=== PATIENT | male | born 1930 | race Hispanic/Latino ===

== ENCOUNTER 2016-12-20 22:14 | Emergency (ER) | payer MEDICARE ==
--- NOTE | 2016-12-20 23:46 | Emergency Department Report ---
ED General Adult HPI - General Chief complaint: Upper Respiratory Infection Stated complaint: COUGHING UP BLOOD Time Seen by Provider: 12/20/16 23:16 Source: patient, EMS Mode of arrival: Stretcher Limitations: Physical Limitation - History of Present Illness Initial comments: 86-year-old male presents to the emergency department via EMS for evaluation of coughing up blood. Patient states he has been having cough for possible he 4 days. He had a small amount of blood yesterday. Today, reports a lot more blood. She estimates approximately one cup of blood that has been coughed up in total. Blood is described as bright red with occasional dark blood. Patient denies chest pain. He does report sore throat from repeated coughing. He also denies difficulty breathing. There has been no fever. There are no other complaints. -: Gradual, days(s) (1) Location: chest Severity scale (0 -10): 0 Consistency: intermittent Improves with: none Worsens with: none Associated Symptoms: denies other symptoms Treatments Prior to Arrival: none - Related Data Home Medications Medication Instructions Recorded Confirmed Last Taken Aspirin [Adult Low Dose Aspirin EC] 81 mg PO DAILY 06/25/16 06/25/16 06/25/16 Bisacodyl [Dulcolax suppos] 10 mg PO DAILY 06/25/16 06/26/16 Unknown Cholecalciferol Vit D3 [Vitamin D3] 1,000 unit PO QDAY 06/25/16 06/25/16 Docusate Sodium [Move It Along] 100 mg PO BID 06/25/16 06/25/16 Unknown Finasteride [Proscar] 1 tab PO DAILY 06/25/16 06/25/16 06/25/16 Folic Acid [Folvite] 1 mg PO QDAY 06/25/16 06/25/16 06/25/16 HYDROcodone/APAP 5-325 [[place] 1 tab PO Q4H 06/25/16 06/25/16 Unknown 5-325 mg TAB] Metoprolol Tartrate [Lopressor] 50 mg PO BID 06/25/16 06/25/16 06/25/16 Multivitamin Tab [Multiple Vitamin 1 tab PO DAILY 06/25/16 06/25/16 06/25/16 TAB (Theragran)] Polyethylene Glycol 3350 [Miralax 17 gm PO QDAY 06/25/16 06/25/16 Unknown 3350] Pravachol 20 mg PO HS 06/25/16 06/26/16 06/24/16 [place] Xt/Phytosterol #2 1 each PO BID 06/25/16 06/25/16 Unknown [Prostate Sr Softgel] Tamsulosin [Flomax] 0.4 mg PO QDAY 06/25/16 06/25/16 06/25/16 amLODIPine [Norvasc] 5 mg PO DAILY 06/25/16 06/25/16 06/25/16 Previous Rx's Medication Instructions Recorded Last Taken Type Levofloxacin [Levaquin TAB] 500 mg PO QDAY #10 tablet 12/21/16 Unknown Rx Allergies Allergy/AdvReac Type Severity Reaction Status Date / Time Penicillins AdvReac Unknown TOO LONG Unverified 11/21/13 10:36 AGO Sulfa (Sulfonamide AdvReac Unknown TOO LONG Unverified 11/21/13 10:36 Antibiotics) AGO ED Review of Systems ROS: Stated complaint: COUGHING UP BLOOD Other details as noted in HPI Comment: All other systems reviewed and negative ENT: throat pain Respiratory: cough, other (hemoptysis) ED Past Medical Hx - Past Medical History Previous Medical History?: Yes Hx Hypertension: Yes Hx Renal Disease: Yes (Insufficiency) Additional medical history: enlarged prostate, Constipation, Difficult swallowing, Sensitive gag reflex, High cholesterol, CAD, atrial fibrillation - Surgical History Past Surgical History?: Yes Hx Open Heart Surgery: Yes (CABG) Additional Surgical History: Right hip arthroplasty - Family History Family history: no significant - Social History Smoking Status: Former Smoker Substance Use Type: Prescribed, Other - Medications Home Medications: Home Medications Medication Instructions Recorded Confirmed Last Taken Type Aspirin [Adult Low Dose Aspirin EC] 81 mg PO DAILY 06/25/16 06/25/16 06/25/16 History Bisacodyl [Dulcolax suppos] 10 mg PO DAILY 06/25/16 06/26/16 Unknown History Cholecalciferol Vit D3 [Vitamin D3] 1,000 unit PO QDAY 06/25/16 06/25/16 History Docusate Sodium [Move It Along] 100 mg PO BID 06/25/16 06/25/16 Unknown History Finasteride [Proscar] 1 tab PO DAILY 06/25/16 06/25/16 06/25/16 History Folic Acid [Folvite] 1 mg PO QDAY 06/25/16 06/25/16 06/25/16 History HYDROcodone/APAP 5-325 [[place] 1 tab PO Q4H 06/25/16 06/25/16 Unknown History 5-325 mg TAB] Metoprolol Tartrate [Lopressor] 50 mg PO BID 06/25/16 06/25/16 06/25/16 History Multivitamin Tab [Multiple Vitamin 1 tab PO DAILY 06/25/16 06/25/16 06/25/16 History TAB (Theragran)] Polyethylene Glycol 3350 [Miralax 17 gm PO QDAY 06/25/16 06/25/16 Unknown History 3350] Pravachol 20 mg PO HS 06/25/16 06/26/16 06/24/16 History [place] Xt/Phytosterol #2 1 each PO BID 06/25/16 06/25/16 Unknown History [Prostate Sr Softgel] Tamsulosin [Flomax] 0.4 mg PO QDAY 06/25/16 06/25/16 06/25/16 History amLODIPine [Norvasc] 5 mg PO DAILY 06/25/16 06/25/16 06/25/16 History Levofloxacin [Levaquin TAB] 500 mg PO QDAY #10 tablet 12/21/16 Unknown Rx ED Physical Exam - General Limitations: Physical Limitation General appearance: alert, in no apparent distress - Head Head exam: Present: atraumatic, normocephalic - Eye Eye exam: Present: normal appearance, PERRL, EOMI - ENT ENT exam: Present: normal exam, normal orophraynx, mucous membranes moist, other (dried blood noted around the lips) - Neck Neck exam: Present: normal inspection, full ROM. Absent: tenderness - Respiratory Respiratory exam: Present: normal lung sounds bilaterally. Absent: respiratory distress - Cardiovascular Cardiovascular Exam: Present: regular rate, normal rhythm, normal heart sounds - GI/Abdominal GI/Abdominal exam: Present: soft, normal bowel sounds. Absent: distended, tenderness - Extremities Exam Extremities exam: Present: normal inspection, full ROM. Absent: tenderness - Back Exam Back exam: Present: normal inspection, full ROM. Absent: tenderness - Neurological Exam Neurological exam: Present: alert, oriented X3. Absent: motor sensory deficit - Skin Skin exam: Present: warm, dry, intact ED Course Vital Signs 12/20/16 12/20/16 12/20/16 22:23 22:55 23:12 Temperature 100.1 F H 100.1 F H Pulse Rate 105 H 80 80 Respiratory 20 18 Rate Blood Pressure 123/60 126/50 Blood Pressure 126/50 [Left] O2 Sat by Pulse 95 94 94 Oximetry ED Medical Decision Making - Lab Data Result diagrams: 12/20/16 23:42 12/20/16 23:42 - EKG Data -: EKG Interpreted by Me EKG shows normal: axis, QRS complexes, ST-T waves Rate: normal - EKG Data When compared to previous EKG there are: changes noted Interpretation: other (atrial fibrillation, no ischemic changes) - Radiology Data Radiology results: report reviewed, image reviewed interpreted by me: Chest x-ray shows no acute cardiopulmonary abnormality. CT of the chest shows an infiltrate in the left lower lobe. - Medical Decision Making Lab and imaging results reviewed and discussed with the patient. Patient has a CURB-65 score of 2 placing him at moderate risk. Recommendations for treatment at this level call for consideration of inpatient management versus outpatient management with rapid follow-up. These options were discussed with the patient and family. Patient states he would like to go home. He states he will follow up with his acid blower on Wednesday. Patient will be discharged home at this time. - Differential Diagnosis hemoptysis, coagulopathy, bronchitis, pneumonia Critical care attestation.: If time is entered above; I have spent that time in minutes in the direct care of this critically ill patient, excluding procedure time. ED Disposition Clinical Impression: Pneumonia Qualifiers: Pneumonia type: due to unspecified organism Laterality: left Lung location: lower lobe of lung Qualified Code(s): J18.1 - Lobar pneumonia, unspecified organism Disposition: DISCHARGED TO HOME OR SELFCARE Is pt being admited?: No Condition: Stable Instructions: Bacterial Pneumonia (ED) Prescriptions: Levofloxacin [Levaquin TAB] 500 mg PO QDAY #10 tablet Referrals: NELL DURON MD [Staff Physician] - 3-5 Days Time of Disposition: 02:16
[2016-12-21 00:08] LABS: Hematocrit 29.8 % (35.5-45.6); Hemoglobin 9.6 gm/dl (11.8-15.2); Mean Corpuscular HGB Conc 32 % (32-34); Mean Corpuscular Hemoglobin 28 pg (28-32); Mean Corpuscular Volume 86 fl (84-94); Platelet Count 464 K/mm3 (140-440); Red Blood Count 3.46 M/mm3 (3.65-5.03); Red Cell Distribution Width 14.7 % (13.2-15.2); White Blood Count 16.4 K/mm3 (4.5-11.0)
[2016-12-21 00:09] LABS: INR 1.28 (0.87-1.13)
[2016-12-21 00:10] LABS: Partial Thromboplastin Time 36.5 Sec. (24.2-36.6)
[2016-12-21 00:17] LABS: Alanine Aminotransferase 44 units/L (7-56); Albumin 2.8 g/dL (3.9-5); Albumin/Globulin Ratio 0.7 %; Alkaline Phosphatase 136 units/L (35-129); Anion Gap 21 mmol/L; BUN/Creatinine Ratio 21.66; Blood Urea Nitrogen 26 mg/dL (9-20); Calcium 8.4 mg/dL (8.4-10.2); Carbon Dioxide 21 mmol/L (22-30); Chloride 93.8 mmol/L (98-107); Glucose 132 mg/dL (75-100); Potassium 4.3 mmol/L (3.6-5.0); Sodium 131 mmol/L (137-145)
--- NOTE | 2016-12-21 01:40 | XRay Report ---
FINAL REPORT PROCEDURE: CT CHEST WO CON TECHNIQUE: Computerized axial tomography of the chest was performed without contrast material. This study is performed without intravenous contrast and the sensitivity for pathology, including neoplasms, adenopathy, abscess, pulmonary embolism and aortic dissection, is reduced. HISTORY: JULIO, hemoptysis COMPARISON: 06/25/2016 TECHNICAL QUALITY: Satisfactory. FINDINGS: Heart and pericardium: Normal. Thoracic aorta: Moderate atherosclerosis of the aorta. The ascending aorta is slightly prominent measuring 4.3 centimeters.. Pulmonary vasculature: Normal. Lymph nodes: There are numerous enlarged lymph nodes identified throughout the mediastinum the largest measuring 2 centimeters.. Lungs: There is an infiltrate in the left lower lung. Chronic obstructive pulmonary changes with fibrosis is noted. The central airway is patent.. Pleural space: Mild pleural thickening bilateral lower lungs.. Musculoskeletal structures: Mild degenerative changes of the thoracic spine. Multiple sternal wires are present.. Upper abdominal structures: No significant abnormality. IMPRESSION: There is an infiltrate in the left lower lung. Chronic obstructive pulmonary changes with fibrosis. Numerous enlarged lymph nodes identified throughout the mediastinum with the largest measuring up to 2 centimeters. The ascending aorta measures up to 4.3 centimeters. Mild atherosclerosis of the aorta is noted..
[2016-12-21 03:14] VITALS: BP 120/55
== END 2016-12-21 02:50 | disposition home or self-care (01) ==
LOC: ED 22:14
DX: J18.1 Lobar pneumonia, unspecified organism (principal); I10 Essential (primary) hypertension; E78.00 Pure hypercholesterolemia, unspecified; I25.10 Atherosclerotic heart disease of native coronary artery without angina pectoris; Z87.891 Personal history of nicotine dependence; Z88.0 Allergy status to penicillin; Z88.2 Allergy status to sulfonamides; Z79.82 Long term (current) use of aspirin
CPT/HCPCS: 36415; 71010; 71250; 80053; 84484; 85025; 85610; 85730; 93005; 93010

== ENCOUNTER 2017-01-14 15:44 | Inpatient (IN) | payer MEDICARE ==
[2017-01-14 19:36] LABS: Hematocrit 34.6 % (35.5-45.6); Hemoglobin 11.1 gm/dl (11.8-15.2); Mean Corpuscular HGB Conc 32 % (32-34); Mean Corpuscular Hemoglobin 27 pg (28-32); Mean Corpuscular Volume 85 fl (84-94); Platelet Count 395 K/mm3 (140-440); Red Blood Count 4.09 M/mm3 (3.65-5.03); Red Cell Distribution Width 15.8 % (13.2-15.2); White Blood Count 18.2 K/mm3 (4.5-11.0)
[2017-01-14 19:58] LABS: Alanine Aminotransferase 9 units/L (7-56); Albumin 3.2 g/dL (3.9-5); Albumin/Globulin Ratio 0.7 %; Alkaline Phosphatase 91 units/L (35-129); Anion Gap 19 mmol/L; Blood Urea Nitrogen 22 mg/dL (9-20); Calcium 8.5 mg/dL (8.4-10.2); Carbon Dioxide 24 mmol/L (22-30); Glucose 95 mg/dL (75-100); Potassium 4.1 mmol/L (3.6-5.0); Sodium 135 mmol/L (137-145); Total Protein 7.9 g/dL (6.3-8.2)
[2017-01-14 20:13] LABS: Basophils % (Manual) 0 % (0.0-1.8); Blastocytes % (Manual) 0 %
[2017-01-14 20:14] LABS: Anisocytosis Few; Diff Status Complete; Eosinophils % (Manual) 0 % (0.0-4.3)
--- NOTE | 2017-01-14 21:26 | XRay Report ---
FINAL REPORT EXAM: XR RIBS UNI W PA CHEST 3 LT HISTORY: Pain in left rib area TECHNIQUE: PA view of the chest and 4 views of the left ribs PRIORS: CXR and left rib films 06/25/2016 FINDINGS: There is no evidence for acute rib fracture or other bony pathologic abnormality in the left ribs. On the chest film, there is a new moderate left pleural effusion. Underlying atelectasis in the left base cannot be excluded. There is no evidence for pneumothorax.. The cardiomediastinal silhouette is normal and stable. Median sternotomy wires are again noted. IMPRESSION: No acute abnormality in the left ribs. New moderate left pleural effusion and probable underlying atelectasis in the left base.
[2017-01-15] MEDS ORDERED: CLEOCIN 900 MG/50 mL 900 MG/50 ML BAG IV ONE (00:08)
[2017-01-15] MEDS ORDERED: VANCOMYCIN/NS 1 GM/250 ML 1 GM/250 ML BAG IV ONE (00:08)
[2017-01-15] MEDS ORDERED: MORPHINE IV ONE (00:12)
[2017-01-15] MEDS ORDERED: ZOFRAN IV ONE (00:12)
--- NOTE | 2017-01-15 00:14 | Emergency Department Report ---
HPI - General Chief Complaint: Extremity Injury, Upper Time Seen by Provider: 01/14/17 23:54 - HPI HPI: Room 22 The patient is an 86-year-old male presenting with chief complaint of left side pain. Approximately one month ago the patient was seen in this ED for hemoptysis and diagnosed with left lower lobe pneumonia. The patient was started on Levaquin and given a 10 day course which she states she completed. The patient's still however has had a cough that is occasionally productive of clear sputum. Patient denies fever. The patient states this morning he developed pain in his left side and describes it as "hurting" in nature. Patient complains of pain in the left axilla gives it a score of 8/10. Location: Left axilla Duration: 1 day Quality: "Hurt" Severity: 8/10 Modifying factors: [see above] Context: [see above] Mode of transportation: [not driving] ED Past Medical Hx - Past Medical History Previous Medical History?: Yes Hx Hypertension: Yes Hx Renal Disease: Yes (Insufficiency) Additional medical history: enlarged prostate, Constipation, Difficult swallowing, Sensitive gag reflex, High cholesterol, CAD, atrial fibrillation - Surgical History Past Surgical History?: Yes Hx Open Heart Surgery: Yes (CABG) Additional Surgical History: Right hip arthroplasty - Family History Family history: no significant - Social History Smoking Status: Never Smoker Substance Use Type: None - Medications Home Medications: Home Medications Medication Instructions Recorded Confirmed Last Taken Type Aspirin [Adult Low Dose Aspirin EC] 81 mg PO DAILY 06/25/16 01/14/17 01/14/17 History Finasteride [Proscar] 1 tab PO DAILY 06/25/16 01/14/17 01/14/17 History Folic Acid [Folvite] 1 mg PO QDAY 06/25/16 01/14/17 01/14/17 History Metoprolol Tartrate [Lopressor] 50 mg PO BID 06/25/16 01/14/17 01/14/17 History Multivitamin Tab [Multiple Vitamin 1 tab PO DAILY 06/25/16 01/14/17 01/14/17 History TAB (Theragran)] Pravachol 20 mg PO HS 06/25/16 01/14/17 01/14/17 History Tamsulosin [Flomax] 0.4 mg PO QDAY 06/25/16 01/14/17 01/14/17 History amLODIPine [Norvasc] 5 mg PO DAILY 06/25/16 01/14/17 01/14/17 History ED Review of Systems ROS: Stated complaint: RIB/SHOULDER PAIN Other details as noted in HPI Comment: All other systems reviewed and negative Constitutional: denies: fever Eyes: denies: eye pain, eye discharge, vision change ENT: denies: ear pain, throat pain Respiratory: cough Cardiovascular: denies: chest pain Endocrine: no symptoms reported Gastrointestinal: as per HPI Genitourinary: denies: urgency, dysuria Musculoskeletal: myalgia Skin: denies: rash, lesions Neurological: as per HPI Psychiatric: denies: anxiety, depression Hematological/Lymphatic: denies: easy bleeding, easy bruising Physical Exam - Physical Exam Vital Signs: Vital Signs 01/14/17 01/14/17 01/14/17 18:28 22:15 22:16 Temperature 98.4 F 99.2 F Pulse Rate 91 H 105 H 100 H Respiratory 20 25 H 32 H Rate Blood Pressure 105/45 Blood Pressure 146/59 [Right] O2 Sat by Pulse 100 99 Oximetry 01/14/17 01/14/17 01/14/17 22:21 22:31 22:41 Temperature Pulse Rate 102 H 102 H 100 H Respiratory 26 H 30 H 24 Rate Blood Pressure 146/59 146/59 146/59 Blood Pressure [Right] O2 Sat by Pulse 95 95 94 Oximetry 01/14/17 01/14/17 22:51 23:00 Temperature Pulse Rate 103 H 99 H Respiratory 30 H 24 Rate Blood Pressure 146/59 126/48 Blood Pressure [Right] O2 Sat by Pulse 94 94 Oximetry Physical Exam: GENERAL: The patient is well-developed well-nourished male lying on stretcher not appear to be in acute distress. [] HEENT: Normocephalic. Atraumatic. Extraocular motions are intact. Patient has moist mucous membranes. NECK: Supple. Trachea midline CHEST/LUNGS: Decreased breath sounds left lower lobe. There is no respiratory distress noted. HEART/CARDIOVASCULAR: Irregularly irregular. There is no tachycardia. There is no gallop rub or murmur. ABDOMEN: Abdomen is soft, nontender. Patient has normal bowel sounds. There is no abdominal distention. SKIN: There is no rash. There is no edema. There is no diaphoresis. NEURO: The patient is awake, alert, and oriented. The patient is cooperative. The patient has normal speech MUSCULOSKELETAL: There is no evidence of acute injury. ED Course Vital Signs 01/14/17 01/14/17 01/14/17 18:28 22:15 22:16 Temperature 98.4 F 99.2 F Pulse Rate 91 H 105 H 100 H Respiratory 20 25 H 32 H Rate Blood Pressure 105/45 Blood Pressure 146/59 [Right] O2 Sat by Pulse 100 99 Oximetry 01/14/17 01/14/17 01/14/17 22:21 22:31 22:41 Temperature Pulse Rate 102 H 102 H 100 H Respiratory 26 H 30 H 24 Rate Blood Pressure 146/59 146/59 146/59 Blood Pressure [Right] O2 Sat by Pulse 95 95 94 Oximetry 01/14/17 01/14/17 22:51 23:00 Temperature Pulse Rate 103 H 99 H Respiratory 30 H 24 Rate Blood Pressure 146/59 126/48 Blood Pressure [Right] O2 Sat by Pulse 94 94 Oximetry ED Medical Decision Making - Lab Data Result diagrams: 01/14/17 19:18 01/14/17 19:18 Laboratory Tests 01/14/17 01/14/17 19:18 19:18 WBC 18.2 H RBC 4.09 Hgb 11.1 L Hct 34.6 L MCV 85 MCH 27 L MCHC 32 RDW 15.8 H Plt Count 395 Add Manual Diff Complete Total Counted 100 Seg Neuts % (Manual) 83.0 H Band Neutrophils % 4.0 Lymphocytes % (Manual) 3.0 L Reactive Lymphs % (Man) 0 Monocytes % (Manual) 10.0 H Eosinophils % (Manual) 0 Basophils % (Manual) 0 Metamyelocytes % 0 Myelocytes % 0 Promyelocytes % 0 Blast Cells % 0 Nucleated RBC % Not Reportable Seg Neutrophils # Man 15.1 H Band Neutrophils # 0.7 Lymphocytes # (Manual) 0.5 L Abs React Lymphs (Man) 0.0 Monocytes # (Manual) 1.8 H Eosinophils # (Manual) 0.0 Basophils # (Manual) 0.0 Metamyelocytes # 0.0 Myelocytes # 0.0 Promyelocytes # 0.0 Blast Cells # 0.0 WBC Morphology Not Reportable Hypersegmented Neuts Not Reportable Hyposegmented Neuts Not Reportable Hypogranular Neuts Not Reportable Smudge Cells Not Reportable Toxic Granulation Not Reportable Toxic Vacuolation Not Reportable Dohle Bodies Not Reportable Pelger-Huet Anomaly Not Reportable Lore Rods Not Reportable Platelet Estimate Appears normal Clumped Platelets Not Reportable Plt Clumps, EDTA Not Reportable Large Platelets Not Reportable Giant Platelets Not Reportable Platelet Satelliting Not Reportable Plt Morphology Comment Not Reportable RBC Morphology Not Reportable Dimorphic RBCs Not Reportable Polychromasia Not Reportable Hypochromasia Not Reportable Poikilocytosis Not Reportable Anisocytosis Few Microcytosis Not Reportable Macrocytosis Not Reportable Spherocytes Not Reportable Pappenheimer Bodies Not Reportable Sickle Cells Not Reportable Target Cells Not Reportable Tear Drop Cells Not Reportable Ovalocytes Not Reportable Helmet Cells Not Reportable [place] Bodies Not Reportable [place] Rings Not Reportable Benjamin Cells Not Reportable Bite Cells Not Reportable Crenated Cell Not Reportable Elliptocytes Not Reportable Acanthocytes (Spur) Not Reportable Rouleaux Not Reportable Hemoglobin C Crystals Not Reportable Schistocytes Not Reportable Malaria parasites Not Reportable Steve Bodies Not Reportable Hem Pathologist Commnt No Sodium 135 L Potassium 4.1 Chloride 96.0 L Carbon Dioxide 24 Anion Gap 19 BUN 22 H Creatinine 1.1 Estimated GFR > 60 BUN/Creatinine Ratio 20.00 Glucose 95 Calcium 8.5 Total Bilirubin 0.60 AST 16 ALT 9 Alkaline Phosphatase 91 Total Protein 7.9 Albumin 3.2 L Albumin/Globulin Ratio 0.7 - EKG Data -: EKG Interpreted by Me Rate: tachycardia (110 bpm) - EKG Data When compared to previous EKG there are: no significant change 01/15/17 00:41 Atrial fibrillation - Radiology Data Radiology results: image reviewed (chest x-ray) interpreted by me: Chest x-ray-left lower lobe pleural effusion/consolidation - Differential Diagnosis pneumonia, pleural effusion Critical care attestation.: If time is entered above; I have spent that time in minutes in the direct care of this critically ill patient, excluding procedure time. ED Disposition Clinical Impression: Left lower lobe pneumonia, Pleural effusion, left, Failure of outpatient treatment Disposition: OP ADMIT IP TO THIS HOSP Is pt being admited?: Yes Does the pt Need Aspirin: Yes Condition: Fair Instructions: Bacterial Pneumonia (ED) Referrals: PRIMARY CARE, [Primary Care Provider] - 3-5 Days Time of Disposition: 00:16 (hospitalist notified)
[2017-01-15] MEDS ORDERED: ASPIRIN PO ONE (00:17)
--- NOTE | 2017-01-15 00:22 | History and Physical Report ---
History of Present Illness Date of examination: 01/15/17 Date of admission: Chief complaint: Left-sided pain and cough History of present illness: Patient is 86-year-old with history of hypertension, coronary artery disease and CABG, recent pneumonia. He was recentyly diagnosed with pneumonia on 12/20/16 , and was placed on Levaquin po and discharged home from ED. He completed 10 days of Levaquin. Today presents with left lower chest pain and cough. He denies fever. He therefore came to the emergency department for evaluation. In ED chest x-ray showed left pleural effusion. He was started on IV antibiotics for likely pneumonia with parapneumonic effusion, and will be admitted to medical floor. Past History Past Medical History: CAD (s/p CABG), hypertension Past Surgical History: CABG, total hip replacement (right) Social history: lives with family, full code. denies: smoking, alcohol abuse Family history: hypertension Medications and Allergies Allergies Allergy/AdvReac Type Severity Reaction Status Date / Time Penicillins AdvReac Unknown TOO LONG Unverified 11/21/13 10:36 AGO Sulfa (Sulfonamide AdvReac Unknown TOO LONG Unverified 11/21/13 10:36 Antibiotics) AGO Home Medications Medication Instructions Recorded Confirmed Last Taken Type Aspirin [Adult Low Dose Aspirin EC] 81 mg PO DAILY 06/25/16 01/14/17 01/14/17 History Finasteride [Proscar] 1 tab PO DAILY 06/25/16 01/14/17 01/14/17 History Folic Acid [Folvite] 1 mg PO QDAY 06/25/16 01/14/17 01/14/17 History Metoprolol Tartrate [Lopressor] 50 mg PO BID 06/25/16 01/14/17 01/14/17 History Multivitamin Tab [Multiple Vitamin 1 tab PO DAILY 06/25/16 01/14/17 01/14/17 History TAB (Theragran)] Pravachol 20 mg PO HS 06/25/16 01/14/17 01/14/17 History Tamsulosin [Flomax] 0.4 mg PO QDAY 06/25/16 01/14/17 01/14/17 History amLODIPine [Norvasc] 5 mg PO DAILY 06/25/16 01/14/17 01/14/17 History Active Meds: Active Medications Clindamycin HCl (Cleocin 900 Mg/50 Ml) 900 mg in 50 mls @ 100 mls/hr IV ONCE ONE Stop: 01/15/17 00:37 Vancomycin HCl (Vancomycin/Ns 1 Gm/250 Ml) 1 gm in 250 mls @ 167.007 mls/hr IV ONCE ONE PRN Reason: Protocol Stop: 01/15/17 01:37 Review of Systems All systems: negative (headache, no vomiting, no fever, no abdominal pain. All other systems reviewed and are negative) Exam - Physical Exam Narrative exam: General appearance: not in acute distress, HEENT: normocephalic, atraumatic Neck : supple, no JVD Lungs: decreased breath sounds left base, no crackles, no wheezes Heart :S1 and S2 regular, no murmurs, no gallop Abdomen: soft, non-tender, non-distended, normal bowel sounds Extremities: No edema clubbing or cyanosis. Neuro : awake, alert, oriented x 3. Normal speech. No focal neurological signs Psych:normal mood - Constitutional Vitals: Temp Pulse Resp BP Pulse Ox 99.2 F 99 H 24 126/48 94 01/14/17 22:15 01/14/17 23:00 01/14/17 23:00 01/14/17 23:00 01/14/17 23:00 Results - Labs CBC & Chem 7: 01/14/17 19:18 01/14/17 19:18 Labs: Abnormal lab results 01/14/17 01/14/17 Range/Units 19:18 19:18 WBC 18.2 H (4.5-11.0) K/mm3 Hgb 11.1 L (11.8-15.2) gm/dl Hct 34.6 L (35.5-45.6) % MCH 27 L (28-32) pg RDW 15.8 H (13.2-15.2) % Seg Neuts % (Manual) 83.0 H (40.0-70.0) % Lymphocytes % (Manual) 3.0 L (13.4-35.0) % Monocytes % (Manual) 10.0 H (0.0-7.3) % Seg Neutrophils # Man 15.1 H (1.8-7.7) K/mm3 Lymphocytes # (Manual) 0.5 L (1.2-5.4) K/mm3 Monocytes # (Manual) 1.8 H (0.0-0.8) K/mm3 Sodium 135 L (137-145) mmol/L Chloride 96.0 L (98-107) mmol/L BUN 22 H (9-20) mg/dL Albumin 3.2 L (3.9-5) g/dL Assessment and Plan Pneumonia left lower lobe with parapneumonic effusion. Admit to medical floor. Patient is allergic to penicillin and just completed Levaquin. Will start Clindamycin and Vancomycin iv. blood cultures drawn. Obtain sputum culture. consult Pulmonology. Left pleural effusion secondary likely secondary to pneumonia. Started on IV antibiotics. Consult pulmonology Hypertension. Pressure stable Coronary artery disease. stable. Continue Aspirin and Lopressor. BPH. On Proscar and Flomax DVT prophylaxis with SCDs only. No anticoagulation given in case he needs thoracentesis Full CODE STATUS
[2017-01-15] MEDS ORDERED: MORPHINE ONE (00:39)
[2017-01-15 00:40] LABS: Creatine Kinase 50 units/L (55-170); Creatine Kinase MB 1.5 ng/mL (0.0-4.0)
[2017-01-15] MEDS ORDERED: DULCOLAX PR PRN (01:53)
[2017-01-15] MEDS ORDERED: ZOFRAN IV PRN (01:53)
[2017-01-15] MEDS ORDERED: TYLENOL PO PRN (01:53)
[2017-01-15] MEDS: LOPRESSOR PO SCH ×3 (02:10→22:43)
[2017-01-15] MEDS ORDERED: VANCOMYCIN PHARMACY TO DOSE IV SCH (05:00)
[2017-01-15 06:51] LABS: Hematocrit 30.3 % (35.5-45.6); Hemoglobin 9.7 gm/dl (11.8-15.2); Mean Corpuscular HGB Conc 32 % (32-34); Mean Corpuscular Hemoglobin 27 pg (28-32); Mean Corpuscular Volume 85 fl (84-94); Red Blood Count 3.55 M/mm3 (3.65-5.03); Red Cell Distribution Width 16.2 % (13.2-15.2)
[2017-01-15 06:59] LABS: Platelet Count 322 K/mm3 (140-440); White Blood Count 28.5 K/mm3 (4.5-11.0)
[2017-01-15 07:02] LABS: Anion Gap 19 mmol/L; BUN/Creatinine Ratio 21.66; Blood Urea Nitrogen 26 mg/dL (9-20); Calcium 8.2 mg/dL (8.4-10.2); Carbon Dioxide 22 mmol/L (22-30); Chloride 97.6 mmol/L (98-107); Glucose 85 mg/dL (75-100); Potassium 4.7 mmol/L (3.6-5.0); Sodium 134 mmol/L (137-145)
[2017-01-15] MEDS: FLOMAX PO SCH (09:17)
[2017-01-15] MEDS: CLEOCIN 600 MG/50 mL 600 MG/50 ML BAG IV SCH ×2 (09:17→18:28)
[2017-01-15] MEDS: HALFPRIN EC PO SCH (09:17)
[2017-01-15] MEDS: THERAGRAN Tab PO SCH (09:17)
[2017-01-15] MEDS: NORVASC PO SCH (09:18)
[2017-01-15] MEDS: PROSCAR PO SCH (09:18)
[2017-01-15] MEDS: FOLVITE PO SCH (09:22)
--- NOTE | 2017-01-15 10:49 | Consultation ---
History of Present Illness Consult date: 01/15/17 Requesting physician: DERRICK RICARDO Reason for consult: pleural effusion, abnormal CXR/CT History of present illness: 86 y/o male with syncope, found to have left sided pleural effusion. Appears that patient was seen in the ED at the END of November secondary to JULIO and Hemoptysis. CT scan was done which showed left lower lobe infiltrate and small pleural effusion. No studies done at that time. Need to review ED note. Patient is very concerned about his who was recently diagnosed with cancer. Apparently she has a procedure on Wednesday that he would like to be present for. Past History Past Medical History: CAD (s/p CABG), hypertension Past Surgical History: CABG, total hip replacement (right) Social history: lives with family, full code. denies: smoking, alcohol abuse Family history: hypertension Medications and Allergies Allergies Allergy/AdvReac Type Severity Reaction Status Date / Time Penicillins AdvReac Unknown TOO LONG Unverified 11/21/13 10:36 AGO Sulfa (Sulfonamide AdvReac Unknown TOO LONG Unverified 11/21/13 10:36 Antibiotics) AGO Home Medications Medication Instructions Recorded Confirmed Last Taken Type Aspirin [Adult Low Dose Aspirin EC] 81 mg PO DAILY 06/25/16 01/14/17 01/14/17 History Finasteride [Proscar] 1 tab PO DAILY 06/25/16 01/14/17 01/14/17 History Folic Acid [Folvite] 1 mg PO QDAY 06/25/16 01/14/17 01/14/17 History Metoprolol Tartrate [Lopressor] 50 mg PO BID 06/25/16 01/14/17 01/14/17 History Multivitamin Tab [Multiple Vitamin 1 tab PO DAILY 06/25/16 01/14/17 01/14/17 History TAB (Theragran)] Pravachol 20 mg PO HS 06/25/16 01/14/17 01/14/17 History Tamsulosin [Flomax] 0.4 mg PO QDAY 06/25/16 01/14/17 01/14/17 History amLODIPine [Norvasc] 5 mg PO DAILY 06/25/16 01/14/17 01/14/17 History Active Meds: Active Medications Acetaminophen (Tylenol) 650 mg PO Q4H PRN PRN Reason: Pain MILD(1-3)/Fever >100.5/WERNER Amlodipine Besylate (Norvasc) 5 mg PO DAILY [facility] Last Admin: 01/15/17 09:18 Dose: Not Given Aspirin (Halfprin Ec) 81 mg PO DAILY [facility] Last Admin: 01/15/17 09:17 Dose: 81 mg Bisacodyl (Dulcolax) 10 mg MA QDAY PRN PRN Reason: Constipation unrelieved by MOM Finasteride (Proscar) 5 mg PO DAILY [facility] Last Admin: 01/15/17 09:18 Dose: 5 mg Folic Acid (Folvite) 1 mg PO QDAY [facility] Last Admin: 01/15/17 09:22 Dose: 1 mg Clindamycin HCl (Cleocin 600 Mg/50 Ml) 600 mg in 50 mls @ 100 mls/hr IV Q8H [facility] PRN Reason: Protocol Last Admin: 01/15/17 09:17 Dose: 100 mls/hr Vancomycin HCl (Vancomycin/Ns 1 Gm/250 Ml) 1 gm in 250 mls @ 166.667 mls/hr IV Q24H [facility] Magnesium Hydroxide (Milk Of Magnesia) 30 ml PO Q4H PRN PRN Reason: Constipation Metoprolol Tartrate (Lopressor) 50 mg PO BID [facility] Last Admin: 01/15/17 09:19 Dose: Not Given Morphine Sulfate (Morphine) 2 mg IV Q4H PRN PRN Reason: Pain, Moderate (4-6) Multivitamins (Theragran Tab) 1 each PO DAILY [facility] Last Admin: 01/15/17 09:17 Dose: 1 each Ondansetron HCl (Zofran) 4 mg IV Q6H PRN PRN Reason: nausea or vomiting Pseudoephedrine/Acetam/Chlorphenir (Robitussin Ac) 10 ml PO Q4H PRN PRN Reason: Cough Simvastatin (Zocor) 10 mg PO QHS [facility] Tamsulosin HCl (Flomax) 0.4 mg PO QDAY [facility] Last Admin: 01/15/17 09:17 Dose: 0.4 mg Vancomycin HCl (Vancomycin Pharmacy To Dose) 1 each IV PKCONSULT [facility] PRN Reason: Protocol Review of Systems All systems: negative Constitutional: other (pain on left side) Physical Examination Vital signs: Vital Signs Temp Pulse Resp BP Pulse Ox 98.4 F 91 H 20 105/45 100 01/14/17 18:28 01/14/17 18:28 01/14/17 18:28 01/14/17 18:28 01/14/17 18:28 General appearance: no acute distress, alert, appears uncomfortable Eyes: non-icteric ENT: other (poor dentition) Effort: normal Ascultation: Left: diminished breath sounds (left base) Percussion: Left: dull (base) Cardiovascular: regular rate and rhythm Gastrointestinal: normoactive bowel sounds, soft, non-tender Results - Laboratory Findings CBC and BMP: 01/16/17 04:54 01/16/17 04:54 Abnormal lab findings: Abnormal Labs 01/15/17 01/15/17 06:20 06:20 WBC 28.5 H RBC 3.55 L Hgb 9.7 L Hct 30.3 L MCH 27 L RDW 16.2 H Sodium 134 L Chloride 97.6 L BUN 26 H Calcium 8.2 L - Diagnostic Findings Chest x-ray: image reviewed (as stated ih HPI) Assessment and Plan 86 y/o male with left sided pleural effusion. 1. Needs thorac, consulted IR, but understaffed today. 2. Used my US to evalature space. Consistency of fluid appears thicker with some inflammatory cells and likely sediment present. Good targets for draining but patient is hesitant. Explained the risks and benefits and patient wishes to wait right now.
--- NOTE | 2017-01-15 10:56 | Admit Criteria Form ---
Admission Criteria Documentation: PNEUMONIA, COMMUNITY ACQUIRED Clinical Indications for Admission to Inpatient Care ( Place 'X' for any and all applicable criteria): Admission is indicated for ANY ONE of the following (1)(2)(3): [ ]I. Hypoxemia indicated by ANY ONE of the following: [ ]a) Oxygen saturation less than 90% while breathing room air [ ]b) PO2 less than 60 mm Hg (8.0 kPa) while breathing room air [ ]c) Chronic lung disease with significant deterioration from baseline oxygenation [ ]II. Appropriate diagnostic testing and treatment unavailable in outpatient or recovery facility (eg,testing or infection control measures unavailable(10) [ ]III. Moderate-risk or high-risk category patients (Pneumonia Severity Index (PSI) class IV or V, or CURB-65 score of 3 or greater). [ ]IV. Outpatient treatment failure as indicated by ANY ONE of the following(9) : [ ]a) Failure to respond to antibiotic (eg, resistant organism) [ ]b) Clinically significant adverse effects from medication (eg, vomiting) [ ]c) Complications of pneumonia (eg, empyema, bacteremia) [ ]d) Significant worsening of comorbid cond necessitating inpatient care (eg, chronic heart failure) [ ]V. Intermediate-risk category patients (eg, PSI class III or CURB-65 score 2) who do not improve with initial therapy and observation. [ ]. Immunocompromised patients (eg, AIDS, chronic steroid use) at moderate or high risk based on clinical evaluation. [X]VII. Complicated pleural effusions (eg, exudative, loculated) [ ]VIII.Hemodynamic instability [ ] IX. Altered mental status that is severe or persistent. [ ]X. Dehydration that is severe or persistent. [ ]XI. Bacteremia [ ]XII. Respiratory finding (eg. tachypnea) that do not respond to outpatient or observation care treatment Extended stay beyond goal length of stay may be needed for (20) [ ]a) Unclear diagnosis [ ]b) Pleural disease [ ]c) Severe pneumonia or treatment failure (25 [ ]d) Respiratory failure (anticipate invasive or noninvasive ventilatory support) [ ]e) Abnormal serum electrolytes (serum Na concentration less than 135 mEq/L (mmol/L) (32)(33) [ ]f) Clinically significant comorbid illness (eg, heart failure, atrial fibrillation with rapid heart rate, alcohol withdrawal, renal insufficiency)(34)(35) [ ]g) Comorbid acute exacerbation of COPD(36) [ ]h) Concomitant diagnosis of malignancy that may be associated with malnutrition, immunologic impairment, or bronchial obstruction. [ ]i) Concomitant altered mental status [ ]j) Culture-identified Gram-negative or antibiotic-resistant organism (eg, Pseudomonas, methicillin-resistant Staphylococcus aureus)(30) [ ]k) Healthcare-associated pneumonia The original [employer] content created by [employer] has been revised. The portions of the content which have been revised are identified through the use of italic text or in bold, and [facility] has neither reviewed nor approved the modified material. All other unmodified content is copyright [employer]. Please see references footnoted in the original [email or web address] edition 2016 Admission Criteria Met: Yes
[2017-01-15 12:49] LABS: INR 1.32 (0.87-1.13)
[2017-01-15 12:50] LABS: Partial Thromboplastin Time 38.4 Sec. (24.2-36.6)
--- NOTE | 2017-01-15 12:56 | Event Note ---
Date: 01/15/17 86 year old male with possible left parapneumonic effusion vs empyema. Discussed with Dr. Mendez. If purulent identified, he will contact me for possible pigtail chest tube placement.
--- NOTE | 2017-01-15 17:42 | Event Note ---
Date: 01/15/17 Patient was seen and evaluated this morning, she has pain of the left lower chest. He is admitted for left-sided pleural effusion with left-sided infiltrates. He is on IV antibiotics and pulmonary was consulted with possible thoracentesis.
[2017-01-15] MEDS ORDERED: PRAVACHOL 20 MG PO SCH (22:00)
[2017-01-15] MEDS: ZOCOR PO SCH (22:42)
[2017-01-15] MEDS: MORPHINE IV PRN (22:43)
[2017-01-15] MEDS ORDERED: D5NS 1,000 ML IV SCH (23:00)
[2017-01-16] MEDS: CLEOCIN 600 MG/50 mL 600 MG/50 ML BAG IV SCH ×3 (01:27→17:03)
[2017-01-16] MEDS ORDERED: VANCOMYCIN/NS 1 GM/250 ML 1 GM/250 ML BAG IV SCH (02:00)
[2017-01-16 05:42] LABS: Hematocrit 31.8 % (35.5-45.6); Mean Corpuscular HGB Conc 32 % (32-34); Mean Corpuscular Hemoglobin 27 pg (28-32); Mean Corpuscular Volume 87 fl (84-94); Platelet Count 383 K/mm3 (140-440); Red Blood Count 3.66 M/mm3 (3.65-5.03); Red Cell Distribution Width 16.2 % (13.2-15.2)
[2017-01-16 05:48] LABS: White Blood Count 24.9 K/mm3 (4.5-11.0)
[2017-01-16 05:57] LABS: BUN/Creatinine Ratio 20.71; Calcium 8.3 mg/dL (8.4-10.2); Chloride 95.2 mmol/L (98-107); Potassium 4.7 mmol/L (3.6-5.0)
[2017-01-16 08:29] LABS: Basophils % (Manual) 0 % (0.0-1.8); Blastocytes % (Manual) 0 %; Eosinophils % (Manual) 0 % (0.0-4.3)
[2017-01-16 08:30] LABS: Anisocytosis 1+; Diff Status Complete; Hypochromasia 1+; Ovalocytes Few
[2017-01-16] MEDS: HALFPRIN EC PO SCH (12:46)
[2017-01-16] MEDS: FLOMAX PO SCH (12:46)
[2017-01-16] MEDS: THERAGRAN Tab PO SCH (12:47)
[2017-01-16] MEDS: PROSCAR PO SCH (12:47)
[2017-01-16] MEDS: FOLVITE PO SCH (12:47)
[2017-01-16] MEDS: LOPRESSOR PO SCH ×2 (12:47→22:59)
[2017-01-16] MEDS: NORVASC PO SCH (12:48)
[2017-01-16] MEDS: ROBITUSSIN AC PO PRN ×2 (12:49→19:05)
--- NOTE | 2017-01-16 15:35 | Progress Note ---
Assessment and Plan Assessment and plan: Patient is 86-year-old with history of hypertension, coronary artery disease and CABG, recent pneumonia. He was recentyly diagnosed with pneumonia on 12/20/16 , and was placed on Levaquin po and discharged home from ED. He completed 10 days of Levaquin. Currently he presents with left lower chest pain and cough. Left lower lobe pneumonia with parapneumonic effusion - Continue IV antibiotics - Pulmonary consult is placed - Patint needs thoracentesis , and will be assessed for placement of chest tube Hypertension Stable BPH on Flomax CAD stable continue aspirin and Naprosyn DVT prophylaxis SCD Will place on chemical prophylaxis after thoracentesis is done CODE STATUS full Disposition Continue inpatient care. History Interval history: Patient was seen and evaluated this morning, he is complaining left lower chest pain. Hospitalist Physical - Physical exam Narrative exam: Not in cardiopulmonary distress. The patient appeared well nourished and normally developed. Vital signs as documented. Head exam is unremarkable. No scleral icterus . Neck is without jugular venous distension, thyromegaly, or carotid bruits. Lungs decreased air entry and dullness on the left lower lung zone. Cardiac exam reveals regular rate and Rhythm. First and second heart sounds normal. No murmurs, rubs or gallops. Abdominal exam reveals normal bowel sounds, no masses, no organomegaly and no aortic enlargement. Extremities are nonedematous and both femoral and pedal pulses are normal. STONE [place]ON: Alert and oriented 3. No focal weakness. - Constitutional Vitals: Temp Pulse Resp BP Pulse Ox 98.9 F 89 20 135/53 95 01/16/17 09:08 01/16/17 12:48 01/16/17 10:00 01/16/17 12:48 01/15/17 20:04 Results - Labs CBC & Chem 7: 01/16/17 04:54 01/16/17 04:54 Labs: Laboratory Last Values WBC 24.9 K/mm3 (4.5-11.0) H 01/16/17 04:54 RBC 3.66 M/mm3 (3.65-5.03) 01/16/17 04:54 Hgb 10.0 gm/dl (11.8-15.2) L 01/16/17 04:54 Hct 31.8 % (35.5-45.6) L 01/16/17 04:54 MCV 87 fl (84-94) 01/16/17 04:54 MCH 27 pg (28-32) L 01/16/17 04:54 MCHC 32 % (32-34) 01/16/17 04:54 RDW 16.2 % (13.2-15.2) H 01/16/17 04:54 Plt Count 383 K/mm3 (140-440) 01/16/17 04:54 Add Manual Diff Complete 01/16/17 04:54 Total Counted 100 01/16/17 04:54 Seg Neuts % (Manual) 37.0 % (40.0-70.0) L 01/16/17 04:54 Band Neutrophils % 37.0 % 01/16/17 04:54 Lymphocytes % (Manual) 12.0 % (13.4-35.0) L 01/16/17 04:54 Reactive Lymphs % (Man) 0 % 01/16/17 04:54 Monocytes % (Manual) 10.0 % (0.0-7.3) H 01/16/17 04:54 Eosinophils % (Manual) 0 % (0.0-4.3) 01/16/17 04:54 Basophils % (Manual) 0 % (0.0-1.8) 01/16/17 04:54 Metamyelocytes % 4.0 % 01/16/17 04:54 Myelocytes % 0 % 01/16/17 04:54 Promyelocytes % 0 % 01/16/17 04:54 Blast Cells % 0 % 01/16/17 04:54 Nucleated RBC % Not Reportable 01/16/17 04:54 Seg Neutrophils # Man 9.2 K/mm3 (1.8-7.7) H 01/16/17 04:54 Band Neutrophils # 9.2 K/mm3 01/16/17 04:54 Lymphocytes # (Manual) 3.0 K/mm3 (1.2-5.4) 01/16/17 04:54 Abs React Lymphs (Man) 0.0 K/mm3 01/16/17 04:54 Monocytes # (Manual) 2.5 K/mm3 (0.0-0.8) H 01/16/17 04:54 Eosinophils # (Manual) 0.0 K/mm3 (0.0-0.4) 01/16/17 04:54 Basophils # (Manual) 0.0 K/mm3 (0.0-0.1) 01/16/17 04:54 Metamyelocytes # 1.0 K/mm3 01/16/17 04:54 Myelocytes # 0.0 K/mm3 01/16/17 04:54 Promyelocytes # 0.0 K/mm3 01/16/17 04:54 Blast Cells # 0.0 K/mm3 01/16/17 04:54 WBC Morphology Not Reportable 01/16/17 04:54 Hypersegmented Neuts Not Reportable 01/16/17 04:54 Hyposegmented Neuts Not Reportable 01/16/17 04:54 Hypogranular Neuts Not Reportable 01/16/17 04:54 Smudge Cells Not Reportable 01/16/17 04:54 Toxic Granulation Not Reportable 01/16/17 04:54 Toxic Vacuolation Not Reportable 01/16/17 04:54 Dohle Bodies Not Reportable 01/16/17 04:54 Pelger-Huet Anomaly Not Reportable 01/16/17 04:54 Lore Rods Not Reportable 01/16/17 04:54 Platelet Estimate Appears normal 01/16/17 04:54 Clumped Platelets Not Reportable 01/16/17 04:54 Plt Clumps, EDTA Not Reportable 01/16/17 04:54 Large Platelets Not Reportable 01/16/17 04:54 Giant Platelets Not Reportable 01/16/17 04:54 Platelet Satelliting Not Reportable 01/16/17 04:54 Plt Morphology Comment Not Reportable 01/16/17 04:54 RBC Morphology Not Reportable 01/16/17 04:54 Dimorphic RBCs Not Reportable 01/16/17 04:54 Polychromasia Not Reportable 01/16/17 04:54 Hypochromasia 1+ 01/16/17 04:54 Poikilocytosis Not Reportable 01/16/17 04:54 Anisocytosis 1+ 01/16/17 04:54 Microcytosis Not Reportable 01/16/17 04:54 Macrocytosis Not Reportable 01/16/17 04:54 Spherocytes Not Reportable 01/16/17 04:54 Pappenheimer Bodies Not Reportable 01/16/17 04:54 Sickle Cells Not Reportable 01/16/17 04:54 Target Cells Not Reportable 01/16/17 04:54 Tear Drop Cells Not Reportable 01/16/17 04:54 Ovalocytes Few 01/16/17 04:54 Helmet Cells Not Reportable 01/16/17 04:54 [place] Bodies Not Reportable 01/16/17 04:54 [place] Rings Not Reportable 01/16/17 04:54 [place] Cells Not Reportable 01/16/17 04:54 Bite Cells Not Reportable 01/16/17 04:54 Crenated Cell Not Reportable 01/16/17 04:54 Elliptocytes Not Reportable 01/16/17 04:54 Acanthocytes (Spur) Not Reportable 01/16/17 04:54 Rouleaux Not Reportable 01/16/17 04:54 Hemoglobin C Crystals Not Reportable 01/16/17 04:54 Schistocytes Not Reportable 01/16/17 04:54 Malaria parasites Not Reportable 01/16/17 04:54 Steve Bodies Not Reportable 01/16/17 04:54 Hem Pathologist Commnt No 01/16/17 04:54 PT 16.3 Sec. (12.2-14.9) H 01/15/17 12:11 INR 1.32 (0.87-1.13) H 01/15/17 12:11 APTT 38.4 Sec. (24.2-36.6) H 01/15/17 12:11 Sodium 132 mmol/L (137-145) L 01/16/17 04:54 Potassium 4.7 mmol/L (3.6-5.0) 01/16/17 04:54 Chloride 95.2 mmol/L (98-107) L 01/16/17 04:54 Carbon Dioxide 23 mmol/L (22-30) 01/16/17 04:54 Anion Gap 19 mmol/L 01/16/17 04:54 BUN 29 mg/dL (9-20) H 01/16/17 04:54 Creatinine 1.4 mg/dL (0.8-1.5) 01/16/17 04:54 Estimated GFR 48 ml/min 01/16/17 04:54 BUN/Creatinine Ratio 20.71 % 01/16/17 04:54 Glucose 130 mg/dL (75-100) H 01/16/17 04:54 Calcium 8.3 mg/dL (8.4-10.2) L 01/16/17 04:54 Total Bilirubin 0.60 mg/dL (0.1-1.2) 01/14/17 19:18 AST 16 units/L (5-40) 01/14/17 19:18 ALT 9 units/L (7-56) 01/14/17 19:18 Alkaline Phosphatase 91 units/L (35-129) 01/14/17 19:18 Lactate Dehydrogenase 116 units/L (91-180) 01/15/17 12:11 Total Creatine Kinase 50 units/L (55-170) L 01/15/17 00:18 CK-MB (CK-2) 1.5 ng/mL (0.0-4.0) 01/15/17 00:18 CK-MB (CK-2) Rel Index 3.0 (0-4) 01/15/17 00:18 Troponin T < 0.010 ng/mL (0.00-0.029) 01/15/17 06:20 Total Protein 7.9 g/dL (6.3-8.2) 01/14/17 19:18 Albumin 3.2 g/dL (3.9-5) L 01/14/17 19:18 Albumin/Globulin Ratio 0.7 % 01/14/17 19:18 Leukocytosis is worsening
[2017-01-16] MEDS: ZOCOR PO SCH (23:00)
[2017-01-17] MEDS: CLEOCIN 600 MG/50 mL 600 MG/50 ML BAG IV SCH ×3 (01:26→17:52)
[2017-01-17] MEDS: VANCOMYCIN 750 MG in NACL 0.9% 250ML 250 ML IV SCH (02:45)
[2017-01-17 05:26] LABS: Hematocrit 33.6 % (35.5-45.6); Hemoglobin 10.9 gm/dl (11.8-15.2); Mean Corpuscular HGB Conc 33 % (32-34); Mean Corpuscular Hemoglobin 28 pg (28-32); Mean Corpuscular Volume 85 fl (84-94); Platelet Count 423 K/mm3 (140-440); Red Blood Count 3.94 M/mm3 (3.65-5.03); Red Cell Distribution Width 16.4 % (13.2-15.2)
[2017-01-17 05:33] LABS: White Blood Count 23.8 K/mm3 (4.5-11.0)
[2017-01-17 05:40] LABS: BUN/Creatinine Ratio 21.42; Calcium 8.4 mg/dL (8.4-10.2); Chloride 95.7 mmol/L (98-107); Potassium 4.7 mmol/L (3.6-5.0)
[2017-01-17 07:39] LABS: Basophils % (Manual) 0 % (0.0-1.8); Blastocytes % (Manual) 0 %; Eosinophils % (Manual) 0 % (0.0-4.3)
[2017-01-17 07:40] LABS: Anisocytosis 1+; Diff Status Complete; Elliptocytes Rare; Hypochromasia 1+; Ovalocytes Few; Polychromasia Rare
[2017-01-17] MEDS: FLOMAX PO SCH (10:25)
[2017-01-17] MEDS: FOLVITE PO SCH (10:26)
[2017-01-17] MEDS: PROSCAR PO SCH (10:26)
[2017-01-17] MEDS: THERAGRAN Tab PO SCH (10:26)
[2017-01-17] MEDS: HALFPRIN EC PO SCH (10:26)
[2017-01-17] MEDS: LOPRESSOR PO SCH ×2 (10:26→21:06)
[2017-01-17] MEDS: NORVASC PO SCH (10:26)
[2017-01-17] MEDS ORDERED: DUONEB *Not for PRN Use IH ONE (11:03)
--- NOTE | 2017-01-17 12:15 | XRay Report ---
AP CHEST :01/17/17 CLINICAL: Respiratory distress. COMPARISON:01/14/17 FINDINGS: Increased opacification in the left mid thorax with near-complete opacification of the left hemithorax since the last exam. The right lung is normally expanded and clear. The heart is large. Pulmonary vessels are normal. Median sternotomy wires. IMPRESSION: Increased opacification of the left hemithorax. Suspect a larger left pleural effusion.
[2017-01-17 12:46] LABS: ISTAT Base Excess -4; ISTAT HCO3 21.8; ISTAT PCO2 42.7 (35-45); ISTAT PH 7.315 (7.35-7.45); ISTAT PO2 41 (80-105); ISTAT SO2 72; ISTAT TCO2 23
[2017-01-17] MEDS: DUONEB *Not for PRN Use IH SCH ×3 (14:55→20:59)
--- NOTE | 2017-01-17 15:16 | Progress Note ---
Assessment and Plan Assessment and plan: Patient is 86-year-old with history of hypertension, coronary artery disease and CABG, recent pneumonia. He was recentyly diagnosed with pneumonia on 12/20/16 , and was placed on Levaquin po and discharged home from ED. He completed 10 days of Levaquin. Currently he presents with left lower chest pain and cough. Acute respiratory failure 2/2 aspiration versus worsening of effusion - Patient was in respiratory distress in the morning and his saturation was in the 60s on intranasal oxygen - ABG was done pH 7.3, PaO2 41 - Currently on BiPAP saturating in the 90s - Pulmonary is following him Left lower lobe pneumonia with parapneumonic effusion - Continue IV antibiotics - Patint needs thoracentesis , and will be assessed for placement of chest tube Hypertension Stable BPH on Flomax CAD stable continue aspirin DVT prophylaxis SCD Will place on chemical prophylaxis after thoracentesis is done CODE STATUS full Disposition Continue inpatient care. History Interval history: Patient was seen and evaluated this morning, patient has difficulty of breathing , and his saturation went down and currently on BiPAP saturating the mid 90s. Hospitalist Physical - Physical exam Narrative exam: Patient is on BiPAP The patient appeared well nourished and normally developed. Vital signs as documented. Head exam is unremarkable. No scleral icterus . Neck is without jugular venous distension, thyromegaly, or carotid bruits. Lungs decreased air entry and dullness on the left lower lung zone. Cardiac exam reveals regular rate and Rhythm. First and second heart sounds normal. No murmurs, rubs or gallops. Abdominal exam reveals normal bowel sounds, no masses, no organomegaly and no aortic enlargement. Extremities are nonedematous and both femoral and pedal pulses are normal. NURSE RECRUITER: Alert and oriented 3. No focal weakness. - Constitutional Vitals: Temp Pulse Resp BP Pulse Ox 99.4 F 108 H 32 H 120/53 97 01/17/17 09:33 01/17/17 11:50 01/17/17 11:50 01/17/17 10:26 01/17/17 11:40 Results - Labs CBC & Chem 7: 01/17/17 04:55 01/17/17 04:55 Labs: Laboratory Last Values WBC 23.8 K/mm3 (4.5-11.0) H 01/17/17 04:55 RBC 3.94 M/mm3 (3.65-5.03) 01/17/17 04:55 Hgb 10.9 gm/dl (11.8-15.2) L 01/17/17 04:55 Hct 33.6 % (35.5-45.6) L 01/17/17 04:55 MCV 85 fl (84-94) 01/17/17 04:55 MCH 28 pg (28-32) 01/17/17 04:55 MCHC 33 % (32-34) 01/17/17 04:55 RDW 16.4 % (13.2-15.2) H 01/17/17 04:55 Plt Count 423 K/mm3 (140-440) 01/17/17 04:55 Add Manual Diff Complete 01/17/17 04:55 Total Counted 100 01/17/17 04:55 Seg Neuts % (Manual) 36.0 % (40.0-70.0) L 01/17/17 04:55 Band Neutrophils % 38.0 % 01/17/17 04:55 Lymphocytes % (Manual) 8.0 % (13.4-35.0) L 01/17/17 04:55 Reactive Lymphs % (Man) 0 % 01/17/17 04:55 Monocytes % (Manual) 18.0 % (0.0-7.3) H 01/17/17 04:55 Eosinophils % (Manual) 0 % (0.0-4.3) 01/17/17 04:55 Basophils % (Manual) 0 % (0.0-1.8) 01/17/17 04:55 Metamyelocytes % 0 % 01/17/17 04:55 Myelocytes % 0 % 01/17/17 04:55 Promyelocytes % 0 % 01/17/17 04:55 Blast Cells % 0 % 01/17/17 04:55 Nucleated RBC % Not Reportable 01/17/17 04:55 Seg Neutrophils # Man 8.6 K/mm3 (1.8-7.7) H 01/17/17 04:55 Band Neutrophils # 9.0 K/mm3 01/17/17 04:55 Lymphocytes # (Manual) 1.9 K/mm3 (1.2-5.4) 01/17/17 04:55 Abs React Lymphs (Man) 0.0 K/mm3 01/17/17 04:55 Monocytes # (Manual) 4.3 K/mm3 (0.0-0.8) H 01/17/17 04:55 Eosinophils # (Manual) 0.0 K/mm3 (0.0-0.4) 01/17/17 04:55 Basophils # (Manual) 0.0 K/mm3 (0.0-0.1) 01/17/17 04:55 Metamyelocytes # 0.0 K/mm3 01/17/17 04:55 Myelocytes # 0.0 K/mm3 01/17/17 04:55 Promyelocytes # 0.0 K/mm3 01/17/17 04:55 Blast Cells # 0.0 K/mm3 01/17/17 04:55 WBC Morphology Not Reportable 01/17/17 04:55 Hypersegmented Neuts Not Reportable 01/17/17 04:55 Hyposegmented Neuts Not Reportable 01/17/17 04:55 Hypogranular Neuts Not Reportable 01/17/17 04:55 Smudge Cells Not Reportable 01/17/17 04:55 Toxic Granulation Not Reportable 01/17/17 04:55 Toxic Vacuolation Not Reportable 01/17/17 04:55 Dohle Bodies Not Reportable 01/17/17 04:55 Pelger-Huet Anomaly Not Reportable 01/17/17 04:55 Lore Rods Not Reportable 01/17/17 04:55 Platelet Estimate Appears normal 01/17/17 04:55 Clumped Platelets Not Reportable 01/17/17 04:55 Plt Clumps, EDTA Not Reportable 01/17/17 04:55 Large Platelets Not Reportable 01/17/17 04:55 Giant Platelets Not Reportable 01/17/17 04:55 Platelet Satelliting Not Reportable 01/17/17 04:55 Plt Morphology Comment Not Reportable 01/17/17 04:55 RBC Morphology Not Reportable 01/17/17 04:55 Dimorphic RBCs Not Reportable 01/17/17 04:55 Polychromasia Rare 01/17/17 04:55 Hypochromasia 1+ 01/17/17 04:55 Poikilocytosis Not Reportable 01/17/17 04:55 Anisocytosis 1+ 01/17/17 04:55 Microcytosis Not Reportable 01/17/17 04:55 Macrocytosis Not Reportable 01/17/17 04:55 Spherocytes Not Reportable 01/17/17 04:55 Pappenheimer Bodies Not Reportable 01/17/17 04:55 Sickle Cells Not Reportable 01/17/17 04:55 Target Cells Not Reportable 01/17/17 04:55 Tear Drop Cells Not Reportable 01/17/17 04:55 Ovalocytes Few 01/17/17 04:55 Helmet Cells Not Reportable 01/17/17 04:55 Ros[place] Bodies Not Reportable 01/17/17 04:55 [place] Rings Not Reportable 01/17/17 04:55 [place] Cells Not Reportable 01/17/17 04:55 Bite Cells Not Reportable 01/17/17 04:55 Crenated Cell Not Reportable 01/17/17 04:55 Elliptocytes Rare 01/17/17 04:55 Acanthocytes (Spur) Not Reportable 01/17/17 04:55 Rouleaux Not Reportable 01/17/17 04:55 Hemoglobin C Crystals Not Reportable 01/17/17 04:55 Schistocytes Not Reportable 01/17/17 04:55 Malaria parasites Not Reportable 01/17/17 04:55 Steve Bodies Not Reportable 01/17/17 04:55 Hem Pathologist Commnt No 01/17/17 04:55 PT 16.3 Sec. (12.2-14.9) H 01/15/17 12:11 INR 1.32 (0.87-1.13) H 01/15/17 12:11 APTT 38.4 Sec. (24.2-36.6) H 01/15/17 12:11 POC ABG pH 7.315 (7.35-7.45) L 01/17/17 11:32 POC ABG pCO2 42.7 (35-45) 01/17/17 11:32 POC ABG pO2 41 (80-105) L 01/17/17 11:32 POC ABG HCO3 21.8 01/17/17 11:32 POC ABG Total CO2 23 01/17/17 11:32 POC ABG O2 Sat 72 01/17/17 11:32 POC ABG Base Excess -4 01/17/17 11:32 FiO2 50 % 01/17/17 11:32 Sodium 132 mmol/L (137-145) L 01/17/17 04:55 Potassium 4.7 mmol/L (3.6-5.0) 01/17/17 04:55 Chloride 95.7 mmol/L (98-107) L 01/17/17 04:55 Carbon Dioxide 21 mmol/L (22-30) L 01/17/17 04:55 Anion Gap 20 mmol/L 01/17/17 04:55 BUN 30 mg/dL (9-20) H 01/17/17 04:55 Creatinine 1.4 mg/dL (0.8-1.5) 01/17/17 04:55 Estimated GFR 48 ml/min 01/17/17 04:55 BUN/Creatinine Ratio 21.42 % 01/17/17 04:55 Glucose 130 mg/dL (75-100) H 01/17/17 04:55 POC Glucose 200 (70-105) H 01/17/17 10:49 Calcium 8.4 mg/dL (8.4-10.2) 01/17/17 04:55 Total Bilirubin 0.60 mg/dL (0.1-1.2) 01/14/17 19:18 AST 16 units/L (5-40) 01/14/17 19:18 ALT 9 units/L (7-56) 01/14/17 19:18 Alkaline Phosphatase 91 units/L (35-129) 01/14/17 19:18 Lactate Dehydrogenase 116 units/L (91-180) 01/15/17 12:11 Total Creatine Kinase 50 units/L (55-170) L 01/15/17 00:18 CK-MB (CK-2) 1.5 ng/mL (0.0-4.0) 01/15/17 00:18 CK-MB (CK-2) Rel Index 3.0 (0-4) 01/15/17 00:18 Troponin T < 0.010 ng/mL (0.00-0.029) 01/15/17 06:20 Total Protein 7.9 g/dL (6.3-8.2) 01/14/17 19:18 Albumin 3.2 g/dL (3.9-5) L 01/14/17 19:18 Albumin/Globulin Ratio 0.7 % 01/14/17 19:18 Slight decrease in leukocytosis
[2017-01-17] MEDS: D5/0.45NS 1,000 ML IV SCH (15:39)
[2017-01-17] MEDS: MORPHINE IV PRN (17:19)
--- NOTE | 2017-01-17 17:20 | Progress Note ---
Assessment and Plan 86 y/o male with left sided pleural effusion. 1. elected to have thora. Discussed with and daughter at bedside 2. Will use US guided to do procedure. Subjective Date of service: 01/17/17 Interval history: Worsening respiratory failure secondary to aspiration this am. Currently on Bipap and stable. Fluid present. Not reason for worsening distress. Objective Vital Signs - 12hr 01/17/17 01/17/17 01/17/17 09:33 10:00 10:26 Temperature 99.4 F Pulse Rate 95 H 99 H Pulse Rate [ 83 Apical] Pulse Rate [ 83 From Monitor] Pulse Rate [ Left Lower Lobe ] Respiratory 20 Rate Respiratory Rate [Left Lower Lobe] Blood Pressure 120/53 Blood Pressure 120/53 [Left Arm] O2 Sat by Pulse 93 Oximetry 01/17/17 01/17/17 01/17/17 10:45 11:10 11:30 Temperature Pulse Rate Pulse Rate [ Apical] Pulse Rate [ From Monitor] Pulse Rate [ 104 H Left Lower Lobe ] Respiratory Rate Respiratory 30 H Rate [Left Lower Lobe] Blood Pressure Blood Pressure [Left Arm] O2 Sat by Pulse 58 L 68 L Oximetry 01/17/17 01/17/17 11:40 11:50 Temperature Pulse Rate 94 H Pulse Rate [ Apical] Pulse Rate [ From Monitor] Pulse Rate [ 108 H Left Lower Lobe ] Respiratory 27 H Rate Respiratory 32 H Rate [Left Lower Lobe] Blood Pressure Blood Pressure [Left Arm] O2 Sat by Pulse 97 Oximetry Constitutional: no acute distress, alert, appears uncomfortable Eyes: non-icteric ENT: other (poor dentition) Effort: normal Ascultation: Left: diminished breath sounds (left base) Percussion: Left: dull (base) Cardiovascular: regular rate and rhythm Gastrointestinal: normoactive bowel sounds, soft, non-tender CBC and BMP: 01/17/17 04:55 01/17/17 04:55 ABG, PT/INR, D-dimer: ABG POC ABG pH 7.315 (7.35-7.45) L 01/17/17 11:32 POC ABG pCO2 42.7 (35-45) 01/17/17 11:32 POC ABG pO2 41 (80-105) L 01/17/17 11:32 POC ABG HCO3 21.8 01/17/17 11:32 POC ABG Total CO2 23 01/17/17 11:32 POC ABG O2 Sat 72 01/17/17 11:32 PT/INR, D-dimer PT 16.3 Sec. (12.2-14.9) H 01/15/17 12:11 INR 1.32 (0.87-1.13) H 01/15/17 12:11 Abnormal lab findings: Abnormal Labs 01/15/17 01/15/17 01/15/17 06:20 06:20 12:11 WBC 28.5 H RBC 3.55 L Hgb 9.7 L Hct 30.3 L MCH 27 L RDW 16.2 H Seg Neuts % (Manual) Lymphocytes % (Manual) Monocytes % (Manual) Seg Neutrophils # Man Monocytes # (Manual) PT 16.3 H INR 1.32 H APTT 38.4 H POC ABG pH POC ABG pO2 Sodium 134 L Chloride 97.6 L Carbon Dioxide BUN 26 H Glucose POC Glucose Calcium 8.2 L 01/16/17 01/16/17 01/17/17 04:54 04:54 04:55 WBC 24.9 H 23.8 H RBC Hgb 10.0 L 10.9 L Hct 31.8 L 33.6 L MCH 27 L RDW 16.2 H 16.4 H Seg Neuts % (Manual) 37.0 L 36.0 L Lymphocytes % (Manual) 12.0 L 8.0 L Monocytes % (Manual) 10.0 H 18.0 H Seg Neutrophils # Man 9.2 H 8.6 H Monocytes # (Manual) 2.5 H 4.3 H PT INR APTT POC ABG pH POC ABG pO2 Sodium 132 L Chloride 95.2 L Carbon Dioxide BUN 29 H Glucose 130 H POC Glucose Calcium 8.3 L 01/17/17 01/17/17 01/17/17 04:55 10:49 11:32 WBC RBC Hgb Hct MCH RDW Seg Neuts % (Manual) Lymphocytes % (Manual) Monocytes % (Manual) Seg Neutrophils # Man Monocytes # (Manual) PT INR APTT POC ABG pH 7.315 L POC ABG pO2 41 L Sodium 132 L Chloride 95.7 L Carbon Dioxide 21 L BUN 30 H Glucose 130 H POC Glucose 200 H Calcium
--- NOTE | 2017-01-17 17:22 | Procedure Note ---
Date of procedure: 01/17/17 Pre-op diagnosis: Pleural effusion Post-op diagnosis: same Procedure: Thoracentesis. Using US guidance, left chest cavity entered. Catheter placed and fluid extracted. Approximately 1660cc's of yellowish fluid removed. Towards the end , fluid did change color and consistency to white thick like material. Two separate samples were sent, one was culture only. Awaiting CXR for further evaluation. Anesthesia: local Surgeon: LENARD TRAN Estimated blood loss: none Specimen disposition: to lab Condition: stable Disposition: other (NIKOLAS)
--- NOTE | 2017-01-17 17:44 | XRay Report ---
FINAL REPORT EXAM: XR CHEST 1V AP HISTORY: Pleural effusion, s/p thoracentesis TECHNIQUE: AP portable view of the chest PRIORS: CXR 01/14/2017 FINDINGS: Lines, tubes, and devices: Median sternotomy wires are again noted. Lungs and pleura: Trachea is normal in position. A moderate left pleural effusion is again noted with adjacent compressive atelectasis or mild underlying consolidation. However, there is now fluid tracking up the lateral left chest wall and haziness overlying the left apex which likely represents fluid tracking posteriorly. No definite left pneumothorax is seen. The right lung field is clear of infiltrate, pleural effusion, vascular congestion, or pneumothorax. Cardiomediastinal silhouette: Cardiac and mediastinal silhouettes are unremarkable. Other: Bony structures are intact. IMPRESSION: Persistent left pleural effusion with adjacent compressive atelectasis or underlying consolidation. New fluid tracking up the left lateral chest wall toward the apex and layering posteriorly is seen.
[2017-01-17] MEDS: ZOCOR PO SCH (21:07)
[2017-01-17 23:02] LABS: Basophils Body Fluid 0 %; Eosinophils Body Fluid 0 %; Reactive Lymph Body Fluid 0 %
[2017-01-18] MEDS: CLEOCIN 600 MG/50 mL 600 MG/50 ML BAG IV SCH ×3 (00:19→18:24)
[2017-01-18] MEDS: VANCOMYCIN 750 MG in NACL 0.9% 250ML 250 ML IV SCH (02:48)
[2017-01-18] MEDS: DUONEB *Not for PRN Use IH SCH ×3 (03:06→16:30)
[2017-01-18 03:17] LABS: Alanine Aminotransferase 24 units/L (7-56); Albumin 1.9 g/dL (3.9-5); Albumin/Globulin Ratio 0.4 %; Alkaline Phosphatase 77 units/L (35-129); Total Protein 6.7 g/dL (6.3-8.2)
[2017-01-18 03:18] LABS: Bilirubin,Direct < 0.2 mg/dL (0-0.2); Bilirubin,Indirect 0.1 mg/dL
[2017-01-18 03:29] LABS: Lactate Dehydrogenase 137 units/L (91-180)
[2017-01-18 04:35] LABS: BUN/Creatinine Ratio 26.31; Calcium 8.1 mg/dL (8.4-10.2); Chloride 96.6 mmol/L (98-107); Potassium 4.7 mmol/L (3.6-5.0)
[2017-01-18 04:40] LABS: Hemoglobin 10.5 gm/dl (11.8-15.2); Mean Corpuscular HGB Conc 33 % (32-34); Mean Corpuscular Hemoglobin 28 pg (28-32); Mean Corpuscular Volume 84 fl (84-94); Platelet Count 429 K/mm3 (140-440)
[2017-01-18 04:42] LABS: White Blood Count 23.2 K/mm3 (4.5-11.0)
[2017-01-18 05:52] LABS: Blastocytes % (Manual) 0 %
[2017-01-18 05:55] LABS: Basophils % (Manual) 0 % (0.0-1.8); Eosinophils % (Manual) 0 % (0.0-4.3)
[2017-01-18 05:57] LABS: Diff Status Complete; Platelet Estimate Consistent w Auto
[2017-01-18 05:58] LABS: Ovalocytes Rare; Platelet Clumps Rare
[2017-01-18] MEDS: D5/0.45NS 1,000 ML IV SCH (08:11)
[2017-01-18] MEDS: HALFPRIN EC PO SCH (10:00)
[2017-01-18] MEDS: NORVASC PO SCH (10:00)
[2017-01-18] MEDS: PROSCAR PO SCH (10:00)
[2017-01-18] MEDS: THERAGRAN Tab PO SCH (10:00)
[2017-01-18] MEDS: LOPRESSOR PO SCH ×2 (10:00→21:32)
[2017-01-18] MEDS: FLOMAX PO SCH (10:00)
[2017-01-18] MEDS: FOLVITE PO SCH (10:00)
--- NOTE | 2017-01-18 17:12 | Progress Note ---
Assessment and Plan Assessment and plan: Patient is 86-year-old with history of hypertension, coronary artery disease and CABG, recent pneumonia. He was recentyly diagnosed with pneumonia on 12/20/16 , and was placed on Levaquin po and discharged home from ED. He completed 10 days of Levaquin. Currently he presents with left lower chest pain and cough. Acute respiratory failure 2/2 aspiration versus worsening of effusion - Thoracentesis was done yesterday, and 1660 mL of yellowish fluid was taken out - Patient is currently breathing well - Pulmonary is following him Left lower lobe pneumonia with parapneumonic effusion - Continue IV antibiotics - Thoracentesis was done and sample was sent for analysis Hypertension Stable BPH on Flomax CAD stable continue aspirin DVT prophylaxis SCD Will place on chemical prophylaxis after thoracentesis is done CODE STATUS full Disposition Continue inpatient care. History Interval history: Patient was seen and evaluated this morning, patient was breathing ok, on [place] oxygen. Hospitalist Physical - Physical exam Narrative exam: Patient is on BiPAP The patient appeared well nourished and normally developed. Vital signs as documented. Head exam is unremarkable. No scleral icterus . Neck is without jugular venous distension, thyromegaly, or carotid bruits. Lungs decreased air entry and dullness on the left lower lung zone. Cardiac exam reveals regular rate and Rhythm. First and second heart sounds normal. No murmurs, rubs or gallops. Abdominal exam reveals normal bowel sounds, no masses, no organomegaly and no aortic enlargement. Extremities are nonedematous and both femoral and pedal pulses are normal. TABLEMAN: Alert and oriented 3. No focal weakness. - Constitutional Vitals: Temp Pulse Resp BP Pulse Ox 98 F 89 22 128/68 92 01/18/17 10:00 01/18/17 10:00 01/18/17 10:00 01/18/17 10:00 01/18/17 10:00 Results - Labs CBC & Chem 7: 01/18/17 03:46 01/18/17 03:46 Labs: Laboratory Last Values WBC 23.2 K/mm3 (4.5-11.0) H 01/18/17 03:46 RBC 3.80 M/mm3 (3.65-5.03) 01/18/17 03:46 Hgb 10.5 gm/dl (11.8-15.2) L 01/18/17 03:46 Hct 32.0 % (35.5-45.6) L 01/18/17 03:46 MCV 84 fl (84-94) 01/18/17 03:46 MCH 28 pg (28-32) 01/18/17 03:46 MCHC 33 % (32-34) 01/18/17 03:46 RDW 16.0 % (13.2-15.2) H 01/18/17 03:46 Plt Count 429 K/mm3 (140-440) 01/18/17 03:46 Add Manual Diff Complete 01/18/17 03:46 Total Counted 100 01/18/17 03:46 Seg Neuts % (Manual) 70.0 % (40.0-70.0) 01/18/17 03:46 Band Neutrophils % 14.0 % 01/18/17 03:46 Lymphocytes % (Manual) 6.0 % (13.4-35.0) L 01/18/17 03:46 Reactive Lymphs % (Man) 0 % 01/18/17 03:46 Monocytes % (Manual) 10.0 % (0.0-7.3) H 01/18/17 03:46 Eosinophils % (Manual) 0 % (0.0-4.3) 01/18/17 03:46 Basophils % (Manual) 0 % (0.0-1.8) 01/18/17 03:46 Metamyelocytes % 0 % 01/18/17 03:46 Myelocytes % 0 % 01/18/17 03:46 Promyelocytes % 0 % 01/18/17 03:46 Blast Cells % 0 % 01/18/17 03:46 Nucleated RBC % Not Reportable 01/18/17 03:46 Seg Neutrophils # Man 16.2 K/mm3 (1.8-7.7) H 01/18/17 03:46 Band Neutrophils # 3.2 K/mm3 01/18/17 03:46 Lymphocytes # (Manual) 1.4 K/mm3 (1.2-5.4) 01/18/17 03:46 Abs React Lymphs (Man) 0.0 K/mm3 01/18/17 03:46 Monocytes # (Manual) 2.3 K/mm3 (0.0-0.8) H 01/18/17 03:46 Eosinophils # (Manual) 0.0 K/mm3 (0.0-0.4) 01/18/17 03:46 Basophils # (Manual) 0.0 K/mm3 (0.0-0.1) 01/18/17 03:46 Metamyelocytes # 0.0 K/mm3 01/18/17 03:46 Myelocytes # 0.0 K/mm3 01/18/17 03:46 Promyelocytes # 0.0 K/mm3 01/18/17 03:46 Blast Cells # 0.0 K/mm3 01/18/17 03:46 WBC Morphology Not Reportable 01/18/17 03:46 Hypersegmented Neuts Not Reportable 01/18/17 03:46 Hyposegmented Neuts Not Reportable 01/18/17 03:46 Hypogranular Neuts Not Reportable 01/18/17 03:46 Smudge Cells Not Reportable 01/18/17 03:46 Toxic Granulation Not Reportable 01/18/17 03:46 Toxic Vacuolation Not Reportable 01/18/17 03:46 Dohle Bodies Not Reportable 01/18/17 03:46 Pelger-Huet Anomaly Not Reportable 01/18/17 03:46 Lore Rods Not Reportable 01/18/17 03:46 Platelet Estimate Consistent w auto 01/18/17 03:46 Clumped Platelets Rare 01/18/17 03:46 Plt Clumps, EDTA Not Reportable 01/18/17 03:46 Large Platelets Not Reportable 01/18/17 03:46 Giant Platelets Not Reportable 01/18/17 03:46 Platelet Satelliting Not Reportable 01/18/17 03:46 Plt Morphology Comment Not Reportable 01/18/17 03:46 RBC Morphology Not Reportable 01/18/17 03:46 Dimorphic RBCs Not Reportable 01/18/17 03:46 Polychromasia Not Reportable 01/18/17 03:46 Hypochromasia Not Reportable 01/18/17 03:46 Poikilocytosis Not Reportable 01/18/17 03:46 Anisocytosis Not Reportable 01/18/17 03:46 Microcytosis Not Reportable 01/18/17 03:46 Macrocytosis Not Reportable 01/18/17 03:46 Spherocytes Not Reportable 01/18/17 03:46 Pappenheimer Bodies Not Reportable 01/18/17 03:46 Sickle Cells Not Reportable 01/18/17 03:46 Target Cells Not Reportable 01/18/17 03:46 Tear Drop Cells Not Reportable 01/18/17 03:46 Ovalocytes Rare 01/18/17 03:46 Helmet Cells Not Reportable 01/18/17 03:46 [place] Bodies Not Reportable 01/18/17 03:46 [place] Rings Not Reportable 01/18/17 03:46 [place] Cells Not Reportable 01/18/17 03:46 Bite Cells Not Reportable 01/18/17 03:46 Crenated Cell Not Reportable 01/18/17 03:46 Elliptocytes Not Reportable 01/18/17 03:46 Acanthocytes (Spur) Not Reportable 01/18/17 03:46 Rouleaux Not Reportable 01/18/17 03:46 Hemoglobin C Crystals Not Reportable 01/18/17 03:46 Schistocytes Not Reportable 01/18/17 03:46 Malaria parasites Not Reportable 01/18/17 03:46 Steve Bodies Not Reportable 01/18/17 03:46 Hem Pathologist Commnt No 01/18/17 03:46 PT 16.3 Sec. (12.2-14.9) H 01/15/17 12:11 INR 1.32 (0.87-1.13) H 01/15/17 12:11 APTT 38.4 Sec. (24.2-36.6) H 01/15/17 12:11 POC ABG pH 7.315 (7.35-7.45) L 01/17/17 11:32 POC ABG pCO2 42.7 (35-45) 01/17/17 11:32 POC ABG pO2 41 (80-105) L 01/17/17 11:32 POC ABG HCO3 21.8 01/17/17 11:32 POC ABG Total CO2 23 01/17/17 11:32 POC ABG O2 Sat 72 01/17/17 11:32 POC ABG Base Excess -4 01/17/17 11:32 FiO2 50 % 01/17/17 11:32 Sodium 134 mmol/L (137-145) L 01/18/17 03:46 Potassium 4.7 mmol/L (3.6-5.0) 01/18/17 03:46 Chloride 96.6 mmol/L (98-107) L 01/18/17 03:46 Carbon Dioxide 21 mmol/L (22-30) L 01/18/17 03:46 Anion Gap 21 mmol/L 01/18/17 03:46 BUN 50 mg/dL (9-20) H 01/18/17 03:46 Creatinine 1.9 mg/dL (0.8-1.5) H 01/18/17 03:46 Estimated GFR 34 ml/min 01/18/17 03:46 BUN/Creatinine Ratio 26.31 % 01/18/17 03:46 Glucose 177 mg/dL (75-100) H 01/18/17 03:46 POC Glucose 200 (70-105) H 01/17/17 10:49 Calcium 8.1 mg/dL (8.4-10.2) L 01/18/17 03:46 Total Bilirubin 0.30 mg/dL (0.1-1.2) 01/17/17 23:41 Direct Bilirubin < 0.2 mg/dL (0-0.2) 01/17/17 23:41 Indirect Bilirubin 0.1 mg/dL 01/17/17 23:41 AST 30 units/L (5-40) 01/17/17 23:41 ALT 24 units/L (7-56) 01/17/17 23:41 Alkaline Phosphatase 77 units/L (35-129) 01/17/17 23:41 Lactate Dehydrogenase 137 units/L (91-180) 01/17/17 23:41 Total Creatine Kinase 50 units/L (55-170) L 01/15/17 00:18 CK-MB (CK-2) 1.5 ng/mL (0.0-4.0) 01/15/17 00:18 CK-MB (CK-2) Rel Index 3.0 (0-4) 01/15/17 00:18 Troponin T < 0.010 ng/mL (0.00-0.029) 01/15/17 06:20 Total Protein 6.7 g/dL (6.3-8.2) 01/17/17 23:41 Albumin 1.9 g/dL (3.9-5) L 01/17/17 23:41 Albumin/Globulin Ratio 0.4 % 01/17/17 23:41 Fluid Type Pleural 01/15/17 Unknown Fluid Color Yellow 01/15/17 Unknown Fluid Appearance Clear 01/15/17 Unknown Fluid WBC 1350 /mm3 01/15/17 Unknown Fluid RBC 750 /mm3 01/15/17 Unknown Fluid Seg Neutrophils 81.0 % 01/15/17 Unknown Fluid Lymphocytes 12.0 % 01/15/17 Unknown Fluid Reactive Lymphs 0 % 01/15/17 Unknown Fluid Monocytes 7.0 % 01/15/17 Unknown Fluid Eosinophils 0 % 01/15/17 Unknown Fluid Basophils 0 % 01/15/17 Unknown
[2017-01-18] MEDS ORDERED: WATER FOR INJ (PF) 0 ML ONE (17:28)
--- NOTE | 2017-01-18 17:34 | Progress Note ---
Assessment and Plan no u/o x 36 hrs!! cath placed with saul cleart urine leave villalobos here with daughter dictated Subjective Date of service: 01/18/17 Principal diagnosis: urinary retention Objective - Constitutional Vitals: Vital Signs - 12hr 01/18/17 01/18/17 01/18/17 08:23 08:24 08:30 Temperature Pulse Rate Pulse Rate [ 76 80 Anterior Bilateral Throughout] Pulse Rate [ From Monitor] Respiratory Rate Respiratory 20 18 Rate [Anterior Bilateral Throughout] Blood Pressure [Left Arm] O2 Sat by Pulse 96 Oximetry 01/18/17 01/18/17 08:40 10:00 Temperature 98 F Pulse Rate 95 H Pulse Rate [ Anterior Bilateral Throughout] Pulse Rate [ 89 From Monitor] Respiratory 22 Rate Respiratory Rate [Anterior Bilateral Throughout] Blood Pressure 128/68 [Left Arm] O2 Sat by Pulse 96 92 Oximetry General appearance: Present: no acute distress - Neck Neck: supple - Respiratory Respiratory effort: normal Extremities: no ischemia - Gastrointestinal General gastrointestinal: Present: distended - Genitourinary Male genitourinary: normal (atrphic testes ) - Labs CBC & Chem 7: 01/18/17 03:46 01/18/17 03:46 Labs: Abnormal lab results 01/17/17 01/18/17 01/18/17 Range/Units 23:41 03:46 03:46 WBC 23.2 H (4.5-11.0) K/mm3 Hgb 10.5 L (11.8-15.2) gm/dl Hct 32.0 L (35.5-45.6) % RDW 16.0 H (13.2-15.2) % Lymphocytes % (Manual) 6.0 L (13.4-35.0) % Monocytes % (Manual) 10.0 H (0.0-7.3) % Seg Neutrophils # Man 16.2 H (1.8-7.7) K/mm3 Monocytes # (Manual) 2.3 H (0.0-0.8) K/mm3 Sodium 134 L (137-145) mmol/L Chloride 96.6 L (98-107) mmol/L Carbon Dioxide 21 L (22-30) mmol/L BUN 50 H (9-20) mg/dL Creatinine 1.9 H (0.8-1.5) mg/dL Glucose 177 H (75-100) mg/dL Calcium 8.1 L (8.4-10.2) mg/dL Albumin 1.9 L (3.9-5) g/dL
[2017-01-18] MEDS: ZOCOR PO SCH (21:32)
[2017-01-18] MEDS: HEPARIN SUB-Q SCH (21:33)
[2017-01-19] MEDS: CLEOCIN 600 MG/50 mL 600 MG/50 ML BAG IV SCH ×3 (00:56→17:30)
[2017-01-19] MEDS: VANCOMYCIN 750 MG in NACL 0.9% 250ML 250 ML IV SCH (01:40)
[2017-01-19] MEDS: DUONEB *Not for PRN Use IH SCH ×5 (03:40→20:30)
[2017-01-19 04:38] LABS: Basophils % (Auto) 0.3 % (0.0-1.8); Eosinophils % (Auto) 0.1 % (0.0-4.3); Hematocrit 30.2 % (35.5-45.6); Hemoglobin 9.8 gm/dl (11.8-15.2); Mean Corpuscular HGB Conc 32 % (32-34); Mean Corpuscular Hemoglobin 27 pg (28-32); Mean Corpuscular Volume 84 fl (84-94); Platelet Count 505 K/mm3 (140-440); Red Blood Count 3.61 M/mm3 (3.65-5.03); Red Cell Distribution Width 16.1 % (13.2-15.2); White Blood Count 19.8 K/mm3 (4.5-11.0)
[2017-01-19] MEDS: D5/0.45NS 1,000 ML IV SCH ×2 (04:44→21:46)
[2017-01-19 04:56] LABS: Potassium 4.2 mmol/L (3.6-5.0)
[2017-01-19] MEDS: HEPARIN SUB-Q SCH ×3 (06:04→21:53)
[2017-01-19] MEDS: FLOMAX PO SCH (09:15)
[2017-01-19] MEDS: LOPRESSOR PO SCH ×2 (09:16→21:52)
[2017-01-19] MEDS: FOLVITE PO SCH (09:16)
[2017-01-19] MEDS: HALFPRIN EC PO SCH (09:16)
[2017-01-19] MEDS: THERAGRAN Tab PO SCH (09:17)
[2017-01-19] MEDS: NORVASC PO SCH (09:17)
[2017-01-19] MEDS: PROSCAR PO SCH (09:17)
--- NOTE | 2017-01-19 10:31 | Fluoroscopy Report ---
MODIFIED BARIUM SWALLOW History: Dysphagia. Findings: Fluoroscopy was provided by the radiologist for speech therapy to assess the swallowing mechanism. Please refer to the formal report by speech therapy. Impression: Successful modified barium swallow.
--- NOTE | 2017-01-19 11:35 | Gastroenterology Consultation ---
<KELSEY CHRISTY - Last Filed: 01/19/17 11:58> History of Present Illness - Reason for Consult Consult date: 01/19/17 inability to safely swallow-peg placement Requesting physician: DERRICK RICARDO - History of Present Illness Patient is a 86 y/o male with a recent hx of pneumonia. He was admitted with acute respiratory failure 2/2 aspiration vs worsening of pneumonia with parapneumonic effusion. He is s/p thoracentesis and breathing has now improved. Modified barium swallow was completed on 01/18 revealing patient is at risk for aspiration with severe amount of pharyngeal stasis, laryngeal penetration, and aspiration. This morning patient was sitting up in bed, without acute distress. A&O x 3. Currently on O2 via NC, respirations unlabored, and denies SOB. He admits to dysphagia at home prior to hospitalization with both solids and liquids. PMH significant for HTN and CAD. Past History Past Medical History: CAD (s/p CABG), hypertension Past Surgical History: CABG, total hip replacement (right) Social history: lives with family, full code. denies: smoking, alcohol abuse Family history: hypertension Medications and Allergies Allergies Allergy/AdvReac Type Severity Reaction Status Date / Time Penicillins AdvReac Severe Hives Verified 01/16/17 16:28 Sulfa (Sulfonamide AdvReac Severe Hives Verified 01/16/17 16:28 Antibiotics) Home Medications Medication Instructions Recorded Confirmed Last Taken Type Aspirin [Adult Low Dose Aspirin EC] 81 mg PO DAILY 06/25/16 01/14/17 01/14/17 History Finasteride [Proscar] 1 tab PO DAILY 06/25/16 01/14/17 01/14/17 History Folic Acid [Folvite] 1 mg PO QDAY 06/25/16 01/14/17 01/14/17 History Metoprolol Tartrate [Lopressor] 50 mg PO BID 06/25/16 01/14/17 01/14/17 History Multivitamin Tab [Multiple Vitamin 1 tab PO DAILY 06/25/16 01/14/17 01/14/17 History TAB (Theragran)] Pravachol 20 mg PO HS 06/25/16 01/14/17 01/14/17 History Tamsulosin [Flomax] 0.4 mg PO QDAY 06/25/16 01/14/17 01/14/17 History amLODIPine [Norvasc] 5 mg PO DAILY 06/25/16 01/14/17 01/14/17 History Active Meds: Active Medications Acetaminophen (Tylenol) 650 mg PO Q4H PRN PRN Reason: Pain MILD(1-3)/Fever >100.5/WERNER Albuterol/Ipratropium (Duoneb 0.5 Mg-3 Mg/3 Ml Soln) 1 ampul IH Q6HRT [facility] Last Admin: 01/19/17 07:57 Dose: 1 ampul Amlodipine Besylate (Norvasc) 5 mg PO DAILY [facility] Last Admin: 01/19/17 09:17 Dose: Not Given Aspirin (Halfprin Ec) 81 mg PO DAILY [facility] Last Admin: 01/19/17 09:16 Dose: Not Given Bisacodyl (Dulcolax) 10 mg AR QDAY PRN PRN Reason: Constipation unrelieved by MOM Finasteride (Proscar) 5 mg PO DAILY [facility] Last Admin: 01/19/17 09:17 Dose: Not Given Folic Acid (Folvite) 1 mg PO QDAY [facility] Last Admin: 01/19/17 09:16 Dose: Not Given Heparin Sodium (Porcine) (Heparin) 5,000 unit SUB-Q Q8HR [facility] Last Admin: 01/19/17 06:04 Dose: 5,000 unit Clindamycin HCl (Cleocin 600 Mg/50 Ml) 600 mg in 50 mls @ 100 mls/hr IV Q8H ANGELIQUE PRN Reason: Protocol Last Admin: 01/19/17 08:20 Dose: 100 mls/hr Vancomycin HCl 750 mg/ Sodium (Chloride) 265 mls @ 166.667 mls/hr IV Q24H [facility] Last Admin: 01/19/17 01:40 Dose: 166.667 mls/hr Dextrose/Sodium Chloride (D5/0.45ns) 1,000 mls @ 75 mls/hr IV DIRECT [facility] Last Admin: 01/19/17 04:44 Dose: 75 mls/hr Magnesium Hydroxide (Milk Of Magnesia) 30 ml PO Q4H PRN PRN Reason: Constipation Metoprolol Tartrate (Lopressor) 50 mg PO BID [facility] Last Admin: 01/19/17 09:16 Dose: Not Given Morphine Sulfate (Morphine) 2 mg IV Q4H PRN PRN Reason: Pain, Moderate (4-6) Last Admin: 01/17/17 17:19 Dose: 2 mg Multivitamins (Theragran Tab) 1 each PO DAILY [facility] Last Admin: 01/19/17 09:17 Dose: Not Given Ondansetron HCl (Zofran) 4 mg IV Q6H PRN PRN Reason: nausea or vomiting Pseudoephedrine/Acetam/Chlorphenir (Robitussin Ac) 10 ml PO Q4H PRN PRN Reason: Cough Last Admin: 01/16/17 19:05 Dose: 10 ml Simvastatin (Zocor) 10 mg PO QHS [facility] Last Admin: 01/18/17 21:32 Dose: Not Given Tamsulosin HCl (Flomax) 0.4 mg PO QDAY [facility] Last Admin: 01/19/17 09:15 Dose: Not Given Vancomycin HCl (Vancomycin Pharmacy To Dose) 1 each IV PKCONSULT ANGELIQUE PRN Reason: Protocol Review of Systems - Review of Systems All systems: negative Ears, Nose, Throat: difficulty swallowing Exam - Constitutional Vital Signs: Temp Pulse Resp BP Pulse Ox 98 F 86 20 128/50 97 01/19/17 10:00 01/19/17 10:00 01/19/17 10:00 01/19/17 10:00 01/19/17 10:00 General appearance: no acute distress, cachectic - EENT Eyes: PERRL, EOM intact ENT: hearing intact - Neck Neck: supple, normal ROM, no masses or JVD - Respiratory Respiratory: bilateral: diminished - Cardiovascular Rhythm: regular Heart Sounds: Present: S1 & S2 Extremities: No edema - Gastrointestinal General gastrointestinal: Present: soft, non-tender, non-distended, normal bowel sounds - Integumentary Integumentary: Present: warm, dry - Neurologic Neurological: alert and oriented x3 - Psychiatric Psychiatric: appropriate mood/affect, cooperative - Labs CBC & Chem 7: 01/19/17 03:41 01/19/17 03:41 Lab Results: Laboratory Results - last 24 hr 01/19/17 01/19/17 01/19/17 01:00 03:41 03:41 WBC 19.8 H RBC 3.61 L Hgb 9.8 L Hct 30.2 L MCV 84 MCH 27 L MCHC 32 RDW 16.1 H Plt Count 505 H Lymph % (Auto) 5.2 L [place] % (Auto) 13.3 H Eos % (Auto) 0.1 Baso % (Auto) 0.3 Lymph # 1.0 L [place] # 2.6 H Eos # 0.0 Baso # 0.1 Seg Neutrophils % 81.1 H Seg Neutrophils # 16.1 H Sodium 133 L Potassium 4.2 Chloride 96.0 L Carbon Dioxide 21 L Anion Gap 20 BUN 42 H Creatinine 1.4 Estimated GFR 48 BUN/Creatinine Ratio 30.00 Glucose 122 H Calcium 8.0 L Vancomycin Trough 13.8 Assessment and Plan 1. inability to safely swallow 2. dysphagia 4. Left lower lobe pneumonia with parapneumonic effusion -acute respiratory failure 2/2 aspiration vs worsening of effusion -s/p thoracentesis- on O2 via NC -WBC-trending down -afebrile -modified barium swallow completed and failed on 01/18- revealed patient at risk for aspiration -PEG tube placement discussed with patient including risks- agreeable to PEG tube -NPO after MN -Will schedule for PEG tomorrow -hold am dose of heparin -will order CBC, CMP, PT/INR for am -will follow - <KOBI RHODES - Last Filed: 01/20/17 09:49> Medications and Allergies Active Meds: Active Medications Acetaminophen (Tylenol) 650 mg PO Q4H PRN PRN Reason: Pain MILD(1-3)/Fever >100.5/WERNER Albuterol/Ipratropium (Duoneb 0.5 Mg-3 Mg/3 Ml Soln) 1 ampul IH Q6HRT [facility] Last Admin: 01/20/17 08:30 Dose: 1 ampul Amlodipine Besylate (Norvasc) 5 mg PO DAILY [facility] Last Admin: 01/19/17 09:17 Dose: Not Given Aspirin (Halfprin Ec) 81 mg PO DAILY [facility] Last Admin: 01/19/17 09:16 Dose: Not Given Bisacodyl (Dulcolax) 10 mg AR QDAY PRN PRN Reason: Constipation unrelieved by MOM Finasteride (Proscar) 5 mg PO DAILY [facility] Last Admin: 01/19/17 09:17 Dose: Not Given Folic Acid (Folvite) 1 mg PO QDAY [facility] Last Admin: 01/19/17 09:16 Dose: Not Given Heparin Sodium (Porcine) (Heparin) 5,000 unit SUB-Q Q8HR [facility] Last Admin: 01/20/17 05:47 Dose: Not Given Clindamycin HCl (Cleocin 600 Mg/50 Ml) 600 mg in 50 mls @ 100 mls/hr IV Q8H [facility] PRN Reason: Protocol Last Admin: 01/20/17 01:02 Dose: 100 mls/hr Dextrose/Sodium Chloride (D5/0.45ns) 1,000 mls @ 75 mls/hr IV DIRECT [facility] Last Admin: 01/19/17 21:46 Dose: 75 mls/hr Vancomycin HCl (Vancomycin/Ns 1 Gm/250 Ml) 1 gm in 250 mls @ 166.667 mls/hr IV Q24HR@2200 [facility] Last Admin: 01/19/17 21:48 Dose: 166.667 mls/hr Magnesium Hydroxide (Milk Of Magnesia) 30 ml PO Q4H PRN PRN Reason: Constipation Metoprolol Tartrate (Lopressor) 50 mg PO BID [facility] Last Admin: 01/19/17 21:52 Dose: Not Given Morphine Sulfate (Morphine) 2 mg IV Q4H PRN PRN Reason: Pain, Moderate (4-6) Last Admin: 01/19/17 19:52 Dose: 2 mg Multivitamins (Theragran Tab) 1 each PO DAILY [facility] Last Admin: 01/19/17 09:17 Dose: Not Given Ondansetron HCl (Zofran) 4 mg IV Q6H PRN PRN Reason: nausea or vomiting Pseudoephedrine/Acetam/Chlorphenir (Robitussin Ac) 10 ml PO Q4H PRN PRN Reason: Cough Last Admin: 01/16/17 19:05 Dose: 10 ml Simvastatin (Zocor) 10 mg PO QHS [facility] Last Admin: 01/19/17 21:53 Dose: Not Given Tamsulosin HCl (Flomax) 0.4 mg PO QDAY [facility] Last Admin: 01/19/17 09:15 Dose: Not Given Vancomycin HCl (Vancomycin Pharmacy To Dose) 1 each IV PKCONSULT [facility] PRN Reason: Protocol Exam - Constitutional Vital Signs: Temp Pulse Resp BP Pulse Ox 98.0 F 82 16 133/57 94 01/19/17 22:00 01/20/17 08:46 01/20/17 08:46 01/19/17 22:00 01/20/17 08:25 - Labs CBC & Chem 7: 01/20/17 05:50 01/20/17 05:50 Lab Results: Laboratory Results - last 24 hr 01/20/17 01/20/17 01/20/17 05:50 05:50 05:50 WBC 18.4 H RBC 3.84 Hgb 10.5 L Hct 32.0 L MCV 83 L MCH 27 L MCHC 33 RDW 16.3 H Plt Count 540 H Lymph % (Auto) 7.7 L [place] % (Auto) 15.7 H Eos % (Auto) 0.3 Baso % (Auto) 0.1 Lymph # 1.4 [place] # 2.9 H Eos # 0.1 Baso # 0.0 Seg Neutrophils % 76.2 H Seg Neutrophils # 14.0 H PT 16.6 H INR 1.27 H Sodium 138 Potassium 4.0 Chloride 101.2 Carbon Dioxide 25 Anion Gap 16 BUN 24 H Creatinine 1.1 Estimated GFR > 60 BUN/Creatinine Ratio 21.81 Glucose 104 H Calcium 8.0 L Total Bilirubin 0.50 AST 22 ALT 23 Alkaline Phosphatase 90 Total Protein 6.3 Albumin 1.7 L Albumin/Globulin Ratio 0.4 Assessment and Plan Patient seen and examined on 01/19. Agree with note by Kelsey Christy. Pt with oropharyngeal dysphagia. Will plan for EGD/PEG tube placement tomorrow.
--- NOTE | 2017-01-19 12:39 | Progress Note ---
Assessment and Plan Pleural effusion,s/p tap.Suspicious for empyema.See Dr. Mendez comments Pneumonia UTI Rec Update CXR or f/u CT Check cultures,G + on pleural fluid? Continue nebs Discussed with family in detail Subjective Date of service: 01/18/17 Principal diagnosis: Pneumonia,pleural effusion-empyema,urinary retention Interval history: feels better,Some cough ,no fever Objective Vital Signs - 12hr Constitutional: no acute distress, alert, appears uncomfortable Eyes: non-icteric ENT: other (poor dentition) Effort: normal Ascultation: Left: diminished breath sounds (left base) Percussion: Left: dull (base) Cardiovascular: regular rate and rhythm Gastrointestinal: normoactive bowel sounds, soft, non-tender CBC and BMP: 01/19/17 03:41 01/19/17 03:41 ABG, PT/INR, D-dimer: ABG POC ABG pH 7.315 (7.35-7.45) L 01/17/17 11:32 POC ABG pCO2 42.7 (35-45) 01/17/17 11:32 POC ABG pO2 41 (80-105) L 01/17/17 11:32 POC ABG HCO3 21.8 01/17/17 11:32 POC ABG Total CO2 23 01/17/17 11:32 POC ABG O2 Sat 72 01/17/17 11:32 PT/INR, D-dimer PT 16.3 Sec. (12.2-14.9) H 01/15/17 12:11 INR 1.32 (0.87-1.13) H 01/15/17 12:11 Abnormal lab findings: Abnormal Labs 01/15/17 01/15/17 01/15/17 06:20 06:20 12:11 WBC 28.5 H RBC 3.55 L Hgb 9.7 L Hct 30.3 L MCH 27 L RDW 16.2 H Plt Count Lymph % (Auto) [place] % (Auto) Lymph # [place] # Seg Neutrophils % Seg Neuts % (Manual) Lymphocytes % (Manual) Monocytes % (Manual) Seg Neutrophils # Seg Neutrophils # Man Monocytes # (Manual) PT 16.3 H INR 1.32 H APTT 38.4 H POC ABG pH POC ABG pO2 Sodium 134 L Chloride 97.6 L Carbon Dioxide BUN 26 H Creatinine Glucose POC Glucose Calcium 8.2 L Albumin 01/16/17 01/16/17 01/17/17 04:54 04:54 04:55 WBC 24.9 H 23.8 H RBC Hgb 10.0 L 10.9 L Hct 31.8 L 33.6 L MCH 27 L RDW 16.2 H 16.4 H Plt Count Lymph % (Auto) [place] % (Auto) Lymph # [place] # Seg Neutrophils % Seg Neuts % (Manual) 37.0 L 36.0 L Lymphocytes % (Manual) 12.0 L 8.0 L Monocytes % (Manual) 10.0 H 18.0 H Seg Neutrophils # Seg Neutrophils # Man 9.2 H 8.6 H Monocytes # (Manual) 2.5 H 4.3 H PT INR APTT POC ABG pH POC ABG pO2 Sodium 132 L Chloride 95.2 L Carbon Dioxide BUN 29 H Creatinine Glucose 130 H POC Glucose Calcium 8.3 L Albumin 01/17/17 01/17/17 01/17/17 04:55 10:49 11:32 WBC RBC Hgb Hct MCH RDW Plt Count Lymph % (Auto) [place] % (Auto) Lymph # [place] # Seg Neutrophils % Seg Neuts % (Manual) Lymphocytes % (Manual) Monocytes % (Manual) Seg Neutrophils # Seg Neutrophils # Man Monocytes # (Manual) PT INR APTT POC ABG pH 7.315 L POC ABG pO2 41 L Sodium 132 L Chloride 95.7 L Carbon Dioxide 21 L BUN 30 H Creatinine Glucose 130 H POC Glucose 200 H Calcium Albumin 01/17/17 01/18/17 01/18/17 23:41 03:46 03:46 WBC 23.2 H RBC Hgb 10.5 L Hct 32.0 L MCH RDW 16.0 H Plt Count Lymph % (Auto) [place] % (Auto) Lymph # [place] # Seg Neutrophils % Seg Neuts % (Manual) Lymphocytes % (Manual) 6.0 L Monocytes % (Manual) 10.0 H Seg Neutrophils # Seg Neutrophils # Man 16.2 H Monocytes # (Manual) 2.3 H PT INR APTT POC ABG pH POC ABG pO2 Sodium 134 L Chloride 96.6 L Carbon Dioxide 21 L BUN 50 H Creatinine 1.9 H Glucose 177 H POC Glucose Calcium 8.1 L Albumin 1.9 L
--- NOTE | 2017-01-19 12:52 | Cat Scan Report ---
CT CHEST WITHOUT CONTRAST: HISTORY: Shortness of breath. TECHNIQUE: Helical CT with sagittal and coronal reformatted images. FINDINGS: There is a large complex left pleural effusion with probable septation. Most of the left lower lobe is compressed and not aerated. There is a small layering right pleural effusion and mild right basilar atelectasis. The remainder of the lungs are clear. No pneumothorax. Heart and mediastinal structures are unremarkable. The bony structures are demineralized with diffuse degenerative changes. IMPRESSION: Large, complex, septated left pleural effusion. Small layering right pleural effusion.
--- NOTE | 2017-01-19 13:08 | Progress Note ---
Assessment and Plan Pleural effusion,s/p tap.Suspicious for empyema. Multi-septated/loculated , large effusion per CT.See report Pneumonia UTI Rec Needs IR consult for percutaneous U/S guided catheter placed in If drainage unsuccessful, will need VATS Continue ABX Check culture results Discussed with family in detail Subjective Date of service: 01/19/17 Principal diagnosis: Pneumonia,pleural effusion-empyema,urinary retention Interval history: Denies cough ,no fever Objective Vital Signs - 12hr 01/19/17 01/19/17 01/19/17 03:36 07:59 08:06 Temperature Pulse Rate Pulse Rate [ 80 88 85 Anterior Bilateral Throughout] Pulse Rate [ From Monitor] Respiratory Rate Respiratory 16 18 18 Rate [Anterior Bilateral Throughout] Blood Pressure Blood Pressure [Left Arm] O2 Sat by Pulse 95 Oximetry 01/19/17 01/19/17 01/19/17 09:16 09:17 10:00 Temperature 98 F Pulse Rate 86 86 Pulse Rate [ Anterior Bilateral Throughout] Pulse Rate [ 86 From Monitor] Respiratory 20 Rate Respiratory Rate [Anterior Bilateral Throughout] Blood Pressure 120/50 128/50 Blood Pressure 128/50 [Left Arm] O2 Sat by Pulse 97 Oximetry Constitutional: no acute distress, alert, appears uncomfortable Eyes: non-icteric ENT: other (poor dentition) Effort: normal Ascultation: Left: diminished breath sounds (left base) Percussion: Left: dull (base) Cardiovascular: regular rate and rhythm Gastrointestinal: normoactive bowel sounds, soft, non-tender CBC and BMP: 01/19/17 03:41 01/19/17 03:41 ABG, PT/INR, D-dimer: ABG POC ABG pH 7.315 (7.35-7.45) L 01/17/17 11:32 POC ABG pCO2 42.7 (35-45) 01/17/17 11:32 POC ABG pO2 41 (80-105) L 01/17/17 11:32 POC ABG HCO3 21.8 01/17/17 11:32 POC ABG Total CO2 23 01/17/17 11:32 POC ABG O2 Sat 72 01/17/17 11:32 PT/INR, D-dimer PT 16.3 Sec. (12.2-14.9) H 01/15/17 12:11 INR 1.32 (0.87-1.13) H 01/15/17 12:11 Abnormal lab findings: Abnormal Labs 01/15/17 01/15/17 01/15/17 06:20 06:20 12:11 WBC 28.5 H RBC 3.55 L Hgb 9.7 L Hct 30.3 L MCH 27 L RDW 16.2 H Plt Count Lymph % (Auto) [place] % (Auto) Lymph # [place] # Seg Neutrophils % Seg Neuts % (Manual) Lymphocytes % (Manual) Monocytes % (Manual) Seg Neutrophils # Seg Neutrophils # Man Monocytes # (Manual) PT 16.3 H INR 1.32 H APTT 38.4 H POC ABG pH POC ABG pO2 Sodium 134 L Chloride 97.6 L Carbon Dioxide BUN 26 H Creatinine Glucose POC Glucose Calcium 8.2 L Albumin 01/16/17 01/16/17 01/17/17 04:54 04:54 04:55 WBC 24.9 H 23.8 H RBC Hgb 10.0 L 10.9 L Hct 31.8 L 33.6 L MCH 27 L RDW 16.2 H 16.4 H Plt Count Lymph % (Auto) [place] % (Auto) Lymph # [place] # Seg Neutrophils % Seg Neuts % (Manual) 37.0 L 36.0 L Lymphocytes % (Manual) 12.0 L 8.0 L Monocytes % (Manual) 10.0 H 18.0 H Seg Neutrophils # Seg Neutrophils # Man 9.2 H 8.6 H Monocytes # (Manual) 2.5 H 4.3 H PT INR APTT POC ABG pH POC ABG pO2 Sodium 132 L Chloride 95.2 L Carbon Dioxide BUN 29 H Creatinine Glucose 130 H POC Glucose Calcium 8.3 L Albumin 01/17/17 01/17/17 01/17/17 04:55 10:49 11:32 WBC RBC Hgb Hct MCH RDW Plt Count Lymph % (Auto) [place] % (Auto) Lymph # [place] # Seg Neutrophils % Seg Neuts % (Manual) Lymphocytes % (Manual) Monocytes % (Manual) Seg Neutrophils # Seg Neutrophils # Man Monocytes # (Manual) PT INR APTT POC ABG pH 7.315 L POC ABG pO2 41 L Sodium 132 L Chloride 95.7 L Carbon Dioxide 21 L BUN 30 H Creatinine Glucose 130 H POC Glucose 200 H Calcium Albumin 01/17/17 01/18/17 01/18/17 23:41 03:46 03:46 WBC 23.2 H RBC Hgb 10.5 L Hct 32.0 L MCH RDW 16.0 H Plt Count Lymph % (Auto) [place] % (Auto) Lymph # [place] # Seg Neutrophils % Seg Neuts % (Manual) Lymphocytes % (Manual) 6.0 L Monocytes % (Manual) 10.0 H Seg Neutrophils # Seg Neutrophils # Man 16.2 H Monocytes # (Manual) 2.3 H PT INR APTT POC ABG pH POC ABG pO2 Sodium 134 L Chloride 96.6 L Carbon Dioxide 21 L BUN 50 H Creatinine 1.9 H Glucose 177 H POC Glucose Calcium 8.1 L Albumin 1.9 L 01/19/17 01/19/17 03:41 03:41 WBC 19.8 H RBC 3.61 L Hgb 9.8 L Hct 30.2 L MCH 27 L RDW 16.1 H Plt Count 505 H Lymph % (Auto) 5.2 L [place] % (Auto) 13.3 H Lymph # 1.0 L [place] # 2.6 H Seg Neutrophils % 81.1 H Seg Neuts % (Manual) Lymphocytes % (Manual) Monocytes % (Manual) Seg Neutrophils # 16.1 H Seg Neutrophils # Man Monocytes # (Manual) PT INR APTT POC ABG pH POC ABG pO2 Sodium 133 L Chloride 96.0 L Carbon Dioxide 21 L BUN 42 H Creatinine Glucose 122 H POC Glucose Calcium 8.0 L Albumin
--- NOTE | 2017-01-19 14:07 | Progress Note ---
Assessment and Plan Assessment and plan: Patient is 86-year-old with history of hypertension, coronary artery disease and CABG, recent pneumonia. He was recentyly diagnosed with pneumonia on 12/20/16 , and was placed on Levaquin po and discharged home from ED. He completed 10 days of Levaquin. Currently he presents with left lower chest pain and cough. Acute respiratory failure 2/2 aspiration versus worsening of effusion - Thoracentesis was done yesterday, and 1660 mL of yellowish fluid was taken out - Prelim culture grew GM positive cocci, CT showed loculated effusion, patient may need large bore chest tube - Pulmonary consulted - Patient is currently breathing well - Pulmonary is following him Left lower lobe pneumonia with parapneumonic effusion - Continue IV antibiotics - Patient may need Chest tube Hypertension Stable BPH on Flomax CAD stable continue aspirin DVT prophylaxis SCD Will place on chemical prophylaxis after thoracentesis is done CODE STATUS full Disposition Continue inpatient care. History Interval history: Patient was seen and evaluated this morning, patient was breathing ok, on [place] oxygen. Hospitalist Physical - Physical exam Narrative exam: Patient is on [place] oxygen The patient appeared well nourished and normally developed. Vital signs as documented. Head exam is unremarkable. No scleral icterus . Neck is without jugular venous distension, thyromegaly, or carotid bruits. Lungs decreased air entry and dullness on the left lower lung zone. Cardiac exam reveals regular rate and Rhythm. First and second heart sounds normal. No murmurs, rubs or gallops. Abdominal exam reveals normal bowel sounds, no masses, no organomegaly and no aortic enlargement. Extremities are nonedematous and both femoral and pedal pulses are normal. FIRER RETORT: Alert and oriented 3. No focal weakness. - Constitutional Vitals: Temp Pulse Resp BP Pulse Ox 98 F 102 H 18 128/50 97 01/19/17 10:00 01/19/17 13:49 01/19/17 13:49 01/19/17 10:00 01/19/17 10:00 General appearance: Present: no acute distress Results - Labs CBC & Chem 7: 01/19/17 03:41 01/19/17 03:41 Labs: Laboratory Last Values WBC 19.8 K/mm3 (4.5-11.0) H 01/19/17 03:41 RBC 3.61 M/mm3 (3.65-5.03) L 01/19/17 03:41 Hgb 9.8 gm/dl (11.8-15.2) L 01/19/17 03:41 Hct 30.2 % (35.5-45.6) L 01/19/17 03:41 MCV 84 fl (84-94) 01/19/17 03:41 MCH 27 pg (28-32) L 01/19/17 03:41 MCHC 32 % (32-34) 01/19/17 03:41 RDW 16.1 % (13.2-15.2) H 01/19/17 03:41 Plt Count 505 K/mm3 (140-440) H 01/19/17 03:41 Lymph % (Auto) 5.2 % (13.4-35.0) L 01/19/17 03:41 [place] % (Auto) 13.3 % (0.0-7.3) H 01/19/17 03:41 Eos % (Auto) 0.1 % (0.0-4.3) 01/19/17 03:41 Baso % (Auto) 0.3 % (0.0-1.8) 01/19/17 03:41 Lymph # 1.0 K/mm3 (1.2-5.4) L 01/19/17 03:41 [place] # 2.6 K/mm3 (0.0-0.8) H 01/19/17 03:41 Eos # 0.0 K/mm3 (0.0-0.4) 01/19/17 03:41 Baso # 0.1 K/mm3 (0.0-0.1) 01/19/17 03:41 Add Manual Diff Complete 01/18/17 03:46 Total Counted 100 01/18/17 03:46 Seg Neutrophils % 81.1 % (40.0-70.0) H 01/19/17 03:41 Seg Neuts % (Manual) 70.0 % (40.0-70.0) 01/18/17 03:46 Band Neutrophils % 14.0 % 01/18/17 03:46 Lymphocytes % (Manual) 6.0 % (13.4-35.0) L 01/18/17 03:46 Reactive Lymphs % (Man) 0 % 01/18/17 03:46 Monocytes % (Manual) 10.0 % (0.0-7.3) H 01/18/17 03:46 Eosinophils % (Manual) 0 % (0.0-4.3) 01/18/17 03:46 Basophils % (Manual) 0 % (0.0-1.8) 01/18/17 03:46 Metamyelocytes % 0 % 01/18/17 03:46 Myelocytes % 0 % 01/18/17 03:46 Promyelocytes % 0 % 01/18/17 03:46 Blast Cells % 0 % 01/18/17 03:46 Nucleated RBC % Not Reportable 01/18/17 03:46 Seg Neutrophils # 16.1 K/mm3 (1.8-7.7) H 01/19/17 03:41 Seg Neutrophils # Man 16.2 K/mm3 (1.8-7.7) H 01/18/17 03:46 Band Neutrophils # 3.2 K/mm3 01/18/17 03:46 Lymphocytes # (Manual) 1.4 K/mm3 (1.2-5.4) 01/18/17 03:46 Abs React Lymphs (Man) 0.0 K/mm3 01/18/17 03:46 Monocytes # (Manual) 2.3 K/mm3 (0.0-0.8) H 01/18/17 03:46 Eosinophils # (Manual) 0.0 K/mm3 (0.0-0.4) 01/18/17 03:46 Basophils # (Manual) 0.0 K/mm3 (0.0-0.1) 01/18/17 03:46 Metamyelocytes # 0.0 K/mm3 01/18/17 03:46 Myelocytes # 0.0 K/mm3 01/18/17 03:46 Promyelocytes # 0.0 K/mm3 01/18/17 03:46 Blast Cells # 0.0 K/mm3 01/18/17 03:46 WBC Morphology Not Reportable 01/18/17 03:46 Hypersegmented Neuts Not Reportable 01/18/17 03:46 Hyposegmented Neuts Not Reportable 01/18/17 03:46 Hypogranular Neuts Not Reportable 01/18/17 03:46 Smudge Cells Not Reportable 01/18/17 03:46 Toxic Granulation Not Reportable 01/18/17 03:46 Toxic Vacuolation Not Reportable 01/18/17 03:46 Dohle Bodies Not Reportable 01/18/17 03:46 Pel[place]-Huet Anomaly Not Reportable 01/18/17 03:46 Lore Rods Not Reportable 01/18/17 03:46 Platelet Estimate Consistent w auto 01/18/17 03:46 Clumped Platelets Rare 01/18/17 03:46 Plt Clumps, EDTA Not Reportable 01/18/17 03:46 Large Platelets Not Reportable 01/18/17 03:46 Giant Platelets Not Reportable 01/18/17 03:46 Platelet Satelliting Not Reportable 01/18/17 03:46 Plt Morphology Comment Not Reportable 01/18/17 03:46 RBC Morphology Not Reportable 01/18/17 03:46 Dimorphic RBCs Not Reportable 01/18/17 03:46 Polychromasia Not Reportable 01/18/17 03:46 Hypochromasia Not Reportable 01/18/17 03:46 Poikilocytosis Not Reportable 01/18/17 03:46 Anisocytosis Not Reportable 01/18/17 03:46 Microcytosis Not Reportable 01/18/17 03:46 Macrocytosis Not Reportable 01/18/17 03:46 Spherocytes Not Reportable 01/18/17 03:46 Pappenheimer Bodies Not Reportable 01/18/17 03:46 Sickle Cells Not Reportable 01/18/17 03:46 Target Cells Not Reportable 01/18/17 03:46 Tear Drop Cells Not Reportable 01/18/17 03:46 Ovalocytes Rare 01/18/17 03:46 Helmet Cells Not Reportable 01/18/17 03:46 [place] Bodies Not Reportable 01/18/17 03:46 [place] Rings Not Reportable 01/18/17 03:46 [place] Cells Not Reportable 01/18/17 03:46 Bite Cells Not Reportable 01/18/17 03:46 Crenated Cell Not Reportable 01/18/17 03:46 Elliptocytes Not Reportable 01/18/17 03:46 Acanthocytes (Spur) Not Reportable 01/18/17 03:46 Rouleaux Not Reportable 01/18/17 03:46 Hemoglobin C Crystals Not Reportable 01/18/17 03:46 Schistocytes Not Reportable 01/18/17 03:46 Malaria parasites Not Reportable 01/18/17 03:46 Steve Bodies Not Reportable 01/18/17 03:46 Hem Pathologist Commnt No 01/18/17 03:46 PT 16.3 Sec. (12.2-14.9) H 01/15/17 12:11 INR 1.32 (0.87-1.13) H 01/15/17 12:11 APTT 38.4 Sec. (24.2-36.6) H 01/15/17 12:11 POC ABG pH 7.315 (7.35-7.45) L 01/17/17 11:32 POC ABG pCO2 42.7 (35-45) 01/17/17 11:32 POC ABG pO2 41 (80-105) L 01/17/17 11:32 POC ABG HCO3 21.8 01/17/17 11:32 POC ABG Total CO2 23 01/17/17 11:32 POC ABG O2 Sat 72 01/17/17 11:32 POC ABG Base Excess -4 01/17/17 11:32 FiO2 50 % 01/17/17 11:32 Sodium 133 mmol/L (137-145) L 01/19/17 03:41 Potassium 4.2 mmol/L (3.6-5.0) 01/19/17 03:41 Chloride 96.0 mmol/L (98-107) L 01/19/17 03:41 Carbon Dioxide 21 mmol/L (22-30) L 01/19/17 03:41 Anion Gap 20 mmol/L 01/19/17 03:41 BUN 42 mg/dL (9-20) H 01/19/17 03:41 Creatinine 1.4 mg/dL (0.8-1.5) 01/19/17 03:41 Estimated GFR 48 ml/min 01/19/17 03:41 BUN/Creatinine Ratio 30.00 % 01/19/17 03:41 Glucose 122 mg/dL (75-100) H 01/19/17 03:41 POC Glucose 200 (70-105) H 01/17/17 10:49 Calcium 8.0 mg/dL (8.4-10.2) L 01/19/17 03:41 Total Bilirubin 0.30 mg/dL (0.1-1.2) 01/17/17 23:41 Direct Bilirubin < 0.2 mg/dL (0-0.2) 01/17/17 23:41 Indirect Bilirubin 0.1 mg/dL 01/17/17 23:41 AST 30 units/L (5-40) 01/17/17 23:41 ALT 24 units/L (7-56) 01/17/17 23:41 Alkaline Phosphatase 77 units/L (35-129) 01/17/17 23:41 Lactate Dehydrogenase 137 units/L (91-180) 01/17/17 23:41 Total Creatine Kinase 50 units/L (55-170) L 01/15/17 00:18 CK-MB (CK-2) 1.5 ng/mL (0.0-4.0) 01/15/17 00:18 CK-MB (CK-2) Rel Index 3.0 (0-4) 01/15/17 00:18 Troponin T < 0.010 ng/mL (0.00-0.029) 01/15/17 06:20 Total Protein 6.7 g/dL (6.3-8.2) 01/17/17 23:41 Albumin 1.9 g/dL (3.9-5) L 01/17/17 23:41 Albumin/Globulin Ratio 0.4 % 01/17/17 23:41 Fluid Type Pleural 01/15/17 Unknown Fluid Color Yellow 01/15/17 Unknown Fluid Appearance Clear 01/15/17 Unknown Fluid WBC 1350 /mm3 01/15/17 Unknown Fluid RBC 750 /mm3 01/15/17 Unknown Fluid Seg Neutrophils 81.0 % 01/15/17 Unknown Fluid Lymphocytes 12.0 % 01/15/17 Unknown Fluid Reactive Lymphs 0 % 01/15/17 Unknown Fluid Monocytes 7.0 % 01/15/17 Unknown Fluid Eosinophils 0 % 01/15/17 Unknown Fluid Basophils 0 % 01/15/17 Unknown Vancomycin Trough 13.8 ug/mL (5.0-20.0) 01/19/17 01:00
[2017-01-19] MEDS: MORPHINE IV PRN (19:52)
[2017-01-19] MEDS: VANCOMYCIN/NS 1 GM/250 ML 1 GM/250 ML BAG IV SCH (21:48)
[2017-01-19] MEDS: ZOCOR PO SCH (21:53)
[2017-01-20] MEDS: CLEOCIN 600 MG/50 mL 600 MG/50 ML BAG IV SCH ×3 (01:02→17:42)
[2017-01-20] MEDS: DUONEB *Not for PRN Use IH SCH ×4 (04:49→20:34)
[2017-01-20] MEDS: HEPARIN SUB-Q SCH ×3 (05:47→21:19)
[2017-01-20 06:31] LABS: Basophils % (Auto) 0.1 % (0.0-1.8); Eosinophils % (Auto) 0.3 % (0.0-4.3); Hemoglobin 10.5 gm/dl (11.8-15.2); Mean Corpuscular HGB Conc 33 % (32-34); Mean Corpuscular Hemoglobin 27 pg (28-32); Mean Corpuscular Volume 83 fl (84-94); Platelet Count 540 K/mm3 (140-440); Red Blood Count 3.84 M/mm3 (3.65-5.03); Red Cell Distribution Width 16.3 % (13.2-15.2); White Blood Count 18.4 K/mm3 (4.5-11.0)
[2017-01-20 06:41] LABS: INR 1.27 (0.87-1.13)
[2017-01-20 06:49] LABS: Alanine Aminotransferase 23 units/L (7-56); Albumin 1.7 g/dL (3.9-5); Alkaline Phosphatase 90 units/L (35-129); BUN/Creatinine Ratio 21.81; Blood Urea Nitrogen 24 mg/dL (9-20); Carbon Dioxide 25 mmol/L (22-30); Glucose 104 mg/dL (75-100)
[2017-01-20 06:50] LABS: Anion Gap 16 mmol/L; Chloride 101.2 mmol/L (98-107); Sodium 138 mmol/L (137-145)
[2017-01-20 06:59] LABS: Albumin/Globulin Ratio 0.4 %; Total Protein 6.3 g/dL (6.3-8.2)
--- NOTE | 2017-01-20 09:07 | Progress Note ---
Assessment and Plan Pleural effusion,s/p tap.Suspicious for empyema. Multi-septated/loculated , large effusion per CT.See report Pneumonia UTI Rec IR to evaluate for percutaneous U/S guided catheter placed in. I discussed this with the nurse consult ordered If drainage unsuccessful, will need VATS Continue ABX Check culture results and adjust antibiotics accordingly Continue incentive spirometry Discussed with staff. No family available at the bedside for case review/ discussion. Subjective Date of service: 01/20/17 Principal diagnosis: Pneumonia,pleural effusion-empyema,urinary retention Interval history: Some left-sided discomfort. No cough Objective Vital Signs - 12hr 01/19/17 01/19/17 01/20/17 21:52 22:00 08:20 Temperature 98.0 F Pulse Rate 99 H 83 Pulse Rate [ Anterior Bilateral Throughout] Pulse Rate [ 90 From Monitor] Respiratory 18 Rate Respiratory Rate [Anterior Bilateral Throughout] Blood Pressure 124/69 Blood Pressure 133/57 [Left Arm] O2 Sat by Pulse 100 94 Oximetry 01/20/17 01/20/17 01/20/17 08:25 08:30 08:46 Temperature Pulse Rate Pulse Rate [ 106 H 82 Anterior Bilateral Throughout] Pulse Rate [ From Monitor] Respiratory Rate Respiratory 20 16 Rate [Anterior Bilateral Throughout] Blood Pressure Blood Pressure [Left Arm] O2 Sat by Pulse 94 Oximetry Constitutional: no acute distress, alert Eyes: non-icteric ENT: other (poor dentition) Effort: normal Ascultation: Left: diminished breath sounds (left base) Percussion: Left: dull (base) Cardiovascular: regular rate and rhythm Gastrointestinal: normoactive bowel sounds, soft, non-tender CBC and BMP: 01/20/17 05:50 01/20/17 05:50 ABG, PT/INR, D-dimer: ABG POC ABG pH 7.315 (7.35-7.45) L 01/17/17 11:32 POC ABG pCO2 42.7 (35-45) 01/17/17 11:32 POC ABG pO2 41 (80-105) L 01/17/17 11:32 POC ABG HCO3 21.8 01/17/17 11:32 POC ABG Total CO2 23 01/17/17 11:32 POC ABG O2 Sat 72 01/17/17 11:32 PT/INR, D-dimer PT 16.6 Sec. (12.2-14.9) H 01/20/17 05:50 INR 1.27 (0.87-1.13) H 01/20/17 05:50 Abnormal lab findings: Abnormal Labs 01/15/17 01/15/17 01/15/17 06:20 06:20 12:11 WBC 28.5 H RBC 3.55 L Hgb 9.7 L Hct 30.3 L MCV MCH 27 L RDW 16.2 H Plt Count Lymph % (Auto) [place] % (Auto) Lymph # [place] # Seg Neutrophils % Seg Neuts % (Manual) Lymphocytes % (Manual) Monocytes % (Manual) Seg Neutrophils # Seg Neutrophils # Man Monocytes # (Manual) PT 16.3 H INR 1.32 H APTT 38.4 H POC ABG pH POC ABG pO2 Sodium 134 L Chloride 97.6 L Carbon Dioxide BUN 26 H Creatinine Glucose POC Glucose Calcium 8.2 L Albumin 01/16/17 01/16/17 01/17/17 04:54 04:54 04:55 WBC 24.9 H 23.8 H RBC Hgb 10.0 L 10.9 L Hct 31.8 L 33.6 L MCV MCH 27 L RDW 16.2 H 16.4 H Plt Count Lymph % (Auto) [place] % (Auto) Lymph # [place] # Seg Neutrophils % Seg Neuts % (Manual) 37.0 L 36.0 L Lymphocytes % (Manual) 12.0 L 8.0 L Monocytes % (Manual) 10.0 H 18.0 H Seg Neutrophils # Seg Neutrophils # Man 9.2 H 8.6 H Monocytes # (Manual) 2.5 H 4.3 H PT INR APTT POC ABG pH POC ABG pO2 Sodium 132 L Chloride 95.2 L Carbon Dioxide BUN 29 H Creatinine Glucose 130 H POC Glucose Calcium 8.3 L Albumin 01/17/17 01/17/17 01/17/17 04:55 10:49 11:32 WBC RBC Hgb Hct MCV MCH RDW Plt Count Lymph % (Auto) [place] % (Auto) Lymph # [place] # Seg Neutrophils % Seg Neuts % (Manual) Lymphocytes % (Manual) Monocytes % (Manual) Seg Neutrophils # Seg Neutrophils # Man Monocytes # (Manual) PT INR APTT POC ABG pH 7.315 L POC ABG pO2 41 L Sodium 132 L Chloride 95.7 L Carbon Dioxide 21 L BUN 30 H Creatinine Glucose 130 H POC Glucose 200 H Calcium Albumin 01/17/17 01/18/17 01/18/17 23:41 03:46 03:46 WBC 23.2 H RBC Hgb 10.5 L Hct 32.0 L MCV MCH RDW 16.0 H Plt Count Lymph % (Auto) [place] % (Auto) Lymph # [place] # Seg Neutrophils % Seg Neuts % (Manual) Lymphocytes % (Manual) 6.0 L Monocytes % (Manual) 10.0 H Seg Neutrophils # Seg Neutrophils # Man 16.2 H Monocytes # (Manual) 2.3 H PT INR APTT POC ABG pH POC ABG pO2 Sodium 134 L Chloride 96.6 L Carbon Dioxide 21 L BUN 50 H Creatinine 1.9 H Glucose 177 H POC Glucose Calcium 8.1 L Albumin 1.9 L 01/19/17 01/19/17 01/20/17 03:41 03:41 05:50 WBC 19.8 H 18.4 H RBC 3.61 L Hgb 9.8 L 10.5 L Hct 30.2 L 32.0 L MCV 83 L MCH 27 L 27 L RDW 16.1 H 16.3 H Plt Count 505 H 540 H Lymph % (Auto) 5.2 L 7.7 L [place] % (Auto) 13.3 H 15.7 H Lymph # 1.0 L [place] # 2.6 H 2.9 H Seg Neutrophils % 81.1 H 76.2 H Seg Neuts % (Manual) Lymphocytes % (Manual) Monocytes % (Manual) Seg Neutrophils # 16.1 H 14.0 H Seg Neutrophils # Man Monocytes # (Manual) PT INR APTT POC ABG pH POC ABG pO2 Sodium 133 L Chloride 96.0 L Carbon Dioxide 21 L BUN 42 H Creatinine Glucose 122 H POC Glucose Calcium 8.0 L Albumin 01/20/17 01/20/17 05:50 05:50 WBC RBC Hgb Hct MCV MCH RDW Plt Count Lymph % (Auto) [place] % (Auto) Lymph # [place] # Seg Neutrophils % Seg Neuts % (Manual) Lymphocytes % (Manual) Monocytes % (Manual) Seg Neutrophils # Seg Neutrophils # Man Monocytes # (Manual) PT 16.6 H INR 1.27 H APTT POC ABG pH POC ABG pO2 Sodium Chloride Carbon Dioxide BUN 24 H Creatinine Glucose 104 H POC Glucose Calcium 8.0 L Albumin 1.7 L
[2017-01-20] MEDS: NORVASC PO SCH (10:00)
[2017-01-20] MEDS: FLOMAX PO SCH (10:00)
[2017-01-20] MEDS: LOPRESSOR PO SCH (10:40)
[2017-01-20] MEDS: HALFPRIN EC PO SCH (10:40)
[2017-01-20] MEDS: FOLVITE PO SCH (10:40)
[2017-01-20] MEDS: THERAGRAN Tab PO SCH (10:41)
[2017-01-20] MEDS: PROSCAR PO SCH (10:41)
[2017-01-20] MEDS ORDERED: GARAMYCIN 80 MG in NACL 0.9% 100 ML IV SCH (14:45)
[2017-01-20] MEDS ORDERED: DIPRIVAN 10 MG/ML IV ONE (14:45)
[2017-01-20] MEDS ORDERED: AMIDATE IV ONE (14:45)
[2017-01-20] MEDS ORDERED: GARAMYCIN/NS 80 MG/100 ML 100 ML IV ONE (15:00)
[2017-01-20] MEDS ORDERED: NACL 0.9% 1000 ML 1,000 ML IV SCH (15:00)
[2017-01-20] MEDS ORDERED: SUBLIMAZE ONE (15:05)
[2017-01-20] MEDS ORDERED: WATER FOR IRRIG STERILE IR ONE ×2 (15:58→16:17)
--- NOTE | 2017-01-20 16:18 | Post Operative Note ---
Date of procedure: 01/20/17 Pre-op diagnosis: oropharyngeal dysphagia Post-op diagnosis: same Findings: large hiatal hernia, gastritis, successful PEG tube placement Procedure: EGD with PEG tube placement Anesthesia: MAC Surgeon: KOBI RHODES Estimated blood loss: minimal Pathology: none Condition: stable Disposition: floor
--- NOTE | 2017-01-20 16:23 | Operative Report ---
Operative Report Operative Report: EGD/PEG Procedure Note Date of procedure: 01/20/2017 Pre-op diagnosis: oropharyngeal dysphagia Post-op diagnosis: large hiatal hernia, gastritis, successful PEG tube placement Anesthesia: MAC, gentamicin Complications: No immediate complications Estimated blood loss: minimal Procedure: After consent was obtained, the patient was placed in the supine position. The fujinon endoscope was inserted into the mouth with direct vision and advanced into the 2nd portion of duodenum without difficulty. The patient tolerated the procedure well. The views of the mucosa were good. Using finger indentation and illumination, site for peg tube placement was identified and marked. Using standard sterile technique, lidocaine injection was done at marked site, followed by incision and trochar placement. Using pull -peg technique, the peg tube was placed successfully with external bumper at 2.5 cm. The endoscope was re-inserted which showed good positioning of internal bumper. Findings: Successful PEG tube placement. Large hiatal hernia Moderately severe gastritis Impression: 1. Successful PEG tube placement as above Recommendations: -okay to start medications through PEG tube -can start tube feeds 4-6 hours after peg tube placement (per nutrition recommendations) -post PEG care daily -use abdominal binder at all times
--- NOTE | 2017-01-20 16:50 | Anesthesia Day of Surgery ---
Anesthesia Day of Surgery - Day of Surgery Patient Examined: Yes Patient H&P Reviewed: Yes Patient is NPO: Yes
--- NOTE | 2017-01-20 16:53 | Anesthesia Consultation ---
Anesthesia Consult and Med Hx Date of service: 01/20/17 - Airway Anesthetic Teeth Evaluation: Poor (missing) ROM Head & Neck: Adequate Mental/Hyoid Distance: Adequate Mallampati Class: Class II Intubation Access Assessment: Probably Good - Pulmonary Exam CTA: Yes - Cardiac Exam Cardiac Exam: RRR - Pre-Operative Health Status ASA Pre-Surgery Classification: ASA4 Proposed Anesthetic Plan: MAC - Pulmonary Hx Smoking: Yes Hx Respiratory Symptoms: Yes (pleural effusion/ suspicious empyema) - Cardiovascular System Hx Hypertension: Yes Hx Coronary Artery Disease: Yes (CABG in the 90s) - Central Nervous System Hx Psychiatric Problems: No - Endocrine Hx Renal Disease: Yes - Hematic Hx Anemia: Yes - Other Systems Hx Cancer: No - Additional Comments Anesthesia Medical History Comments: NAC
--- NOTE | 2017-01-20 17:11 | Post Anesthesia Evaluation ---
- Post Anesthesia Evaluation Patient Participated: Yes Airway Patent: Yes Stable Respiratory Function: Yes Nausea/Vomiting: No Temp > 96.8F: Yes Pain Manageable: Yes Adequeate Hydration: Yes Anesthesia Complications: No Block Receding Appropriately: Not Applicable Patient on Ventilator: No
[2017-01-20] MEDS: D5/0.45NS 1,000 ML IV SCH (17:41)
[2017-01-20] MEDS: MORPHINE IV PRN (18:42)
--- NOTE | 2017-01-20 19:14 | Progress Note ---
Assessment and Plan Assessment and plan: Patient is 86-year-old with history of hypertension, coronary artery disease and CABG, recent pneumonia. He was recentyly diagnosed with pneumonia on 12/20/16 , and was placed on Levaquin po and discharged home from ED. He completed 10 days of Levaquin. Currently he presents with left lower chest pain and cough. Acute respiratory failure 2/2 aspiration versus worsening of effusion - Thoracentesis was done yesterday, and 1660 mL of yellowish fluid was taken out - Prelim culture grew GM positive cocci, CT showed loculated effusion, exudative. patient may need large bore chest tube vs VATS - Pulmonary consulted and input noted. - Patient is currently breathing well - Pulmonary is following him Left lower lobe pneumonia with parapneumonic effusion - Continue IV antibiotics - Patient may need Chest tube Hypertension Stable BPH on Flomax Moderate protein calorie malnutrition BMI 18.9-[place] consult for tube feeds. CAD stable continue aspirin DVT prophylaxis SCD Will place on chemical prophylaxis after thoracentesis is done CODE STATUS full Disposition Continue inpatient care. Discussed with family History Interval history: Patient seen and examined this morning anxious about getting the CVC placed. Family in the room no other concerns expressed. Hospitalist Physical - Physical exam Narrative exam: VITAL SIGNS: Reviewed. GENERAL: The patient appeared ill appearing. Vital signs as documented. HEAD: No signs of head trauma. EYES: Pupils are equal. Extraocular motions intact. EARS: Hearing grossly intact. MOUTH: Oropharynx is normal, missing dentition. NECK: No adenopathy, no JVD. CHEST: Chest with diminished breath sounds bilaterally. No wheezes, rales, or rhonchi. CARDIAC: Regular rate and rhythm. S1 and S2, without murmurs, gallops, or rubs. VASCULAR: No Edema. Peripheral pulses normal and equal in all extremities. ABDOMEN: Soft, without detectable tenderness. No sign of distention. No rebound or guarding, and no masses palpated. Bowel Sounds normal. MUSCULOSKELETAL: Good range of motion of all major joints. Extremities without clubbing, cyanosis or edema. NEUROLOGIC EXAM: Alert and oriented x 3. No focal sensory or strength deficits. Speech normal. Follows commands. PSYCHIATRIC: Mood normal. SKIN: No rash or lesions. - Constitutional Vitals: Temp Pulse Resp BP Pulse Ox 97.7 F 88 23 102/44 96 01/20/17 16:18 01/20/17 16:48 01/20/17 16:48 01/20/17 16:48 01/20/17 16:48 General appearance: Present: no acute distress Results - Labs CBC & Chem 7: 01/20/17 05:50 01/20/17 05:50 Labs: Laboratory Last Values WBC 18.4 K/mm3 (4.5-11.0) H 01/20/17 05:50 RBC 3.84 M/mm3 (3.65-5.03) 01/20/17 05:50 Hgb 10.5 gm/dl (11.8-15.2) L 01/20/17 05:50 Hct 32.0 % (35.5-45.6) L 01/20/17 05:50 MCV 83 fl (84-94) L 01/20/17 05:50 MCH 27 pg (28-32) L 01/20/17 05:50 MCHC 33 % (32-34) 01/20/17 05:50 RDW 16.3 % (13.2-15.2) H 01/20/17 05:50 Plt Count 540 K/mm3 (140-440) H 01/20/17 05:50 Lymph % (Auto) 7.7 % (13.4-35.0) L 01/20/17 05:50 [place] % (Auto) 15.7 % (0.0-7.3) H 01/20/17 05:50 Eos % (Auto) 0.3 % (0.0-4.3) 01/20/17 05:50 Baso % (Auto) 0.1 % (0.0-1.8) 01/20/17 05:50 Lymph # 1.4 K/mm3 (1.2-5.4) 01/20/17 05:50 [place] # 2.9 K/mm3 (0.0-0.8) H 01/20/17 05:50 Eos # 0.1 K/mm3 (0.0-0.4) 01/20/17 05:50 Baso # 0.0 K/mm3 (0.0-0.1) 01/20/17 05:50 Add Manual Diff Complete 01/18/17 03:46 Total Counted 100 01/18/17 03:46 Seg Neutrophils % 76.2 % (40.0-70.0) H 01/20/17 05:50 Seg Neuts % (Manual) 70.0 % (40.0-70.0) 01/18/17 03:46 Band Neutrophils % 14.0 % 01/18/17 03:46 Lymphocytes % (Manual) 6.0 % (13.4-35.0) L 01/18/17 03:46 Reactive Lymphs % (Man) 0 % 01/18/17 03:46 Monocytes % (Manual) 10.0 % (0.0-7.3) H 01/18/17 03:46 Eosinophils % (Manual) 0 % (0.0-4.3) 01/18/17 03:46 Basophils % (Manual) 0 % (0.0-1.8) 01/18/17 03:46 Metamyelocytes % 0 % 01/18/17 03:46 Myelocytes % 0 % 01/18/17 03:46 Promyelocytes % 0 % 01/18/17 03:46 Blast Cells % 0 % 01/18/17 03:46 Nucleated RBC % Not Reportable 01/18/17 03:46 Seg Neutrophils # 14.0 K/mm3 (1.8-7.7) H 01/20/17 05:50 Seg Neutrophils # Man 16.2 K/mm3 (1.8-7.7) H 01/18/17 03:46 Band Neutrophils # 3.2 K/mm3 01/18/17 03:46 Lymphocytes # (Manual) 1.4 K/mm3 (1.2-5.4) 01/18/17 03:46 Abs React Lymphs (Man) 0.0 K/mm3 01/18/17 03:46 Monocytes # (Manual) 2.3 K/mm3 (0.0-0.8) H 01/18/17 03:46 Eosinophils # (Manual) 0.0 K/mm3 (0.0-0.4) 01/18/17 03:46 Basophils # (Manual) 0.0 K/mm3 (0.0-0.1) 01/18/17 03:46 Metamyelocytes # 0.0 K/mm3 01/18/17 03:46 Myelocytes # 0.0 K/mm3 01/18/17 03:46 Promyelocytes # 0.0 K/mm3 01/18/17 03:46 Blast Cells # 0.0 K/mm3 01/18/17 03:46 WBC Morphology Not Reportable 01/18/17 03:46 Hypersegmented Neuts Not Reportable 01/18/17 03:46 Hyposegmented Neuts Not Reportable 01/18/17 03:46 Hypogranular Neuts Not Reportable 01/18/17 03:46 Smudge Cells Not Reportable 01/18/17 03:46 Toxic Granulation Not Reportable 01/18/17 03:46 Toxic Vacuolation Not Reportable 01/18/17 03:46 Dohle Bodies Not Reportable 01/18/17 03:46 Pelger-Huet Anomaly Not Reportable 01/18/17 03:46 Lore Rods Not Reportable 01/18/17 03:46 Platelet Estimate Consistent w auto 01/18/17 03:46 Clumped Platelets Rare 01/18/17 03:46 Plt Clumps, EDTA Not Reportable 01/18/17 03:46 Large Platelets Not Reportable 01/18/17 03:46 Giant Platelets Not Reportable 01/18/17 03:46 Platelet Satelliting Not Reportable 01/18/17 03:46 Plt Morphology Comment Not Reportable 01/18/17 03:46 RBC Morphology Not Reportable 01/18/17 03:46 Dimorphic RBCs Not Reportable 01/18/17 03:46 Polychromasia Not Reportable 01/18/17 03:46 Hypochromasia Not Reportable 01/18/17 03:46 Poikilocytosis Not Reportable 01/18/17 03:46 Anisocytosis Not Reportable 01/18/17 03:46 Microcytosis Not Reportable 01/18/17 03:46 Macrocytosis Not Reportable 01/18/17 03:46 Spherocytes Not Reportable 01/18/17 03:46 Pappenheimer Bodies Not Reportable 01/18/17 03:46 Sickle Cells Not Reportable 01/18/17 03:46 Target Cells Not Reportable 01/18/17 03:46 Tear Drop Cells Not Reportable 01/18/17 03:46 Ovalocytes Rare 01/18/17 03:46 Helmet Cells Not Reportable 01/18/17 03:46 [place] Bodies Not Reportable 01/18/17 03:46 [place] Rings Not Reportable 01/18/17 03:46 [place] Cells Not Reportable 01/18/17 03:46 Bite Cells Not Reportable 01/18/17 03:46 Crenated Cell Not Reportable 01/18/17 03:46 Elliptocytes Not Reportable 01/18/17 03:46 Acanthocytes (Spur) Not Reportable 01/18/17 03:46 Rouleaux Not Reportable 01/18/17 03:46 Hemoglobin C Crystals Not Reportable 01/18/17 03:46 Schistocytes Not Reportable 01/18/17 03:46 Malaria parasites Not Reportable 01/18/17 03:46 Steve Bodies Not Reportable 01/18/17 03:46 Hem Pathologist Commnt No 01/18/17 03:46 PT 16.6 Sec. (12.2-14.9) H 01/20/17 05:50 INR 1.27 (0.87-1.13) H 01/20/17 05:50 APTT 38.4 Sec. (24.2-36.6) H 01/15/17 12:11 POC ABG pH 7.315 (7.35-7.45) L 01/17/17 11:32 POC ABG pCO2 42.7 (35-45) 01/17/17 11:32 POC ABG pO2 41 (80-105) L 01/17/17 11:32 POC ABG HCO3 21.8 01/17/17 11:32 POC ABG Total CO2 23 01/17/17 11:32 POC ABG O2 Sat 72 01/17/17 11:32 POC ABG Base Excess -4 01/17/17 11:32 FiO2 50 % 01/17/17 11:32 Sodium 138 mmol/L (137-145) 01/20/17 05:50 Potassium 4.0 mmol/L (3.6-5.0) 01/20/17 05:50 Chloride 101.2 mmol/L (98-107) 01/20/17 05:50 Carbon Dioxide 25 mmol/L (22-30) 01/20/17 05:50 Anion Gap 16 mmol/L 01/20/17 05:50 BUN 24 mg/dL (9-20) H 01/20/17 05:50 Creatinine 1.1 mg/dL (0.8-1.5) 01/20/17 05:50 Estimated GFR > 60 ml/min 01/20/17 05:50 BUN/Creatinine Ratio 21.81 % 01/20/17 05:50 Glucose 104 mg/dL (75-100) H 01/20/17 05:50 POC Glucose 200 (70-105) H 01/17/17 10:49 Calcium 8.0 mg/dL (8.4-10.2) L 01/20/17 05:50 Total Bilirubin 0.50 mg/dL (0.1-1.2) 01/20/17 05:50 Direct Bilirubin < 0.2 mg/dL (0-0.2) 01/17/17 23:41 Indirect Bilirubin 0.1 mg/dL 01/17/17 23:41 AST 22 units/L (5-40) 01/20/17 05:50 ALT 23 units/L (7-56) 01/20/17 05:50 Alkaline Phosphatase 90 units/L (35-129) 01/20/17 05:50 Lactate Dehydrogenase 137 units/L (91-180) 01/17/17 23:41 Total Creatine Kinase 50 units/L (55-170) L 01/15/17 00:18 CK-MB (CK-2) 1.5 ng/mL (0.0-4.0) 01/15/17 00:18 CK-MB (CK-2) Rel Index 3.0 (0-4) 01/15/17 00:18 Troponin T < 0.010 ng/mL (0.00-0.029) 01/15/17 06:20 Total Protein 6.3 g/dL (6.3-8.2) 01/20/17 05:50 Albumin 1.7 g/dL (3.9-5) L 01/20/17 05:50 Albumin/Globulin Ratio 0.4 % 01/20/17 05:50 Fluid Type Pleural 01/15/17 Unknown Fluid Color Yellow 01/15/17 Unknown Fluid Appearance Clear 01/15/17 Unknown Fluid WBC 1350 /mm3 01/15/17 Unknown Fluid RBC 750 /mm3 01/15/17 Unknown Fluid Seg Neutrophils 81.0 % 01/15/17 Unknown Fluid Lymphocytes 12.0 % 01/15/17 Unknown Fluid Reactive Lymphs 0 % 01/15/17 Unknown Fluid Monocytes 7.0 % 01/15/17 Unknown Fluid Eosinophils 0 % 01/15/17 Unknown Fluid Basophils 0 % 01/15/17 Unknown Vancomycin Trough 13.8 ug/mL (5.0-20.0) 01/19/17 01:00
[2017-01-20] MEDS: VANCOMYCIN/NS 1 GM/250 ML 1 GM/250 ML BAG IV SCH (21:13)
[2017-01-20 23:27] LABS: LDH,Body Fluid 942; Total Protein,Body Fluid 5.3 (15.0-45.0)
[2017-01-21] MEDS: CLEOCIN 600 MG/50 mL 600 MG/50 ML BAG IV SCH ×3 (01:00→17:36)
[2017-01-21] MEDS: MORPHINE IV PRN ×2 (01:15→19:15)
[2017-01-21] MEDS: HEPARIN SUB-Q SCH ×3 (05:58→22:38)
[2017-01-21] MEDS: DUONEB *Not for PRN Use IH SCH ×3 (07:49→19:43)
--- NOTE | 2017-01-21 08:42 | Event Note ---
Date: 01/21/17 Spoke to primary physician. He will discuss this patient again with pulmonology , to determine if the patient needs a pigtail chest tube vs large bore chest tube vs VATS. At the moment, the procedure is on hold. I will be contacted later on today to be informed of the results of the discussion.
--- NOTE | 2017-01-21 08:58 | Progress Note ---
Assessment and Plan Pleural effusion,s/p tap.Suspicious for empyema. Multi-septated/loculated , large effusion per CT.See report Pneumonia UTI Rec Per RN report this morning, scheduled for IR to evaluate for percutaneous U/S guided catheter this morning - pig tail cath to be placed in. This is probably the best next option considering pt status and age If drainage unsuccessful, will need to discussed option of VATS vs repeated percutaneous drainage Continue ABX Check culture results and adjust antibiotics accordingly Discussed with staff. No family available at the bedside for case review/ discussion. Subjective Date of service: 01/21/17 Principal diagnosis: Pneumonia,pleural effusion-empyema,urinary retention Interval history: No respiratory complains,still some cough Objective Vital Signs - 12hr 01/20/17 01/21/17 01/21/17 22:00 01:15 05:16 Temperature 98.2 F Pulse Rate 86 Pulse Rate [ 106 H From Monitor] Respiratory 20 19 Rate Respiratory 20 Rate [Left Chest] Blood Pressure 115/52 [Left Arm] O2 Sat by Pulse 95 Oximetry 01/21/17 07:20 Temperature Pulse Rate Pulse Rate [ From Monitor] Respiratory Rate Respiratory Rate [Left Chest] Blood Pressure [Left Arm] O2 Sat by Pulse 96 Oximetry Constitutional: no acute distress, alert Eyes: non-icteric ENT: other (poor dentition) Effort: normal Ascultation: Left: diminished breath sounds (left base) Percussion: Left: dull (base) Cardiovascular: regular rate and rhythm Gastrointestinal: normoactive bowel sounds, soft, non-tender CBC and BMP: 01/20/17 05:50 01/20/17 05:50 ABG, PT/INR, D-dimer: ABG POC ABG pH 7.315 (7.35-7.45) L 01/17/17 11:32 POC ABG pCO2 42.7 (35-45) 01/17/17 11:32 POC ABG pO2 41 (80-105) L 01/17/17 11:32 POC ABG HCO3 21.8 01/17/17 11:32 POC ABG Total CO2 23 01/17/17 11:32 POC ABG O2 Sat 72 01/17/17 11:32 PT/INR, D-dimer PT 16.6 Sec. (12.2-14.9) H 01/20/17 05:50 INR 1.27 (0.87-1.13) H 01/20/17 05:50 Abnormal lab findings: Abnormal Labs 01/15/17 01/15/17 01/15/17 06:20 06:20 12:11 WBC 28.5 H RBC 3.55 L Hgb 9.7 L Hct 30.3 L MCV MCH 27 L RDW 16.2 H Plt Count Lymph % (Auto) [place] % (Auto) Lymph # [place] # Seg Neutrophils % Seg Neuts % (Manual) Lymphocytes % (Manual) Monocytes % (Manual) Seg Neutrophils # Seg Neutrophils # Man Monocytes # (Manual) PT 16.3 H INR 1.32 H APTT 38.4 H POC ABG pH POC ABG pO2 Sodium 134 L Chloride 97.6 L Carbon Dioxide BUN 26 H Creatinine Glucose POC Glucose Calcium 8.2 L Albumin Fluid Total Protein 01/15/17 01/16/17 01/16/17 Unknown 04:54 04:54 WBC 24.9 H RBC Hgb 10.0 L Hct 31.8 L MCV MCH 27 L RDW 16.2 H Plt Count Lymph % (Auto) [place] % (Auto) Lymph # [place] # Seg Neutrophils % Seg Neuts % (Manual) 37.0 L Lymphocytes % (Manual) 12.0 L Monocytes % (Manual) 10.0 H Seg Neutrophils # Seg Neutrophils # Man 9.2 H Monocytes # (Manual) 2.5 H PT INR APTT POC ABG pH POC ABG pO2 Sodium 132 L Chloride 95.2 L Carbon Dioxide BUN 29 H Creatinine Glucose 130 H POC Glucose Calcium 8.3 L Albumin Fluid Total Protein 5.3 L 01/17/17 01/17/17 01/17/17 04:55 04:55 10:49 WBC 23.8 H RBC Hgb 10.9 L Hct 33.6 L MCV MCH RDW 16.4 H Plt Count Lymph % (Auto) [place] % (Auto) Lymph # [place] # Seg Neutrophils % Seg Neuts % (Manual) 36.0 L Lymphocytes % (Manual) 8.0 L Monocytes % (Manual) 18.0 H Seg Neutrophils # Seg Neutrophils # Man 8.6 H Monocytes # (Manual) 4.3 H PT INR APTT POC ABG pH POC ABG pO2 Sodium 132 L Chloride 95.7 L Carbon Dioxide 21 L BUN 30 H Creatinine Glucose 130 H POC Glucose 200 H Calcium Albumin Fluid Total Protein 01/17/17 01/17/17 01/18/17 11:32 23:41 03:46 WBC 23.2 H RBC Hgb 10.5 L Hct 32.0 L MCV MCH RDW 16.0 H Plt Count Lymph % (Auto) [place] % (Auto) Lymph # [place] # Seg Neutrophils % Seg Neuts % (Manual) Lymphocytes % (Manual) 6.0 L Monocytes % (Manual) 10.0 H Seg Neutrophils # Seg Neutrophils # Man 16.2 H Monocytes # (Manual) 2.3 H PT INR APTT POC ABG pH 7.315 L POC ABG pO2 41 L Sodium Chloride Carbon Dioxide BUN Creatinine Glucose POC Glucose Calcium Albumin 1.9 L Fluid Total Protein 01/18/17 01/19/17 01/19/17 03:46 03:41 03:41 WBC 19.8 H RBC 3.61 L Hgb 9.8 L Hct 30.2 L MCV MCH 27 L RDW 16.1 H Plt Count 505 H Lymph % (Auto) 5.2 L [place] % (Auto) 13.3 H Lymph # 1.0 L [place] # 2.6 H Seg Neutrophils % 81.1 H Seg Neuts % (Manual) Lymphocytes % (Manual) Monocytes % (Manual) Seg Neutrophils # 16.1 H Seg Neutrophils # Man Monocytes # (Manual) PT INR APTT POC ABG pH POC ABG pO2 Sodium 134 L 133 L Chloride 96.6 L 96.0 L Carbon Dioxide 21 L 21 L BUN 50 H 42 H Creatinine 1.9 H Glucose 177 H 122 H POC Glucose Calcium 8.1 L 8.0 L Albumin Fluid Total Protein 01/20/17 01/20/17 01/20/17 05:50 05:50 05:50 WBC 18.4 H RBC Hgb 10.5 L Hct 32.0 L MCV 83 L MCH 27 L RDW 16.3 H Plt Count 540 H Lymph % (Auto) 7.7 L [place] % (Auto) 15.7 H Lymph # [place] # 2.9 H Seg Neutrophils % 76.2 H Seg Neuts % (Manual) Lymphocytes % (Manual) Monocytes % (Manual) Seg Neutrophils # 14.0 H Seg Neutrophils # Man Monocytes # (Manual) PT 16.6 H INR 1.27 H APTT POC ABG pH POC ABG pO2 Sodium Chloride Carbon Dioxide BUN 24 H Creatinine Glucose 104 H POC Glucose Calcium 8.0 L Albumin 1.7 L Fluid Total Protein 01/20/17 21:03 WBC RBC Hgb Hct MCV MCH RDW Plt Count Lymph % (Auto) [place] % (Auto) Lymph # [place] # Seg Neutrophils % Seg Neuts % (Manual) Lymphocytes % (Manual) Monocytes % (Manual) Seg Neutrophils # Seg Neutrophils # Man Monocytes # (Manual) PT INR APTT POC ABG pH POC ABG pO2 Sodium Chloride Carbon Dioxide BUN Creatinine Glucose POC Glucose 110 H Calcium Albumin Fluid Total Protein
[2017-01-21] MEDS ORDERED: SODIUM BICARBONATE FEEDTUBE PRN (09:50)
[2017-01-21] MEDS ORDERED: PANCREAZE DR 10,500 UNIT FEEDTUBE PRN (09:50)
[2017-01-21] MEDS ORDERED: SIMPLE SYRUP FEEDTUBE PRN ×2 (09:50)
[2017-01-21] MEDS: D5/0.45NS 1,000 ML IV SCH (10:10)
[2017-01-21] MEDS: THERAGRAN Tab PO SCH (10:30)
[2017-01-21] MEDS: FOLVITE PO SCH (10:30)
[2017-01-21] MEDS: LOPRESSOR PO SCH ×2 (10:30→23:04)
[2017-01-21] MEDS: NORVASC PO SCH (10:30)
[2017-01-21] MEDS: FLOMAX PO SCH (10:30)
[2017-01-21] MEDS: PROSCAR PO SCH (10:30)
[2017-01-21] MEDS: HALFPRIN EC PO SCH (10:30)
--- NOTE | 2017-01-21 10:33 | Gastroenterology Progress Note ---
Assessment and Plan oropharyngeal dysphagia - s/p PEG tube placement 01/20. External bumper loosened at bedside. okay to start tube feeds per nutrition recommendations. cont post PEG care daily. will s/o, please call with questions or as needed. Subjective Date of service: 01/21/17 Principal diagnosis: oropharyngeal dysphagia Interval history: pt c/o mild abd discomfort but otherwise denies new complaints at this time. No events overnight. Objective - Exam Narrative Exam: Gen: NAD CV: RRR Lungs: CTAB Abd: soft, nd, +bs, peg tube site c/d/i external bumper loosened at bedside. - Constitutional Vitals: Temp Pulse Resp BP Pulse Ox 98.2 F 86 19 115/52 96 01/20/17 22:00 01/21/17 05:16 01/21/17 01:15 01/20/17 22:00 01/21/17 07:20 - Labs CBC & Chem 7: 01/20/17 05:50 01/20/17 05:50 Labs: Laboratory Results - last 24 hr 01/15/17 01/20/17 Unknown 21:03 POC Glucose 110 H Fluid Total Protein 5.3 L Fluid LDH 942
--- NOTE | 2017-01-21 11:42 | Consultation ---
History of Present Illness - Reason for Consult Consult date: 01/20/17 Chest tube placement - History of Present Illness 86 year old male with multiple medical comorbidities admitting with suspected pneumonia. He was found to have a large left pleural effusion on CT. About 1600 cc of fluid was drained during a thoracentesis, some of which was found to be purulent in appearance. Culture grew gram positive cocci. A chest tube was requested. Past History Past Medical History: CAD (s/p CABG), hypertension Past Surgical History: CABG, total hip replacement (right) Social history: lives with family, full code. denies: smoking, alcohol abuse Family history: hypertension Medications and Allergies Allergies Allergy/AdvReac Type Severity Reaction Status Date / Time Penicillins AdvReac Severe Hives Verified 01/16/17 16:28 Sulfa (Sulfonamide AdvReac Severe Hives Verified 01/16/17 16:28 Antibiotics) Home Medications Medication Instructions Recorded Confirmed Last Taken Type Aspirin [Adult Low Dose Aspirin EC] 81 mg PO DAILY 06/25/16 01/14/17 01/14/17 History Finasteride [Proscar] 1 tab PO DAILY 06/25/16 01/14/17 01/14/17 History Folic Acid [Folvite] 1 mg PO QDAY 06/25/16 01/14/17 01/14/17 History Metoprolol Tartrate [Lopressor] 50 mg PO BID 06/25/16 01/14/17 01/14/17 History Multivitamin Tab [Multiple Vitamin 1 tab PO DAILY 06/25/16 01/14/17 01/14/17 History TAB (Theragran)] Pravachol 20 mg PO HS 06/25/16 01/14/17 01/14/17 History Tamsulosin [Flomax] 0.4 mg PO QDAY 06/25/16 01/14/17 01/14/17 History amLODIPine [Norvasc] 5 mg PO DAILY 06/25/16 01/14/17 01/14/17 History Active Meds: Active Medications Acetaminophen (Tylenol) 650 mg PO Q4H PRN PRN Reason: Pain MILD(1-3)/Fever >100.5/WERNER Albuterol/Ipratropium (Duoneb 0.5 Mg-3 Mg/3 Ml Soln) 1 ampul IH Q6HRT ANGELIQUE Last Admin: 01/21/17 07:49 Dose: Not Given Amlodipine Besylate (Norvasc) 5 mg PO DAILY [facility] Last Admin: 01/20/17 10:00 Dose: Not Given Lipase/Protease/Amylase (Pancreaze Dr 10,500 Unit) 1 each FEEDTUBE PRN PRN PRN Reason: For Clogged Feeding Tube Aspirin (Halfprin Ec) 81 mg PO DAILY [facility] Last Admin: 01/20/17 10:40 Dose: Not Given Bisacodyl (Dulcolax) 10 mg VA QDAY PRN PRN Reason: Constipation unrelieved by MOM Finasteride (Proscar) 5 mg PO DAILY [facility] Last Admin: 01/20/17 10:41 Dose: Not Given Folic Acid (Folvite) 1 mg PO QDAY [facility] Last Admin: 01/20/17 10:40 Dose: Not Given Heparin Sodium (Porcine) (Heparin) 5,000 unit SUB-Q Q8HR [facility] Last Admin: 01/21/17 05:58 Dose: 5,000 unit Clindamycin HCl (Cleocin 600 Mg/50 Ml) 600 mg in 50 mls @ 100 mls/hr IV Q8H ANGELIQUE PRN Reason: Protocol Last Admin: 01/21/17 01:00 Dose: 100 mls/hr Dextrose/Sodium Chloride (D5/0.45ns) 1,000 mls @ 75 mls/hr IV DIRECT [facility] Last Admin: 01/21/17 10:10 Dose: 75 mls/hr Vancomycin HCl (Vancomycin/Ns 1 Gm/250 Ml) 1 gm in 250 mls @ 166.667 mls/hr IV Q24HR@2200 [facility] Last Admin: 01/20/17 21:13 Dose: 166.667 mls/hr Magnesium Hydroxide (Milk Of Magnesia) 30 ml PO Q4H PRN PRN Reason: Constipation Metoprolol Tartrate (Lopressor) 50 mg PO BID [facility] Last Admin: 01/20/17 10:40 Dose: Not Given Morphine Sulfate (Morphine) 2 mg IV Q4H PRN PRN Reason: Pain, Moderate (4-6) Last Admin: 01/21/17 01:15 Dose: 2 mg Multivitamins (Theragran Tab) 1 each PO DAILY [facility] Last Admin: 01/20/17 10:41 Dose: Not Given Ondansetron HCl (Zofran) 4 mg IV Q6H PRN PRN Reason: nausea or vomiting Pseudoephedrine/Acetam/Chlorphenir (Robitussin Ac) 10 ml PO Q4H PRN PRN Reason: Cough Last Admin: 01/16/17 19:05 Dose: 10 ml Simple Syrup (Simple Syrup) 15 ml FEEDTUBE PRN PRN PRN Reason: Hypoglycemia Simple Syrup (Simple Syrup) 30 ml FEEDTUBE PRN PRN PRN Reason: Hypoglycemia Simvastatin (Zocor) 10 mg PO QHS [facility] Last Admin: 01/19/17 21:53 Dose: Not Given Sodium Bicarbonate (Sodium Bicarbonate) 325 mg FEEDTUBE PRN PRN PRN Reason: For Clogged Feeding Tube Tamsulosin HCl (Flomax) 0.4 mg PO QDAY [facility] Last Admin: 01/20/17 10:00 Dose: Not Given Vancomycin HCl (Vancomycin Pharmacy To Dose) 1 each IV PKCONSULT ANGELIQUE PRN Reason: Protocol Exam - Constitutional Vitals: Temp Pulse Resp BP Pulse Ox 97.5 F L 92 H 18 145/65 97 01/21/17 10:00 01/21/17 10:00 01/21/17 10:00 01/21/17 10:00 01/21/17 10:00 Results - Labs CBC & Chem 7: 01/20/17 05:50 01/20/17 05:50 Labs: Abnormal lab results 01/15/17 01/20/17 Range/Units Unknown 21:03 POC Glucose 110 H (70-105) Fluid Total Protein 5.3 L (15.0-45.0) Assessment and Plan As a large amount of fluid was removed after the CT, I will have the patient undergo ultrasound at the bedside to evaluate as to whether there is enough residual fluid for chest tube placement. If there is, I will proceed with chest tube placement today.
--- NOTE | 2017-01-21 13:11 | Ultrasound Report ---
Chest ultrasound: Pleural effusion. Imaging of the posterior left chest in the upright position demonstrates adjacent loculations of fluid collections. The approximate volume is 1200 cc.
[2017-01-21] MEDS ORDERED: NACL 0.9% 500 ML IR ONE (13:29)
[2017-01-21] MEDS ORDERED: VERSED ONE (13:30)
[2017-01-21] MEDS ORDERED: XYLOCAINE 2% INFILTRATI ONE (13:30)
[2017-01-21] MEDS ORDERED: SUBLIMAZE ONE (13:30)
[2017-01-21] MEDS ORDERED: ANCEF/STERILE WATER 2 GM/20 ML 2 GM/20 ML SYRINGE IV ONE (13:31)
--- NOTE | 2017-01-21 14:32 | Operative Report ---
Operative Report Operative Report: Procedure: Placement of a left basilar chest tube Date of Procedure: 01/21/2017 History/Indication: 86 y/o male with empyema Physician: Shaun Bustillos MD Technique/Procedural Details: The patient was placed in the left anterior oblique position. He was prepped and draped in the usual sterile fashion. Local anesthetic was administered. Under ultrasound guidance, an 18-gauge needle was inserted into the left posterolateral pleural space. The needle was exchanged over an Amplatz wire for an 8 [place] all-purpose drainage catheter. The locking loop was formed. The drain was sutured to the skin with 2-0 Ethilon suture. The drain was then connected to a Pleur-evac unit and connected to wall suction. A Xeroform gauze and sterile dressings were applied. The patient was transported out of the room in good condition. Discussion: Ultrasound demonstrates a heavily loculated pleural effusion. Upon aspiration, the fluid appears yellow and cloudy, with debris. The chest tube locking loop is appropriately situated at the left posterior medial lung base. Specimen: None EBL: <5 cc
--- NOTE | 2017-01-21 18:15 | Progress Note ---
Assessment and Plan Assessment and plan: Patient is 86-year-old with history of hypertension, coronary artery disease and CABG, recent pneumonia. He was recently diagnosed with pneumonia on 12/20/16 , and was placed on Levaquin po and discharged home from ED. He completed 10 days of Levaquin. Currently he presents with left lower chest pain and cough. On Admission he is found to have loculated effusion on the left lower lobe. Despite thoracentesis no resolution was noted. Patient will proceed for pigtail catheter out today. If unsuccessful will need possibly a VATS procedure. A PEG tube was also placed for nutritional support. O Acute respiratory failure 2/2 aspiration versus worsening of effusion - Thoracentesis was done and 1660 mL of yellowish fluid was taken out - Prelim culture grew GM positive cocci, CT showed loculated effusion, exudative. - Pulmonary consulted and input noted. - Patient is currently breathing well - Pulmonary is following him Left lower lobe pneumonia with parapneumonic effusion - Continue IV antibiotics -Monitoring cultures no growth to date. Adjust antibiotics as needed. - Patient may need Chest tube Hypertension Stable BPH on Flomax Moderate protein calorie malnutrition BMI 18. Cintia missed consult for tube feeds. CAD stable continue aspirin DVT prophylaxis SCD Will place on chemical prophylaxis after thoracentesis is done CODE STATUS full Disposition Continue inpatient care. Discussed with family History Interval history: Patient seen and examined this morning in no acute distress. Family in the room no other concerns expressed. Hospitalist Physical - Physical exam Narrative exam: VITAL SIGNS: Reviewed. GENERAL: The patient appeared chronically ill appearing. Vital signs as documented. HEAD: No signs of head trauma. EYES: Pupils are equal. Extraocular motions intact. EARS: Hearing grossly intact. MOUTH: Oropharynx is normal, missing dentition. NECK: No adenopathy, no JVD. CHEST: Chest with diminished breath sounds bilaterally. No wheezes, rales, or rhonchi. CARDIAC: Regular rate and rhythm. S1 and S2, without murmurs, gallops, or rubs. VASCULAR: No Edema. Peripheral pulses normal and equal in all extremities. ABDOMEN: Soft, without detectable tenderness. No sign of distention. No rebound or guarding, and no masses palpated. Bowel Sounds normal. MUSCULOSKELETAL: Good range of motion of all major joints. Extremities without clubbing, cyanosis or edema. NEUROLOGIC EXAM: Alert and oriented x 3. No focal sensory or strength deficits. Speech normal. Follows commands. PSYCHIATRIC: Mood normal. SKIN: No rash or lesions. - Constitutional Vitals: Temp Pulse Resp BP Pulse Ox 97.5 F L 92 H 18 145/65 97 01/21/17 10:00 01/21/17 10:00 01/21/17 10:00 01/21/17 10:00 01/21/17 10:00 General appearance: Present: no acute distress Results - Labs CBC & Chem 7: 01/20/17 05:50 01/20/17 05:50 Labs: Laboratory Last Values WBC 18.4 K/mm3 (4.5-11.0) H 01/20/17 05:50 RBC 3.84 M/mm3 (3.65-5.03) 01/20/17 05:50 Hgb 10.5 gm/dl (11.8-15.2) L 01/20/17 05:50 Hct 32.0 % (35.5-45.6) L 01/20/17 05:50 MCV 83 fl (84-94) L 01/20/17 05:50 MCH 27 pg (28-32) L 01/20/17 05:50 MCHC 33 % (32-34) 01/20/17 05:50 RDW 16.3 % (13.2-15.2) H 01/20/17 05:50 Plt Count 540 K/mm3 (140-440) H 01/20/17 05:50 Lymph % (Auto) 7.7 % (13.4-35.0) L 01/20/17 05:50 [place] % (Auto) 15.7 % (0.0-7.3) H 01/20/17 05:50 Eos % (Auto) 0.3 % (0.0-4.3) 01/20/17 05:50 Baso % (Auto) 0.1 % (0.0-1.8) 01/20/17 05:50 Lymph # 1.4 K/mm3 (1.2-5.4) 01/20/17 05:50 [place] # 2.9 K/mm3 (0.0-0.8) H 01/20/17 05:50 Eos # 0.1 K/mm3 (0.0-0.4) 01/20/17 05:50 Baso # 0.0 K/mm3 (0.0-0.1) 01/20/17 05:50 Add Manual Diff Complete 01/18/17 03:46 Total Counted 100 01/18/17 03:46 Seg Neutrophils % 76.2 % (40.0-70.0) H 01/20/17 05:50 Seg Neuts % (Manual) 70.0 % (40.0-70.0) 01/18/17 03:46 Band Neutrophils % 14.0 % 01/18/17 03:46 Lymphocytes % (Manual) 6.0 % (13.4-35.0) L 01/18/17 03:46 Reactive Lymphs % (Man) 0 % 01/18/17 03:46 Monocytes % (Manual) 10.0 % (0.0-7.3) H 01/18/17 03:46 Eosinophils % (Manual) 0 % (0.0-4.3) 01/18/17 03:46 Basophils % (Manual) 0 % (0.0-1.8) 01/18/17 03:46 Metamyelocytes % 0 % 01/18/17 03:46 Myelocytes % 0 % 01/18/17 03:46 Promyelocytes % 0 % 01/18/17 03:46 Blast Cells % 0 % 01/18/17 03:46 Nucleated RBC % Not Reportable 01/18/17 03:46 Seg Neutrophils # 14.0 K/mm3 (1.8-7.7) H 01/20/17 05:50 Seg Neutrophils # Man 16.2 K/mm3 (1.8-7.7) H 01/18/17 03:46 Band Neutrophils # 3.2 K/mm3 01/18/17 03:46 Lymphocytes # (Manual) 1.4 K/mm3 (1.2-5.4) 01/18/17 03:46 Abs React Lymphs (Man) 0.0 K/mm3 01/18/17 03:46 Monocytes # (Manual) 2.3 K/mm3 (0.0-0.8) H 01/18/17 03:46 Eosinophils # (Manual) 0.0 K/mm3 (0.0-0.4) 01/18/17 03:46 Basophils # (Manual) 0.0 K/mm3 (0.0-0.1) 01/18/17 03:46 Metamyelocytes # 0.0 K/mm3 01/18/17 03:46 Myelocytes # 0.0 K/mm3 01/18/17 03:46 Promyelocytes # 0.0 K/mm3 01/18/17 03:46 Blast Cells # 0.0 K/mm3 01/18/17 03:46 WBC Morphology Not Reportable 01/18/17 03:46 Hypersegmented Neuts Not Reportable 01/18/17 03:46 Hyposegmented Neuts Not Reportable 01/18/17 03:46 Hypogranular Neuts Not Reportable 01/18/17 03:46 Smudge Cells Not Reportable 01/18/17 03:46 Toxic Granulation Not Reportable 01/18/17 03:46 Toxic Vacuolation Not Reportable 01/18/17 03:46 Dohle Bodies Not Reportable 01/18/17 03:46 Pelger-Huet Anomaly Not Reportable 01/18/17 03:46 Loer Rods Not Reportable 01/18/17 03:46 Platelet Estimate Consistent w auto 01/18/17 03:46 Clumped Platelets Rare 01/18/17 03:46 Plt Clumps, EDTA Not Reportable 01/18/17 03:46 Large Platelets Not Reportable 01/18/17 03:46 Giant Platelets Not Reportable 01/18/17 03:46 Platelet Satelliting Not Reportable 01/18/17 03:46 Plt Morphology Comment Not Reportable 01/18/17 03:46 RBC Morphology Not Reportable 01/18/17 03:46 Dimorphic RBCs Not Reportable 01/18/17 03:46 Polychromasia Not Reportable 01/18/17 03:46 Hypochromasia Not Reportable 01/18/17 03:46 Poikilocytosis Not Reportable 01/18/17 03:46 Anisocytosis Not Reportable 01/18/17 03:46 Microcytosis Not Reportable 01/18/17 03:46 Macrocytosis Not Reportable 01/18/17 03:46 Spherocytes Not Reportable 01/18/17 03:46 Pappenheimer Bodies Not Reportable 01/18/17 03:46 Sickle Cells Not Reportable 01/18/17 03:46 Target Cells Not Reportable 01/18/17 03:46 Tear Drop Cells Not Reportable 01/18/17 03:46 Ovalocytes Rare 01/18/17 03:46 Helmet Cells Not Reportable 01/18/17 03:46 [place] Bodies Not Reportable 01/18/17 03:46 [place] Rings Not Reportable 01/18/17 03:46 [place] Cells Not Reportable 01/18/17 03:46 Bite Cells Not Reportable 01/18/17 03:46 Crenated Cell Not Reportable 01/18/17 03:46 Elliptocytes Not Reportable 01/18/17 03:46 Acanthocytes (Spur) Not Reportable 01/18/17 03:46 Rouleaux Not Reportable 01/18/17 03:46 Hemoglobin C Crystals Not Reportable 01/18/17 03:46 Schistocytes Not Reportable 01/18/17 03:46 Malaria parasites Not Reportable 01/18/17 03:46 Steve Bodies Not Reportable 01/18/17 03:46 Hem Pathologist Commnt No 01/18/17 03:46 PT 16.6 Sec. (12.2-14.9) H 01/20/17 05:50 INR 1.27 (0.87-1.13) H 01/20/17 05:50 APTT 38.4 Sec. (24.2-36.6) H 01/15/17 12:11 POC ABG pH 7.315 (7.35-7.45) L 01/17/17 11:32 POC ABG pCO2 42.7 (35-45) 01/17/17 11:32 POC ABG pO2 41 (80-105) L 01/17/17 11:32 POC ABG HCO3 21.8 01/17/17 11:32 POC ABG Total CO2 23 01/17/17 11:32 POC ABG O2 Sat 72 01/17/17 11:32 POC ABG Base Excess -4 01/17/17 11:32 FiO2 50 % 01/17/17 11:32 Sodium 138 mmol/L (137-145) 01/20/17 05:50 Potassium 4.0 mmol/L (3.6-5.0) 01/20/17 05:50 Chloride 101.2 mmol/L (98-107) 01/20/17 05:50 Carbon Dioxide 25 mmol/L (22-30) 01/20/17 05:50 Anion Gap 16 mmol/L 01/20/17 05:50 BUN 24 mg/dL (9-20) H 01/20/17 05:50 Creatinine 1.1 mg/dL (0.8-1.5) 01/20/17 05:50 Estimated GFR > 60 ml/min 01/20/17 05:50 BUN/Creatinine Ratio 21.81 % 01/20/17 05:50 Glucose 104 mg/dL (75-100) H 01/20/17 05:50 POC Glucose 110 (70-105) H 01/20/17 21:03 Calcium 8.0 mg/dL (8.4-10.2) L 01/20/17 05:50 Total Bilirubin 0.50 mg/dL (0.1-1.2) 01/20/17 05:50 Direct Bilirubin < 0.2 mg/dL (0-0.2) 01/17/17 23:41 Indirect Bilirubin 0.1 mg/dL 01/17/17 23:41 AST 22 units/L (5-40) 01/20/17 05:50 ALT 23 units/L (7-56) 01/20/17 05:50 Alkaline Phosphatase 90 units/L (35-129) 01/20/17 05:50 Lactate Dehydrogenase 137 units/L (91-180) 01/17/17 23:41 Total Creatine Kinase 50 units/L (55-170) L 01/15/17 00:18 CK-MB (CK-2) 1.5 ng/mL (0.0-4.0) 01/15/17 00:18 CK-MB (CK-2) Rel Index 3.0 (0-4) 01/15/17 00:18 Troponin T < 0.010 ng/mL (0.00-0.029) 01/15/17 06:20 Total Protein 6.3 g/dL (6.3-8.2) 01/20/17 05:50 Albumin 1.7 g/dL (3.9-5) L 01/20/17 05:50 Albumin/Globulin Ratio 0.4 % 01/20/17 05:50 Fluid Type Pleural 01/15/17 Unknown Fluid Color Yellow 01/15/17 Unknown Fluid Appearance Clear 01/15/17 Unknown Fluid WBC 1350 /mm3 01/15/17 Unknown Fluid RBC 750 /mm3 01/15/17 Unknown Fluid Seg Neutrophils 81.0 % 01/15/17 Unknown Fluid Lymphocytes 12.0 % 01/15/17 Unknown Fluid Reactive Lymphs 0 % 01/15/17 Unknown Fluid Monocytes 7.0 % 01/15/17 Unknown Fluid Eosinophils 0 % 01/15/17 Unknown Fluid Basophils 0 % 01/15/17 Unknown Fluid Total Protein 5.3 (15.0-45.0) L 01/15/17 Unknown Fluid LDH 942 01/15/17 Unknown Vancomycin Trough 13.8 ug/mL (5.0-20.0) 01/19/17 01:00
[2017-01-21] MEDS: ZOCOR PO SCH ×2 (22:36)
[2017-01-21] MEDS: VANCOMYCIN/NS 1 GM/250 ML 1 GM/250 ML BAG IV SCH (22:37)
[2017-01-22] MEDS: CLEOCIN 600 MG/50 mL 600 MG/50 ML BAG IV SCH ×3 (01:10→17:01)
[2017-01-22] MEDS: DUONEB *Not for PRN Use IH SCH ×3 (02:42→20:31)
[2017-01-22] MEDS: D5/0.45NS 1,000 ML IV SCH ×2 (03:05→17:49)
[2017-01-22] MEDS: MILK OF MAGNESIA PO PRN (06:01)
[2017-01-22] MEDS: HEPARIN SUB-Q SCH ×3 (06:02→22:33)
[2017-01-22 08:15] LABS: Hematocrit 33.8 % (35.5-45.6); Hemoglobin 10.6 gm/dl (11.8-15.2); Mean Corpuscular HGB Conc 31 % (32-34); Mean Corpuscular Hemoglobin 27 pg (28-32); Mean Corpuscular Volume 85 fl (84-94); Platelet Count 582 K/mm3 (140-440); Red Blood Count 3.97 M/mm3 (3.65-5.03); Red Cell Distribution Width 16.6 % (13.2-15.2)
[2017-01-22 08:31] LABS: Anion Gap 16 mmol/L; BUN/Creatinine Ratio 13.63; Blood Urea Nitrogen 15 mg/dL (9-20); Calcium 7.9 mg/dL (8.4-10.2); Carbon Dioxide 26 mmol/L (22-30); Glucose 163 mg/dL (75-100); Potassium 3.8 mmol/L (3.6-5.0); Sodium 137 mmol/L (137-145)
[2017-01-22 08:53] LABS: White Blood Count 24.9 K/mm3 (4.5-11.0)
--- NOTE | 2017-01-22 09:00 | Progress Note ---
Assessment and Plan Complex parapneumonic pleural effusion, empyema. Multi-septated/loculated , post chest tube drainage Pneumonia.Possible aspiration etiology UTI Rec Monitor tube output Watch for fever Check cultures for any changes Continue ABX f/u CXR Discussed with pt.Family n/a Subjective Date of service: 01/22/17 Principal diagnosis: Pneumonia,pleural effusion-empyema,urinary retention Interval history: No respiratory complains, pain.No fever Objective Vital Signs - 12hr 01/21/17 01/21/17 01/22/17 21:45 22:00 02:42 Temperature 98.6 F Pulse Rate 81 Pulse Rate [ 91 H Anterior Bilateral Throughout] Pulse Rate [ 92 H From Monitor] Respiratory 18 Rate Respiratory 18 Rate [Anterior Bilateral Throughout] Respiratory 18 Rate [Left Chest] Blood Pressure 118/46 [Left Arm] O2 Sat by Pulse 96 98 Oximetry 01/22/17 02:54 Temperature Pulse Rate Pulse Rate [ 95 H Anterior Bilateral Throughout] Pulse Rate [ From Monitor] Respiratory Rate Respiratory 18 Rate [Anterior Bilateral Throughout] Respiratory Rate [Left Chest] Blood Pressure [Left Arm] O2 Sat by Pulse Oximetry Constitutional: no acute distress, alert Eyes: non-icteric Effort: normal Ascultation: Bilateral: clear, diminished breath sounds (LT chest tube in place, yellow turbid fluid) Percussion: Left: dull (base) Cardiovascular: regular rate and rhythm Gastrointestinal: normoactive bowel sounds, soft, non-tender Extremities: no cyanosis, no cyanosis, no cyanosis Neurologic: normal mental status, non-focal exam CBC and BMP: 01/22/17 07:34 01/22/17 07:34 ABG, PT/INR, D-dimer: ABG POC ABG pH 7.315 (7.35-7.45) L 01/17/17 11:32 POC ABG pCO2 42.7 (35-45) 01/17/17 11:32 POC ABG pO2 41 (80-105) L 01/17/17 11:32 POC ABG HCO3 21.8 01/17/17 11:32 POC ABG Total CO2 23 01/17/17 11:32 POC ABG O2 Sat 72 01/17/17 11:32 PT/INR, D-dimer PT 16.6 Sec. (12.2-14.9) H 01/20/17 05:50 INR 1.27 (0.87-1.13) H 01/20/17 05:50 Abnormal lab findings: Abnormal Labs 01/15/17 01/15/17 01/15/17 06:20 06:20 12:11 WBC 28.5 H RBC 3.55 L Hgb 9.7 L Hct 30.3 L MCV MCH 27 L MCHC RDW 16.2 H Plt Count Lymph % (Auto) [place] % (Auto) Lymph # [place] # Seg Neutrophils % Seg Neuts % (Manual) Lymphocytes % (Manual) Monocytes % (Manual) Seg Neutrophils # Seg Neutrophils # Man Monocytes # (Manual) PT 16.3 H INR 1.32 H APTT 38.4 H POC ABG pH POC ABG pO2 Sodium 134 L Chloride 97.6 L Carbon Dioxide BUN 26 H Creatinine Glucose POC Glucose Calcium 8.2 L Albumin Fluid Total Protein 01/15/17 01/16/17 01/16/17 Unknown 04:54 04:54 WBC 24.9 H RBC Hgb 10.0 L Hct 31.8 L MCV MCH 27 L MCHC RDW 16.2 H Plt Count Lymph % (Auto) [place] % (Auto) Lymph # [place] # Seg Neutrophils % Seg Neuts % (Manual) 37.0 L Lymphocytes % (Manual) 12.0 L Monocytes % (Manual) 10.0 H Seg Neutrophils # Seg Neutrophils # Man 9.2 H Monocytes # (Manual) 2.5 H PT INR APTT POC ABG pH POC ABG pO2 Sodium 132 L Chloride 95.2 L Carbon Dioxide BUN 29 H Creatinine Glucose 130 H POC Glucose Calcium 8.3 L Albumin Fluid Total Protein 5.3 L 01/17/17 01/17/17 01/17/17 04:55 04:55 10:49 WBC 23.8 H RBC Hgb 10.9 L Hct 33.6 L MCV MCH MCHC RDW 16.4 H Plt Count Lymph % (Auto) [place] % (Auto) Lymph # [place] # Seg Neutrophils % Seg Neuts % (Manual) 36.0 L Lymphocytes % (Manual) 8.0 L Monocytes % (Manual) 18.0 H Seg Neutrophils # Seg Neutrophils # Man 8.6 H Monocytes # (Manual) 4.3 H PT INR APTT POC ABG pH POC ABG pO2 Sodium 132 L Chloride 95.7 L Carbon Dioxide 21 L BUN 30 H Creatinine Glucose 130 H POC Glucose 200 H Calcium Albumin Fluid Total Protein 06/25/17 06/25/17 06/26/17 11:32 23:41 03:46 WBC 23.2 H RBC Hgb 10.5 L Hct 32.0 L MCV MCH MCHC RDW 16.0 H Plt Count Lymph % (Auto) [place] % (Auto) Lymph # [place] # Seg Neutrophils % Seg Neuts % (Manual) Lymphocytes % (Manual) 6.0 L Monocytes % (Manual) 10.0 H Seg Neutrophils # Seg Neutrophils # Man 16.2 H Monocytes # (Manual) 2.3 H PT INR APTT POC ABG pH 7.315 L POC ABG pO2 41 L Sodium Chloride Carbon Dioxide BUN Creatinine Glucose POC Glucose Calcium Albumin 1.9 L Fluid Total Protein 01/18/17 01/19/17 01/19/17 03:46 03:41 03:41 WBC 19.8 H RBC 3.61 L Hgb 9.8 L Hct 30.2 L MCV MCH 27 L MCHC RDW 16.1 H Plt Count 505 H Lymph % (Auto) 5.2 L [place] % (Auto) 13.3 H Lymph # 1.0 L [place] # 2.6 H Seg Neutrophils % 81.1 H Seg Neuts % (Manual) Lymphocytes % (Manual) Monocytes % (Manual) Seg Neutrophils # 16.1 H Seg Neutrophils # Man Monocytes # (Manual) PT INR APTT POC ABG pH POC ABG pO2 Sodium 134 L 133 L Chloride 96.6 L 96.0 L Carbon Dioxide 21 L 21 L BUN 50 H 42 H Creatinine 1.9 H Glucose 177 H 122 H POC Glucose Calcium 8.1 L 8.0 L Albumin Fluid Total Protein 01/20/17 01/20/17 01/20/17 05:50 05:50 05:50 WBC 18.4 H RBC Hgb 10.5 L Hct 32.0 L MCV 83 L MCH 27 L MCHC RDW 16.3 H Plt Count 540 H Lymph % (Auto) 7.7 L [place] % (Auto) 15.7 H Lymph # [place] # 2.9 H Seg Neutrophils % 76.2 H Seg Neuts % (Manual) Lymphocytes % (Manual) Monocytes % (Manual) Seg Neutrophils # 14.0 H Seg Neutrophils # Man Monocytes # (Manual) PT 16.6 H INR 1.27 H APTT POC ABG pH POC ABG pO2 Sodium Chloride Carbon Dioxide BUN 24 H Creatinine Glucose 104 H POC Glucose Calcium 8.0 L Albumin 1.7 L Fluid Total Protein 01/20/17 01/22/17 01/22/17 21:03 07:34 07:34 WBC 24.9 H RBC Hgb 10.6 L Hct 33.8 L MCV MCH 27 L MCHC 31 L RDW 16.6 H Plt Count 582 H Lymph % (Auto) [place] % (Auto) Lymph # [place] # Seg Neutrophils % Seg Neuts % (Manual) Lymphocytes % (Manual) Monocytes % (Manual) Seg Neutrophils # Seg Neutrophils # Man Monocytes # (Manual) PT INR APTT POC ABG pH POC ABG pO2 Sodium Chloride Carbon Dioxide BUN Creatinine Glucose 163 H POC Glucose 110 H Calcium 7.9 L Albumin Fluid Total Protein
--- NOTE | 2017-01-22 09:01 | XRay Report ---
Single view chest: Compared to 01/17/17. History: Shortness of breath. Findings: Cardiomegaly with moderate left pleural effusion. Bibasilar atelectasis. No significant interval change. Impression: No significant interval change.
[2017-01-22] MEDS: FOLVITE PO SCH (09:12)
[2017-01-22] MEDS: PROSCAR PO SCH (09:12)
[2017-01-22] MEDS: THERAGRAN Tab PO SCH (09:12)
[2017-01-22] MEDS: FLOMAX PO SCH (09:12)
[2017-01-22] MEDS: HALFPRIN EC PO SCH (09:12)
[2017-01-22] MEDS: LOPRESSOR PO SCH ×3 (09:13→22:33)
[2017-01-22] MEDS: NORVASC PO SCH (09:14)
--- NOTE | 2017-01-22 09:21 | Event Note ---
Date: 01/22/17 Pigtail chest tube management per pulmonology. If further drainage required, patient would probably benefit from Dr. Johnson involvement for VATS vs. large bore chest chest.
--- NOTE | 2017-01-22 17:00 | Progress Note ---
Assessment and Plan Assessment and plan: Patient is 86-year-old with history of hypertension, coronary artery disease and CABG, recent pneumonia. He was recently diagnosed with pneumonia on 12/20/16 , and was placed on Levaquin po and discharged home from ED. He completed 10 days of Levaquin. Currently he presents with left lower chest pain and cough. On Admission he is found to have loculated effusion on the left lower lobe. Despite thoracentesis no resolution was noted. Patient will proceed for pigtail catheter out today. If unsuccessful will need possibly a VATS procedure. A PEG tube was also placed for nutritional support. O Acute respiratory failure 2/2 aspiration versus worsening of effusion - Thoracentesis was done and 1660 mL of yellowish fluid was taken out - Prelim culture grew GM positive cocci-streptococcus pneumonia Y, CT showed loculated effusion, exudative. - Patient is currently breathing well - Pulmonary is following him Left lower lobe pneumonia with parapneumonic effusion - Continue IV antibiotics -Patient still with increasing leukocytosis or symptoms of reactive, no fever. -Monitoring cultures no growth to date. Adjust antibiotics as needed. -Chest tube is placed. But x-ray still shows loculated effusion. Will obtain cardio vascular surgery input for possible VATS procedure Hypertension Stable BPH on Flomax Moderate protein calorie malnutrition BMI 18. Continue tube feeds.. CAD stable continue aspirin Anemia-stable likely chronic disease will monitor closely. DVT prophylaxis SCD We'll start on heparin for DVT prophylaxis CODE STATUS full Disposition Continue inpatient care. Discussed with family History Interval history: Patient seen and examined this morning in no acute distress. Chest tube is in place, patient is tolerating tube feeds. Family in the room no other concerns expressed. Hospitalist Physical - Physical exam Narrative exam: VITAL SIGNS: Reviewed. GENERAL: The patient appeared chronically ill appearing. Vital signs as documented. HEAD: No signs of head trauma. EYES: Pupils are equal. Extraocular motions intact. EARS: Hearing grossly intact. MOUTH: Oropharynx is normal, missing dentition. NECK: No adenopathy, no JVD. CHEST: Chest with diminished breath sounds bilaterally. No wheezes, rales, or rhonchi. CARDIAC: Regular rate and rhythm. S1 and S2, without murmurs, gallops, or rubs. VASCULAR: No Edema. Peripheral pulses normal and equal in all extremities. ABDOMEN: Soft, without detectable tenderness. No sign of distention. No rebound or guarding, and no masses palpated. Bowel Sounds normal. MUSCULOSKELETAL: Good range of motion of all major joints. Extremities without clubbing, cyanosis or edema. NEUROLOGIC EXAM: Alert and oriented x 3. No focal sensory or strength deficits. Speech normal. Follows commands. PSYCHIATRIC: Mood normal. SKIN: Chest tube and tube feeds noted. No overt drainage noted. - Constitutional Vitals: Temp Pulse Resp BP Pulse Ox 98.8 F 94 H 20 142/52 98 01/22/17 10:00 01/22/17 10:00 01/22/17 10:00 01/22/17 10:00 01/22/17 10:08 General appearance: Present: no acute distress Results - Labs CBC & Chem 7: 01/22/17 07:34 01/22/17 07:34 Labs: Laboratory Last Values WBC 24.9 K/mm3 (4.5-11.0) H 01/22/17 07:34 RBC 3.97 M/mm3 (3.65-5.03) 01/22/17 07:34 Hgb 10.6 gm/dl (11.8-15.2) L 01/22/17 07:34 Hct 33.8 % (35.5-45.6) L 01/22/17 07:34 MCV 85 fl (84-94) 01/22/17 07:34 MCH 27 pg (28-32) L 01/22/17 07:34 MCHC 31 % (32-34) L 01/22/17 07:34 RDW 16.6 % (13.2-15.2) H 01/22/17 07:34 Plt Count 582 K/mm3 (140-440) H 01/22/17 07:34 Lymph % (Auto) 7.7 % (13.4-35.0) L 01/20/17 05:50 Twiggs % (Auto) 15.7 % (0.0-7.3) H 01/20/17 05:50 Eos % (Auto) 0.3 % (0.0-4.3) 01/20/17 05:50 Baso % (Auto) 0.1 % (0.0-1.8) 01/20/17 05:50 Lymph # 1.4 K/mm3 (1.2-5.4) 01/20/17 05:50 Twiggs # 2.9 K/mm3 (0.0-0.8) H 01/20/17 05:50 Eos # 0.1 K/mm3 (0.0-0.4) 01/20/17 05:50 Baso # 0.0 K/mm3 (0.0-0.1) 01/20/17 05:50 Add Manual Diff Complete 01/18/17 03:46 Total Counted 100 01/18/17 03:46 Seg Neutrophils % 76.2 % (40.0-70.0) H 01/20/17 05:50 Seg Neuts % (Manual) 70.0 % (40.0-70.0) 01/18/17 03:46 Band Neutrophils % 14.0 % 01/18/17 03:46 Lymphocytes % (Manual) 6.0 % (13.4-35.0) L 01/18/17 03:46 Reactive Lymphs % (Man) 0 % 01/18/17 03:46 Monocytes % (Manual) 10.0 % (0.0-7.3) H 01/18/17 03:46 Eosinophils % (Manual) 0 % (0.0-4.3) 01/18/17 03:46 Basophils % (Manual) 0 % (0.0-1.8) 01/18/17 03:46 Metamyelocytes % 0 % 01/18/17 03:46 Myelocytes % 0 % 01/18/17 03:46 Promyelocytes % 0 % 01/18/17 03:46 Blast Cells % 0 % 01/18/17 03:46 Nucleated RBC % Not Reportable 01/18/17 03:46 Seg Neutrophils # 14.0 K/mm3 (1.8-7.7) H 01/20/17 05:50 Seg Neutrophils # Man 16.2 K/mm3 (1.8-7.7) H 01/18/17 03:46 Band Neutrophils # 3.2 K/mm3 01/18/17 03:46 Lymphocytes # (Manual) 1.4 K/mm3 (1.2-5.4) 01/18/17 03:46 Abs React Lymphs (Man) 0.0 K/mm3 01/18/17 03:46 Monocytes # (Manual) 2.3 K/mm3 (0.0-0.8) H 01/18/17 03:46 Eosinophils # (Manual) 0.0 K/mm3 (0.0-0.4) 01/18/17 03:46 Basophils # (Manual) 0.0 K/mm3 (0.0-0.1) 01/18/17 03:46 Metamyelocytes # 0.0 K/mm3 01/18/17 03:46 Myelocytes # 0.0 K/mm3 01/18/17 03:46 Promyelocytes # 0.0 K/mm3 01/18/17 03:46 Blast Cells # 0.0 K/mm3 01/18/17 03:46 WBC Morphology Not Reportable 01/18/17 03:46 Hypersegmented Neuts Not Reportable 01/18/17 03:46 Hyposegmented Neuts Not Reportable 01/18/17 03:46 Hypogranular Neuts Not Reportable 01/18/17 03:46 Smudge Cells Not Reportable 01/18/17 03:46 Toxic Granulation Not Reportable 01/18/17 03:46 Toxic Vacuolation Not Reportable 01/18/17 03:46 Dohle Bodies Not Reportable 01/18/17 03:46 Pelger-Huet Anomaly Not Reportable 01/18/17 03:46 Lore Rods Not Reportable 01/18/17 03:46 Platelet Estimate Consistent w auto 01/18/17 03:46 Clumped Platelets Rare 01/18/17 03:46 Plt Clumps, EDTA Not Reportable 01/18/17 03:46 Large Platelets Not Reportable 01/18/17 03:46 Giant Platelets Not Reportable 01/18/17 03:46 Platelet Satelliting Not Reportable 01/18/17 03:46 Plt Morphology Comment Not Reportable 01/18/17 03:46 RBC Morphology Not Reportable 01/18/17 03:46 Dimorphic RBCs Not Reportable 01/18/17 03:46 Polychromasia Not Reportable 01/18/17 03:46 Hypochromasia Not Reportable 01/18/17 03:46 Poikilocytosis Not Reportable 01/18/17 03:46 Anisocytosis Not Reportable 01/18/17 03:46 Microcytosis Not Reportable 01/18/17 03:46 Macrocytosis Not Reportable 01/18/17 03:46 Spherocytes Not Reportable 01/18/17 03:46 Pappenheimer Bodies Not Reportable 01/18/17 03:46 Sickle Cells Not Reportable 01/18/17 03:46 Target Cells Not Reportable 01/18/17 03:46 Tear Drop Cells Not Reportable 01/18/17 03:46 Ovalocytes Rare 01/18/17 03:46 Helmet Cells Not Reportable 01/18/17 03:46 [place] Bodies Not Reportable 01/18/17 03:46 Pine Rings Not Reportable 01/18/17 03:46 Benjamin Cells Not Reportable 01/18/17 03:46 Bite Cells Not Reportable 01/18/17 03:46 Crenated Cell Not Reportable 01/18/17 03:46 Elliptocytes Not Reportable 01/18/17 03:46 Acanthocytes (Spur) Not Reportable 01/18/17 03:46 Rouleaux Not Reportable 01/18/17 03:46 Hemoglobin C Crystals Not Reportable 01/18/17 03:46 Schistocytes Not Reportable 01/18/17 03:46 Malaria parasites Not Reportable 01/18/17 03:46 Steve Bodies Not Reportable 01/18/17 03:46 Hem Pathologist Commnt No 01/18/17 03:46 PT 16.6 Sec. (12.2-14.9) H 01/20/17 05:50 INR 1.27 (0.87-1.13) H 01/20/17 05:50 APTT 38.4 Sec. (24.2-36.6) H 01/15/17 12:11 POC ABG pH 7.315 (7.35-7.45) L 01/17/17 11:32 POC ABG pCO2 42.7 (35-45) 01/17/17 11:32 POC ABG pO2 41 (80-105) L 01/17/17 11:32 POC ABG HCO3 21.8 01/17/17 11:32 POC ABG Total CO2 23 01/17/17 11:32 POC ABG O2 Sat 72 01/17/17 11:32 POC ABG Base Excess -4 01/17/17 11:32 FiO2 50 % 01/17/17 11:32 Sodium 138 mmol/L (137-145) 01/20/17 05:50 Potassium 4.0 mmol/L (3.6-5.0) 01/20/17 05:50 Chloride 101.2 mmol/L (98-107) 01/20/17 05:50 Carbon Dioxide 26 mmol/L (22-30) 01/22/17 07:34 Anion Gap 16 mmol/L 01/20/17 05:50 BUN 15 mg/dL (9-20) 01/22/17 07:34 Creatinine 1.1 mg/dL (0.8-1.5) 01/22/17 07:34 Estimated GFR > 60 ml/min 01/22/17 07:34 BUN/Creatinine Ratio 13.63 % 01/22/17 07:34 Glucose 163 mg/dL (75-100) H 01/22/17 07:34 POC Glucose 110 (70-105) H 01/20/17 21:03 Calcium 7.9 mg/dL (8.4-10.2) L 01/22/17 07:34 Total Bilirubin 0.50 mg/dL (0.1-1.2) 01/20/17 05:50 Direct Bilirubin < 0.2 mg/dL (0-0.2) 01/17/17 23:41 Indirect Bilirubin 0.1 mg/dL 01/17/17 23:41 AST 22 units/L (5-40) 01/20/17 05:50 ALT 23 units/L (7-56) 01/20/17 05:50 Alkaline Phosphatase 90 units/L (35-129) 01/20/17 05:50 Lactate Dehydrogenase 137 units/L (91-180) 01/17/17 23:41 Total Creatine Kinase 50 units/L (55-170) L 01/15/17 00:18 CK-MB (CK-2) 1.5 ng/mL (0.0-4.0) 01/15/17 00:18 CK-MB (CK-2) Rel Index 3.0 (0-4) 01/15/17 00:18 Troponin T < 0.010 ng/mL (0.00-0.029) 01/15/17 06:20 Total Protein 6.3 g/dL (6.3-8.2) 01/20/17 05:50 Albumin 1.7 g/dL (3.9-5) L 01/20/17 05:50 Albumin/Globulin Ratio 0.4 % 01/20/17 05:50 Fluid Type Pleural 01/15/17 Unknown Fluid Color Yellow 01/15/17 Unknown Fluid Appearance Clear 01/15/17 Unknown Fluid WBC 1350 /mm3 01/15/17 Unknown Fluid RBC 750 /mm3 01/15/17 Unknown Fluid Seg Neutrophils 81.0 % 01/15/17 Unknown Fluid Lymphocytes 12.0 % 01/15/17 Unknown Fluid Reactive Lymphs 0 % 01/15/17 Unknown Fluid Monocytes 7.0 % 01/15/17 Unknown Fluid Eosinophils 0 % 01/15/17 Unknown Fluid Basophils 0 % 01/15/17 Unknown Fluid Total Protein 5.3 (15.0-45.0) L 01/15/17 Unknown Fluid LDH 942 01/15/17 Unknown Vancomycin Trough 13.8 ug/mL (5.0-20.0) 01/19/17 01:00 - Imaging and Cardiology Chest x-ray: image reviewed (no change in loculated fluid)
[2017-01-22] MEDS: VANCOMYCIN/NS 1 GM/250 ML 1 GM/250 ML BAG IV SCH (22:32)
[2017-01-22] MEDS: ZOCOR PO SCH (22:33)
[2017-01-22] MEDS: MORPHINE IV PRN (22:34)
[2017-01-23] MEDS: CLEOCIN 600 MG/50 mL 600 MG/50 ML BAG IV SCH ×3 (01:49→18:19)
[2017-01-23] MEDS: DUONEB *Not for PRN Use IH SCH ×3 (02:35→13:31)
[2017-01-23] MEDS: HEPARIN SUB-Q SCH ×3 (05:55→22:23)
[2017-01-23] MEDS: D5/0.45NS 1,000 ML IV SCH ×2 (05:56→20:37)
[2017-01-23 09:21] LABS: Hematocrit 31.6 % (35.5-45.6); Hemoglobin 10.2 gm/dl (11.8-15.2); Mean Corpuscular HGB Conc 32 % (32-34); Mean Corpuscular Hemoglobin 27 pg (28-32); Mean Corpuscular Volume 84 fl (84-94); Platelet Count 559 K/mm3 (140-440); Red Blood Count 3.77 M/mm3 (3.65-5.03); Red Cell Distribution Width 16.6 % (13.2-15.2)
[2017-01-23 09:31] LABS: White Blood Count 23.7 K/mm3 (4.5-11.0)
--- NOTE | 2017-01-23 10:11 | XRay Report ---
Single view chest: Compared to 01/22/17. History: Empyema. Findings: Cardiomegaly. Left pleural effusion without significant interval change. No significant interval change in right lung. Impression: No significant interval change compared to previous study.
[2017-01-23] MEDS: HALFPRIN EC PO SCH (11:03)
[2017-01-23] MEDS: FOLVITE PO SCH (11:03)
[2017-01-23] MEDS: THERAGRAN Tab PO SCH (11:04)
[2017-01-23] MEDS: PROSCAR PO SCH (11:04)
[2017-01-23] MEDS: FLOMAX PO SCH (11:05)
[2017-01-23] MEDS: LOPRESSOR PO SCH ×2 (11:09→22:22)
[2017-01-23] MEDS: NORVASC PO SCH (11:11)
--- NOTE | 2017-01-23 11:40 | Progress Note ---
Assessment and Plan - Patient Problems (1) Empyema lung Current Visit: Yes Status: Acute (2) Empyema of left pleural space Current Visit: Yes Status: Acute (3) Left lower lobe pneumonia Current Visit: Yes Status: Acute Qualifiers: Pneumonia type: P Aspiration pneumonia type: A (4) Pleural effusion, left Current Visit: Yes Status: Acute Subjective Principal diagnosis: Pneumonia,pleural effusion-empyema,urinary retention Interval history: feels better and son at bedside Objective Vital Signs - 12hr 01/23/17 01/23/17 01/23/17 02:38 02:49 08:28 Temperature Pulse Rate Pulse Rate [ 86 88 Anterior Bilateral Throughout] Pulse Rate [ From Monitor] Pulse Rate [ Left] Respiratory Rate Respiratory 16 14 Rate [Anterior Bilateral Throughout] Respiratory Rate [Left] Blood Pressure Blood Pressure [Left Arm] O2 Sat by Pulse 97 Oximetry 01/23/17 01/23/17 01/23/17 09:15 09:22 09:26 Temperature Pulse Rate Pulse Rate [ 88 Anterior Bilateral Throughout] Pulse Rate [ From Monitor] Pulse Rate [ 88 Left] Respiratory Rate Respiratory 18 Rate [Anterior Bilateral Throughout] Respiratory 18 Rate [Left] Blood Pressure Blood Pressure [Left Arm] O2 Sat by Pulse 94 94 Oximetry 01/23/17 01/23/17 01/23/17 09:36 10:00 11:09 Temperature 97.6 F Pulse Rate 84 Pulse Rate [ 90 Anterior Bilateral Throughout] Pulse Rate [ 84 From Monitor] Pulse Rate [ Left] Respiratory 20 Rate Respiratory 18 Rate [Anterior Bilateral Throughout] Respiratory Rate [Left] Blood Pressure 142/47 Blood Pressure 142/47 [Left Arm] O2 Sat by Pulse 96 Oximetry 01/23/17 11:11 Temperature Pulse Rate 84 Pulse Rate [ Anterior Bilateral Throughout] Pulse Rate [ From Monitor] Pulse Rate [ Left] Respiratory Rate Respiratory Rate [Anterior Bilateral Throughout] Respiratory Rate [Left] Blood Pressure 142/47 Blood Pressure [Left Arm] O2 Sat by Pulse Oximetry Constitutional: no acute distress, alert Eyes: non-icteric ENT: other (poor dentition) Effort: normal Ascultation: Bilateral: clear, diminished breath sounds (LT chest tube in place, yellow turbid fluid) Percussion: Left: dull (base) Cardiovascular: regular rate and rhythm Gastrointestinal: normoactive bowel sounds, soft, non-tender Extremities: no cyanosis, no cyanosis, no cyanosis Neurologic: normal mental status, non-focal exam CBC and BMP: 01/23/17 08:49 01/22/17 07:34 ABG, PT/INR, D-dimer: ABG POC ABG pH 7.315 (7.35-7.45) L 01/17/17 11:32 POC ABG pCO2 42.7 (35-45) 01/17/17 11:32 POC ABG pO2 41 (80-105) L 01/17/17 11:32 POC ABG HCO3 21.8 01/17/17 11:32 POC ABG Total CO2 23 01/17/17 11:32 POC ABG O2 Sat 72 01/17/17 11:32 PT/INR, D-dimer PT 16.6 Sec. (12.2-14.9) H 01/20/17 05:50 INR 1.27 (0.87-1.13) H 01/20/17 05:50 Abnormal lab findings: Abnormal Labs 01/15/17 01/15/17 01/15/17 06:20 06:20 12:11 WBC 28.5 H RBC 3.55 L Hgb 9.7 L Hct 30.3 L MCV MCH 27 L MCHC RDW 16.2 H Plt Count Lymph % (Auto) Levy % (Auto) Lymph # Levy # Seg Neutrophils % Seg Neuts % (Manual) Lymphocytes % (Manual) Monocytes % (Manual) Seg Neutrophils # Seg Neutrophils # Man Monocytes # (Manual) PT 16.3 H INR 1.32 H APTT 38.4 H POC ABG pH POC ABG pO2 Sodium 134 L Chloride 97.6 L Carbon Dioxide BUN 26 H Creatinine Glucose POC Glucose Calcium 8.2 L Albumin Fluid Total Protein 01/15/17 01/16/17 01/16/17 Unknown 04:54 04:54 WBC 24.9 H RBC Hgb 10.0 L Hct 31.8 L MCV MCH 27 L MCHC RDW 16.2 H Plt Count Lymph % (Auto) Levy % (Auto) Lymph # Levy # Seg Neutrophils % Seg Neuts % (Manual) 37.0 L Lymphocytes % (Manual) 12.0 L Monocytes % (Manual) 10.0 H Seg Neutrophils # Seg Neutrophils # Man 9.2 H Monocytes # (Manual) 2.5 H PT INR APTT POC ABG pH POC ABG pO2 Sodium 132 L Chloride 95.2 L Carbon Dioxide BUN 29 H Creatinine Glucose 130 H POC Glucose Calcium 8.3 L Albumin Fluid Total Protein 5.3 L 01/17/17 01/17/17 01/17/17 04:55 04:55 10:49 WBC 23.8 H RBC Hgb 10.9 L Hct 33.6 L MCV MCH MCHC RDW 16.4 H Plt Count Lymph % (Auto) Levy % (Auto) Lymph # Levy # Seg Neutrophils % Seg Neuts % (Manual) 36.0 L Lymphocytes % (Manual) 8.0 L Monocytes % (Manual) 18.0 H Seg Neutrophils # Seg Neutrophils # Man 8.6 H Monocytes # (Manual) 4.3 H PT INR APTT POC ABG pH POC ABG pO2 Sodium 132 L Chloride 95.7 L Carbon Dioxide 21 L BUN 30 H Creatinine Glucose 130 H POC Glucose 200 H Calcium Albumin Fluid Total Protein 01/17/17 01/17/17 01/18/17 11:32 23:41 03:46 WBC 23.2 H RBC Hgb 10.5 L Hct 32.0 L MCV MCH MCHC RDW 16.0 H Plt Count Lymph % (Auto) Levy % (Auto) Lymph # Levy # Seg Neutrophils % Seg Neuts % (Manual) Lymphocytes % (Manual) 6.0 L Monocytes % (Manual) 10.0 H Seg Neutrophils # Seg Neutrophils # Man 16.2 H Monocytes # (Manual) 2.3 H PT INR APTT POC ABG pH 7.315 L POC ABG pO2 41 L Sodium Chloride Carbon Dioxide BUN Creatinine Glucose POC Glucose Calcium Albumin 1.9 L Fluid Total Protein 01/18/17 01/19/17 01/19/17 03:46 03:41 03:41 WBC 19.8 H RBC 3.61 L Hgb 9.8 L Hct 30.2 L MCV MCH 27 L MCHC RDW 16.1 H Plt Count 505 H Lymph % (Auto) 5.2 L Levy % (Auto) 13.3 H Lymph # 1.0 L Levy # 2.6 H Seg Neutrophils % 81.1 H Seg Neuts % (Manual) Lymphocytes % (Manual) Monocytes % (Manual) Seg Neutrophils # 16.1 H Seg Neutrophils # Man Monocytes # (Manual) PT INR APTT POC ABG pH POC ABG pO2 Sodium 134 L 133 L Chloride 96.6 L 96.0 L Carbon Dioxide 21 L 21 L BUN 50 H 42 H Creatinine 1.9 H Glucose 177 H 122 H POC Glucose Calcium 8.1 L 8.0 L Albumin Fluid Total Protein 01/20/17 01/20/17 01/20/17 05:50 05:50 05:50 WBC 18.4 H RBC Hgb 10.5 L Hct 32.0 L MCV 83 L MCH 27 L MCHC RDW 16.3 H Plt Count 540 H Lymph % (Auto) 7.7 L Levy % (Auto) 15.7 H Lymph # Levy # 2.9 H Seg Neutrophils % 76.2 H Seg Neuts % (Manual) Lymphocytes % (Manual) Monocytes % (Manual) Seg Neutrophils # 14.0 H Seg Neutrophils # Man Monocytes # (Manual) PT 16.6 H INR 1.27 H APTT POC ABG pH POC ABG pO2 Sodium Chloride Carbon Dioxide BUN 24 H Creatinine Glucose 104 H POC Glucose Calcium 8.0 L Albumin 1.7 L Fluid Total Protein 01/20/17 01/22/17 01/22/17 21:03 07:34 07:34 WBC 24.9 H RBC Hgb 10.6 L Hct 33.8 L MCV MCH 27 L MCHC 31 L RDW 16.6 H Plt Count 582 H Lymph % (Auto) Levy % (Auto) Lymph # Levy # Seg Neutrophils % Seg Neuts % (Manual) Lymphocytes % (Manual) Monocytes % (Manual) Seg Neutrophils # Seg Neutrophils # Man Monocytes # (Manual) PT INR APTT POC ABG pH POC ABG pO2 Sodium Chloride Carbon Dioxide BUN Creatinine Glucose 163 H POC Glucose 110 H Calcium 7.9 L Albumin Fluid Total Protein 01/23/17 08:49 WBC 23.7 H RBC Hgb 10.2 L Hct 31.6 L MCV MCH 27 L MCHC RDW 16.6 H Plt Count 559 H Lymph % (Auto) Levy % (Auto) Lymph # Levy # Seg Neutrophils % Seg Neuts % (Manual) Lymphocytes % (Manual) Monocytes % (Manual) Seg Neutrophils # Seg Neutrophils # Man Monocytes # (Manual) PT INR APTT POC ABG pH POC ABG pO2 Sodium Chloride Carbon Dioxide BUN Creatinine Glucose POC Glucose Calcium Albumin Fluid Total Protein
[2017-01-23 13:00] LABS: Basophils % (Manual) 0 % (0.0-1.8); Blastocytes % (Manual) 0 %
[2017-01-23 13:01] LABS: Anisocytosis 1+; Diff Status Complete; Platelet Estimate Consistent w Auto
--- NOTE | 2017-01-23 13:09 | Progress Note ---
Assessment and Plan Assessment and plan: Patient is 86-year-old with history of hypertension, coronary artery disease and CABG, recent pneumonia. He was recently diagnosed with pneumonia on 12/20/16 , and was placed on Levaquin po and discharged home from ED. He completed 10 days of Levaquin. Currently he presents with left lower chest pain and cough. On Admission he is found to have loculated effusion on the left lower lobe. Despite thoracentesis no resolution was noted. Patient will proceed for pigtail catheter out today. If unsuccessful will need possibly a VATS procedure. A PEG tube was also placed for nutritional support. O Acute respiratory failure 2/2 aspiration versus worsening of effusion imaging studies do not demonstrate any change. I will likely -xray imaging remains unchanged. - Thoracentesis was done and 1660 mL of yellowish fluid was taken out - Prelim culture grew GM positive cocci-streptococcus pneumonia Y, CT showed loculated effusion, exudative. - Patient is currently breathing well - Pulmonary is following him Left lower lobe pneumonia with parapneumonic effusion - Continue IV antibiotics -Patient still with increasing leukocytosis or symptoms of reactive, no fever. -Monitoring cultures no growth to date. Adjust antibiotics as needed. -Chest tube is placed. But x-ray still shows loculated effusion. Will obtain cardio vascular surgery input for possible VATS procedure Hypertension Stable BPH on Flomax Moderate protein calorie malnutrition BMI 18. Continue tube feeds.. CAD stable continue aspirin Anemia-stable likely chronic disease will monitor closely. DVT prophylaxis SCD We'll start on heparin for DVT prophylaxis CODE STATUS full Disposition Continue inpatient care. Discussed with family History Interval history: Patient seen and examined this morning in no acute distress. Chest tube is in place, patient is tolerating tube feeds. No new complaints Hospitalist Physical - Physical exam Narrative exam: VITAL SIGNS: Reviewed. GENERAL: The patient appeared chronically ill appearing. Vital signs as documented. HEAD: No signs of head trauma. EYES: Pupils are equal. Extraocular motions intact. EARS: Hearing grossly intact. MOUTH: Oropharynx is normal, missing dentition. NECK: No adenopathy, no JVD. CHEST: Chest with diminished breath sounds bilaterally. No wheezes, rales, or rhonchi. CARDIAC: Regular rate and rhythm. S1 and S2, without murmurs, gallops, or rubs. VASCULAR: No Edema. Peripheral pulses normal and equal in all extremities. ABDOMEN: Soft, without detectable tenderness. No sign of distention. No rebound or guarding, and no masses palpated. Bowel Sounds normal. MUSCULOSKELETAL: Good range of motion of all major joints. Extremities without clubbing, cyanosis or edema. NEUROLOGIC EXAM: Alert and oriented x 3. No focal sensory or strength deficits. Speech normal. Follows commands. PSYCHIATRIC: Mood normal. SKIN: Chest tube and tube feeds noted. No overt drainage noted. - Constitutional Vitals: Temp Pulse Resp BP Pulse Ox 97.6 F 84 20 142/47 96 01/23/17 10:00 01/23/17 11:11 01/23/17 10:00 01/23/17 11:11 01/23/17 10:00 General appearance: Present: no acute distress Results - Labs CBC & Chem 7: 01/23/17 08:49 01/22/17 07:34 Labs: Laboratory Last Values WBC 23.7 K/mm3 (4.5-11.0) H 01/23/17 08:49 RBC 3.77 M/mm3 (3.65-5.03) 01/23/17 08:49 Hgb 10.2 gm/dl (11.8-15.2) L 01/23/17 08:49 Hct 31.6 % (35.5-45.6) L 01/23/17 08:49 MCV 84 fl (84-94) 01/23/17 08:49 MCH 27 pg (28-32) L 01/23/17 08:49 MCHC 32 % (32-34) 01/23/17 08:49 RDW 16.6 % (13.2-15.2) H 01/23/17 08:49 Plt Count 559 K/mm3 (140-440) H 01/23/17 08:49 Lymph % (Auto) 7.7 % (13.4-35.0) L 01/20/17 05:50 [place] % (Auto) 15.7 % (0.0-7.3) H 01/20/17 05:50 Eos % (Auto) 0.3 % (0.0-4.3) 01/20/17 05:50 Baso % (Auto) 0.1 % (0.0-1.8) 01/20/17 05:50 Lymph # 1.4 K/mm3 (1.2-5.4) 01/20/17 05:50 [place] # 2.9 K/mm3 (0.0-0.8) H 01/20/17 05:50 Eos # 0.1 K/mm3 (0.0-0.4) 01/20/17 05:50 Baso # 0.0 K/mm3 (0.0-0.1) 01/20/17 05:50 Add Manual Diff Complete 01/23/17 08:49 Total Counted 200 01/23/17 08:49 Seg Neutrophils % 76.2 % (40.0-70.0) H 01/20/17 05:50 Seg Neuts % (Manual) 86.0 % (40.0-70.0) H 01/23/17 08:49 Band Neutrophils % 0 % 01/23/17 08:49 Lymphocytes % (Manual) 7.0 % (13.4-35.0) L 01/23/17 08:49 Reactive Lymphs % (Man) 0 % 01/23/17 08:49 Monocytes % (Manual) 6.0 % (0.0-7.3) 01/23/17 08:49 Eosinophils % (Manual) 1.0 % (0.0-4.3) 01/23/17 08:49 Basophils % (Manual) 0 % (0.0-1.8) 01/23/17 08:49 Metamyelocytes % 0 % 01/23/17 08:49 Myelocytes % 0 % 01/23/17 08:49 Promyelocytes % 0 % 01/23/17 08:49 Blast Cells % 0 % 01/23/17 08:49 Nucleated RBC % Not Reportable 01/23/17 08:49 Seg Neutrophils # 14.0 K/mm3 (1.8-7.7) H 01/20/17 05:50 Seg Neutrophils # Man 20.4 K/mm3 (1.8-7.7) H 01/23/17 08:49 Band Neutrophils # 0.0 K/mm3 01/23/17 08:49 Lymphocytes # (Manual) 1.7 K/mm3 (1.2-5.4) 01/23/17 08:49 Abs React Lymphs (Man) 0.0 K/mm3 01/23/17 08:49 Monocytes # (Manual) 1.4 K/mm3 (0.0-0.8) H 01/23/17 08:49 Eosinophils # (Manual) 0.2 K/mm3 (0.0-0.4) 01/23/17 08:49 Basophils # (Manual) 0.0 K/mm3 (0.0-0.1) 01/23/17 08:49 Metamyelocytes # 0.0 K/mm3 01/23/17 08:49 Myelocytes # 0.0 K/mm3 01/23/17 08:49 Promyelocytes # 0.0 K/mm3 01/23/17 08:49 Blast Cells # 0.0 K/mm3 01/23/17 08:49 WBC Morphology Not Reportable 01/23/17 08:49 Hypersegmented Neuts Not Reportable 01/23/17 08:49 Hyposegmented Neuts Not Reportable 01/23/17 08:49 Hypogranular Neuts Not Reportable 01/23/17 08:49 Smudge Cells Not Reportable 01/23/17 08:49 Toxic Granulation Not Reportable 01/23/17 08:49 Toxic Vacuolation Not Reportable 01/23/17 08:49 Dohle Bodies Not Reportable 01/23/17 08:49 Pelger-Huet Anomaly Not Reportable 01/23/17 08:49 Lore Rods Not Reportable 01/23/17 08:49 Platelet Estimate Consistent w auto 01/23/17 08:49 Clumped Platelets Not Reportable 01/23/17 08:49 Plt Clumps, EDTA Not Reportable 01/23/17 08:49 Large Platelets Not Reportable 01/23/17 08:49 Giant Platelets Not Reportable 01/23/17 08:49 Platelet Satelliting Not Reportable 01/23/17 08:49 Plt Morphology Comment Not Reportable 01/23/17 08:49 RBC Morphology Not Reportable 01/23/17 08:49 Dimorphic RBCs Not Reportable 01/23/17 08:49 Polychromasia Not Reportable 01/23/17 08:49 Hypochromasia Not Reportable 01/23/17 08:49 Poikilocytosis Not Reportable 01/23/17 08:49 Anisocytosis 1+ 01/23/17 08:49 Microcytosis Not Reportable 01/23/17 08:49 Macrocytosis Not Reportable 01/23/17 08:49 Spherocytes Not Reportable 01/23/17 08:49 Pappenheimer Bodies Not Reportable 01/23/17 08:49 Sickle Cells Not Reportable 01/23/17 08:49 Target Cells Not Reportable 01/23/17 08:49 Tear Drop Cells Not Reportable 01/23/17 08:49 Ovalocytes Not Reportable 01/23/17 08:49 Helmet Cells Not Reportable 01/23/17 08:49 [place] Bodies Not Reportable 01/23/17 08:49 [place] Rings Not Reportable 01/23/17 08:49 [place] Cells Not Reportable 01/23/17 08:49 Bite Cells Not Reportable 01/23/17 08:49 Crenated Cell Not Reportable 01/23/17 08:49 Elliptocytes Not Reportable 01/23/17 08:49 Acanthocytes (Spur) Not Reportable 01/23/17 08:49 Rouleaux Not Reportable 01/23/17 08:49 Hemoglobin C Crystals Not Reportable 01/23/17 08:49 Schistocytes Not Reportable 01/23/17 08:49 Malaria parasites Not Reportable 01/23/17 08:49 Steve Bodies Not Reportable 01/23/17 08:49 Hem Pathologist Commnt No 01/23/17 08:49 PT 16.6 Sec. (12.2-14.9) H 01/20/17 05:50 INR 1.27 (0.87-1.13) H 01/20/17 05:50 APTT 38.4 Sec. (24.2-36.6) H 01/15/17 12:11 POC ABG pH 7.315 (7.35-7.45) L 01/17/17 11:32 POC ABG pCO2 42.7 (35-45) 01/17/17 11:32 POC ABG pO2 41 (80-105) L 01/17/17 11:32 POC ABG HCO3 21.8 01/17/17 11:32 POC ABG Total CO2 23 01/17/17 11:32 POC ABG O2 Sat 72 01/17/17 11:32 POC ABG Base Excess -4 01/17/17 11:32 FiO2 50 % 01/17/17 11:32 Sodium 138 mmol/L (137-145) 01/20/17 05:50 Potassium 4.0 mmol/L (3.6-5.0) 01/20/17 05:50 Chloride 101.2 mmol/L (98-107) 01/20/17 05:50 Carbon Dioxide 26 mmol/L (22-30) 01/22/17 07:34 Anion Gap 16 mmol/L 01/20/17 05:50 BUN 15 mg/dL (9-20) 01/22/17 07:34 Creatinine 1.1 mg/dL (0.8-1.5) 01/22/17 07:34 Estimated GFR > 60 ml/min 01/22/17 07:34 BUN/Creatinine Ratio 13.63 % 01/22/17 07:34 Glucose 163 mg/dL (75-100) H 01/22/17 07:34 POC Glucose 110 (70-105) H 01/20/17 21:03 Calcium 7.9 mg/dL (8.4-10.2) L 01/22/17 07:34 Total Bilirubin 0.50 mg/dL (0.1-1.2) 01/20/17 05:50 Direct Bilirubin < 0.2 mg/dL (0-0.2) 01/17/17 23:41 Indirect Bilirubin 0.1 mg/dL 01/17/17 23:41 AST 22 units/L (5-40) 01/20/17 05:50 ALT 23 units/L (7-56) 01/20/17 05:50 Alkaline Phosphatase 90 units/L (35-129) 01/20/17 05:50 Lactate Dehydrogenase 137 units/L (91-180) 01/17/17 23:41 Total Creatine Kinase 50 units/L (55-170) L 01/15/17 00:18 CK-MB (CK-2) 1.5 ng/mL (0.0-4.0) 01/15/17 00:18 CK-MB (CK-2) Rel Index 3.0 (0-4) 01/15/17 00:18 Troponin T < 0.010 ng/mL (0.00-0.029) 01/15/17 06:20 Total Protein 6.3 g/dL (6.3-8.2) 01/20/17 05:50 Albumin 1.7 g/dL (3.9-5) L 01/20/17 05:50 Albumin/Globulin Ratio 0.4 % 01/20/17 05:50 Fluid Type Pleural 01/15/17 Unknown Fluid Color Yellow 01/15/17 Unknown Fluid Appearance Clear 01/15/17 Unknown Fluid WBC 1350 /mm3 01/15/17 Unknown Fluid RBC 750 /mm3 01/15/17 Unknown Fluid Seg Neutrophils 81.0 % 01/15/17 Unknown Fluid Lymphocytes 12.0 % 01/15/17 Unknown Fluid Reactive Lymphs 0 % 01/15/17 Unknown Fluid Monocytes 7.0 % 01/15/17 Unknown Fluid Eosinophils 0 % 01/15/17 Unknown Fluid Basophils 0 % 01/15/17 Unknown Fluid Total Protein 5.3 (15.0-45.0) L 01/15/17 Unknown Fluid LDH 942 01/15/17 Unknown Vancomycin Trough 13.8 ug/mL (5.0-20.0) 01/19/17 01:00
[2017-01-23] MEDS: MORPHINE IV PRN (18:15)
[2017-01-23] MEDS: ZOCOR PO SCH (22:23)
[2017-01-23] MEDS: VANCOMYCIN/NS 1 GM/250 ML 1 GM/250 ML BAG IV SCH (22:23)
[2017-01-24] MEDS: CLEOCIN 600 MG/50 mL 600 MG/50 ML BAG IV SCH ×3 (01:48→17:00)
[2017-01-24] MEDS: HEPARIN SUB-Q SCH ×3 (05:34→22:06)
--- NOTE | 2017-01-24 06:23 | Consultation ---
History of Present Illness Consult date: 01/24/17 Reason for consult: other (loculated left parapneumonic efffusion) - History of present illness History of present illness: 86 year old male with hx CABGx3 at [facility] in 1995 , HTN, who developed left sided pneumonia and subsequent loculated left pleural effusion s/ p percutaneus drainage procedures who I am asked to evaluate for left VATS, decortication, he is presently hemodyn stable with an elevated WBC. He is on tube feedings, and antibiotics. Past History Past Medical History: CAD (s/p CABG), hypertension Past Surgical History: CABG, total hip replacement (right) Social history: lives with family, full code. denies: smoking, alcohol abuse Family history: hypertension Medications and Allergies Allergies Allergy/AdvReac Type Severity Reaction Status Date / Time Penicillins AdvReac Severe Hives Verified 01/16/17 16:28 Sulfa (Sulfonamide AdvReac Severe Hives Verified 01/16/17 16:28 Antibiotics) Home Medications Medication Instructions Recorded Confirmed Last Taken Type Aspirin [Adult Low Dose Aspirin EC] 81 mg PO DAILY 06/25/16 01/14/17 01/14/17 History Finasteride [Proscar] 1 tab PO DAILY 06/25/16 01/14/17 01/14/17 History Folic Acid [Folvite] 1 mg PO QDAY 06/25/16 01/14/17 01/14/17 History Metoprolol Tartrate [Lopressor] 50 mg PO BID 06/25/16 01/14/17 01/14/17 History Multivitamin Tab [Multiple Vitamin 1 tab PO DAILY 06/25/16 01/14/17 01/14/17 History TAB (Theragran)] Pravachol 20 mg PO HS 06/25/16 01/14/17 01/14/17 History Tamsulosin [Flomax] 0.4 mg PO QDAY 06/25/16 01/14/17 01/14/17 History amLODIPine [Norvasc] 5 mg PO DAILY 06/25/16 01/14/17 01/14/17 History Active Meds: Active Medications Acetaminophen (Tylenol) 650 mg PO Q4H PRN PRN Reason: Pain MILD(1-3)/Fever >100.5/WERNER Albuterol/Ipratropium (Duoneb 0.5 Mg-3 Mg/3 Ml Soln) 1 ampul IH Q6HRT [facility] Last Admin: 01/23/17 13:31 Dose: 1 ampul Amlodipine Besylate (Norvasc) 5 mg PO DAILY [facility] Last Admin: 01/23/17 11:11 Dose: Not Given Lipase/Protease/Amylase ([place] 10,500 Unit) 1 each FEEDTUBE PRN PRN PRN Reason: For Clogged Feeding Tube Aspirin (Halfprin Ec) 81 mg PO DAILY [facility] Last Admin: 01/23/17 11:03 Dose: 81 mg Bisacodyl (Dulcolax) 10 mg [place] QDAY PRN PRN Reason: Constipation unrelieved by MOM Finasteride (Proscar) 5 mg PO DAILY [facility] Last Admin: 01/23/17 11:04 Dose: 5 mg Folic Acid (Folvite) 1 mg PO QDAY [facility] Last Admin: 01/23/17 11:03 Dose: 1 mg Heparin Sodium (Porcine) (Heparin) 5,000 unit SUB-Q Q8HR [facility] Last Admin: 01/24/17 05:34 Dose: 5,000 unit Clindamycin HCl (Cleocin 600 Mg/50 Ml) 600 mg in 50 mls @ 100 mls/hr IV Q8H [facility] PRN Reason: Protocol Last Admin: 01/24/17 01:48 Dose: 100 mls/hr Dextrose/Sodium Chloride (D5/0.45ns) 1,000 mls @ 75 mls/hr IV DIRECT [facility] Last Admin: 01/23/17 20:37 Dose: 75 mls/hr Vancomycin HCl (Vancomycin/Ns 1 Gm/250 Ml) 1 gm in 250 mls @ 166.667 mls/hr IV Q24HR@2200 [facility] Last Admin: 01/23/17 22:23 Dose: 166.667 mls/hr Magnesium Hydroxide (Milk Of Magnesia) 30 ml PO Q4H PRN PRN Reason: Constipation Last Admin: 01/22/17 06:01 Dose: 30 ml Metoprolol Tartrate (Lopressor) 50 mg PO BID [facility] Last Admin: 01/23/17 22:22 Dose: 50 mg Morphine Sulfate (Morphine) 2 mg IV Q4H PRN PRN Reason: Pain, Moderate (4-6) Last Admin: 01/23/17 18:15 Dose: 2 mg Multivitamins (Theragran Tab) 1 each PO DAILY [facility] Last Admin: 01/23/17 11:04 Dose: 1 each Ondansetron HCl (Zofran) 4 mg IV Q6H PRN PRN Reason: nausea or vomiting Pseudoephedrine/Acetam/Chlorphenir (Robitussin Ac) 10 ml PO Q4H PRN PRN Reason: Cough Last Admin: 01/16/17 19:05 Dose: 10 ml Simple Syrup (Simple Syrup) 15 ml FEEDTUBE PRN PRN PRN Reason: Hypoglycemia Simple Syrup (Simple Syrup) 30 ml FEEDTUBE PRN PRN PRN Reason: Hypoglycemia Simvastatin (Zocor) 10 mg PO QHS [facility] Last Admin: 01/23/17 22:23 Dose: 10 mg Sodium Bicarbonate (Sodium Bicarbonate) 325 mg FEEDTUBE PRN PRN PRN Reason: For Clogged Feeding Tube Tamsulosin HCl (Flomax) 0.4 mg PO QDAY [facility] Last Admin: 01/23/17 11:05 Dose: 0.4 mg Vancomycin HCl (Vancomycin Pharmacy To Dose) 1 each IV PKCONSULT [facility] PRN Reason: Protocol Review of Systems - Constitutional other (some shortness of breath) Exam Vital Signs Temp Pulse Resp BP Pulse Ox 98.4 F 91 H 20 105/45 100 01/14/17 18:28 01/14/17 18:28 01/14/17 18:28 01/14/17 18:28 01/14/17 18:28 - General physical appearance Positive: no distress - Eyes Positive: PERRL, normal occular movement - ENT Positive: normal pinna, normal nares, normal mucosa, no hearing loss, no congestion - Neck Positive: no masses, no bruits, trachea midline, no venous distension - Respiratory Positive: other (diminished bs on left side) - Cardiovascular Rhythm: regular - Extremities Extremities: no ischemia, pulses symmetrical, No edema - Breasts Breasts: normal - Abdomen Abdomen: Present: soft, bowel sounds normal. Absent: tender, distended Hernia: none - Neurologic Neurologic: alert and oriented to time, place and person, motor strength and sensation are grossly intact - Psychiatric Psychiatric: appropriate mood/affect, intact judgment & insight Results - Labs 01/23/17 08:49 01/22/17 07:34 Abnormal lab results 01/23/17 Range/Units 08:49 WBC 23.7 H (4.5-11.0) K/mm3 Hgb 10.2 L (11.8-15.2) gm/dl Hct 31.6 L (35.5-45.6) % MCH 27 L (28-32) pg RDW 16.6 H (13.2-15.2) % Plt Count 559 H (140-440) K/mm3 Seg Neuts % (Manual) 86.0 H (40.0-70.0) % Lymphocytes % (Manual) 7.0 L (13.4-35.0) % Seg Neutrophils # Man 20.4 H (1.8-7.7) K/mm3 Monocytes # (Manual) 1.4 H (0.0-0.8) K/mm3 Assessment and Plan Loculated left parapneumonic effusion/trapped lung To consider left VATS/decortication patient will need Cardiology clearance/risk evaluation including 2 D echo This is an elective case, patient will need to be typed and screened and be able to give informed consent once risk is clarified by Cardiology evaluation He will need overnight Ventilation on Vent and may require blood products after the case.
[2017-01-24] MEDS: DUONEB *Not for PRN Use IH SCH ×3 (07:44→19:43)
[2017-01-24] MEDS: PROSCAR PO SCH (09:12)
[2017-01-24] MEDS: NORVASC PO SCH (09:12)
[2017-01-24] MEDS: THERAGRAN Tab PO SCH (09:12)
[2017-01-24] MEDS: FLOMAX PO SCH (09:12)
[2017-01-24] MEDS: HALFPRIN EC PO SCH (09:12)
[2017-01-24] MEDS: LOPRESSOR PO SCH ×2 (09:13→22:05)
[2017-01-24] MEDS: FOLVITE PO SCH (09:13)
[2017-01-24 09:19] LABS: Mean Corpuscular HGB Conc 32 % (32-34); Mean Corpuscular Hemoglobin 27 pg (28-32); Mean Corpuscular Volume 84 fl (84-94); Platelet Count 535 K/mm3 (140-440); Red Cell Distribution Width 16.5 % (13.2-15.2)
[2017-01-24 09:22] LABS: Anion Gap 16 mmol/L; BUN/Creatinine Ratio 17.77; Blood Urea Nitrogen 16 mg/dL (9-20); Calcium 7.5 mg/dL (8.4-10.2); Carbon Dioxide 27 mmol/L (22-30); Chloride 95.3 mmol/L (98-107); Glucose 162 mg/dL (75-100); Potassium 4.6 mmol/L (3.6-5.0); Sodium 134 mmol/L (137-145)
[2017-01-24 09:23] LABS: White Blood Count 25.6 K/mm3 (4.5-11.0)
--- NOTE | 2017-01-24 10:49 | Progress Note ---
Assessment and Plan - Patient Problems (1) Empyema lung Current Visit: Yes Status: Acute (2) Empyema of left pleural space Current Visit: Yes Status: Acute (3) Left lower lobe pneumonia Current Visit: Yes Status: Acute Qualifiers: Pneumonia type: P Aspiration pneumonia type: A (4) Pleural effusion, left Current Visit: Yes Status: Acute Subjective Principal diagnosis: Pneumonia,pleural effusion-empyema,urinary retention Interval history: feels better had a BM Objective Vital Signs - 12hr 01/24/17 01/24/17 01/24/17 07:45 07:46 07:47 Temperature Pulse Rate Pulse Rate [ From Monitor] Pulse Rate [ 79 78 Left] Respiratory Rate Respiratory 17 17 Rate [Left] Blood Pressure Blood Pressure [Left Arm] O2 Sat by Pulse 94 Oximetry 01/24/17 01/24/17 01/24/17 09:12 09:13 09:15 Temperature 99.2 F Pulse Rate 93 H 93 H Pulse Rate [ 78 From Monitor] Pulse Rate [ Left] Respiratory 20 Rate Respiratory Rate [Left] Blood Pressure 154/58 154/58 Blood Pressure 154/58 [Left Arm] O2 Sat by Pulse Oximetry Constitutional: no acute distress, alert Eyes: non-icteric ENT: other (poor dentition) Effort: normal Ascultation: Bilateral: clear, diminished breath sounds (LT chest tube in place, yellow turbid fluid) Percussion: Left: dull (base) Cardiovascular: regular rate and rhythm Gastrointestinal: normoactive bowel sounds, soft, non-tender Extremities: no cyanosis, no cyanosis, no cyanosis Neurologic: normal mental status, non-focal exam CBC and BMP: 01/24/17 08:01 01/24/17 08:01 ABG, PT/INR, D-dimer: ABG POC ABG pH 7.315 (7.35-7.45) L 01/17/17 11:32 POC ABG pCO2 42.7 (35-45) 01/17/17 11:32 POC ABG pO2 41 (80-105) L 01/17/17 11:32 POC ABG HCO3 21.8 01/17/17 11:32 POC ABG Total CO2 23 01/17/17 11:32 POC ABG O2 Sat 72 01/17/17 11:32 PT/INR, D-dimer PT 16.6 Sec. (12.2-14.9) H 01/20/17 05:50 INR 1.27 (0.87-1.13) H 01/20/17 05:50 Abnormal lab findings: Abnormal Labs 01/15/17 01/15/17 01/15/17 06:20 06:20 12:11 WBC 28.5 H RBC 3.55 L Hgb 9.7 L Hct 30.3 L MCV MCH 27 L MCHC RDW 16.2 H Plt Count Lymph % (Auto) [place] % (Auto) Lymph # [place] # Seg Neutrophils % Seg Neuts % (Manual) Lymphocytes % (Manual) Monocytes % (Manual) Seg Neutrophils # Seg Neutrophils # Man Monocytes # (Manual) PT 16.3 H INR 1.32 H APTT 38.4 H POC ABG pH POC ABG pO2 Sodium 134 L Chloride 97.6 L Carbon Dioxide BUN 26 H Creatinine Glucose POC Glucose Calcium 8.2 L Albumin Fluid Total Protein 01/15/17 01/16/17 01/16/17 Unknown 04:54 04:54 WBC 24.9 H RBC Hgb 10.0 L Hct 31.8 L MCV MCH 27 L MCHC RDW 16.2 H Plt Count Lymph % (Auto) [place] % (Auto) Lymph # [place] # Seg Neutrophils % Seg Neuts % (Manual) 37.0 L Lymphocytes % (Manual) 12.0 L Monocytes % (Manual) 10.0 H Seg Neutrophils # Seg Neutrophils # Man 9.2 H Monocytes # (Manual) 2.5 H PT INR APTT POC ABG pH POC ABG pO2 Sodium 132 L Chloride 95.2 L Carbon Dioxide BUN 29 H Creatinine Glucose 130 H POC Glucose Calcium 8.3 L Albumin Fluid Total Protein 5.3 L 01/17/17 01/17/17 01/17/17 04:55 04:55 10:49 WBC 23.8 H RBC Hgb 10.9 L Hct 33.6 L MCV MCH MCHC RDW 16.4 H Plt Count Lymph % (Auto) [place] % (Auto) Lymph # [place] # Seg Neutrophils % Seg Neuts % (Manual) 36.0 L Lymphocytes % (Manual) 8.0 L Monocytes % (Manual) 18.0 H Seg Neutrophils # Seg Neutrophils # Man 8.6 H Monocytes # (Manual) 4.3 H PT INR APTT POC ABG pH POC ABG pO2 Sodium 132 L Chloride 95.7 L Carbon Dioxide 21 L BUN 30 H Creatinine Glucose 130 H POC Glucose 200 H Calcium Albumin Fluid Total Protein 01/17/17 01/17/17 01/18/17 11:32 23:41 03:46 WBC 23.2 H RBC Hgb 10.5 L Hct 32.0 L MCV MCH MCHC RDW 16.0 H Plt Count Lymph % (Auto) [place] % (Auto) Lymph # [place] # Seg Neutrophils % Seg Neuts % (Manual) Lymphocytes % (Manual) 6.0 L Monocytes % (Manual) 10.0 H Seg Neutrophils # Seg Neutrophils # Man 16.2 H Monocytes # (Manual) 2.3 H PT INR APTT POC ABG pH 7.315 L POC ABG pO2 41 L Sodium Chloride Carbon Dioxide BUN Creatinine Glucose POC Glucose Calcium Albumin 1.9 L Fluid Total Protein 01/18/17 01/19/17 01/19/17 03:46 03:41 03:41 WBC 19.8 H RBC 3.61 L Hgb 9.8 L Hct 30.2 L MCV MCH 27 L MCHC RDW 16.1 H Plt Count 505 H Lymph % (Auto) 5.2 L [place] % (Auto) 13.3 H Lymph # 1.0 L [place] # 2.6 H Seg Neutrophils % 81.1 H Seg Neuts % (Manual) Lymphocytes % (Manual) Monocytes % (Manual) Seg Neutrophils # 16.1 H Seg Neutrophils # Man Monocytes # (Manual) PT INR APTT POC ABG pH POC ABG pO2 Sodium 134 L 133 L Chloride 96.6 L 96.0 L Carbon Dioxide 21 L 21 L BUN 50 H 42 H Creatinine 1.9 H Glucose 177 H 122 H POC Glucose Calcium 8.1 L 8.0 L Albumin Fluid Total Protein 01/20/17 01/20/17 01/20/17 05:50 05:50 05:50 WBC 18.4 H RBC Hgb 10.5 L Hct 32.0 L MCV 83 L MCH 27 L MCHC RDW 16.3 H Plt Count 540 H Lymph % (Auto) 7.7 L [place] % (Auto) 15.7 H Lymph # [place] # 2.9 H Seg Neutrophils % 76.2 H Seg Neuts % (Manual) Lymphocytes % (Manual) Monocytes % (Manual) Seg Neutrophils # 14.0 H Seg Neutrophils # Man Monocytes # (Manual) PT 16.6 H INR 1.27 H APTT POC ABG pH POC ABG pO2 Sodium Chloride Carbon Dioxide BUN 24 H Creatinine Glucose 104 H POC Glucose Calcium 8.0 L Albumin 1.7 L Fluid Total Protein 01/20/17 01/22/17 01/22/17 21:03 07:34 07:34 WBC 24.9 H RBC Hgb 10.6 L Hct 33.8 L MCV MCH 27 L MCHC 31 L RDW 16.6 H Plt Count 582 H Lymph % (Auto) [place] % (Auto) Lymph # [place] # Seg Neutrophils % Seg Neuts % (Manual) Lymphocytes % (Manual) Monocytes % (Manual) Seg Neutrophils # Seg Neutrophils # Man Monocytes # (Manual) PT INR APTT POC ABG pH POC ABG pO2 Sodium Chloride Carbon Dioxide BUN Creatinine Glucose 163 H POC Glucose 110 H Calcium 7.9 L Albumin Fluid Total Protein 01/23/17 01/24/17 01/24/17 08:49 08:01 08:01 WBC 23.7 H 25.6 H RBC Hgb 10.2 L 10.0 L Hct 31.6 L 31.0 L MCV MCH 27 L 27 L MCHC RDW 16.6 H 16.5 H Plt Count 559 H 535 H Lymph % (Auto) [place] % (Auto) Lymph # [place] # Seg Neutrophils % Seg Neuts % (Manual) 86.0 H Lymphocytes % (Manual) 7.0 L Monocytes % (Manual) Seg Neutrophils # Seg Neutrophils # Man 20.4 H Monocytes # (Manual) 1.4 H PT INR APTT POC ABG pH POC ABG pO2 Sodium 134 L Chloride 95.3 L Carbon Dioxide BUN Creatinine Glucose 162 H POC Glucose Calcium 7.5 L Albumin Fluid Total Protein
[2017-01-24] MEDS: D5/0.45NS 1,000 ML IV SCH (12:52)
--- NOTE | 2017-01-24 13:34 | Progress Note ---
Assessment and Plan Assessment and plan: Patient is 86-year-old with history of hypertension, coronary artery disease and CABG, recent pneumonia. He was recently diagnosed with pneumonia on 12/20/16 , and was placed on Levaquin po and discharged home from ED. He completed 10 days of Levaquin. Currently he presents with left lower chest pain and cough. On Admission he is found to have loculated effusion on the left lower lobe. Despite thoracentesis no resolution was noted. Patient will proceed for pigtail catheter out today. If unsuccessful will need possibly a VATS procedure. A PEG tube was also placed for nutritional support. O Acute respiratory failure 2/2 aspiration versus worsening of effusion imaging studies do not demonstrate any change. -xray imaging remains unchanged. - Thoracentesis was done and 1660 mL of yellowish fluid was taken out - Prelim culture grew GM positive cocci-streptococcus pneumonia , CT showed loculated effusion, exudative. - Patient is currently breathing well - Pulmonary is following him -Cardiothoracic surgery consulted due to worsening leukocytosis despite pigtail catheter tube. Left lower lobe pneumonia with parapneumonic effusion - Continue IV antibiotics -Patient still with increasing leukocytosis or symptoms of reactive, no fever. -Monitoring cultures no growth to date. Adjust antibiotics as needed. -Chest tube is placed. But x-ray still shows loculated effusion. Will obtain cardio vascular surgery input for possible VATS procedure Hypertension-Stable BPH on Flomax Moderate protein calorie malnutrition BMI 18. Continue tube feeds.. CAD stable continue aspirin-we'll obtain cardiac clearance for possible VATS procedure Anemia-stable likely chronic disease will monitor closely. DVT prophylaxis SCD, heparin CODE STATUS full Disposition Continue inpatient care. Discussed with family History Interval history: Patient seen and examined this morning in no acute distress. Chest tube is in place, patient is tolerating tube feeds. No new complaints. No adverse events reported by nursing staff. Minimal drainage noted and chest tube. Hospitalist Physical - Physical exam Narrative exam: VITAL SIGNS: Reviewed. GENERAL: The patient appeared chronically ill appearing. Vital signs as documented. HEAD: No signs of head trauma. EYES: Pupils are equal. Extraocular motions intact. EARS: Hearing grossly intact. MOUTH: Oropharynx is normal, missing dentition. NECK: No adenopathy, no JVD. CHEST: Chest with crackles left greater than right breath sounds bilaterally. No wheezes, rales, or rhonchi. CARDIAC: Regular rate and rhythm. S1 and S2, without murmurs, gallops, or rubs. VASCULAR: No Edema. Peripheral pulses normal and equal in all extremities. ABDOMEN: Soft, without detectable tenderness. No sign of distention. No rebound or guarding, and no masses palpated. Bowel Sounds normal. MUSCULOSKELETAL: Good range of motion of all major joints. Extremities without clubbing, cyanosis or edema. NEUROLOGIC EXAM: Alert and oriented x 3. No focal sensory or strength deficits. Speech normal. Follows commands. PSYCHIATRIC: Mood normal. SKIN: Chest tube and tube feeds noted. No overt drainage noted. - Constitutional Vitals: Temp Pulse Resp BP Pulse Ox 99.2 F 78 20 154/58 96 01/24/17 09:15 01/24/17 09:15 01/24/17 09:15 01/24/17 09:15 01/24/17 10:00 General appearance: Present: no acute distress Results - Labs CBC & Chem 7: 01/24/17 08:01 01/24/17 08:01 Labs: Laboratory Last Values WBC 25.6 K/mm3 (4.5-11.0) H 01/24/17 08:01 RBC 3.70 M/mm3 (3.65-5.03) 01/24/17 08:01 Hgb 10.0 gm/dl (11.8-15.2) L 01/24/17 08:01 Hct 31.0 % (35.5-45.6) L 01/24/17 08:01 MCV 84 fl (84-94) 01/24/17 08:01 MCH 27 pg (28-32) L 01/24/17 08:01 MCHC 32 % (32-34) 01/24/17 08:01 RDW 16.5 % (13.2-15.2) H 01/24/17 08:01 Plt Count 535 K/mm3 (140-440) H 01/24/17 08:01 Lymph % (Auto) 7.7 % (13.4-35.0) L 01/20/17 05:50 Bucks % (Auto) 15.7 % (0.0-7.3) H 01/20/17 05:50 Eos % (Auto) 0.3 % (0.0-4.3) 01/20/17 05:50 Baso % (Auto) 0.1 % (0.0-1.8) 01/20/17 05:50 Lymph # 1.4 K/mm3 (1.2-5.4) 01/20/17 05:50 Bucks # 2.9 K/mm3 (0.0-0.8) H 01/20/17 05:50 Eos # 0.1 K/mm3 (0.0-0.4) 01/20/17 05:50 Baso # 0.0 K/mm3 (0.0-0.1) 01/20/17 05:50 Add Manual Diff Complete 01/23/17 08:49 Total Counted 200 01/23/17 08:49 Seg Neutrophils % 76.2 % (40.0-70.0) H 01/20/17 05:50 Seg Neuts % (Manual) 86.0 % (40.0-70.0) H 01/23/17 08:49 Band Neutrophils % 0 % 01/23/17 08:49 Lymphocytes % (Manual) 7.0 % (13.4-35.0) L 01/23/17 08:49 Reactive Lymphs % (Man) 0 % 01/23/17 08:49 Monocytes % (Manual) 6.0 % (0.0-7.3) 01/23/17 08:49 Eosinophils % (Manual) 1.0 % (0.0-4.3) 01/23/17 08:49 Basophils % (Manual) 0 % (0.0-1.8) 01/23/17 08:49 Metamyelocytes % 0 % 01/23/17 08:49 Myelocytes % 0 % 01/23/17 08:49 Promyelocytes % 0 % 01/23/17 08:49 Blast Cells % 0 % 01/23/17 08:49 Nucleated RBC % Not Reportable 01/23/17 08:49 Seg Neutrophils # 14.0 K/mm3 (1.8-7.7) H 01/20/17 05:50 Seg Neutrophils # Man 20.4 K/mm3 (1.8-7.7) H 01/23/17 08:49 Band Neutrophils # 0.0 K/mm3 01/23/17 08:49 Lymphocytes # (Manual) 1.7 K/mm3 (1.2-5.4) 01/23/17 08:49 Abs React Lymphs (Man) 0.0 K/mm3 01/23/17 08:49 Monocytes # (Manual) 1.4 K/mm3 (0.0-0.8) H 01/23/17 08:49 Eosinophils # (Manual) 0.2 K/mm3 (0.0-0.4) 01/23/17 08:49 Basophils # (Manual) 0.0 K/mm3 (0.0-0.1) 01/23/17 08:49 Metamyelocytes # 0.0 K/mm3 01/23/17 08:49 Myelocytes # 0.0 K/mm3 01/23/17 08:49 Promyelocytes # 0.0 K/mm3 01/23/17 08:49 Blast Cells # 0.0 K/mm3 01/23/17 08:49 WBC Morphology Not Reportable 01/23/17 08:49 Hypersegmented Neuts Not Reportable 01/23/17 08:49 Hyposegmented Neuts Not Reportable 01/23/17 08:49 Hypogranular Neuts Not Reportable 01/23/17 08:49 Smudge Cells Not Reportable 01/23/17 08:49 Toxic Granulation Not Reportable 01/23/17 08:49 Toxic Vacuolation Not Reportable 01/23/17 08:49 Dohle Bodies Not Reportable 01/23/17 08:49 Pelger-Huet Anomaly Not Reportable 01/23/17 08:49 Lore Rods Not Reportable 01/23/17 08:49 Platelet Estimate Consistent w auto 01/23/17 08:49 Clumped Platelets Not Reportable 01/23/17 08:49 Plt Clumps, EDTA Not Reportable 01/23/17 08:49 Large Platelets Not Reportable 01/23/17 08:49 Giant Platelets Not Reportable 01/23/17 08:49 Platelet Satelliting Not Reportable 01/23/17 08:49 Plt Morphology Comment Not Reportable 01/23/17 08:49 RBC Morphology Not Reportable 01/23/17 08:49 Dimorphic RBCs Not Reportable 01/23/17 08:49 Polychromasia Not Reportable 01/23/17 08:49 Hypochromasia Not Reportable 01/23/17 08:49 Poikilocytosis Not Reportable 01/23/17 08:49 Anisocytosis 1+ 01/23/17 08:49 Microcytosis Not Reportable 01/23/17 08:49 Macrocytosis Not Reportable 01/23/17 08:49 Spherocytes Not Reportable 01/23/17 08:49 Pappenheimer Bodies Not Reportable 01/23/17 08:49 Sickle Cells Not Reportable 01/23/17 08:49 Target Cells Not Reportable 01/23/17 08:49 Tear Drop Cells Not Reportable 01/23/17 08:49 Ovalocytes Not Reportable 01/23/17 08:49 Helmet Cells Not Reportable 01/23/17 08:49 [place] Bodies Not Reportable 01/23/17 08:49 [place] Rings Not Reportable 01/23/17 08:49 [place] Cells Not Reportable 01/23/17 08:49 Bite Cells Not Reportable 01/23/17 08:49 Crenated Cell Not Reportable 01/23/17 08:49 Elliptocytes Not Reportable 01/23/17 08:49 Acanthocytes (Spur) Not Reportable 01/23/17 08:49 Rouleaux Not Reportable 01/23/17 08:49 Hemoglobin C Crystals Not Reportable 01/23/17 08:49 Schistocytes Not Reportable 01/23/17 08:49 Malaria parasites Not Reportable 01/23/17 08:49 Steve Bodies Not Reportable 01/23/17 08:49 Hem Pathologist Commnt No 01/23/17 08:49 PT 16.6 Sec. (12.2-14.9) H 01/20/17 05:50 INR 1.27 (0.87-1.13) H 01/20/17 05:50 APTT 38.4 Sec. (24.2-36.6) H 01/15/17 12:11 POC ABG pH 7.315 (7.35-7.45) L 01/17/17 11:32 POC ABG pCO2 42.7 (35-45) 01/17/17 11:32 POC ABG pO2 41 (80-105) L 01/17/17 11:32 POC ABG HCO3 21.8 01/17/17 11:32 POC ABG Total CO2 23 01/17/17 11:32 POC ABG O2 Sat 72 01/17/17 11:32 POC ABG Base Excess -4 01/17/17 11:32 FiO2 50 % 01/17/17 11:32 Sodium 134 mmol/L (137-145) L 01/24/17 08:01 Potassium 4.6 mmol/L (3.6-5.0) D 01/24/17 08:01 Chloride 95.3 mmol/L (98-107) L 01/24/17 08:01 Carbon Dioxide 27 mmol/L (22-30) 01/24/17 08:01 Anion Gap 16 mmol/L 01/24/17 08:01 BUN 16 mg/dL (9-20) 01/24/17 08:01 Creatinine 0.9 mg/dL (0.8-1.5) 01/24/17 08:01 Estimated GFR > 60 ml/min 01/24/17 08:01 BUN/Creatinine Ratio 17.77 % 01/24/17 08:01 Glucose 162 mg/dL (75-100) H 01/24/17 08:01 POC Glucose 110 (70-105) H 01/20/17 21:03 Calcium 7.5 mg/dL (8.4-10.2) L 01/24/17 08:01 Total Bilirubin 0.50 mg/dL (0.1-1.2) 01/20/17 05:50 Direct Bilirubin < 0.2 mg/dL (0-0.2) 01/17/17 23:41 Indirect Bilirubin 0.1 mg/dL 01/17/17 23:41 AST 22 units/L (5-40) 01/20/17 05:50 ALT 23 units/L (7-56) 01/20/17 05:50 Alkaline Phosphatase 90 units/L (35-129) 01/20/17 05:50 Lactate Dehydrogenase 137 units/L (91-180) 01/17/17 23:41 Total Creatine Kinase 50 units/L (55-170) L 01/15/17 00:18 CK-MB (CK-2) 1.5 ng/mL (0.0-4.0) 01/15/17 00:18 CK-MB (CK-2) Rel Index 3.0 (0-4) 01/15/17 00:18 Troponin T < 0.010 ng/mL (0.00-0.029) 01/15/17 06:20 Total Protein 6.3 g/dL (6.3-8.2) 01/20/17 05:50 Albumin 1.7 g/dL (3.9-5) L 01/20/17 05:50 Albumin/Globulin Ratio 0.4 % 01/20/17 05:50 Fluid Type Pleural 01/15/17 Unknown Fluid Color Yellow 01/15/17 Unknown Fluid Appearance Clear 01/15/17 Unknown Fluid WBC 1350 /mm3 01/15/17 Unknown Fluid RBC 750 /mm3 01/15/17 Unknown Fluid Seg Neutrophils 81.0 % 01/15/17 Unknown Fluid Lymphocytes 12.0 % 01/15/17 Unknown Fluid Reactive Lymphs 0 % 01/15/17 Unknown Fluid Monocytes 7.0 % 01/15/17 Unknown Fluid Eosinophils 0 % 01/15/17 Unknown Fluid Basophils 0 % 01/15/17 Unknown Fluid Total Protein 5.3 (15.0-45.0) L 01/15/17 Unknown Fluid LDH 942 01/15/17 Unknown Vancomycin Trough 14.1 ug/mL (5.0-20.0) 01/23/17 20:37 - Imaging and Cardiology Chest x-ray: image reviewed (no change)
[2017-01-24] MEDS: VANCOMYCIN 1,250 MG in NACL 0.9% 250ML 250 ML IV SCH (22:35)
[2017-01-25] MEDS: CLEOCIN 600 MG/50 mL 600 MG/50 ML BAG IV SCH ×3 (00:03→17:04)
[2017-01-25] MEDS: ZOCOR PO SCH ×2 (00:06→21:35)
[2017-01-25] MEDS: MILK OF MAGNESIA PO PRN (00:11)
[2017-01-25] MEDS: HEPARIN SUB-Q SCH ×3 (06:57→21:38)
[2017-01-25] MEDS: D5/0.45NS 1,000 ML IV SCH ×2 (07:00→21:27)
[2017-01-25] MEDS: DUONEB *Not for PRN Use IH SCH ×2 (10:07→15:41)
[2017-01-25] MEDS: HALFPRIN EC PO SCH (10:13)
[2017-01-25] MEDS: THERAGRAN Tab PO SCH (10:13)
[2017-01-25] MEDS: NORVASC PO SCH (10:14)
[2017-01-25] MEDS: FLOMAX PO SCH (10:14)
[2017-01-25] MEDS: FOLVITE PO SCH (10:14)
[2017-01-25] MEDS: LOPRESSOR PO SCH ×2 (10:15→21:53)
[2017-01-25] MEDS: PROSCAR PO SCH (10:15)
--- NOTE | 2017-01-25 11:43 | Progress Note ---
Assessment and Plan 86 y/o male with left sided pleural effusion, found to be emphyema 1. Discussed case with Surgery. Don't feel large bore will work at this time and patient would benefit from VATS 2. Per surgery needs cards evaluation and risk assessment Subjective Date of service: 01/25/17 Principal diagnosis: Pneumonia,pleural effusion-empyema,urinary retention Interval history: Chest tube in place. Draining. Is empyema based on definition. Reviewed CT surgery note. Objective Vital Signs - 12hr 01/25/17 01/25/17 01/25/17 09:52 10:00 10:07 Temperature 98.8 F Pulse Rate 77 Pulse Rate [ Anterior Bilateral Throughout] Pulse Rate [ 111 H From Monitor] Pulse Rate [ 91 H Left] Respiratory 20 18 Rate Respiratory Rate [Anterior Bilateral Throughout] Respiratory 18 Rate [Left] Blood Pressure Blood Pressure 153/68 [Left Arm] O2 Sat by Pulse 96 97 Oximetry 01/25/17 01/25/17 01/25/17 10:09 10:14 10:15 Temperature Pulse Rate 93 H 93 H Pulse Rate [ Anterior Bilateral Throughout] Pulse Rate [ From Monitor] Pulse Rate [ Left] Respiratory Rate Respiratory Rate [Anterior Bilateral Throughout] Respiratory Rate [Left] Blood Pressure 143/60 143/60 Blood Pressure [Left Arm] O2 Sat by Pulse 93 Oximetry 01/25/17 10:22 Temperature Pulse Rate Pulse Rate [ 89 Anterior Bilateral Throughout] Pulse Rate [ From Monitor] Pulse Rate [ Left] Respiratory Rate Respiratory 18 Rate [Anterior Bilateral Throughout] Respiratory Rate [Left] Blood Pressure Blood Pressure [Left Arm] O2 Sat by Pulse Oximetry Constitutional: no acute distress, alert Eyes: non-icteric ENT: other (poor dentition) Effort: normal Ascultation: Bilateral: clear, diminished breath sounds (LT chest tube in place, yellow turbid fluid) Percussion: Left: dull (base) Cardiovascular: regular rate and rhythm Gastrointestinal: normoactive bowel sounds, soft, non-tender Extremities: no cyanosis, no cyanosis, no cyanosis Neurologic: normal mental status, non-focal exam CBC and BMP: 01/24/17 08:01 01/24/17 08:01 ABG, PT/INR, D-dimer: ABG POC ABG pH 7.315 (7.35-7.45) L 01/17/17 11:32 POC ABG pCO2 42.7 (35-45) 01/17/17 11:32 POC ABG pO2 41 (80-105) L 01/17/17 11:32 POC ABG HCO3 21.8 01/17/17 11:32 POC ABG Total CO2 23 01/17/17 11:32 POC ABG O2 Sat 72 01/17/17 11:32 PT/INR, D-dimer PT 16.6 Sec. (12.2-14.9) H 01/20/17 05:50 INR 1.27 (0.87-1.13) H 01/20/17 05:50 Abnormal lab findings: Abnormal Labs 01/15/17 01/15/17 01/15/17 06:20 06:20 12:11 WBC 28.5 H RBC 3.55 L Hgb 9.7 L Hct 30.3 L MCV MCH 27 L MCHC RDW 16.2 H Plt Count Lymph % (Auto) Humphreys % (Auto) Lymph # Humphreys # Seg Neutrophils % Seg Neuts % (Manual) Lymphocytes % (Manual) Monocytes % (Manual) Seg Neutrophils # Seg Neutrophils # Man Monocytes # (Manual) PT 16.3 H INR 1.32 H APTT 38.4 H POC ABG pH POC ABG pO2 Sodium 134 L Chloride 97.6 L Carbon Dioxide BUN 26 H Creatinine Glucose POC Glucose Calcium 8.2 L Albumin Fluid Total Protein 01/15/17 01/16/17 01/16/17 Unknown 04:54 04:54 WBC 24.9 H RBC Hgb 10.0 L Hct 31.8 L MCV MCH 27 L MCHC RDW 16.2 H Plt Count Lymph % (Auto) Humphreys % (Auto) Lymph # Humphreys # Seg Neutrophils % Seg Neuts % (Manual) 37.0 L Lymphocytes % (Manual) 12.0 L Monocytes % (Manual) 10.0 H Seg Neutrophils # Seg Neutrophils # Man 9.2 H Monocytes # (Manual) 2.5 H PT INR APTT POC ABG pH POC ABG pO2 Sodium 132 L Chloride 95.2 L Carbon Dioxide BUN 29 H Creatinine Glucose 130 H POC Glucose Calcium 8.3 L Albumin Fluid Total Protein 5.3 L 01/17/17 01/17/17 01/17/17 04:55 04:55 10:49 WBC 23.8 H RBC Hgb 10.9 L Hct 33.6 L MCV MCH MCHC RDW 16.4 H Plt Count Lymph % (Auto) Humphreys % (Auto) Lymph # Humphreys # Seg Neutrophils % Seg Neuts % (Manual) 36.0 L Lymphocytes % (Manual) 8.0 L Monocytes % (Manual) 18.0 H Seg Neutrophils # Seg Neutrophils # Man 8.6 H Monocytes # (Manual) 4.3 H PT INR APTT POC ABG pH POC ABG pO2 Sodium 132 L Chloride 95.7 L Carbon Dioxide 21 L BUN 30 H Creatinine Glucose 130 H POC Glucose 200 H Calcium Albumin Fluid Total Protein 01/17/17 01/17/17 01/18/17 11:32 23:41 03:46 WBC 23.2 H RBC Hgb 10.5 L Hct 32.0 L MCV MCH MCHC RDW 16.0 H Plt Count Lymph % (Auto) Humphreys % (Auto) Lymph # Humphreys # Seg Neutrophils % Seg Neuts % (Manual) Lymphocytes % (Manual) 6.0 L Monocytes % (Manual) 10.0 H Seg Neutrophils # Seg Neutrophils # Man 16.2 H Monocytes # (Manual) 2.3 H PT INR APTT POC ABG pH 7.315 L POC ABG pO2 41 L Sodium Chloride Carbon Dioxide BUN Creatinine Glucose POC Glucose Calcium Albumin 1.9 L Fluid Total Protein 01/18/17 01/19/17 01/19/17 03:46 03:41 03:41 WBC 19.8 H RBC 3.61 L Hgb 9.8 L Hct 30.2 L MCV MCH 27 L MCHC RDW 16.1 H Plt Count 505 H Lymph % (Auto) 5.2 L Humphreys % (Auto) 13.3 H Lymph # 1.0 L Humphreys # 2.6 H Seg Neutrophils % 81.1 H Seg Neuts % (Manual) Lymphocytes % (Manual) Monocytes % (Manual) Seg Neutrophils # 16.1 H Seg Neutrophils # Man Monocytes # (Manual) PT INR APTT POC ABG pH POC ABG pO2 Sodium 134 L 133 L Chloride 96.6 L 96.0 L Carbon Dioxide 21 L 21 L BUN 50 H 42 H Creatinine 1.9 H Glucose 177 H 122 H POC Glucose Calcium 8.1 L 8.0 L Albumin Fluid Total Protein 01/20/17 01/20/17 01/20/17 05:50 05:50 05:50 WBC 18.4 H RBC Hgb 10.5 L Hct 32.0 L MCV 83 L MCH 27 L MCHC RDW 16.3 H Plt Count 540 H Lymph % (Auto) 7.7 L Humphreys % (Auto) 15.7 H Lymph # Humphreys # 2.9 H Seg Neutrophils % 76.2 H Seg Neuts % (Manual) Lymphocytes % (Manual) Monocytes % (Manual) Seg Neutrophils # 14.0 H Seg Neutrophils # Man Monocytes # (Manual) PT 16.6 H INR 1.27 H APTT POC ABG pH POC ABG pO2 Sodium Chloride Carbon Dioxide BUN 24 H Creatinine Glucose 104 H POC Glucose Calcium 8.0 L Albumin 1.7 L Fluid Total Protein 01/20/17 01/22/17 01/22/17 21:03 07:34 07:34 WBC 24.9 H RBC Hgb 10.6 L Hct 33.8 L MCV MCH 27 L MCHC 31 L RDW 16.6 H Plt Count 582 H Lymph % (Auto) Humphreys % (Auto) Lymph # Humphreys # Seg Neutrophils % Seg Neuts % (Manual) Lymphocytes % (Manual) Monocytes % (Manual) Seg Neutrophils # Seg Neutrophils # Man Monocytes # (Manual) PT INR APTT POC ABG pH POC ABG pO2 Sodium Chloride Carbon Dioxide BUN Creatinine Glucose 163 H POC Glucose 110 H Calcium 7.9 L Albumin Fluid Total Protein 01/23/17 01/24/17 01/24/17 08:49 08:01 08:01 WBC 23.7 H 25.6 H RBC Hgb 10.2 L 10.0 L Hct 31.6 L 31.0 L MCV MCH 27 L 27 L MCHC RDW 16.6 H 16.5 H Plt Count 559 H 535 H Lymph % (Auto) Humphreys % (Auto) Lymph # Humphreys # Seg Neutrophils % Seg Neuts % (Manual) 86.0 H Lymphocytes % (Manual) 7.0 L Monocytes % (Manual) Seg Neutrophils # Seg Neutrophils # Man 20.4 H Monocytes # (Manual) 1.4 H PT INR APTT POC ABG pH POC ABG pO2 Sodium 134 L Chloride 95.3 L Carbon Dioxide BUN Creatinine Glucose 162 H POC Glucose Calcium 7.5 L Albumin Fluid Total Protein 01/25/17 01/25/17 00:23 06:29 WBC RBC Hgb Hct MCV MCH MCHC RDW Plt Count Lymph % (Auto) Humphreys % (Auto) Lymph # Humphreys # Seg Neutrophils % Seg Neuts % (Manual) Lymphocytes % (Manual) Monocytes % (Manual) Seg Neutrophils # Seg Neutrophils # Man Monocytes # (Manual) PT INR APTT POC ABG pH POC ABG pO2 Sodium Chloride Carbon Dioxide BUN Creatinine Glucose POC Glucose 165 H 119 H Calcium Albumin Fluid Total Protein
--- NOTE | 2017-01-25 13:38 | Consultation ---
History of Present Illness Consult date: 01/25/17 Consult reason: pre op evaluation History of present illness: Patient is an 86-year-old man admitted with shortness of breath, found with a large left pleural effusion. He currently has a left chest tube in place. He has been seen by thoracic surgery will have recommended a VATS and thoracoscopy procedure. Cardiac auscultation was requested for preoperative assessment. The patient is an elderly, frail 86-year-old with multiple medical problems. He has a history of coronary artery disease with three-way coronary bypass done many years ago. He reports no recent chest pain, and no recent significant cardiac ischemic workup. Currently there is no chest pain, no palpitations, no lower extremity edema. His presenting shortness of breath was attributable to the large left pleural effusion. ECG and telemetry strips reveal a paroxysmal atrial fibrillation with well- controlled ventricular response. There are no acute ischemic changes. Past History Past Medical History: CAD (s/p CABG), hypertension Past Surgical History: CABG, total hip replacement (right) Social history: lives with family, full code. denies: smoking, alcohol abuse Family history: hypertension Medications and Allergies Allergies Allergy/AdvReac Type Severity Reaction Status Date / Time Penicillins AdvReac Severe Hives Verified 01/16/17 16:28 Sulfa (Sulfonamide AdvReac Severe Hives Verified 01/16/17 16:28 Antibiotics) Home Medications Medication Instructions Recorded Confirmed Last Taken Type Aspirin [Adult Low Dose Aspirin EC] 81 mg PO DAILY 06/25/16 01/14/17 01/14/17 History Finasteride [Proscar] 1 tab PO DAILY 06/25/16 01/14/17 01/14/17 History Folic Acid [Folvite] 1 mg PO QDAY 06/25/16 01/14/17 01/14/17 History Metoprolol Tartrate [Lopressor] 50 mg PO BID 06/25/16 01/14/17 01/14/17 History Multivitamin Tab [Multiple Vitamin 1 tab PO DAILY 06/25/16 01/14/17 01/14/17 History TAB (Theragran)] Pravachol 20 mg PO HS 06/25/16 01/14/17 01/14/17 History Tamsulosin [Flomax] 0.4 mg PO QDAY 12/01/16 06/22/17 06/22/17 History amLODIPine [Norvasc] 5 mg PO DAILY 06/25/16 01/14/17 01/14/17 History Active Meds: Active Medications Acetaminophen (Tylenol) 650 mg PO Q4H PRN PRN Reason: Pain MILD(1-3)/Fever >100.5/WERNER Last Admin: 01/24/17 15:45 Dose: 650 mg Albuterol/Ipratropium (Duoneb 0.5 Mg-3 Mg/3 Ml Soln) 1 ampul IH Q6HRT [facility] Last Admin: 01/25/17 10:07 Dose: 1 ampul Amlodipine Besylate (Norvasc) 5 mg PO DAILY [facility] Last Admin: 01/25/17 10:14 Dose: 5 mg Lipase/Protease/Amylase (Pancreaze Dr 10,500 Unit) 1 each FEEDTUBE PRN PRN PRN Reason: For Clogged Feeding Tube Aspirin (Halfprin Ec) 81 mg PO DAILY [facility] Last Admin: 01/25/17 10:13 Dose: 81 mg Bisacodyl (Dulcolax) 10 mg VT QDAY PRN PRN Reason: Constipation unrelieved by MOM Finasteride (Proscar) 5 mg PO DAILY [facility] Last Admin: 01/25/17 10:15 Dose: 5 mg Folic Acid (Folvite) 1 mg PO QDAY [facility] Last Admin: 01/25/17 10:14 Dose: 1 mg Heparin Sodium (Porcine) (Heparin) 5,000 unit SUB-Q Q8HR [facility] Last Admin: 01/25/17 06:57 Dose: 5,000 unit Clindamycin HCl (Cleocin 600 Mg/50 Ml) 600 mg in 50 mls @ 100 mls/hr IV Q8H ANGELIQUE PRN Reason: Protocol Last Admin: 01/25/17 08:43 Dose: 100 mls/hr Dextrose/Sodium Chloride (D5/0.45ns) 1,000 mls @ 75 mls/hr IV DIRECT [facility] Last Admin: 01/25/17 07:00 Dose: 75 mls/hr Vancomycin HCl 1,250 mg/ (Sodium Chloride) 275 mls @ 166.667 mls/hr IV Q24H [facility] Last Admin: 01/24/17 22:35 Dose: 166.667 mls/hr Magnesium Hydroxide (Milk Of Magnesia) 30 ml PO Q4H PRN PRN Reason: Constipation Last Admin: 01/25/17 00:11 Dose: 30 ml Metoprolol Tartrate (Lopressor) 50 mg PO BID [facility] Last Admin: 01/25/17 10:15 Dose: 50 mg Morphine Sulfate (Morphine) 2 mg IV Q4H PRN PRN Reason: Pain, Moderate (4-6) Last Admin: 01/23/17 18:15 Dose: 2 mg Multivitamins (Theragran Tab) 1 each PO DAILY [facility] Last Admin: 01/25/17 10:13 Dose: 1 each Ondansetron HCl (Zofran) 4 mg IV Q6H PRN PRN Reason: nausea or vomiting Pseudoephedrine/Acetam/Chlorphenir (Robitussin Ac) 10 ml PO Q4H PRN PRN Reason: Cough Last Admin: 01/16/17 19:05 Dose: 10 ml Simple Syrup (Simple Syrup) 15 ml FEEDTUBE PRN PRN PRN Reason: Hypoglycemia Simple Syrup (Simple Syrup) 30 ml FEEDTUBE PRN PRN PRN Reason: Hypoglycemia Simvastatin (Zocor) 10 mg PO QHS [facility] Last Admin: 01/25/17 00:06 Dose: 10 mg Sodium Bicarbonate (Sodium Bicarbonate) 325 mg FEEDTUBE PRN PRN PRN Reason: For Clogged Feeding Tube Tamsulosin HCl (Flomax) 0.4 mg PO QDAY [facility] Last Admin: 01/25/17 10:14 Dose: 0.4 mg Vancomycin HCl (Vancomycin Pharmacy To Dose) 1 each IV PKCONSULT [facility] PRN Reason: Protocol Review of Systems Cardiovascular: shortness of breath, no chest pain, no orthopnea, no palpitations, no rapid/irregular heart beat, no edema, no syncope, no lightheadedness Physical Examination Vital Signs Temp Pulse Resp BP Pulse Ox 98.4 F 91 H 20 105/45 100 01/14/17 18:28 01/14/17 18:28 01/14/17 18:28 01/14/17 18:28 01/14/17 18:28 General appearance: no acute distress HEENT: Positive: PERRL Neck: Positive: neck supple Cardiac: Positive: irregularly irregular Lungs: Positive: Decreased Breath Sounds Neuro: Positive: Grossly Intact Abdomen: Positive: Soft Male genitourinary: Positive: deferred Skin: Positive: Clear Extremities: Absent: edema Results 01/24/17 08:01 01/24/17 08:01 EKG interpretations - Telemetry EKG Rhythm: Atrial Fibrillation Assessment and Plan - Patient Problems (1) Pre-op evaluation Current Visit: Yes Status: Acute Plan to address problem: The patient is elderly, frail, with multiple comorbidities including coronary artery disease with remote coronary bypass. He has a moderate perioperative cardiac risk, and this should be considered in his preoperative surgical assessment. The patient and his family understand the risks and are willing to proceed. Okay to proceed with thoracoscopy and VATS procedure as planned. (2) Atrial fibrillation Current Visit: Yes Status: Acute Qualifiers: Atrial fibrillation type: A Plan to address problem: Patient has paroxysmal atrial fibrillation, the duration of this is uncertain. He is currently not on oral anticoagulation therapy is, and will likely not be a good candidate for oral anticoagulation in the near term due to his thoracoscopic procedures, persistent left pleural effusion, and risks associated with his advanced age of 86. (3) Coronary artery disease Current Visit: Yes Status: Acute Qualifiers: Coronary Disease-Associated Artery/Lesion type: C [place] vs. transplanted heart: N Associated angina: A Plan to address problem: Patient's coronary artery disease is asymptomatic, will be managed with medical therapy and risk factor modification.
[2017-01-25] MEDS: MORPHINE IV PRN (17:04)
--- NOTE | 2017-01-25 17:37 | Progress Note ---
Assessment and Plan Assessment and plan: Patient is 86-year-old with history of hypertension, coronary artery disease and CABG, recent pneumonia. He was recently diagnosed with pneumonia on 12/20/16 , and was placed on Levaquin po and discharged home from ED. He completed 10 days of Levaquin. Currently he presents with left lower chest pain and cough. On Admission he is found to have loculated effusion on the left lower lobe. Despite thoracentesis no resolution was noted. Patient will proceed for pigtail catheter out today. If unsuccessful will need possibly a VATS procedure. A PEG tube was also placed for nutritional support. O Acute respiratory failure 2/2 aspiration versus worsening of effusion imaging studies do not demonstrate any change. -xray imaging remains unchanged. - Thoracentesis was done and 1660 mL of yellowish fluid was taken out - Prelim culture grew GM positive cocci-streptococcus pneumonia , CT showed loculated effusion, exudative. - Patient is currently breathing well - Pulmonary is following him -Cardiothoracic surgery consulted due to worsening leukocytosis despite pigtail catheter tube-. - Cardiac pre-op evaluation noted. Left lower lobe pneumonia with parapneumonic effusion - Continue IV antibiotics -Patient still with increasing leukocytosis or symptoms of reactive, no fever. -Monitoring cultures no growth to date. Adjust antibiotics as needed. -Chest tube is placed. But x-ray still shows loculated effusion. Will obtain cardio vascular surgery input for possible VATS procedure Hypertension-Stable BPH on Flomax Moderate protein calorie malnutrition BMI 18. Continue tube feeds. Paroxysmal Atrial fibrillation-NOT a good candidate for anticoagulation, due to thoracoscopIc procedure for peristent left pleural effusion. CAD stable continue aspirin-we'll obtain cardiac clearance for possible VATS procedure Anemia-stable likely chronic disease will monitor closely. DVT prophylaxis SCD, heparin CODE STATUS full Disposition Continue inpatient care. Discussed with family History Interval history: Patient seen and examined this morning in no acute distress. Chest tube is in place, patient is tolerating tube feeds. No new complaints. No adverse events reported by nursing staff. Minimal drainage noted and chest tube. FAMILY AT BEDSIDE Hospitalist Physical - Physical exam Narrative exam: VITAL SIGNS: Reviewed. GENERAL: The patient appeared chronically ill appearing. Vital signs as documented. HEAD: No signs of head trauma. EYES: Pupils are equal. Extraocular motions intact. EARS: Hearing grossly intact. MOUTH: Oropharynx is normal, missing dentition. NECK: No adenopathy, no JVD. CHEST: Chest with crackles left greater than right breath sounds bilaterally. No wheezes, rales, or rhonchi. CARDIAC: Regular rate and rhythm. S1 and S2, without murmurs, gallops, or rubs. VASCULAR: No Edema. Peripheral pulses normal and equal in all extremities. ABDOMEN: Soft, without detectable tenderness. No sign of distention. No rebound or guarding, and no masses palpated. Bowel Sounds normal. MUSCULOSKELETAL: Good range of motion of all major joints. Extremities without clubbing, cyanosis or edema. NEUROLOGIC EXAM: Alert and oriented x 3. No focal sensory or strength deficits. Speech normal. Follows commands. PSYCHIATRIC: Mood normal. SKIN: Chest tube and tube feeds noted. No overt drainage noted. - Constitutional Vitals: Temp Pulse Resp BP Pulse Ox 98.8 F 86 20 143/60 93 01/25/17 09:52 01/25/17 15:58 01/25/17 15:58 01/25/17 10:15 01/25/17 10:09 General appearance: Present: no acute distress Results - Labs CBC & Chem 7: 01/24/17 08:01 01/24/17 08:01 Labs: Laboratory Last Values WBC 25.6 K/mm3 (4.5-11.0) H 01/24/17 08:01 RBC 3.70 M/mm3 (3.65-5.03) 01/24/17 08:01 Hgb 10.0 gm/dl (11.8-15.2) L 01/24/17 08:01 Hct 31.0 % (35.5-45.6) L 01/24/17 08:01 MCV 84 fl (84-94) 01/24/17 08:01 MCH 27 pg (28-32) L 01/24/17 08:01 MCHC 32 % (32-34) 01/24/17 08:01 RDW 16.5 % (13.2-15.2) H 01/24/17 08:01 Plt Count 535 K/mm3 (140-440) H 01/24/17 08:01 Lymph % (Auto) 7.7 % (13.4-35.0) L 01/20/17 05:50 [place] % (Auto) 15.7 % (0.0-7.3) H 01/20/17 05:50 Eos % (Auto) 0.3 % (0.0-4.3) 01/20/17 05:50 Baso % (Auto) 0.1 % (0.0-1.8) 01/20/17 05:50 Lymph # 1.4 K/mm3 (1.2-5.4) 01/20/17 05:50 [place] # 2.9 K/mm3 (0.0-0.8) H 01/20/17 05:50 Eos # 0.1 K/mm3 (0.0-0.4) 01/20/17 05:50 Baso # 0.0 K/mm3 (0.0-0.1) 01/20/17 05:50 Add Manual Diff Complete 01/23/17 08:49 Total Counted 200 01/23/17 08:49 Seg Neutrophils % 76.2 % (40.0-70.0) H 01/20/17 05:50 Seg Neuts % (Manual) 86.0 % (40.0-70.0) H 01/23/17 08:49 Band Neutrophils % 0 % 01/23/17 08:49 Lymphocytes % (Manual) 7.0 % (13.4-35.0) L 01/23/17 08:49 Reactive Lymphs % (Man) 0 % 01/23/17 08:49 Monocytes % (Manual) 6.0 % (0.0-7.3) 01/23/17 08:49 Eosinophils % (Manual) 1.0 % (0.0-4.3) 01/23/17 08:49 Basophils % (Manual) 0 % (0.0-1.8) 01/23/17 08:49 Metamyelocytes % 0 % 01/23/17 08:49 Myelocytes % 0 % 01/23/17 08:49 Promyelocytes % 0 % 01/23/17 08:49 Blast Cells % 0 % 01/23/17 08:49 Nucleated RBC % Not Reportable 01/23/17 08:49 Seg Neutrophils # 14.0 K/mm3 (1.8-7.7) H 01/20/17 05:50 Seg Neutrophils # Man 20.4 K/mm3 (1.8-7.7) H 01/23/17 08:49 Band Neutrophils # 0.0 K/mm3 01/23/17 08:49 Lymphocytes # (Manual) 1.7 K/mm3 (1.2-5.4) 01/23/17 08:49 Abs React Lymphs (Man) 0.0 K/mm3 01/23/17 08:49 Monocytes # (Manual) 1.4 K/mm3 (0.0-0.8) H 01/23/17 08:49 Eosinophils # (Manual) 0.2 K/mm3 (0.0-0.4) 01/23/17 08:49 Basophils # (Manual) 0.0 K/mm3 (0.0-0.1) 01/23/17 08:49 Metamyelocytes # 0.0 K/mm3 01/23/17 08:49 Myelocytes # 0.0 K/mm3 01/23/17 08:49 Promyelocytes # 0.0 K/mm3 01/23/17 08:49 Blast Cells # 0.0 K/mm3 01/23/17 08:49 WBC Morphology Not Reportable 01/23/17 08:49 Hypersegmented Neuts Not Reportable 01/23/17 08:49 Hyposegmented Neuts Not Reportable 01/23/17 08:49 Hypogranular Neuts Not Reportable 01/23/17 08:49 Smudge Cells Not Reportable 01/23/17 08:49 Toxic Granulation Not Reportable 01/23/17 08:49 Toxic Vacuolation Not Reportable 01/23/17 08:49 Dohle Bodies Not Reportable 01/23/17 08:49 Pelger-Huet Anomaly Not Reportable 01/23/17 08:49 Lore Rods Not Reportable 01/23/17 08:49 Platelet Estimate Consistent w auto 01/23/17 08:49 Clumped Platelets Not Reportable 01/23/17 08:49 Plt Clumps, EDTA Not Reportable 01/23/17 08:49 Large Platelets Not Reportable 01/23/17 08:49 Giant Platelets Not Reportable 01/23/17 08:49 Platelet Satelliting Not Reportable 01/23/17 08:49 Plt Morphology Comment Not Reportable 01/23/17 08:49 RBC Morphology Not Reportable 01/23/17 08:49 Dimorphic RBCs Not Reportable 01/23/17 08:49 Polychromasia Not Reportable 01/23/17 08:49 Hypochromasia Not Reportable 01/23/17 08:49 Poikilocytosis Not Reportable 01/23/17 08:49 Anisocytosis 1+ 01/23/17 08:49 Microcytosis Not Reportable 01/23/17 08:49 Macrocytosis Not Reportable 01/23/17 08:49 Spherocytes Not Reportable 01/23/17 08:49 Pappenheimer Bodies Not Reportable 01/23/17 08:49 Sickle Cells Not Reportable 01/23/17 08:49 Target Cells Not Reportable 01/23/17 08:49 Tear Drop Cells Not Reportable 01/23/17 08:49 Ovalocytes Not Reportable 01/23/17 08:49 Helmet Cells Not Reportable 01/23/17 08:49 [place] Bodies Not Reportable 01/23/17 08:49 [place] Rings Not Reportable 01/23/17 08:49 [place] Cells Not Reportable 01/23/17 08:49 Bite Cells Not Reportable 01/23/17 08:49 Crenated Cell Not Reportable 01/23/17 08:49 Elliptocytes Not Reportable 01/23/17 08:49 Acanthocytes (Spur) Not Reportable 01/23/17 08:49 Rouleaux Not Reportable 01/23/17 08:49 Hemoglobin C Crystals Not Reportable 01/23/17 08:49 Schistocytes Not Reportable 01/23/17 08:49 Malaria parasites Not Reportable 01/23/17 08:49 Steve Bodies Not Reportable 01/23/17 08:49 Hem Pathologist Commnt No 01/23/17 08:49 PT 16.6 Sec. (12.2-14.9) H 01/20/17 05:50 INR 1.27 (0.87-1.13) H 01/20/17 05:50 APTT 38.4 Sec. (24.2-36.6) H 01/15/17 12:11 POC ABG pH 7.315 (7.35-7.45) L 01/17/17 11:32 POC ABG pCO2 42.7 (35-45) 01/17/17 11:32 POC ABG pO2 41 (80-105) L 01/17/17 11:32 POC ABG HCO3 21.8 01/17/17 11:32 POC ABG Total CO2 23 01/17/17 11:32 POC ABG O2 Sat 72 01/17/17 11:32 POC ABG Base Excess -4 01/17/17 11:32 FiO2 50 % 01/17/17 11:32 Sodium 134 mmol/L (137-145) L 01/24/17 08:01 Potassium 4.6 mmol/L (3.6-5.0) D 01/24/17 08:01 Chloride 95.3 mmol/L (98-107) L 01/24/17 08:01 Carbon Dioxide 27 mmol/L (22-30) 01/24/17 08:01 Anion Gap 16 mmol/L 01/24/17 08:01 BUN 16 mg/dL (9-20) 01/24/17 08:01 Creatinine 0.9 mg/dL (0.8-1.5) 01/24/17 08:01 Estimated GFR > 60 ml/min 01/24/17 08:01 BUN/Creatinine Ratio 17.77 % 01/24/17 08:01 Glucose 162 mg/dL (75-100) H 01/24/17 08:01 POC Glucose 235 (70-105) H 01/25/17 11:54 Calcium 7.5 mg/dL (8.4-10.2) L 01/24/17 08:01 Total Bilirubin 0.50 mg/dL (0.1-1.2) 01/20/17 05:50 Direct Bilirubin < 0.2 mg/dL (0-0.2) 01/17/17 23:41 Indirect Bilirubin 0.1 mg/dL 01/17/17 23:41 AST 22 units/L (5-40) 01/20/17 05:50 ALT 23 units/L (7-56) 01/20/17 05:50 Alkaline Phosphatase 90 units/L (35-129) 01/20/17 05:50 Lactate Dehydrogenase 137 units/L (91-180) 01/17/17 23:41 Total Creatine Kinase 50 units/L (55-170) L 01/15/17 00:18 CK-MB (CK-2) 1.5 ng/mL (0.0-4.0) 01/15/17 00:18 CK-MB (CK-2) Rel Index 3.0 (0-4) 01/15/17 00:18 Troponin T < 0.010 ng/mL (0.00-0.029) 01/15/17 06:20 Total Protein 6.3 g/dL (6.3-8.2) 01/20/17 05:50 Albumin 1.7 g/dL (3.9-5) L 01/20/17 05:50 Albumin/Globulin Ratio 0.4 % 01/20/17 05:50 Fluid Type Pleural 01/15/17 Unknown Fluid Color Yellow 01/15/17 Unknown Fluid Appearance Clear 01/15/17 Unknown Fluid WBC 1350 /mm3 01/15/17 Unknown Fluid RBC 750 /mm3 01/15/17 Unknown Fluid Seg Neutrophils 81.0 % 01/15/17 Unknown Fluid Lymphocytes 12.0 % 01/15/17 Unknown Fluid Reactive Lymphs 0 % 01/15/17 Unknown Fluid Monocytes 7.0 % 01/15/17 Unknown Fluid Eosinophils 0 % 01/15/17 Unknown Fluid Basophils 0 % 01/15/17 Unknown Fluid Total Protein 5.3 (15.0-45.0) L 01/15/17 Unknown Fluid LDH 942 01/15/17 Unknown Vancomycin Trough 14.1 ug/mL (5.0-20.0) 01/23/17 20:37
[2017-01-25] MEDS: VANCOMYCIN 1,250 MG in NACL 0.9% 250ML 250 ML IV SCH (21:25)
[2017-01-26] MEDS: CLEOCIN 600 MG/50 mL 600 MG/50 ML BAG IV SCH ×3 (00:53→17:22)
[2017-01-26] MEDS: NOVOLOG SUB-Q SCH ×4 (00:58→18:00)
[2017-01-26] MEDS: DUONEB *Not for PRN Use IH SCH ×6 (02:03→19:31)
[2017-01-26] MEDS: HEPARIN SUB-Q SCH ×3 (05:15→21:31)
[2017-01-26 05:40] LABS: Hematocrit 30.7 % (35.5-45.6); Hemoglobin 9.7 gm/dl (11.8-15.2); Mean Corpuscular HGB Conc 32 % (32-34); Mean Corpuscular Hemoglobin 27 pg (28-32); Mean Corpuscular Volume 85 fl (84-94); Platelet Count 542 K/mm3 (140-440); Red Blood Count 3.63 M/mm3 (3.65-5.03); Red Cell Distribution Width 16.8 % (13.2-15.2)
[2017-01-26 05:47] LABS: White Blood Count 24.8 K/mm3 (4.5-11.0)
[2017-01-26 05:55] LABS: Anion Gap 17 mmol/L; BUN/Creatinine Ratio 22.22; Blood Urea Nitrogen 20 mg/dL (9-20); Calcium 7.5 mg/dL (8.4-10.2); Carbon Dioxide 26 mmol/L (22-30); Chloride 94.9 mmol/L (98-107); Glucose 166 mg/dL (75-100); Potassium 4.4 mmol/L (3.6-5.0); Sodium 133 mmol/L (137-145)
--- NOTE | 2017-01-26 08:15 | Progress Note ---
Assessment and Plan Pre-op evaluation - The patient is elderly, frail, with multiple comorbidities including coronary artery disease with remote coronary bypass. He has a moderate perioperative cardiac risk, for thoracoscopy and VATS procedure. Atrial fibrillation - Patient has paroxysmal atrial fibrillation. Not currently on oral anticoagulation therapy. Surgery is pending. Patient is not likely to be a good candidate for oral anticoagulation due to his thoracoscopic procedures , persistent left pleural effusion, and risks associated with his advanced age of 86. Coronary artery disease - currently the patient is asymptomatic. Continue medical therapy with ASA and statin. Subjective Date of service: 01/26/17 Principal diagnosis: Pneumonia,pleural effusion-empyema,urinary retention Interval history: Resting comfortably in bed. No complaints. chest tube in place. Objective Vital Signs Temp Pulse Pulse Pulse Pulse Resp Resp 01/26/17 08:00 78 01/25/17 22:00 97.8 F 78 21 01/25/17 21:53 82 01/25/17 20:23 01/25/17 15:58 86 20 01/25/17 15:42 80 01/25/17 10:22 89 18 01/25/17 10:15 93 H 01/25/17 10:14 93 H 01/25/17 10:09 01/25/17 10:07 91 H 01/25/17 10:00 77 18 01/25/17 09:52 98.8 F 111 H 20 Resp BP BP Pulse Ox 01/26/17 08:00 18 01/25/17 22:00 121/44 93 01/25/17 21:53 121/44 01/25/17 20:23 92 01/25/17 15:58 01/25/17 15:42 18 01/25/17 10:22 01/25/17 10:15 143/60 01/25/17 10:14 143/60 01/25/17 10:09 93 01/25/17 10:07 18 01/25/17 10:00 97 01/25/17 09:52 153/68 96 - Physical Examination General: Appears Well HEENT: Positive: PERRL Neck: Positive: neck supple Cardiac: Positive: Reg Rate and Rhythm, S1/S2 Lungs: Positive: Other (course breath sounds bilaterally. Chest tube in place on left side) Neuro: Positive: Grossly Intact Abdomen: Positive: Soft Skin: Positive: Clear Extremities: Absent: edema - Labs and Meds CBC 01/26/17 Range/Units 04:28 WBC 24.8 H (4.5-11.0) K/mm3 RBC 3.63 L (3.65-5.03) M/mm3 Hgb 9.7 L (11.8-15.2) gm/dl Hct 30.7 L (35.5-45.6) % Plt Count 542 H (140-440) K/mm3 Comprehensive Metabolic Panel 01/26/17 Range/Units 04:28 Sodium 133 L (137-145) mmol/L Potassium 4.4 (3.6-5.0) mmol/L Chloride 94.9 L (98-107) mmol/L Carbon Dioxide 26 (22-30) mmol/L BUN 20 (9-20) mg/dL Creatinine 0.9 (0.8-1.5) mg/dL Glucose 166 H (75-100) mg/dL Calcium 7.5 L (8.4-10.2) mg/dL
[2017-01-26] MEDS: PROSCAR PO SCH (08:59)
[2017-01-26] MEDS: HALFPRIN EC PO SCH (08:59)
[2017-01-26] MEDS: FLOMAX PO SCH (09:00)
[2017-01-26] MEDS: THERAGRAN Tab PO SCH (09:00)
[2017-01-26] MEDS: FOLVITE PO SCH (09:00)
[2017-01-26] MEDS: LOPRESSOR PO SCH ×2 (10:59→21:29)
[2017-01-26] MEDS: NORVASC PO SCH (10:59)
--- NOTE | 2017-01-26 11:17 | Progress Note ---
Assessment and Plan 86 y/o male with left sided pleural effusion, found to be emphyema 1. Discussed case with Surgery. Don't feel large bore will work at this time and patient would benefit from VATS 2. Per surgery needs cards evaluation and risk assessment, done. Await scheduling of procedure Subjective Date of service: 01/26/17 Principal diagnosis: Pneumonia,pleural effusion-empyema,urinary retention Interval history: No acute events. Cardiology has given their risk assessment. Pulm status is unchanged. Objective Vital Signs - 12hr 01/26/17 01/26/17 01/26/17 08:00 08:14 09:24 Temperature 98.2 F Pulse Rate Pulse Rate [ 99 H From Monitor] Pulse Rate [ 78 87 Left] Respiratory 20 Rate Respiratory 18 18 Rate [Left] Blood Pressure Blood Pressure 102/54 [Left Arm] O2 Sat by Pulse 94 Oximetry 01/26/17 10:59 Temperature Pulse Rate 87 Pulse Rate [ From Monitor] Pulse Rate [ Left] Respiratory Rate Respiratory Rate [Left] Blood Pressure 102/54 Blood Pressure [Left Arm] O2 Sat by Pulse Oximetry Constitutional: no acute distress, alert Eyes: non-icteric ENT: other (poor dentition) Effort: normal Ascultation: Bilateral: clear, diminished breath sounds (LT chest tube in place, yellow turbid fluid) Percussion: Left: dull (base) Cardiovascular: regular rate and rhythm Gastrointestinal: normoactive bowel sounds, soft, non-tender Extremities: no cyanosis, no cyanosis, no cyanosis Neurologic: normal mental status, non-focal exam CBC and BMP: 01/26/17 04:28 01/26/17 04:28 ABG, PT/INR, D-dimer: ABG POC ABG pH 7.315 (7.35-7.45) L 01/17/17 11:32 POC ABG pCO2 42.7 (35-45) 01/17/17 11:32 POC ABG pO2 41 (80-105) L 01/17/17 11:32 POC ABG HCO3 21.8 01/17/17 11:32 POC ABG Total CO2 23 01/17/17 11:32 POC ABG O2 Sat 72 01/17/17 11:32 PT/INR, D-dimer PT 16.6 Sec. (12.2-14.9) H 01/20/17 05:50 INR 1.27 (0.87-1.13) H 01/20/17 05:50 Abnormal lab findings: Abnormal Labs 01/15/17 01/15/17 01/15/17 06:20 06:20 12:11 WBC 28.5 H RBC 3.55 L Hgb 9.7 L Hct 30.3 L MCV MCH 27 L MCHC RDW 16.2 H Plt Count Lymph % (Auto) [place] % (Auto) Lymph # [place] # Seg Neutrophils % Seg Neuts % (Manual) Lymphocytes % (Manual) Monocytes % (Manual) Seg Neutrophils # Seg Neutrophils # Man Monocytes # (Manual) PT 16.3 H INR 1.32 H APTT 38.4 H POC ABG pH POC ABG pO2 Sodium 134 L Chloride 97.6 L Carbon Dioxide BUN 26 H Creatinine Glucose POC Glucose Calcium 8.2 L Albumin Fluid Total Protein 01/15/17 01/16/17 01/16/17 Unknown 04:54 04:54 WBC 24.9 H RBC Hgb 10.0 L Hct 31.8 L MCV MCH 27 L MCHC RDW 16.2 H Plt Count Lymph % (Auto) [place] % (Auto) Lymph # [place] # Seg Neutrophils % Seg Neuts % (Manual) 37.0 L Lymphocytes % (Manual) 12.0 L Monocytes % (Manual) 10.0 H Seg Neutrophils # Seg Neutrophils # Man 9.2 H Monocytes # (Manual) 2.5 H PT INR APTT POC ABG pH POC ABG pO2 Sodium 132 L Chloride 95.2 L Carbon Dioxide BUN 29 H Creatinine Glucose 130 H POC Glucose Calcium 8.3 L Albumin Fluid Total Protein 5.3 L 01/17/17 01/17/17 01/17/17 04:55 04:55 10:49 WBC 23.8 H RBC Hgb 10.9 L Hct 33.6 L MCV MCH MCHC RDW 16.4 H Plt Count Lymph % (Auto) [place] % (Auto) Lymph # [place] # Seg Neutrophils % Seg Neuts % (Manual) 36.0 L Lymphocytes % (Manual) 8.0 L Monocytes % (Manual) 18.0 H Seg Neutrophils # Seg Neutrophils # Man 8.6 H Monocytes # (Manual) 4.3 H PT INR APTT POC ABG pH POC ABG pO2 Sodium 132 L Chloride 95.7 L Carbon Dioxide 21 L BUN 30 H Creatinine Glucose 130 H POC Glucose 200 H Calcium Albumin Fluid Total Protein 01/17/17 01/17/17 01/18/17 11:32 23:41 03:46 WBC 23.2 H RBC Hgb 10.5 L Hct 32.0 L MCV MCH MCHC RDW 16.0 H Plt Count Lymph % (Auto) [place] % (Auto) Lymph # [place] # Seg Neutrophils % Seg Neuts % (Manual) Lymphocytes % (Manual) 6.0 L Monocytes % (Manual) 10.0 H Seg Neutrophils # Seg Neutrophils # Man 16.2 H Monocytes # (Manual) 2.3 H PT INR APTT POC ABG pH 7.315 L POC ABG pO2 41 L Sodium Chloride Carbon Dioxide BUN Creatinine Glucose POC Glucose Calcium Albumin 1.9 L Fluid Total Protein 01/18/17 01/19/17 01/19/17 03:46 03:41 03:41 WBC 19.8 H RBC 3.61 L Hgb 9.8 L Hct 30.2 L MCV MCH 27 L MCHC RDW 16.1 H Plt Count 505 H Lymph % (Auto) 5.2 L [place] % (Auto) 13.3 H Lymph # 1.0 L [place] # 2.6 H Seg Neutrophils % 81.1 H Seg Neuts % (Manual) Lymphocytes % (Manual) Monocytes % (Manual) Seg Neutrophils # 16.1 H Seg Neutrophils # Man Monocytes # (Manual) PT INR APTT POC ABG pH POC ABG pO2 Sodium 134 L 133 L Chloride 96.6 L 96.0 L Carbon Dioxide 21 L 21 L BUN 50 H 42 H Creatinine 1.9 H Glucose 177 H 122 H POC Glucose Calcium 8.1 L 8.0 L Albumin Fluid Total Protein 01/20/17 01/20/17 01/20/17 05:50 05:50 05:50 WBC 18.4 H RBC Hgb 10.5 L Hct 32.0 L MCV 83 L MCH 27 L MCHC RDW 16.3 H Plt Count 540 H Lymph % (Auto) 7.7 L [place] % (Auto) 15.7 H Lymph # [place] # 2.9 H Seg Neutrophils % 76.2 H Seg Neuts % (Manual) Lymphocytes % (Manual) Monocytes % (Manual) Seg Neutrophils # 14.0 H Seg Neutrophils # Man Monocytes # (Manual) PT 16.6 H INR 1.27 H APTT POC ABG pH POC ABG pO2 Sodium Chloride Carbon Dioxide BUN 24 H Creatinine Glucose 104 H POC Glucose Calcium 8.0 L Albumin 1.7 L Fluid Total Protein 01/20/17 01/22/17 01/22/17 21:03 07:34 07:34 WBC 24.9 H RBC Hgb 10.6 L Hct 33.8 L MCV MCH 27 L MCHC 31 L RDW 16.6 H Plt Count 582 H Lymph % (Auto) [place] % (Auto) Lymph # [place] # Seg Neutrophils % Seg Neuts % (Manual) Lymphocytes % (Manual) Monocytes % (Manual) Seg Neutrophils # Seg Neutrophils # Man Monocytes # (Manual) PT INR APTT POC ABG pH POC ABG pO2 Sodium Chloride Carbon Dioxide BUN Creatinine Glucose 163 H POC Glucose 110 H Calcium 7.9 L Albumin Fluid Total Protein 01/23/17 01/24/17 01/24/17 08:49 08:01 08:01 WBC 23.7 H 25.6 H RBC Hgb 10.2 L 10.0 L Hct 31.6 L 31.0 L MCV MCH 27 L 27 L MCHC RDW 16.6 H 16.5 H Plt Count 559 H 535 H Lymph % (Auto) [place] % (Auto) Lymph # [place] # Seg Neutrophils % Seg Neuts % (Manual) 86.0 H Lymphocytes % (Manual) 7.0 L Monocytes % (Manual) Seg Neutrophils # Seg Neutrophils # Man 20.4 H Monocytes # (Manual) 1.4 H PT INR APTT POC ABG pH POC ABG pO2 Sodium 134 L Chloride 95.3 L Carbon Dioxide BUN Creatinine Glucose 162 H POC Glucose Calcium 7.5 L Albumin Fluid Total Protein 01/25/17 01/25/17 01/25/17 00:23 06:29 11:54 WBC RBC Hgb Hct MCV MCH MCHC RDW Plt Count Lymph % (Auto) [place] % (Auto) Lymph # [place] # Seg Neutrophils % Seg Neuts % (Manual) Lymphocytes % (Manual) Monocytes % (Manual) Seg Neutrophils # Seg Neutrophils # Man Monocytes # (Manual) PT INR APTT POC ABG pH POC ABG pO2 Sodium Chloride Carbon Dioxide BUN Creatinine Glucose POC Glucose 165 H 119 H 235 H Calcium Albumin Fluid Total Protein 01/25/17 01/25/17 01/26/17 18:18 21:30 04:28 WBC 24.8 H RBC 3.63 L Hgb 9.7 L Hct 30.7 L MCV MCH 27 L MCHC RDW 16.8 H Plt Count 542 H Lymph % (Auto) [place] % (Auto) Lymph # [place] # Seg Neutrophils % Seg Neuts % (Manual) Lymphocytes % (Manual) Monocytes % (Manual) Seg Neutrophils # Seg Neutrophils # Man Monocytes # (Manual) PT INR APTT POC ABG pH POC ABG pO2 Sodium Chloride Carbon Dioxide BUN Creatinine Glucose POC Glucose 191 H 119 H Calcium Albumin Fluid Total Protein 01/26/17 01/26/17 04:28 05:11 WBC RBC Hgb Hct MCV MCH MCHC RDW Plt Count Lymph % (Auto) [place] % (Auto) Lymph # [place] # Seg Neutrophils % Seg Neuts % (Manual) Lymphocytes % (Manual) Monocytes % (Manual) Seg Neutrophils # Seg Neutrophils # Man Monocytes # (Manual) PT INR APTT POC ABG pH POC ABG pO2 Sodium 133 L Chloride 94.9 L Carbon Dioxide BUN Creatinine Glucose 166 H POC Glucose 182 H Calcium 7.5 L Albumin Fluid Total Protein
[2017-01-26] MEDS: D5/0.45NS 1,000 ML IV SCH (14:05)
--- NOTE | 2017-01-26 19:10 | Progress Note ---
Assessment and Plan Assessment and plan: Patient is 86-year-old man with history of hypertension, coronary artery disease and CABG, recent pneumonia. He was recently diagnosed with pneumonia on 12/20/16, and was placed on Levaquin po and discharged home from ED. He completed 10 days of Levaquin. Currently he presents with left lower chest pain and cough. On Admission he is found to have loculated effusion on the left lower lobe. Despite thoracentesis no resolution was noted, so Patient had pigtail catheter placed left lung. A PEG tube was also placed for nutritional support. Pleural effusion shown to be empyema, will need VATS procedure and Cardiology clearance. -Acute respiratory failure 2/2 aspiration pneumonitis, Thoracentesis was done and 1660 mL of yellowish fluid was taken out,Prelim culture grew GM positive cocci-streptococcus pneumonia , CT showed loculated effusion, exudative. -Cardiothoracic surgery consulted due to worsening leukocytosis despite pigtail catheter tube-. -Cardiac pre-op evaluation noted. -Left lower lobe pneumonia with parapneumonic effusion -Hypertension-Stable -BPH on Flomax -Moderate protein calorie malnutrition BMI 18. Continue tube feeds. -Paroxysmal Atrial fibrillation-NOT a good candidate for anticoagulation, due to thoracoscopIc procedure for peristent left pleural effusion. -CAD stable continue aspirin-we'll obtain cardiac clearance for possible VATS procedure -Anemia-stable likely chronic disease will monitor closely. DVT prophylaxis SCD, heparin CODE STATUS full Disposition Continue inpatient care. History Interval history: Patient seen and examined. Follow up on shortness breath. Overnight uneventful. No severe headaches. Imaging, old records, testing, labs, nursing notes reviewed. He does have left-sided chest wall pains with chest tube in place Hospitalist Physical - Physical exam Narrative exam: GEN: Thin frail, NAD, AWAKE, ALERT, ORIENTATED x 3 CVS: RRR, NORMAL S1S2 LUNGS/CHEST: Bibasilar crackles reduced breath sounds on the left base NORMAL CHEST EXPANSION B, ABD: SOFT, NTND, GBS, NO REBOUND OR GUARDING EXT/SKIN: NO SIGNIFICANT EDEMA OR RASH MSK: FROM X 4 EXTREMITIES NEURO: CN 2-12 GROSSLY INTACT, NO FOCAL DEFICITS PSY: CALM - Constitutional Vitals: Temp Pulse Resp BP Pulse Ox 98.2 F 93 H 16 102/54 94 01/26/17 09:24 01/26/17 14:28 01/26/17 14:28 01/26/17 10:59 01/26/17 08:14 General appearance: Present: no acute distress Results - Labs CBC & Chem 7: 01/26/17 04:28 01/26/17 04:28 Labs: Laboratory Last Values WBC 24.8 K/mm3 (4.5-11.0) H 01/26/17 04:28 RBC 3.63 M/mm3 (3.65-5.03) L 01/26/17 04:28 Hgb 9.7 gm/dl (11.8-15.2) L 01/26/17 04:28 Hct 30.7 % (35.5-45.6) L 01/26/17 04:28 MCV 85 fl (84-94) 01/26/17 04:28 MCH 27 pg (28-32) L 01/26/17 04:28 MCHC 32 % (32-34) 01/26/17 04:28 RDW 16.8 % (13.2-15.2) H 01/26/17 04:28 Plt Count 542 K/mm3 (140-440) H 01/26/17 04:28 Lymph % (Auto) 7.7 % (13.4-35.0) L 01/20/17 05:50 [place] % (Auto) 15.7 % (0.0-7.3) H 01/20/17 05:50 Eos % (Auto) 0.3 % (0.0-4.3) 01/20/17 05:50 Baso % (Auto) 0.1 % (0.0-1.8) 01/20/17 05:50 Lymph # 1.4 K/mm3 (1.2-5.4) 01/20/17 05:50 [place] # 2.9 K/mm3 (0.0-0.8) H 01/20/17 05:50 Eos # 0.1 K/mm3 (0.0-0.4) 01/20/17 05:50 Baso # 0.0 K/mm3 (0.0-0.1) 01/20/17 05:50 Add Manual Diff Complete 01/23/17 08:49 Total Counted 200 01/23/17 08:49 Seg Neutrophils % 76.2 % (40.0-70.0) H 01/20/17 05:50 Seg Neuts % (Manual) 86.0 % (40.0-70.0) H 01/23/17 08:49 Band Neutrophils % 0 % 01/23/17 08:49 Lymphocytes % (Manual) 7.0 % (13.4-35.0) L 01/23/17 08:49 Reactive Lymphs % (Man) 0 % 01/23/17 08:49 Monocytes % (Manual) 6.0 % (0.0-7.3) 01/23/17 08:49 Eosinophils % (Manual) 1.0 % (0.0-4.3) 01/23/17 08:49 Basophils % (Manual) 0 % (0.0-1.8) 01/23/17 08:49 Metamyelocytes % 0 % 01/23/17 08:49 Myelocytes % 0 % 01/23/17 08:49 Promyelocytes % 0 % 01/23/17 08:49 Blast Cells % 0 % 01/23/17 08:49 Nucleated RBC % Not Reportable 01/23/17 08:49 Seg Neutrophils # 14.0 K/mm3 (1.8-7.7) H 01/20/17 05:50 Seg Neutrophils # Man 20.4 K/mm3 (1.8-7.7) H 01/23/17 08:49 Band Neutrophils # 0.0 K/mm3 01/23/17 08:49 Lymphocytes # (Manual) 1.7 K/mm3 (1.2-5.4) 01/23/17 08:49 Abs React Lymphs (Man) 0.0 K/mm3 01/23/17 08:49 Monocytes # (Manual) 1.4 K/mm3 (0.0-0.8) H 01/23/17 08:49 Eosinophils # (Manual) 0.2 K/mm3 (0.0-0.4) 01/23/17 08:49 Basophils # (Manual) 0.0 K/mm3 (0.0-0.1) 01/23/17 08:49 Metamyelocytes # 0.0 K/mm3 01/23/17 08:49 Myelocytes # 0.0 K/mm3 01/23/17 08:49 Promyelocytes # 0.0 K/mm3 01/23/17 08:49 Blast Cells # 0.0 K/mm3 01/23/17 08:49 WBC Morphology Not Reportable 01/23/17 08:49 Hypersegmented Neuts Not Reportable 01/23/17 08:49 Hyposegmented Neuts Not Reportable 01/23/17 08:49 Hypogranular Neuts Not Reportable 01/23/17 08:49 Smudge Cells Not Reportable 01/23/17 08:49 Toxic Granulation Not Reportable 01/23/17 08:49 Toxic Vacuolation Not Reportable 01/23/17 08:49 Dohle Bodies Not Reportable 01/23/17 08:49 Pelger-Huet Anomaly Not Reportable 01/23/17 08:49 Lore Rods Not Reportable 01/23/17 08:49 Platelet Estimate Consistent w auto 01/23/17 08:49 Clumped Platelets Not Reportable 01/23/17 08:49 Plt Clumps, EDTA Not Reportable 01/23/17 08:49 Large Platelets Not Reportable 01/23/17 08:49 Giant Platelets Not Reportable 01/23/17 08:49 Platelet Satelliting Not Reportable 01/23/17 08:49 Plt Morphology Comment Not Reportable 01/23/17 08:49 RBC Morphology Not Reportable 01/23/17 08:49 Dimorphic RBCs Not Reportable 01/23/17 08:49 Polychromasia Not Reportable 01/23/17 08:49 Hypochromasia Not Reportable 01/23/17 08:49 Poikilocytosis Not Reportable 01/23/17 08:49 Anisocytosis 1+ 01/23/17 08:49 Microcytosis Not Reportable 01/23/17 08:49 Macrocytosis Not Reportable 01/23/17 08:49 Spherocytes Not Reportable 01/23/17 08:49 Pappenheimer Bodies Not Reportable 01/23/17 08:49 Sickle Cells Not Reportable 01/23/17 08:49 Target Cells Not Reportable 01/23/17 08:49 Tear Drop Cells Not Reportable 01/23/17 08:49 Ovalocytes Not Reportable 01/23/17 08:49 Helmet Cells Not Reportable 01/23/17 08:49 Ros[place] Bodies Not Reportable 01/23/17 08:49 [place] Rings Not Reportable 01/23/17 08:49 [place] Cells Not Reportable 01/23/17 08:49 Bite Cells Not Reportable 01/23/17 08:49 Crenated Cell Not Reportable 01/23/17 08:49 Elliptocytes Not Reportable 01/23/17 08:49 Acanthocytes (Spur) Not Reportable 01/23/17 08:49 Rouleaux Not Reportable 01/23/17 08:49 Hemoglobin C Crystals Not Reportable 01/23/17 08:49 Schistocytes Not Reportable 01/23/17 08:49 Malaria parasites Not Reportable 01/23/17 08:49 Steve Bodies Not Reportable 01/23/17 08:49 Hem Pathologist Commnt No 01/23/17 08:49 PT 16.6 Sec. (12.2-14.9) H 01/20/17 05:50 INR 1.27 (0.87-1.13) H 01/20/17 05:50 APTT 38.4 Sec. (24.2-36.6) H 01/15/17 12:11 POC ABG pH 7.315 (7.35-7.45) L 01/17/17 11:32 POC ABG pCO2 42.7 (35-45) 01/17/17 11:32 POC ABG pO2 41 (80-105) L 01/17/17 11:32 POC ABG HCO3 21.8 01/17/17 11:32 POC ABG Total CO2 23 01/17/17 11:32 POC ABG O2 Sat 72 01/17/17 11:32 POC ABG Base Excess -4 01/17/17 11:32 FiO2 50 % 01/17/17 11:32 Sodium 133 mmol/L (137-145) L 01/26/17 04:28 Potassium 4.4 mmol/L (3.6-5.0) 01/26/17 04:28 Chloride 94.9 mmol/L (98-107) L 01/26/17 04:28 Carbon Dioxide 26 mmol/L (22-30) 01/26/17 04:28 Anion Gap 17 mmol/L 01/26/17 04:28 BUN 20 mg/dL (9-20) 01/26/17 04:28 Creatinine 0.9 mg/dL (0.8-1.5) 01/26/17 04:28 Estimated GFR > 60 ml/min 01/26/17 04:28 BUN/Creatinine Ratio 22.22 % 01/26/17 04:28 Glucose 166 mg/dL (75-100) H 01/26/17 04:28 POC Glucose 127 (70-105) H 01/26/17 18:01 Calcium 7.5 mg/dL (8.4-10.2) L 01/26/17 04:28 Total Bilirubin 0.50 mg/dL (0.1-1.2) 01/20/17 05:50 Direct Bilirubin < 0.2 mg/dL (0-0.2) 01/17/17 23:41 Indirect Bilirubin 0.1 mg/dL 01/17/17 23:41 AST 22 units/L (5-40) 01/20/17 05:50 ALT 23 units/L (7-56) 01/20/17 05:50 Alkaline Phosphatase 90 units/L (35-129) 01/20/17 05:50 Lactate Dehydrogenase 137 units/L (91-180) 01/17/17 23:41 Total Creatine Kinase 50 units/L (55-170) L 01/15/17 00:18 CK-MB (CK-2) 1.5 ng/mL (0.0-4.0) 01/15/17 00:18 CK-MB (CK-2) Rel Index 3.0 (0-4) 01/15/17 00:18 Troponin T < 0.010 ng/mL (0.00-0.029) 01/15/17 06:20 Total Protein 6.3 g/dL (6.3-8.2) 01/20/17 05:50 Albumin 1.7 g/dL (3.9-5) L 01/20/17 05:50 Albumin/Globulin Ratio 0.4 % 01/20/17 05:50 Fluid Type Pleural 01/15/17 Unknown Fluid Color Yellow 01/15/17 Unknown Fluid Appearance Clear 01/15/17 Unknown Fluid WBC 1350 /mm3 01/15/17 Unknown Fluid RBC 750 /mm3 01/15/17 Unknown Fluid Seg Neutrophils 81.0 % 01/15/17 Unknown Fluid Lymphocytes 12.0 % 01/15/17 Unknown Fluid Reactive Lymphs 0 % 01/15/17 Unknown Fluid Monocytes 7.0 % 01/15/17 Unknown Fluid Eosinophils 0 % 01/15/17 Unknown Fluid Basophils 0 % 01/15/17 Unknown Fluid Total Protein 5.3 (15.0-45.0) L 01/15/17 Unknown Fluid LDH 942 01/15/17 Unknown Vancomycin Trough 14.1 ug/mL (5.0-20.0) 01/23/17 20:37
[2017-01-26] MEDS: ZOCOR PO SCH (21:29)
[2017-01-26] MEDS: VANCOMYCIN 1,250 MG in NACL 0.9% 250ML 250 ML IV SCH (21:29)
[2017-01-27] MEDS: MILK OF MAGNESIA PO PRN (00:49)
[2017-01-27] MEDS: NOVOLOG SUB-Q SCH ×5 (00:53→23:57)
[2017-01-27] MEDS: DUONEB *Not for PRN Use IH SCH ×4 (01:58→21:00)
[2017-01-27] MEDS: CLEOCIN 600 MG/50 mL 600 MG/50 ML BAG IV SCH ×3 (03:26→18:15)
[2017-01-27] MEDS: D5/0.45NS 1,000 ML IV SCH ×2 (06:07→20:29)
[2017-01-27] MEDS: MORPHINE IV PRN ×2 (06:08→20:29)
[2017-01-27] MEDS: HEPARIN SUB-Q SCH ×3 (06:09→23:41)
[2017-01-27] MEDS: HALFPRIN EC PO SCH (09:16)
[2017-01-27] MEDS: FLOMAX PO SCH (09:16)
[2017-01-27] MEDS: FOLVITE PO SCH (09:17)
[2017-01-27] MEDS: PROSCAR PO SCH (09:18)
[2017-01-27] MEDS: THERAGRAN Tab PO SCH (09:18)
[2017-01-27] MEDS: NORVASC PO SCH (10:00)
[2017-01-27] MEDS: LOPRESSOR PO SCH ×2 (10:00→23:46)
--- NOTE | 2017-01-27 13:17 | Event Note ---
Date: 01/27/17 I have spoken at length with patient regarding indications ,risks, alternatives to L VATS/decortication , he will have to sign his consent for it, I have filled it out and placed it on chart, needs type and screen, on schedule tentatively 10 am tommorrow.
--- NOTE | 2017-01-27 14:16 | Progress Note ---
Assessment and Plan Large left pleural effusion left chest tube in place. He has been seen by thoracic surgery will have recommended a VATS and thoracoscopy procedure. Preoperative cardiac assessment. Hx of coronary artery disease with remote three-way coronary bypass done many years ago. Hx of paroxysmal Afib -uncertain duration He is currently not on oral anticoagulation therapy is, and will likely not be a good candidate for oral anticoagulation in the near term due to his thoracoscopic procedures, persistent left pleural effusion, and risks associated with his advanced age of 86. Recommendations: He has a moderate perioperative cardiac risk, and this should be considered in his preoperative surgical assessment. Okay to proceed with thoracoscopy and VATS procedure as planned. Medical therapy for his coronary artery disease. Subjective Date of service: 01/27/17 Principal diagnosis: Pneumonia,pleural effusion-empyema,urinary retention Interval history: Patient is resting in bed comfortably. He has no chest pain. Objective Vital Signs Temp Pulse Pulse Pulse Pulse Resp Resp 01/27/17 10:00 98.9 F 106 H 20 01/27/17 09:16 01/27/17 02:13 88 01/27/17 01:58 86 01/26/17 22:00 90 18 01/26/17 21:29 57 L 01/26/17 21:12 98.2 F 100 H 20 01/26/17 20:12 01/26/17 20:08 01/26/17 19:46 92 H 01/26/17 19:31 90 01/26/17 14:28 93 H 89 16 Resp BP BP Pulse Ox 01/27/17 10:00 128/53 96 01/27/17 09:16 91 01/27/17 02:13 18 01/27/17 01:58 18 01/26/17 22:00 01/26/17 21:29 113/44 01/26/17 21:12 113/44 94 01/26/17 20:12 94 01/26/17 20:08 94 01/26/17 19:46 18 01/26/17 19:31 18 01/26/17 14:28 18 - Physical Examination General: Appears Well HEENT: Positive: PERRL Neck: Positive: neck supple Neuro: Positive: Grossly Intact Abdomen: Positive: Soft Skin: Positive: Clear Extremities: Absent: edema
--- NOTE | 2017-01-27 14:43 | Progress Note ---
Assessment and Plan Assessment and plan: Patient is 86-year-old man with history of hypertension, coronary artery disease and CABG, recent pneumonia. He was recently diagnosed with pneumonia on 12/20/16, and was placed on Levaquin po and discharged home from ED. He completed 10 days of Levaquin. Currently he presents with left lower chest pain and cough. On Admission he is found to have loculated effusion on the left lower lobe. Despite thoracentesis no resolution was noted, so Patient had pigtail catheter placed left lung. A PEG tube was also placed for nutritional support. Pleural effusion shown to be empyema, will need VATS procedure and Cardiology clearance. -Acute respiratory failure 2/2 aspiration pneumonitis, Thoracentesis was done and 1660 mL of yellowish fluid was taken out=empyema, Prelim culture grew non- Group D streptococcus pneumonia , CT showed loculated effusion, exudative. -Cardiothoracic surgery consulted -Cardiac pre-op evaluation noted. -Left lower lobe pneumonia with parapneumonic effusion -Hypertension-Stable -BPH on Flomax -Moderate protein calorie malnutrition BMI 18. Continue tube feeds. -Paroxysmal Atrial fibrillation-NOT a good candidate for anticoagulation, due to thoracoscopIc procedure for peristent left pleural effusion. -CAD stable continue aspirin-we'll obtain cardiac clearance for possible VATS procedure -Anemia-stable likely chronic disease will monitor closely. DVT prophylaxis SCD, heparin CODE STATUS full Disposition Continue inpatient care. per Cardiology: "Recommendations: He has a moderate perioperative cardiac risk, and this should be considered in his preoperative surgical assessment. Okay to proceed with thoracoscopy and VATS procedure as planned. Medical therapy for his coronary artery disease." D/W Dr. Mendez and at bedside History Interval history: Patient seen and examined. Follow up on shortness breath. Overnight uneventful. No severe headaches. Imaging, old records, testing, labs, nursing notes reviewed. He does have left-sided chest wall pains with chest tube in place. at bedside. Hospitalist Physical - Physical exam Narrative exam: GEN: Thin frail, NAD, AWAKE, ALERT, ORIENTATED x 3 CVS: RRR, NORMAL S1S2 LUNGS/CHEST: Bibasilar crackles reduced breath sounds on the left base NORMAL CHEST EXPANSION B, ABD: SOFT, NTND, GBS, NO REBOUND OR GUARDING EXT/SKIN: NO SIGNIFICANT EDEMA OR RASH MSK: FROM X 4 EXTREMITIES NEURO: CN 2-12 GROSSLY INTACT, NO FOCAL DEFICITS PSY: CALM - Constitutional Vitals: Temp Pulse Resp BP Pulse Ox 98.9 F 106 H 20 128/53 96 01/27/17 10:00 01/27/17 10:00 01/27/17 10:00 01/27/17 10:00 01/27/17 10:00 General appearance: Present: no acute distress Results - Labs CBC & Chem 7: 01/26/17 04:28 01/26/17 04:28 Labs: Laboratory Last Values WBC 24.8 K/mm3 (4.5-11.0) H 01/26/17 04:28 RBC 3.63 M/mm3 (3.65-5.03) L 01/26/17 04:28 Hgb 9.7 gm/dl (11.8-15.2) L 01/26/17 04:28 Hct 30.7 % (35.5-45.6) L 01/26/17 04:28 MCV 85 fl (84-94) 01/26/17 04:28 MCH 27 pg (28-32) L 01/26/17 04:28 MCHC 32 % (32-34) 01/26/17 04:28 RDW 16.8 % (13.2-15.2) H 01/26/17 04:28 Plt Count 542 K/mm3 (140-440) H 01/26/17 04:28 Lymph % (Auto) 7.7 % (13.4-35.0) L 01/20/17 05:50 [place] % (Auto) 15.7 % (0.0-7.3) H 01/20/17 05:50 Eos % (Auto) 0.3 % (0.0-4.3) 01/20/17 05:50 Baso % (Auto) 0.1 % (0.0-1.8) 01/20/17 05:50 Lymph # 1.4 K/mm3 (1.2-5.4) 01/20/17 05:50 [place] # 2.9 K/mm3 (0.0-0.8) H 01/20/17 05:50 Eos # 0.1 K/mm3 (0.0-0.4) 01/20/17 05:50 Baso # 0.0 K/mm3 (0.0-0.1) 01/20/17 05:50 Add Manual Diff Complete 01/23/17 08:49 Total Counted 200 01/23/17 08:49 Seg Neutrophils % 76.2 % (40.0-70.0) H 01/20/17 05:50 Seg Neuts % (Manual) 86.0 % (40.0-70.0) H 01/23/17 08:49 Band Neutrophils % 0 % 01/23/17 08:49 Lymphocytes % (Manual) 7.0 % (13.4-35.0) L 01/23/17 08:49 Reactive Lymphs % (Man) 0 % 01/23/17 08:49 Monocytes % (Manual) 6.0 % (0.0-7.3) 01/23/17 08:49 Eosinophils % (Manual) 1.0 % (0.0-4.3) 01/23/17 08:49 Basophils % (Manual) 0 % (0.0-1.8) 01/23/17 08:49 Metamyelocytes % 0 % 01/23/17 08:49 Myelocytes % 0 % 01/23/17 08:49 Promyelocytes % 0 % 01/23/17 08:49 Blast Cells % 0 % 01/23/17 08:49 Nucleated RBC % Not Reportable 01/23/17 08:49 Seg Neutrophils # 14.0 K/mm3 (1.8-7.7) H 01/20/17 05:50 Seg Neutrophils # Man 20.4 K/mm3 (1.8-7.7) H 01/23/17 08:49 Band Neutrophils # 0.0 K/mm3 01/23/17 08:49 Lymphocytes # (Manual) 1.7 K/mm3 (1.2-5.4) 01/23/17 08:49 Abs React Lymphs (Man) 0.0 K/mm3 01/23/17 08:49 Monocytes # (Manual) 1.4 K/mm3 (0.0-0.8) H 01/23/17 08:49 Eosinophils # (Manual) 0.2 K/mm3 (0.0-0.4) 01/23/17 08:49 Basophils # (Manual) 0.0 K/mm3 (0.0-0.1) 01/23/17 08:49 Metamyelocytes # 0.0 K/mm3 01/23/17 08:49 Myelocytes # 0.0 K/mm3 01/23/17 08:49 Promyelocytes # 0.0 K/mm3 01/23/17 08:49 Blast Cells # 0.0 K/mm3 01/23/17 08:49 WBC Morphology Not Reportable 01/23/17 08:49 Hypersegmented Neuts Not Reportable 01/23/17 08:49 Hyposegmented Neuts Not Reportable 01/23/17 08:49 Hypogranular Neuts Not Reportable 01/23/17 08:49 Smudge Cells Not Reportable 01/23/17 08:49 Toxic Granulation Not Reportable 01/23/17 08:49 Toxic Vacuolation Not Reportable 01/23/17 08:49 Dohle Bodies Not Reportable 01/23/17 08:49 Pelger-Huet Anomaly Not Reportable 01/23/17 08:49 Lore Rods Not Reportable 01/23/17 08:49 Platelet Estimate Consistent w auto 01/23/17 08:49 Clumped Platelets Not Reportable 01/23/17 08:49 Plt Clumps, EDTA Not Reportable 01/23/17 08:49 Large Platelets Not Reportable 01/23/17 08:49 Giant Platelets Not Reportable 01/23/17 08:49 Platelet Satelliting Not Reportable 01/23/17 08:49 Plt Morphology Comment Not Reportable 01/23/17 08:49 RBC Morphology Not Reportable 01/23/17 08:49 Dimorphic RBCs Not Reportable 01/23/17 08:49 Polychromasia Not Reportable 01/23/17 08:49 Hypochromasia Not Reportable 01/23/17 08:49 Poikilocytosis Not Reportable 01/23/17 08:49 Anisocytosis 1+ 01/23/17 08:49 Microcytosis Not Reportable 01/23/17 08:49 Macrocytosis Not Reportable 01/23/17 08:49 Spherocytes Not Reportable 01/23/17 08:49 Pappenheimer Bodies Not Reportable 01/23/17 08:49 Sickle Cells Not Reportable 01/23/17 08:49 Target Cells Not Reportable 01/23/17 08:49 Tear Drop Cells Not Reportable 01/23/17 08:49 Ovalocytes Not Reportable 01/23/17 08:49 Helmet Cells Not Reportable 01/23/17 08:49 [place] Bodies Not Reportable 01/23/17 08:49 [place] Rings Not Reportable 01/23/17 08:49 [place] Cells Not Reportable 01/23/17 08:49 Bite Cells Not Reportable 01/23/17 08:49 Crenated Cell Not Reportable 01/23/17 08:49 Elliptocytes Not Reportable 01/23/17 08:49 Acanthocytes (Spur) Not Reportable 01/23/17 08:49 Rouleaux Not Reportable 01/23/17 08:49 Hemoglobin C Crystals Not Reportable 01/23/17 08:49 Schistocytes Not Reportable 01/23/17 08:49 Malaria parasites Not Reportable 01/23/17 08:49 Steve Bodies Not Reportable 01/23/17 08:49 Hem Pathologist Commnt No 01/23/17 08:49 PT 16.6 Sec. (12.2-14.9) H 01/20/17 05:50 INR 1.27 (0.87-1.13) H 01/20/17 05:50 APTT 38.4 Sec. (24.2-36.6) H 01/15/17 12:11 POC ABG pH 7.315 (7.35-7.45) L 01/17/17 11:32 POC ABG pCO2 42.7 (35-45) 01/17/17 11:32 POC ABG pO2 41 (80-105) L 01/17/17 11:32 POC ABG HCO3 21.8 01/17/17 11:32 POC ABG Total CO2 23 01/17/17 11:32 POC ABG O2 Sat 72 01/17/17 11:32 POC ABG Base Excess -4 01/17/17 11:32 FiO2 50 % 01/17/17 11:32 Sodium 133 mmol/L (137-145) L 01/26/17 04:28 Potassium 4.4 mmol/L (3.6-5.0) 01/26/17 04:28 Chloride 94.9 mmol/L (98-107) L 01/26/17 04:28 Carbon Dioxide 26 mmol/L (22-30) 01/26/17 04:28 Anion Gap 17 mmol/L 01/26/17 04:28 BUN 20 mg/dL (9-20) 01/26/17 04:28 Creatinine 0.9 mg/dL (0.8-1.5) 01/26/17 04:28 Estimated GFR > 60 ml/min 01/26/17 04:28 BUN/Creatinine Ratio 22.22 % 01/26/17 04:28 Glucose 166 mg/dL (75-100) H 01/26/17 04:28 POC Glucose 235 (70-105) H 01/27/17 11:36 Calcium 7.5 mg/dL (8.4-10.2) L 01/26/17 04:28 Total Bilirubin 0.50 mg/dL (0.1-1.2) 01/20/17 05:50 Direct Bilirubin < 0.2 mg/dL (0-0.2) 01/17/17 23:41 Indirect Bilirubin 0.1 mg/dL 01/17/17 23:41 AST 22 units/L (5-40) 01/20/17 05:50 ALT 23 units/L (7-56) 01/20/17 05:50 Alkaline Phosphatase 90 units/L (35-129) 01/20/17 05:50 Lactate Dehydrogenase 137 units/L (91-180) 01/17/17 23:41 Total Creatine Kinase 50 units/L (55-170) L 01/15/17 00:18 CK-MB (CK-2) 1.5 ng/mL (0.0-4.0) 01/15/17 00:18 CK-MB (CK-2) Rel Index 3.0 (0-4) 01/15/17 00:18 Troponin T < 0.010 ng/mL (0.00-0.029) 01/15/17 06:20 Total Protein 6.3 g/dL (6.3-8.2) 01/20/17 05:50 Albumin 1.7 g/dL (3.9-5) L 01/20/17 05:50 Albumin/Globulin Ratio 0.4 % 01/20/17 05:50 Fluid Type Pleural 01/15/17 Unknown Fluid Color Yellow 01/15/17 Unknown Fluid Appearance Clear 01/15/17 Unknown Fluid WBC 1350 /mm3 01/15/17 Unknown Fluid RBC 750 /mm3 01/15/17 Unknown Fluid Seg Neutrophils 81.0 % 01/15/17 Unknown Fluid Lymphocytes 12.0 % 01/15/17 Unknown Fluid Reactive Lymphs 0 % 01/15/17 Unknown Fluid Monocytes 7.0 % 01/15/17 Unknown Fluid Eosinophils 0 % 01/15/17 Unknown Fluid Basophils 0 % 01/15/17 Unknown Fluid Total Protein 5.3 (15.0-45.0) L 01/15/17 Unknown Fluid LDH 942 01/15/17 Unknown Vancomycin Trough 14.1 ug/mL (5.0-20.0) 01/23/17 20:37
--- NOTE | 2017-01-27 15:34 | Anesthesia Consultation ---
Anesthesia Consult and Med Hx Date of service: 01/27/17 - Airway Anesthetic Teeth Evaluation: Dentures (upper), Partials (lower) ROM Head & Neck: Adequate Mental/Hyoid Distance: Adequate Mallampati Class: Class III Intubation Access Assessment: Possibly Difficult - Pre-Operative Health Status ASA Pre-Surgery Classification: ASA3 Proposed Anesthetic Plan: General - Pulmonary Hx Smoking: Yes (smoked cigars, quit 1978) Hx Respiratory Symptoms: Yes (pleural effusion/ suspicious empyema) Home Oxygen Therapy: No Hx Pneumonia: Yes (recent) Hx Sleep Apnea: Yes (on CPAP) - Cardiovascular System Hx Hypertension: Yes Hx Coronary Artery Disease: Yes (CABG in the 90s) Hx Angina: Yes (has CP 1 x 3 month) - Central Nervous System Hx Neuromuscular Disorder: Yes (tremors) Hx Psychiatric Problems: No - Endocrine Hx Renal Disease: Yes (renal insufficiency?, BPH) Hx End Stage Renal Disease: No Hx Non-Insulin Dependent Diabetes: Yes (undiagnosed) - Hematic Hx Anemia: Yes - Other Systems Hx Cancer: No
[2017-01-27] MEDS: ZOCOR PO SCH (23:38)
[2017-01-27] MEDS: VANCOMYCIN 1,250 MG in NACL 0.9% 250ML 250 ML IV SCH (23:40)
[2017-01-28] MEDS: DUONEB *Not for PRN Use IH SCH ×5 (01:44→20:20)
[2017-01-28] MEDS: CLEOCIN 600 MG/50 mL 600 MG/50 ML BAG IV SCH ×2 (02:04→09:54)
[2017-01-28] MEDS: HEPARIN SUB-Q SCH ×2 (06:38→22:20)
[2017-01-28] MEDS ORDERED: PEPCID IV NR (07:00)
[2017-01-28] MEDS ORDERED: PROVENTIL IH NR (07:00)
[2017-01-28] MEDS ORDERED: DIPRIVAN 10 MG/ML IV ONE (08:50)
[2017-01-28] MEDS ORDERED: SUBLIMAZE ONE (08:50)
[2017-01-28] MEDS ORDERED: ROBINUL ONE (08:53)
[2017-01-28] MEDS ORDERED: XYLOCAINE MPF 2% ONE (08:53)
[2017-01-28] MEDS ORDERED: HYDROGEN PEROXIDE ONE (09:19)
[2017-01-28] MEDS ORDERED: [UNRECOGNIZED DRUG - OTHER] IX ONE (09:20)
[2017-01-28] MEDS ORDERED: MARCAINE 0.5% 30 ML INFILTRATI ONE (09:20)
[2017-01-28] MEDS ORDERED: XYLOCAINE 1% 20 mL ONE (09:20)
[2017-01-28] MEDS ORDERED: NACL BACTERIOSTATIC INFILTRATI ONE (09:24)
[2017-01-28] MEDS: NACL 0.9% 1000 ML 1,000 ML IV SCH (09:39)
[2017-01-28] MEDS ORDERED: ZEMURON IV ONE (10:12)
[2017-01-28] MEDS ORDERED: DECADRON ONE (10:42)
[2017-01-28] MEDS ORDERED: ZOFRAN ONE (10:42)
[2017-01-28] MEDS: FLOMAX PO SCH (10:46)
[2017-01-28] MEDS: FOLVITE PO SCH (10:46)
[2017-01-28] MEDS: HALFPRIN EC PO SCH (10:48)
[2017-01-28] MEDS: LOPRESSOR PO SCH (10:48)
[2017-01-28] MEDS: NORVASC PO SCH (10:49)
[2017-01-28] MEDS: PROSCAR PO SCH (10:49)
[2017-01-28] MEDS: THERAGRAN Tab PO SCH (10:50)
--- NOTE | 2017-01-28 10:56 | Progress Note ---
Assessment and Plan Large left pleural effusion left chest tube in place. He has been seen by thoracic surgery will have recommended a VATS and thoracoscopy procedure. Preoperative cardiac assessment. Hx of coronary artery disease with remote three-way coronary bypass done many years ago. Hx of paroxysmal Afib -uncertain duration He is currently not on oral anticoagulation therapy is, and will likely not be a good candidate for oral anticoagulation in the near term due to his thoracoscopic procedures, persistent left pleural effusion, and risks associated with his advanced age of 86. Recommendations: Okay to proceed with thoracoscopy and VATS procedure as planned. He has a moderate perioperative cardiac risk. Medical therapy for his coronary artery disease. Subjective Date of service: 01/28/17 Principal diagnosis: Pneumonia,pleural effusion-empyema,urinary retention Interval history: For possible VATS procedure today. Objective Vital Signs Temp Pulse Pulse Pulse Pulse Resp Resp 01/28/17 00:44 94 H 01/27/17 23:46 96 H 01/27/17 22:00 98.1 F 96 H 18 01/27/17 21:15 18 01/27/17 21:03 01/27/17 21:00 96 H 01/27/17 20:29 18 01/27/17 15:14 110 H 01/27/17 15:01 01/27/17 14:54 98 H 16 Resp Resp BP BP Pulse Ox 01/28/17 00:44 01/27/17 23:46 130/49 01/27/17 22:00 18 128/49 96 01/27/17 21:15 01/27/17 21:03 96 01/27/17 21:00 18 01/27/17 20:29 01/27/17 15:14 18 01/27/17 15:01 92 01/27/17 14:54 - Physical Examination General: No Apparent Distress HEENT: Positive: PERRL Cardiac: Positive: Reg Rate and Rhythm
[2017-01-28] MEDS ORDERED: NACL 0.9% 1000 ML 1,000 ML ONE (11:30)
--- NOTE | 2017-01-28 11:47 | Post Operative Note ---
Pre-op diagnosis: left loculated parapneumonic effusion Post-op diagnosis: same Findings: c/w loculated left parapneumonic effusion Procedure: Attempted left VATS,converted to very limited left thoracotomy, decortication of left chest-peel sent for perm path. Anesthesia: GETA Surgeon: JOSE CHAVEZ Estimated blood loss: minimal Pathology: list (peel) Condition: stable Disposition: ICU
[2017-01-28] MEDS ORDERED: MARCAINE 0.5% INFILTRATI ONE (12:09)
[2017-01-28] MEDS ORDERED: XYLOCAINE 1% 20 mL INFILTRATI ONE (12:10)
[2017-01-28] MEDS ORDERED: NACL 0.9% IR ONE ×2 (12:10→12:11)
[2017-01-28] MEDS ORDERED: HYDROGEN PEROXIDE IRRIGATION ONE (12:12)
[2017-01-28] MEDS ORDERED: ARTIFICIAL TEARS OPHTH OINT OU PRN (12:16)
[2017-01-28] MEDS ORDERED: VASELINE LIP THERAPY TP PRN (12:16)
[2017-01-28] MEDS: NOVOLOG SUB-Q SCH ×2 (12:45→19:59)
[2017-01-28] MEDS ORDERED: PANCREAZE DR 10,500 UNIT FEEDTUBE PRN (12:53)
[2017-01-28] MEDS ORDERED: SIMPLE SYRUP FEEDTUBE PRN ×2 (12:53)
[2017-01-28] MEDS ORDERED: SODIUM BICARBONATE FEEDTUBE PRN (12:53)
[2017-01-28] MEDS ORDERED: NACL 0.9% 500 ML IV SCH (13:00)
[2017-01-28] MEDS ORDERED: DIPRIVAN 10 MG/ML 1,000 MG/100 ML BOTTLE IV SCH (13:00)
[2017-01-28 13:48] LABS: ISTAT Base Excess 2; ISTAT HCO3 26.3; ISTAT PCO2 39.8 (35-45); ISTAT PH 7.428 (7.35-7.45); ISTAT PO2 63 (80-105); ISTAT SO2 92; ISTAT TCO2 27
--- NOTE | 2017-01-28 14:04 | Post Anesthesia Evaluation ---
- Post Anesthesia Evaluation Patient Participated: No Airway Patent: Yes Stable Respiratory Function: Yes Nausea/Vomiting: No Temp > 96.8F: Yes Pain Manageable: Yes Adequeate Hydration: Yes Anesthesia Complications: No Block Receding Appropriately: Not Applicable Patient on Ventilator: Yes
--- NOTE | 2017-01-28 14:04 | Anesthesia Day of Surgery ---
Anesthesia Day of Surgery - Day of Surgery Patient Examined: Yes Patient H&P Reviewed: Yes Patient is NPO: Yes
--- NOTE | 2017-01-28 14:12 | XRay Report ---
Single view chest: Compared to 01/23/17. History: ET tube placement. Findings: Borderline cardiomegaly. Trachea is midline. Tip of endotracheal tube in normal position. Minimal pneumothorax left chest. Subcutaneous air left chest wall. Right pleural effusion. Impression: Minimal left pneumothorax. Tip of endotracheal tube in normal position.
--- NOTE | 2017-01-28 14:46 | Progress Note ---
Assessment and Plan Assessment and plan: Patient is 86-year-old man with history of hypertension, coronary artery disease and CABG, recent pneumonia. He was recently diagnosed with pneumonia on 12/20/16, and was placed on Levaquin po and discharged home from ED. He completed 10 days of Levaquin. Currently he presents with left lower chest pain and cough. On Admission he is found to have loculated effusion on the left lower lobe. Despite thoracentesis no resolution was noted, so Patient had pigtail catheter placed left lung. A PEG tube was also placed for nutritional support. Pleural effusion shown to be empyema, will need VATS procedure and Cardiology clearance. -Acute respiratory failure 2/2 aspiration pneumonitis, Thoracentesis was done and 1660 mL of yellowish fluid was taken out=empyema, Prelim culture grew non- Group D streptococcus pneumonia , CT showed loculated effusion, exudative. -Cardiothoracic surgery consulted -Cardiac pre-op evaluation noted. -Left lower lobe pneumonia with parapneumonic effusion -Hypertension-Stable -BPH on Flomax -Moderate protein calorie malnutrition BMI 18. Continue tube feeds. -Paroxysmal Atrial fibrillation-NOT a good candidate for anticoagulation, due to thoracoscopIc procedure for peristent left pleural effusion. -CAD stable continue aspirin-we'll obtain cardiac clearance for possible VATS procedure -Anemia-stable likely chronic disease will monitor closely. DVT prophylaxis SCD, heparin CODE STATUS full Disposition Continue inpatient care. per Cardiology: "Recommendations: He has a moderate perioperative cardiac risk, and this should be considered in his preoperative surgical assessment. Okay to proceed with thoracoscopy and VATS procedure as planned. Medical therapy for his coronary artery disease." VATS today History Interval history: Patient seen and examined. Follow up on shortness breath. Overnight uneventful. No severe headaches. Imaging, old records, testing, labs, nursing notes reviewed. He does have left-sided chest wall pains with chest tube in place. at bedside. Hospitalist Physical - Physical exam Narrative exam: GEN: Thin frail, NAD, AWAKE, ALERT, ORIENTATED x 3 CVS: RRR, NORMAL S1S2 LUNGS/CHEST: Bibasilar crackles reduced breath sounds on the left base NORMAL CHEST EXPANSION B, ABD: SOFT, NTND, GBS, NO REBOUND OR GUARDING EXT/SKIN: NO SIGNIFICANT EDEMA OR RASH MSK: FROM X 4 EXTREMITIES NEURO: CN 2-12 GROSSLY INTACT, NO FOCAL DEFICITS PSY: CALM - Constitutional Vitals: Temp Pulse Resp BP Pulse Ox 98.9 F 97 H 20 110/52 98 01/28/17 14:00 01/28/17 14:30 01/28/17 14:30 01/28/17 14:30 01/28/17 14:30 General appearance: Present: no acute distress Results - Labs CBC & Chem 7: 01/26/17 04:28 01/26/17 04:28 Labs: Laboratory Last Values WBC 24.8 K/mm3 (4.5-11.0) H 01/26/17 04:28 RBC 3.63 M/mm3 (3.65-5.03) L 01/26/17 04:28 Hgb 9.7 gm/dl (11.8-15.2) L 01/26/17 04:28 Hct 30.7 % (35.5-45.6) L 01/26/17 04:28 MCV 85 fl (84-94) 01/26/17 04:28 MCH 27 pg (28-32) L 01/26/17 04:28 MCHC 32 % (32-34) 01/26/17 04:28 RDW 16.8 % (13.2-15.2) H 01/26/17 04:28 Plt Count 542 K/mm3 (140-440) H 01/26/17 04:28 Lymph % (Auto) 7.7 % (13.4-35.0) L 01/20/17 05:50 Williams % (Auto) 15.7 % (0.0-7.3) H 01/20/17 05:50 Eos % (Auto) 0.3 % (0.0-4.3) 01/20/17 05:50 Baso % (Auto) 0.1 % (0.0-1.8) 01/20/17 05:50 Lymph # 1.4 K/mm3 (1.2-5.4) 01/20/17 05:50 Williams # 2.9 K/mm3 (0.0-0.8) H 01/20/17 05:50 Eos # 0.1 K/mm3 (0.0-0.4) 01/20/17 05:50 Baso # 0.0 K/mm3 (0.0-0.1) 01/20/17 05:50 Add Manual Diff Complete 01/23/17 08:49 Total Counted 200 01/23/17 08:49 Seg Neutrophils % 76.2 % (40.0-70.0) H 01/20/17 05:50 Seg Neuts % (Manual) 86.0 % (40.0-70.0) H 01/23/17 08:49 Band Neutrophils % 0 % 01/23/17 08:49 Lymphocytes % (Manual) 7.0 % (13.4-35.0) L 01/23/17 08:49 Reactive Lymphs % (Man) 0 % 01/23/17 08:49 Monocytes % (Manual) 6.0 % (0.0-7.3) 01/23/17 08:49 Eosinophils % (Manual) 1.0 % (0.0-4.3) 01/23/17 08:49 Basophils % (Manual) 0 % (0.0-1.8) 01/23/17 08:49 Metamyelocytes % 0 % 01/23/17 08:49 Myelocytes % 0 % 01/23/17 08:49 Promyelocytes % 0 % 01/23/17 08:49 Blast Cells % 0 % 01/23/17 08:49 Nucleated RBC % Not Reportable 01/23/17 08:49 Seg Neutrophils # 14.0 K/mm3 (1.8-7.7) H 01/20/17 05:50 Seg Neutrophils # Man 20.4 K/mm3 (1.8-7.7) H 01/23/17 08:49 Band Neutrophils # 0.0 K/mm3 01/23/17 08:49 Lymphocytes # (Manual) 1.7 K/mm3 (1.2-5.4) 01/23/17 08:49 Abs React Lymphs (Man) 0.0 K/mm3 01/23/17 08:49 Monocytes # (Manual) 1.4 K/mm3 (0.0-0.8) H 01/23/17 08:49 Eosinophils # (Manual) 0.2 K/mm3 (0.0-0.4) 01/23/17 08:49 Basophils # (Manual) 0.0 K/mm3 (0.0-0.1) 01/23/17 08:49 Metamyelocytes # 0.0 K/mm3 01/23/17 08:49 Myelocytes # 0.0 K/mm3 01/23/17 08:49 Promyelocytes # 0.0 K/mm3 01/23/17 08:49 Blast Cells # 0.0 K/mm3 01/23/17 08:49 WBC Morphology Not Reportable 01/23/17 08:49 Hypersegmented Neuts Not Reportable 01/23/17 08:49 Hyposegmented Neuts Not Reportable 01/23/17 08:49 Hypogranular Neuts Not Reportable 01/23/17 08:49 Smudge Cells Not Reportable 01/23/17 08:49 Toxic Granulation Not Reportable 01/23/17 08:49 Toxic Vacuolation Not Reportable 01/23/17 08:49 Dohle Bodies Not Reportable 01/23/17 08:49 Pelger-Huet Anomaly Not Reportable 01/23/17 08:49 Lore Rods Not Reportable 01/23/17 08:49 Platelet Estimate Consistent w auto 01/23/17 08:49 Clumped Platelets Not Reportable 01/23/17 08:49 Plt Clumps, EDTA Not Reportable 01/23/17 08:49 Large Platelets Not Reportable 01/23/17 08:49 Giant Platelets Not Reportable 01/23/17 08:49 Platelet Satelliting Not Reportable 01/23/17 08:49 Plt Morphology Comment Not Reportable 01/23/17 08:49 RBC Morphology Not Reportable 01/23/17 08:49 Dimorphic RBCs Not Reportable 01/23/17 08:49 Polychromasia Not Reportable 01/23/17 08:49 Hypochromasia Not Reportable 01/23/17 08:49 Poikilocytosis Not Reportable 01/23/17 08:49 Anisocytosis 1+ 01/23/17 08:49 Microcytosis Not Reportable 01/23/17 08:49 Macrocytosis Not Reportable 01/23/17 08:49 Spherocytes Not Reportable 01/23/17 08:49 Pappenheimer Bodies Not Reportable 01/23/17 08:49 Sickle Cells Not Reportable 01/23/17 08:49 Target Cells Not Reportable 01/23/17 08:49 Tear Drop Cells Not Reportable 01/23/17 08:49 Ovalocytes Not Reportable 01/23/17 08:49 Helmet Cells Not Reportable 01/23/17 08:49 [place] Bodies Not Reportable 01/23/17 08:49 [place] Rings Not Reportable 01/23/17 08:49 [place] Cells Not Reportable 01/23/17 08:49 Bite Cells Not Reportable 01/23/17 08:49 Crenated Cell Not Reportable 01/23/17 08:49 Elliptocytes Not Reportable 01/23/17 08:49 Acanthocytes (Spur) Not Reportable 01/23/17 08:49 Rouleaux Not Reportable 01/23/17 08:49 Hemoglobin C Crystals Not Reportable 01/23/17 08:49 Schistocytes Not Reportable 01/23/17 08:49 Malaria parasites Not Reportable 01/23/17 08:49 Steve Bodies Not Reportable 01/23/17 08:49 Hem Pathologist Commnt No 01/23/17 08:49 PT 16.6 Sec. (12.2-14.9) H 01/20/17 05:50 INR 1.27 (0.87-1.13) H 01/20/17 05:50 APTT 38.4 Sec. (24.2-36.6) H 01/15/17 12:11 POC ABG pH 7.428 (7.35-7.45) 01/28/17 13:42 POC ABG pCO2 39.8 (35-45) 01/28/17 13:42 POC ABG pO2 63 (80-105) L 01/28/17 13:42 POC ABG HCO3 26.3 01/28/17 13:42 POC ABG Total CO2 27 01/28/17 13:42 POC ABG O2 Sat 92 01/28/17 13:42 POC ABG Base Excess 2 01/28/17 13:42 FiO2 50 % 01/28/17 13:42 Sodium 133 mmol/L (137-145) L 01/26/17 04:28 Potassium 4.4 mmol/L (3.6-5.0) 01/26/17 04:28 Chloride 94.9 mmol/L (98-107) L 01/26/17 04:28 Carbon Dioxide 26 mmol/L (22-30) 01/26/17 04:28 Anion Gap 17 mmol/L 01/26/17 04:28 BUN 20 mg/dL (9-20) 01/26/17 04:28 Creatinine 0.9 mg/dL (0.8-1.5) 01/26/17 04:28 Estimated GFR > 60 ml/min 01/26/17 04:28 BUN/Creatinine Ratio 22.22 % 01/26/17 04:28 Glucose 166 mg/dL (75-100) H 01/26/17 04:28 POC Glucose 143 (70-105) H 01/28/17 12:29 Calcium 7.5 mg/dL (8.4-10.2) L 01/26/17 04:28 Total Bilirubin 0.50 mg/dL (0.1-1.2) 01/20/17 05:50 Direct Bilirubin < 0.2 mg/dL (0-0.2) 01/17/17 23:41 Indirect Bilirubin 0.1 mg/dL 01/17/17 23:41 AST 22 units/L (5-40) 01/20/17 05:50 ALT 23 units/L (7-56) 01/20/17 05:50 Alkaline Phosphatase 90 units/L (35-129) 01/20/17 05:50 Lactate Dehydrogenase 137 units/L (91-180) 01/17/17 23:41 Total Creatine Kinase 50 units/L (55-170) L 01/15/17 00:18 CK-MB (CK-2) 1.5 ng/mL (0.0-4.0) 01/15/17 00:18 CK-MB (CK-2) Rel Index 3.0 (0-4) 01/15/17 00:18 Troponin T < 0.010 ng/mL (0.00-0.029) 01/15/17 06:20 Total Protein 6.3 g/dL (6.3-8.2) 01/20/17 05:50 Albumin 1.7 g/dL (3.9-5) L 01/20/17 05:50 Albumin/Globulin Ratio 0.4 % 01/20/17 05:50 Fluid Type Pleural 01/15/17 Unknown Fluid Color Yellow 01/15/17 Unknown Fluid Appearance Clear 01/15/17 Unknown Fluid WBC 1350 /mm3 01/15/17 Unknown Fluid RBC 750 /mm3 01/15/17 Unknown Fluid Seg Neutrophils 81.0 % 01/15/17 Unknown Fluid Lymphocytes 12.0 % 01/15/17 Unknown Fluid Reactive Lymphs 0 % 01/15/17 Unknown Fluid Monocytes 7.0 % 01/15/17 Unknown Fluid Eosinophils 0 % 01/15/17 Unknown Fluid Basophils 0 % 01/15/17 Unknown Fluid Glucose 48 mg/dL (40-70) 01/15/17 Unknown Fluid Total Protein 5.3 (15.0-45.0) L 01/15/17 Unknown Fluid LDH 942 01/15/17 Unknown Vancomycin Trough 14.1 ug/mL (5.0-20.0) 01/23/17 20:37 Blood Type O POSITIVE 01/27/17 14:04 Antibody Screen TNR 01/27/17 14:04 JERAD Antibody Screen Negative 01/27/17 14:04
[2017-01-28] MEDS: MORPHINE IV PRN (15:25)
[2017-01-29] MEDS: CLEOCIN 600 MG/50 mL 600 MG/50 ML BAG IV SCH ×3 (01:00→18:43)
[2017-01-29] MEDS: NOVOLOG SUB-Q SCH ×5 (01:24→18:47)
[2017-01-29] MEDS: VANCOMYCIN 1,250 MG in NACL 0.9% 250ML 250 ML IV SCH ×2 (02:00→21:25)
[2017-01-29] MEDS: D5/0.45NS 1,000 ML IV SCH (02:34)
[2017-01-29] MEDS: DUONEB *Not for PRN Use IH SCH ×5 (02:45→20:13)
[2017-01-29 04:29] LABS: Hematocrit 21.5 % (35.5-45.6); Hemoglobin 6.6 gm/dl (11.8-15.2); Mean Corpuscular HGB Conc 31 % (32-34); Mean Corpuscular Hemoglobin 27 pg (28-32); Mean Corpuscular Volume 86 fl (84-94); Platelet Count 485 K/mm3 (140-440); Red Cell Distribution Width 16.7 % (13.2-15.2)
[2017-01-29 04:34] LABS: Albumin 1.5 g/dL (3.9-5); Albumin/Globulin Ratio 0.3 %; BUN/Creatinine Ratio 24.66; Bilirubin,Total 0.4 mg/dL (0.1-1.2); Calcium 7.2 mg/dL (8.4-10.2); Chloride 93.7 mmol/L (98-107); Potassium 5.3 mmol/L (3.6-5.0); Total Protein 6.2 g/dL (6.3-8.2)
[2017-01-29 04:55] LABS: ISTAT Base Excess 1; ISTAT HCO3 24.6; ISTAT PCO2 34.8 (35-45); ISTAT PH 7.458 (7.35-7.45); ISTAT PO2 97 (80-105); ISTAT SO2 98; ISTAT TCO2 26
[2017-01-29 06:27] LABS: Basophils % (Manual) 0 % (0.0-1.8); Blastocytes % (Manual) 0 %; Eosinophils % (Manual) 0 % (0.0-4.3)
[2017-01-29 06:28] LABS: Anisocytosis 2+; Diff Status Complete; Elliptocytes Few; Hypochromasia 1+; Platelet Estimate Appears Increased; Poikilocytosis 1+; Schistocytes Rare; Target Cells Rare
[2017-01-29] MEDS: HEPARIN SUB-Q SCH ×2 (06:52→21:27)
--- NOTE | 2017-01-29 07:14 | XRay Report ---
Single view chest: Compared to 01/28/17. History: Follow respiratory failure. Findings: Normal cardiomediastinal silhouette. Trachea is midline. Tip of endotracheal tube in normal position. Incidental left chest tube. No definite evidence of pneumothorax. Bilateral pleural effusion. Left chest wall subcutaneous air. Impression: Stable endotracheal tube. Stable left chest tube. No pneumothorax.
--- NOTE | 2017-01-29 09:13 | Progress Note ---
Assessment and Plan 86 y/o male with left sided pleural effusion, found to be emphyema, status post VATs with large bore chest tube placement and intubated. 1. Attempt extubation this am 2. continue abx therapy 3. Follow up surgery recs CCT 31minutes Subjective Date of service: 01/29/17 Principal diagnosis: Pneumonia,pleural effusion-empyema,urinary retention Interval history: Status post VATs with left sided chest tube placement. Awake and alert. Currently on PSV. Stable. Objective Vital Signs - 12hr 01/28/17 01/28/17 01/28/17 22:00 22:21 23:55 Temperature 98.6 F Pulse Rate 96 H Pulse Rate [ Anterior Bilateral] Pulse Rate [ From Monitor] Respiratory 18 Rate Respiratory Rate [Anterior Bilateral] Blood Pressure O2 Sat by Pulse Oximetry 01/28/17 01/29/17 01/29/17 23:57 00:00 02:45 Temperature Pulse Rate 95 H Pulse Rate [ 90 Anterior Bilateral] Pulse Rate [ 94 H From Monitor] Respiratory 18 Rate Respiratory 18 Rate [Anterior Bilateral] Blood Pressure 111/54 O2 Sat by Pulse 98 97 Oximetry 01/29/17 01/29/17 01/29/17 02:55 03:44 04:00 Temperature 98.7 F Pulse Rate 97 H Pulse Rate [ 98 H Anterior Bilateral] Pulse Rate [ 94 H From Monitor] Respiratory 18 Rate Respiratory 21 Rate [Anterior Bilateral] Blood Pressure 121/52 O2 Sat by Pulse 98 97 Oximetry 01/29/17 01/29/17 01/29/17 07:37 07:41 07:44 Temperature Pulse Rate 97 H 96 H Pulse Rate [ 95 H Anterior Bilateral] Pulse Rate [ From Monitor] Respiratory 25 H Rate Respiratory 22 Rate [Anterior Bilateral] Blood Pressure 128/58 128/58 O2 Sat by Pulse 98 96 Oximetry 01/29/17 01/29/17 08:00 08:35 Temperature 98.1 F Pulse Rate Pulse Rate [ 99 H Anterior Bilateral] Pulse Rate [ From Monitor] Respiratory Rate Respiratory 27 H Rate [Anterior Bilateral] Blood Pressure O2 Sat by Pulse Oximetry Constitutional: no acute distress, alert Eyes: non-icteric ENT: other (poor dentition) Effort: normal Ascultation: Bilateral: clear, diminished breath sounds (About 500cc of bloody fluid) Percussion: Left: dull (base) Cardiovascular: regular rate and rhythm Gastrointestinal: normoactive bowel sounds, soft, non-tender Extremities: no cyanosis, no cyanosis, no cyanosis Neurologic: normal mental status, non-focal exam CBC and BMP: 01/29/17 03:59 01/29/17 03:59 ABG, PT/INR, D-dimer: ABG POC ABG pH 7.458 (7.35-7.45) H 01/29/17 03:43 POC ABG pCO2 34.8 (35-45) L 01/29/17 03:43 POC ABG pO2 97 (80-105) 01/29/17 03:43 POC ABG HCO3 24.6 01/29/17 03:43 POC ABG Total CO2 26 01/29/17 03:43 POC ABG O2 Sat 98 01/29/17 03:43 PT/INR, D-dimer PT 16.6 Sec. (12.2-14.9) H 01/20/17 05:50 INR 1.27 (0.87-1.13) H 01/20/17 05:50 Abnormal lab findings: Abnormal Labs 01/15/17 01/15/17 01/15/17 06:20 06:20 12:11 WBC 28.5 H RBC 3.55 L Hgb 9.7 L Hct 30.3 L MCV MCH 27 L MCHC RDW 16.2 H Plt Count Lymph % (Auto) [place] % (Auto) Lymph # [place] # Seg Neutrophils % Seg Neuts % (Manual) Lymphocytes % (Manual) Monocytes % (Manual) Seg Neutrophils # Seg Neutrophils # Man Monocytes # (Manual) PT 16.3 H INR 1.32 H APTT 38.4 H POC ABG pH POC ABG pCO2 POC ABG pO2 Sodium 134 L Potassium Chloride 97.6 L Carbon Dioxide BUN 26 H Creatinine Glucose POC Glucose Calcium 8.2 L Alkaline Phosphatase Total Protein Albumin Fluid Total Protein Crossmatch 01/15/17 01/16/17 01/16/17 Unknown 04:54 04:54 WBC 24.9 H RBC Hgb 10.0 L Hct 31.8 L MCV MCH 27 L MCHC RDW 16.2 H Plt Count Lymph % (Auto) [place] % (Auto) Lymph # [place] # Seg Neutrophils % Seg Neuts % (Manual) 37.0 L Lymphocytes % (Manual) 12.0 L Monocytes % (Manual) 10.0 H Seg Neutrophils # Seg Neutrophils # Man 9.2 H Monocytes # (Manual) 2.5 H PT INR APTT POC ABG pH POC ABG pCO2 POC ABG pO2 Sodium 132 L Potassium Chloride 95.2 L Carbon Dioxide BUN 29 H Creatinine Glucose 130 H POC Glucose Calcium 8.3 L Alkaline Phosphatase Total Protein Albumin Fluid Total Protein 5.3 L Crossmatch 01/17/17 01/17/17 01/17/17 04:55 04:55 10:49 WBC 23.8 H RBC Hgb 10.9 L Hct 33.6 L MCV MCH MCHC RDW 16.4 H Plt Count Lymph % (Auto) [place] % (Auto) Lymph # [place] # Seg Neutrophils % Seg Neuts % (Manual) 36.0 L Lymphocytes % (Manual) 8.0 L Monocytes % (Manual) 18.0 H Seg Neutrophils # Seg Neutrophils # Man 8.6 H Monocytes # (Manual) 4.3 H PT INR APTT POC ABG pH POC ABG pCO2 POC ABG pO2 Sodium 132 L Potassium Chloride 95.7 L Carbon Dioxide 21 L BUN 30 H Creatinine Glucose 130 H POC Glucose 200 H Calcium Alkaline Phosphatase Total Protein Albumin Fluid Total Protein Crossmatch 01/17/17 01/17/17 01/18/17 11:32 23:41 03:46 WBC 23.2 H RBC Hgb 10.5 L Hct 32.0 L MCV MCH MCHC RDW 16.0 H Plt Count Lymph % (Auto) [place] % (Auto) Lymph # [place] # Seg Neutrophils % Seg Neuts % (Manual) Lymphocytes % (Manual) 6.0 L Monocytes % (Manual) 10.0 H Seg Neutrophils # Seg Neutrophils # Man 16.2 H Monocytes # (Manual) 2.3 H PT INR APTT POC ABG pH 7.315 L POC ABG pCO2 POC ABG pO2 41 L Sodium Potassium Chloride Carbon Dioxide BUN Creatinine Glucose POC Glucose Calcium Alkaline Phosphatase Total Protein Albumin 1.9 L Fluid Total Protein Crossmatch 01/18/17 01/19/17 01/19/17 03:46 03:41 03:41 WBC 19.8 H RBC 3.61 L Hgb 9.8 L Hct 30.2 L MCV MCH 27 L MCHC RDW 16.1 H Plt Count 505 H Lymph % (Auto) 5.2 L [place] % (Auto) 13.3 H Lymph # 1.0 L [place] # 2.6 H Seg Neutrophils % 81.1 H Seg Neuts % (Manual) Lymphocytes % (Manual) Monocytes % (Manual) Seg Neutrophils # 16.1 H Seg Neutrophils # Man Monocytes # (Manual) PT INR APTT POC ABG pH POC ABG pCO2 POC ABG pO2 Sodium 134 L 133 L Potassium Chloride 96.6 L 96.0 L Carbon Dioxide 21 L 21 L BUN 50 H 42 H Creatinine 1.9 H Glucose 177 H 122 H POC Glucose Calcium 8.1 L 8.0 L Alkaline Phosphatase Total Protein Albumin Fluid Total Protein Crossmatch 01/20/17 01/20/17 01/20/17 05:50 05:50 05:50 WBC 18.4 H RBC Hgb 10.5 L Hct 32.0 L MCV 83 L MCH 27 L MCHC RDW 16.3 H Plt Count 540 H Lymph % (Auto) 7.7 L [place] % (Auto) 15.7 H Lymph # [place] # 2.9 H Seg Neutrophils % 76.2 H Seg Neuts % (Manual) Lymphocytes % (Manual) Monocytes % (Manual) Seg Neutrophils # 14.0 H Seg Neutrophils # Man Monocytes # (Manual) PT 16.6 H INR 1.27 H APTT POC ABG pH POC ABG pCO2 POC ABG pO2 Sodium Potassium Chloride Carbon Dioxide BUN 24 H Creatinine Glucose 104 H POC Glucose Calcium 8.0 L Alkaline Phosphatase Total Protein Albumin 1.7 L Fluid Total Protein Crossmatch 01/20/17 01/22/17 01/22/17 21:03 07:34 07:34 WBC 24.9 H RBC Hgb 10.6 L Hct 33.8 L MCV MCH 27 L MCHC 31 L RDW 16.6 H Plt Count 582 H Lymph % (Auto) [place] % (Auto) Lymph # [place] # Seg Neutrophils % Seg Neuts % (Manual) Lymphocytes % (Manual) Monocytes % (Manual) Seg Neutrophils # Seg Neutrophils # Man Monocytes # (Manual) PT INR APTT POC ABG pH POC ABG pCO2 POC ABG pO2 Sodium Potassium Chloride Carbon Dioxide BUN Creatinine Glucose 163 H POC Glucose 110 H Calcium 7.9 L Alkaline Phosphatase Total Protein Albumin Fluid Total Protein Crossmatch 01/23/17 01/24/17 01/24/17 08:49 08:01 08:01 WBC 23.7 H 25.6 H RBC Hgb 10.2 L 10.0 L Hct 31.6 L 31.0 L MCV MCH 27 L 27 L MCHC RDW 16.6 H 16.5 H Plt Count 559 H 535 H Lymph % (Auto) [place] % (Auto) Lymph # [place] # Seg Neutrophils % Seg Neuts % (Manual) 86.0 H Lymphocytes % (Manual) 7.0 L Monocytes % (Manual) Seg Neutrophils # Seg Neutrophils # Man 20.4 H Monocytes # (Manual) 1.4 H PT INR APTT POC ABG pH POC ABG pCO2 POC ABG pO2 Sodium 134 L Potassium Chloride 95.3 L Carbon Dioxide BUN Creatinine Glucose 162 H POC Glucose Calcium 7.5 L Alkaline Phosphatase Total Protein Albumin Fluid Total Protein Crossmatch 01/25/17 01/25/17 01/25/17 00:23 06:29 11:54 WBC RBC Hgb Hct MCV MCH MCHC RDW Plt Count Lymph % (Auto) [place] % (Auto) Lymph # [place] # Seg Neutrophils % Seg Neuts % (Manual) Lymphocytes % (Manual) Monocytes % (Manual) Seg Neutrophils # Seg Neutrophils # Man Monocytes # (Manual) PT INR APTT POC ABG pH POC ABG pCO2 POC ABG pO2 Sodium Potassium Chloride Carbon Dioxide BUN Creatinine Glucose POC Glucose 165 H 119 H 235 H Calcium Alkaline Phosphatase Total Protein Albumin Fluid Total Protein Crossmatch 01/25/17 01/25/17 01/26/17 18:18 21:30 04:28 WBC 24.8 H RBC 3.63 L Hgb 9.7 L Hct 30.7 L MCV MCH 27 L MCHC RDW 16.8 H Plt Count 542 H Lymph % (Auto) [place] % (Auto) Lymph # [place] # Seg Neutrophils % Seg Neuts % (Manual) Lymphocytes % (Manual) Monocytes % (Manual) Seg Neutrophils # Seg Neutrophils # Man Monocytes # (Manual) PT INR APTT POC ABG pH POC ABG pCO2 POC ABG pO2 Sodium Potassium Chloride Carbon Dioxide BUN Creatinine Glucose POC Glucose 191 H 119 H Calcium Alkaline Phosphatase Total Protein Albumin Fluid Total Protein Crossmatch 01/26/17 01/26/17 01/26/17 04:28 05:11 12:07 WBC RBC Hgb Hct MCV MCH MCHC RDW Plt Count Lymph % (Auto) [place] % (Auto) Lymph # [place] # Seg Neutrophils % Seg Neuts % (Manual) Lymphocytes % (Manual) Monocytes % (Manual) Seg Neutrophils # Seg Neutrophils # Man Monocytes # (Manual) PT INR APTT POC ABG pH POC ABG pCO2 POC ABG pO2 Sodium 133 L Potassium Chloride 94.9 L Carbon Dioxide BUN Creatinine Glucose 166 H POC Glucose 182 H 199 H Calcium 7.5 L Alkaline Phosphatase Total Protein Albumin Fluid Total Protein Crossmatch 01/26/17 01/26/17 01/27/17 18:01 22:08 06:24 WBC RBC Hgb Hct MCV MCH MCHC RDW Plt Count Lymph % (Auto) [place] % (Auto) Lymph # [place] # Seg Neutrophils % Seg Neuts % (Manual) Lymphocytes % (Manual) Monocytes % (Manual) Seg Neutrophils # Seg Neutrophils # Man Monocytes # (Manual) PT INR APTT POC ABG pH POC ABG pCO2 POC ABG pO2 Sodium Potassium Chloride Carbon Dioxide BUN Creatinine Glucose POC Glucose 127 H 168 H 167 H Calcium Alkaline Phosphatase Total Protein Albumin Fluid Total Protein Crossmatch 01/27/17 01/27/17 01/27/17 11:36 14:04 18:04 WBC RBC Hgb Hct MCV MCH MCHC RDW Plt Count Lymph % (Auto) [place] % (Auto) Lymph # [place] # Seg Neutrophils % Seg Neuts % (Manual) Lymphocytes % (Manual) Monocytes % (Manual) Seg Neutrophils # Seg Neutrophils # Man Monocytes # (Manual) PT INR APTT POC ABG pH POC ABG pCO2 POC ABG pO2 Sodium Potassium Chloride Carbon Dioxide BUN Creatinine Glucose POC Glucose 235 H 165 H Calcium Alkaline Phosphatase Total Protein Albumin Fluid Total Protein Crossmatch See Detail 01/27/17 01/28/17 01/28/17 23:41 06:33 12:29 WBC RBC Hgb Hct MCV MCH MCHC RDW Plt Count Lymph % (Auto) [place] % (Auto) Lymph # [place] # Seg Neutrophils % Seg Neuts % (Manual) Lymphocytes % (Manual) Monocytes % (Manual) Seg Neutrophils # Seg Neutrophils # Man Monocytes # (Manual) PT INR APTT POC ABG pH POC ABG pCO2 POC ABG pO2 Sodium Potassium Chloride Carbon Dioxide BUN Creatinine Glucose POC Glucose 192 H 131 H 143 H Calcium Alkaline Phosphatase Total Protein Albumin Fluid Total Protein Crossmatch 01/28/17 01/28/17 01/29/17 13:42 23:41 03:43 WBC RBC Hgb Hct MCV MCH MCHC RDW Plt Count Lymph % (Auto) [place] % (Auto) Lymph # [place] # Seg Neutrophils % Seg Neuts % (Manual) Lymphocytes % (Manual) Monocytes % (Manual) Seg Neutrophils # Seg Neutrophils # Man Monocytes # (Manual) PT INR APTT POC ABG pH 7.458 H POC ABG pCO2 34.8 L POC ABG pO2 63 L Sodium Potassium Chloride Carbon Dioxide BUN Creatinine Glucose POC Glucose 199 H Calcium Alkaline Phosphatase Total Protein Albumin Fluid Total Protein Crossmatch 01/29/17 01/29/17 01/29/17 03:59 03:59 05:28 WBC 23.0 H RBC 2.50 L Hgb 6.6 L D Hct 21.5 L D MCV MCH 27 L MCHC 31 L RDW 16.7 H Plt Count 485 H Lymph % (Auto) [place] % (Auto) Lymph # [place] # Seg Neutrophils % Seg Neuts % (Manual) 86.0 H Lymphocytes % (Manual) 7.0 L Monocytes % (Manual) Seg Neutrophils # Seg Neutrophils # Man 19.8 H Monocytes # (Manual) 1.6 H PT INR APTT POC ABG pH POC ABG pCO2 POC ABG pO2 Sodium 129 L Potassium 5.3 H D Chloride 93.7 L Carbon Dioxide BUN 37 H Creatinine Glucose 154 H POC Glucose 175 H Calcium 7.2 L Alkaline Phosphatase 131 H Total Protein 6.2 L Albumin 1.5 L Fluid Total Protein Crossmatch
--- NOTE | 2017-01-29 09:25 | Event Note ---
Date: 01/29/17 POD 1 s/p left ms thoracotomy,decortication, on vent, CXR improved, Hgb in 6 range-I spoke with nurse , I agree with blood transfusion (2 units), hopefully can extubate today, continue suction on CR, drainage serous now and decreasing. Ok to resume tube feeds, continue antibiotics, OK for DVT chemical prophylaxis once blood is in, serum NA 129, change to Normal Saline at 75 cc /hr, CT will stay at least 4 days. Continue antibiotics.I do not think patient is actively bleeding!
[2017-01-29] MEDS ORDERED: NACL 0.9% 500 ML 500 ML IV NR (09:30)
--- NOTE | 2017-01-29 09:31 | Progress Note ---
Subjective Date of service: 01/29/17 Principal diagnosis: Pneumonia,pleural effusion-empyema,urinary retention Interval history: Patient seen post-op day 1 - awake alert, unable to ambulate since still intubated, indicated no problems with anesthesia. Objective - Constitutional Vitals: Vital Signs - 12hr 01/28/17 01/28/17 01/28/17 22:00 22:21 23:55 Temperature 98.6 F Pulse Rate 96 H Pulse Rate [ Anterior Bilateral] Pulse Rate [ From Monitor] Respiratory 18 Rate Respiratory Rate [Anterior Bilateral] Blood Pressure O2 Sat by Pulse Oximetry 01/28/17 01/29/17 01/29/17 23:57 00:00 02:45 Temperature Pulse Rate 95 H Pulse Rate [ 90 Anterior Bilateral] Pulse Rate [ 94 H From Monitor] Respiratory 18 Rate Respiratory 18 Rate [Anterior Bilateral] Blood Pressure 111/54 O2 Sat by Pulse 98 97 Oximetry 01/29/17 01/29/17 01/29/17 02:55 03:44 04:00 Temperature 98.7 F Pulse Rate 97 H Pulse Rate [ 98 H Anterior Bilateral] Pulse Rate [ 94 H From Monitor] Respiratory 18 Rate Respiratory 21 Rate [Anterior Bilateral] Blood Pressure 121/52 O2 Sat by Pulse 98 97 Oximetry 01/29/17 01/29/17 01/29/17 07:37 07:41 07:44 Temperature Pulse Rate 97 H 96 H Pulse Rate [ 95 H Anterior Bilateral] Pulse Rate [ From Monitor] Respiratory 25 H Rate Respiratory 22 Rate [Anterior Bilateral] Blood Pressure 128/58 128/58 O2 Sat by Pulse 98 96 Oximetry 01/29/17 01/29/17 08:00 08:35 Temperature 98.1 F Pulse Rate Pulse Rate [ 99 H Anterior Bilateral] Pulse Rate [ From Monitor] Respiratory Rate Respiratory 27 H Rate [Anterior Bilateral] Blood Pressure O2 Sat by Pulse Oximetry - Labs CBC & Chem 7: 01/29/17 03:59 01/29/17 03:59 Labs: Abnormal lab results 01/27/17 01/28/17 01/28/17 Range/Units 14:04 12:29 13:42 WBC (4.5-11.0) K/mm3 RBC (3.65-5.03) M/mm3 Hgb (11.8-15.2) gm/dl Hct (35.5-45.6) % MCH (28-32) pg MCHC (32-34) % RDW (13.2-15.2) % Plt Count (140-440) K/mm3 Seg Neuts % (Manual) (40.0-70.0) % Lymphocytes % (Manual) (13.4-35.0) % Seg Neutrophils # Man (1.8-7.7) K/mm3 Monocytes # (Manual) (0.0-0.8) K/mm3 POC ABG pH (7.35-7.45) POC ABG pCO2 (35-45) POC ABG pO2 63 L (80-105) Sodium (137-145) mmol/L Potassium (3.6-5.0) mmol/L Chloride (98-107) mmol/L BUN (9-20) mg/dL Glucose (75-100) mg/dL POC Glucose 143 H (70-105) Calcium (8.4-10.2) mg/dL Alkaline Phosphatase (35-129) units/L Total Protein (6.3-8.2) g/dL Albumin (3.9-5) g/dL Crossmatch See Detail 01/28/17 01/29/17 01/29/17 Range/Units 23:41 03:43 03:59 WBC 23.0 H (4.5-11.0) K/mm3 RBC 2.50 L (3.65-5.03) M/mm3 Hgb 6.6 L D (11.8-15.2) gm/dl Hct 21.5 L D (35.5-45.6) % MCH 27 L (28-32) pg MCHC 31 L (32-34) % RDW 16.7 H (13.2-15.2) % Plt Count 485 H (140-440) K/mm3 Seg Neuts % (Manual) 86.0 H (40.0-70.0) % Lymphocytes % (Manual) 7.0 L (13.4-35.0) % Seg Neutrophils # Man 19.8 H (1.8-7.7) K/mm3 Monocytes # (Manual) 1.6 H (0.0-0.8) K/mm3 POC ABG pH 7.458 H (7.35-7.45) POC ABG pCO2 34.8 L (35-45) POC ABG pO2 (80-105) Sodium (137-145) mmol/L Potassium (3.6-5.0) mmol/L Chloride (98-107) mmol/L BUN (9-20) mg/dL Glucose (75-100) mg/dL POC Glucose 199 H (70-105) Calcium (8.4-10.2) mg/dL Alkaline Phosphatase (35-129) units/L Total Protein (6.3-8.2) g/dL Albumin (3.9-5) g/dL Crossmatch 01/29/17 01/29/17 Range/Units 03:59 05:28 WBC (4.5-11.0) K/mm3 RBC (3.65-5.03) M/mm3 Hgb (11.8-15.2) gm/dl Hct (35.5-45.6) % MCH (28-32) pg MCHC (32-34) % RDW (13.2-15.2) % Plt Count (140-440) K/mm3 Seg Neuts % (Manual) (40.0-70.0) % Lymphocytes % (Manual) (13.4-35.0) % Seg Neutrophils # Man (1.8-7.7) K/mm3 Monocytes # (Manual) (0.0-0.8) K/mm3 POC ABG pH (7.35-7.45) POC ABG pCO2 (35-45) POC ABG pO2 (80-105) Sodium 129 L (137-145) mmol/L Potassium 5.3 H D (3.6-5.0) mmol/L Chloride 93.7 L (98-107) mmol/L BUN 37 H (9-20) mg/dL Glucose 154 H (75-100) mg/dL POC Glucose 175 H (70-105) Calcium 7.2 L (8.4-10.2) mg/dL Alkaline Phosphatase 131 H (35-129) units/L Total Protein 6.2 L (6.3-8.2) g/dL Albumin 1.5 L (3.9-5) g/dL Crossmatch
[2017-01-29] MEDS ORDERED: NACL 0.9% 1000 ML 1,000 ML IV SCH (10:00)
--- NOTE | 2017-01-29 11:52 | Progress Note ---
Assessment and Plan Large left pleural effusion left chest tube in place s/p limited left thoracotomy and decortication Acute drop in hematocrit Hx of coronary artery disease with remote three-way coronary bypass done many years ago. Hx of paroxysmal Afib -uncertain duration He is currently not on oral anticoagulation therapy is, and will likely not be a good candidate for oral anticoagulation in the near term due to his thoracoscopic procedures, persistent left pleural effusion, and risks associated with his advanced age of 86. Recommendations: Medical therapy for his coronary artery disease. Subjective Date of service: 01/29/17 Principal diagnosis: Pneumonia,pleural effusion-empyema,urinary retention Interval history: s/p limited left thoracotomy and decortication on yesterday. Patient extubated this morning. Noted acute drop on H&H today. No events on telemetry. Objective Vital Signs Temp Pulse Pulse Pulse Resp Resp BP 01/29/17 10:45 96 H 31 H 110/59 01/29/17 10:30 95 H 25 H 115/52 01/29/17 10:15 96 H 26 H 110/59 01/29/17 10:00 99 H 17 110/59 01/29/17 09:45 101 H 28 H 124/48 01/29/17 09:37 01/29/17 09:31 106/55 01/29/17 09:15 95 H 22 126/51 01/29/17 09:01 96 H 23 124/48 01/29/17 08:45 96 H 22 119/54 01/29/17 08:35 99 H 27 H 01/29/17 08:30 95 H 27 H 126/51 01/29/17 08:15 101 H 30 H 119/54 01/29/17 08:00 98.1 F 97 H 22 119/54 01/29/17 07:45 96 H 25 H 128/58 01/29/17 07:44 95 H 22 01/29/17 07:41 96 H 25 H 128/58 01/29/17 07:37 97 H 128/58 01/29/17 07:30 98 H 29 H 128/58 01/29/17 07:15 94 H 18 131/58 01/29/17 07:00 98 H 17 131/58 01/29/17 06:45 102 H 13 149/65 01/29/17 06:31 102 H 15 149/65 01/29/17 06:15 95 H 18 125/67 01/29/17 06:01 100 H 30 H 125/67 01/29/17 05:45 95 H 18 107/52 01/29/17 05:30 93 H 17 114/47 01/29/17 05:15 95 H 17 107/52 01/29/17 05:00 92 H 15 107/52 01/29/17 04:45 114/47 01/29/17 04:30 91 H 18 114/47 01/29/17 04:15 93 H 24 107/41 01/29/17 04:01 92 H 22 107/41 01/29/17 04:00 98.7 F 94 H 18 01/29/17 03:45 101 H 19 121/52 01/29/17 03:44 97 H 121/52 01/29/17 03:30 97 H 21 121/52 01/29/17 03:15 94 H 25 H 108/53 01/29/17 03:00 92 H 20 108/53 01/29/17 02:55 98 H 21 01/29/17 02:45 94 H 90 24 18 102/52 01/29/17 02:30 95 H 24 102/52 01/29/17 02:15 98 H 24 120/51 01/29/17 02:00 96 H 24 120/51 01/29/17 01:45 97 H 21 122/55 01/29/17 01:30 94 H 17 122/55 01/29/17 01:15 97 H 19 123/61 01/29/17 01:00 99 H 26 H 123/61 01/29/17 00:45 94 H 17 105/51 01/29/17 00:30 93 H 17 105/51 01/29/17 00:15 96 H 16 104/48 01/29/17 00:00 93 H 94 H 16 104/48 01/28/17 23:57 95 H 111/54 01/28/17 23:55 98.6 F 01/28/17 23:45 92 H 16 111/54 01/28/17 23:30 98 H 22 111/54 01/28/17 23:15 96 H 25 H 97/45 01/28/17 23:00 95 H 20 97/45 01/28/17 22:45 101 H 22 113/52 01/28/17 22:30 101 H 25 H 113/52 01/28/17 22:21 18 01/28/17 22:00 96 H 01/28/17 20:30 94 H 18 01/28/17 20:22 96 H 99/45 01/28/17 20:20 99 H 96 H 17 21 01/28/17 20:00 97.3 F L 01/28/17 19:30 100 H 22 104/43 01/28/17 19:15 88/35 01/28/17 19:00 101 H 16 88/35 01/28/17 18:45 101 H 23 80/39 01/28/17 18:30 103 H 23 80/39 01/28/17 18:15 103 H 24 80/41 01/28/17 18:00 100 H 21 80/41 01/28/17 17:45 105 H 19 78/40 01/28/17 17:30 101 H 20 78/40 01/28/17 17:15 111 H 20 79/41 01/28/17 17:00 112 H 28 H 79/41 01/28/17 16:50 103 H 80/39 01/28/17 16:45 110 H 19 81/39 01/28/17 16:37 98.1 F 01/28/17 16:30 105 H 15 73/39 01/28/17 16:24 106 H 21 01/28/17 15:30 99 H 20 101/53 01/28/17 15:25 16 01/28/17 15:00 98.6 F 95 H 20 101/51 01/28/17 14:30 97 H 20 110/52 01/28/17 14:15 88 18 103/46 01/28/17 14:00 98.9 F 90 18 100/47 01/28/17 13:45 92 H 16 114/52 01/28/17 13:30 92 H 16 115/52 01/28/17 13:15 88 16 116/50 01/28/17 13:00 98.9 F 88 17 116/49 01/28/17 12:45 89 18 122/53 01/28/17 12:40 87 16 113/48 01/28/17 12:35 85 16 109/42 01/28/17 12:30 82 16 88/37 01/28/17 12:25 82 16 79/34 01/28/17 12:20 81 16 70/31 01/28/17 12:16 86 122/53 01/28/17 12:15 82 16 68/34 01/28/17 12:10 84 16 68/30 01/28/17 12:06 99.3 F 81 16 58/26 Pulse Ox 01/29/17 10:45 98 01/29/17 10:30 96 01/29/17 10:15 99 01/29/17 10:00 97 01/29/17 09:45 98 01/29/17 09:37 99 01/29/17 09:31 96 01/29/17 09:15 97 01/29/17 09:01 95 01/29/17 08:45 98 01/29/17 08:35 01/29/17 08:30 95 01/29/17 08:15 96 01/29/17 08:00 95 01/29/17 07:45 96 01/29/17 07:44 01/29/17 07:41 96 01/29/17 07:37 98 01/29/17 07:30 97 01/29/17 07:15 98 01/29/17 07:00 97 01/29/17 06:45 99 01/29/17 06:31 98 01/29/17 06:15 100 01/29/17 06:01 98 01/29/17 05:45 99 01/29/17 05:30 97 01/29/17 05:15 98 01/29/17 05:00 01/29/17 04:45 97 01/29/17 04:30 97 01/29/17 04:15 98 01/29/17 04:01 96 01/29/17 04:00 97 01/29/17 03:45 99 01/29/17 03:44 98 01/29/17 03:30 98 01/29/17 03:15 98 01/29/17 03:00 01/29/17 02:55 01/29/17 02:45 98 01/29/17 02:30 96 01/29/17 02:15 98 01/29/17 02:00 97 01/29/17 01:45 98 01/29/17 01:30 97 01/29/17 01:15 99 01/29/17 01:00 99 01/29/17 00:45 99 01/29/17 00:30 97 01/29/17 00:15 99 01/29/17 00:00 98 01/28/17 23:57 98 01/28/17 23:55 01/28/17 23:45 97 01/28/17 23:30 97 01/28/17 23:15 98 01/28/17 23:00 96 01/28/17 22:45 97 01/28/17 22:30 97 01/28/17 22:21 01/28/17 22:00 01/28/17 20:30 01/28/17 20:22 98 01/28/17 20:20 97 01/28/17 20:00 01/28/17 19:30 94 01/28/17 19:15 97 01/28/17 19:00 96 01/28/17 18:45 97 01/28/17 18:30 96 01/28/17 18:15 97 01/28/17 18:00 97 01/28/17 17:45 98 01/28/17 17:30 96 01/28/17 17:15 96 01/28/17 17:00 96 01/28/17 16:50 98 01/28/17 16:45 94 01/28/17 16:37 01/28/17 16:30 94 01/28/17 16:24 99 01/28/17 15:30 97 01/28/17 15:25 01/28/17 15:00 97 01/28/17 14:30 98 01/28/17 14:15 98 01/28/17 14:00 99 01/28/17 13:45 99 01/28/17 13:30 97 01/28/17 13:15 97 01/28/17 13:00 97 01/28/17 12:45 98 01/28/17 12:40 98 01/28/17 12:35 98 01/28/17 12:30 98 01/28/17 12:25 98 01/28/17 12:20 97 01/28/17 12:16 97 01/28/17 12:15 96 01/28/17 12:10 99 01/28/17 12:06 99 - Physical Examination General: No Apparent Distress HEENT: Positive: PERRL Neck: Positive: neck supple Cardiac: Positive: Reg Rate and Rhythm - Labs and Meds Cardiac Enzymes 01/29/17 Range/Units 03:59 AST 32 (5-40) units/L CBC 01/29/17 Range/Units 03:59 WBC 23.0 H (4.5-11.0) K/mm3 RBC 2.50 L (3.65-5.03) M/mm3 Hgb 6.6 L D (11.8-15.2) gm/dl Hct 21.5 L D (35.5-45.6) % Plt Count 485 H (140-440) K/mm3 Comprehensive Metabolic Panel 01/29/17 Range/Units 03:59 Sodium 129 L (137-145) mmol/L Potassium 5.3 H D (3.6-5.0) mmol/L Chloride 93.7 L (98-107) mmol/L Carbon Dioxide 25 (22-30) mmol/L BUN 37 H (9-20) mg/dL Creatinine 1.5 D (0.8-1.5) mg/dL Glucose 154 H (75-100) mg/dL Calcium 7.2 L (8.4-10.2) mg/dL AST 32 (5-40) units/L ALT 33 (7-56) units/L Alkaline Phosphatase 131 H (35-129) units/L Total Protein 6.2 L (6.3-8.2) g/dL Albumin 1.5 L (3.9-5) g/dL
--- NOTE | 2017-01-29 14:59 | Progress Note ---
Assessment and Plan Assessment and plan: Patient is 86-year-old man with history of hypertension, coronary artery disease and CABG, recent pneumonia. He was recently diagnosed with pneumonia on 12/20/16, and was placed on Levaquin po and discharged home from ED. He completed 10 days of Levaquin. Currently he presents with left lower chest pain and cough. On Admission he is found to have loculated effusion on the left lower lobe. Despite thoracentesis no resolution was noted, so Patient had pigtail catheter placed left lung. A PEG tube was also placed for nutritional support. Pleural effusion shown to be empyema. -Acute respiratory failure 2/2 aspiration pneumonitis, Thoracentesis was done and 1660 mL of yellowish fluid was taken out=empyema, Prelim culture grew non- Group D streptococcus pneumonia , CT showed loculated effusion, exudative. -Cardiothoracic surgery consulted -Cardiac pre-op evaluation noted. -Left lower lobe pneumonia with parapneumonic effusion -Hypertension-Stable -BPH on Flomax -Moderate protein calorie malnutrition BMI 18. Continue tube feeds. -Paroxysmal Atrial fibrillation-NOT a good candidate for anticoagulation, due to thoracoscopIc procedure for peristent left pleural effusion. -CAD stable continue aspirin-we'll obtain cardiac clearance for possible VATS procedure -Anemia-stable likely chronic disease will monitor closely. DVT prophylaxis SCD, heparin CODE STATUS full Disposition Continue inpatient care. per Cardiology: "Recommendations: He has a moderate perioperative cardiac risk, and this should be considered in his preoperative surgical assessment. Okay to proceed with thoracoscopy and VATS procedure as planned. Medical therapy for his coronary artery disease." 01/28/[address] bore CT, Keep intubated overnight after procedure for lung expansion; per Dr. De Jesus's VATS op note: "c/w loculated left parapneumonic effusion, Procedure: Attempted left VATS,converted to very limited left thoracotomy, decortication of left chest-peel sent for perm path." 01/29/17 Extubated, drop in hct transfus 2 units pRBC today, probably drainage from yesterday's procedure, unlikely bleeding, will monitor. CBC in am History Interval history: Patient seen and examined. Follow up on shortness breath. Was admitted to icu, intubated after VATS yesterday 01/28/17. Imaging, old records, testing, labs, nursing notes reviewed. He does have left-sided chest wall pains with chest tube in place. at bedside. Hospitalist Physical - Physical exam Narrative exam: GEN: Thin frail, NAD, AWAKE, ALERT, ORIENTATED x 3 CVS: RRR, NORMAL S1S2 LUNGS/CHEST: Bibasilar crackles reduced breath sounds on the left base NORMAL CHEST EXPANSION B, ABD: SOFT, NTND, GBS, NO REBOUND OR GUARDING EXT/SKIN: NO SIGNIFICANT EDEMA OR RASH MSK: FROM X 4 EXTREMITIES NEURO: CN 2-12 GROSSLY INTACT, NO FOCAL DEFICITS PSY: CALM - Constitutional Vitals: Temp Pulse Resp BP Pulse Ox 98.5 F 97 H 27 H 138/62 97 01/29/17 14:05 01/29/17 14:05 01/29/17 14:05 01/29/17 14:05 01/29/17 14:05 General appearance: Present: no acute distress Results - Labs CBC & Chem 7: 01/29/17 03:59 01/29/17 03:59 Labs: Laboratory Last Values WBC 23.0 K/mm3 (4.5-11.0) H 01/29/17 03:59 RBC 2.50 M/mm3 (3.65-5.03) L 01/29/17 03:59 Hgb 6.6 gm/dl (11.8-15.2) L D 01/29/17 03:59 Hct 21.5 % (35.5-45.6) L D 01/29/17 03:59 MCV 86 fl (84-94) 01/29/17 03:59 MCH 27 pg (28-32) L 01/29/17 03:59 MCHC 31 % (32-34) L 01/29/17 03:59 RDW 16.7 % (13.2-15.2) H 01/29/17 03:59 Plt Count 485 K/mm3 (140-440) H 01/29/17 03:59 Lymph % (Auto) 7.7 % (13.4-35.0) L 01/20/17 05:50 [place] % (Auto) 15.7 % (0.0-7.3) H 01/20/17 05:50 Eos % (Auto) 0.3 % (0.0-4.3) 01/20/17 05:50 Baso % (Auto) 0.1 % (0.0-1.8) 01/20/17 05:50 Lymph # 1.4 K/mm3 (1.2-5.4) 01/20/17 05:50 [place] # 2.9 K/mm3 (0.0-0.8) H 01/20/17 05:50 Eos # 0.1 K/mm3 (0.0-0.4) 01/20/17 05:50 Baso # 0.0 K/mm3 (0.0-0.1) 01/20/17 05:50 Add Manual Diff Complete 01/29/17 03:59 Total Counted 100 01/29/17 03:59 Seg Neutrophils % 76.2 % (40.0-70.0) H 01/20/17 05:50 Seg Neuts % (Manual) 86.0 % (40.0-70.0) H 01/29/17 03:59 Band Neutrophils % 0 % 01/29/17 03:59 Lymphocytes % (Manual) 7.0 % (13.4-35.0) L 01/29/17 03:59 Reactive Lymphs % (Man) 0 % 01/29/17 03:59 Monocytes % (Manual) 7.0 % (0.0-7.3) 01/29/17 03:59 Eosinophils % (Manual) 0 % (0.0-4.3) 01/29/17 03:59 Basophils % (Manual) 0 % (0.0-1.8) 01/29/17 03:59 Metamyelocytes % 0 % 01/29/17 03:59 Myelocytes % 0 % 01/29/17 03:59 Promyelocytes % 0 % 01/29/17 03:59 Blast Cells % 0 % 01/29/17 03:59 Nucleated RBC % Not Reportable 01/29/17 03:59 Seg Neutrophils # 14.0 K/mm3 (1.8-7.7) H 01/20/17 05:50 Seg Neutrophils # Man 19.8 K/mm3 (1.8-7.7) H 01/29/17 03:59 Band Neutrophils # 0.0 K/mm3 01/29/17 03:59 Lymphocytes # (Manual) 1.6 K/mm3 (1.2-5.4) 01/29/17 03:59 Abs React Lymphs (Man) 0.0 K/mm3 01/29/17 03:59 Monocytes # (Manual) 1.6 K/mm3 (0.0-0.8) H 01/29/17 03:59 Eosinophils # (Manual) 0.0 K/mm3 (0.0-0.4) 01/29/17 03:59 Basophils # (Manual) 0.0 K/mm3 (0.0-0.1) 01/29/17 03:59 Metamyelocytes # 0.0 K/mm3 01/29/17 03:59 Myelocytes # 0.0 K/mm3 01/29/17 03:59 Promyelocytes # 0.0 K/mm3 01/29/17 03:59 Blast Cells # 0.0 K/mm3 01/29/17 03:59 WBC Morphology Not Reportable 01/29/17 03:59 Hypersegmented Neuts Not Reportable 01/29/17 03:59 Hyposegmented Neuts Not Reportable 01/29/17 03:59 Hypogranular Neuts Not Reportable 01/29/17 03:59 Smudge Cells Not Reportable 01/29/17 03:59 Toxic Granulation Not Reportable 01/29/17 03:59 Toxic Vacuolation Not Reportable 01/29/17 03:59 Dohle Bodies Not Reportable 01/29/17 03:59 Pelger-Huet Anomaly Not Reportable 01/29/17 03:59 Lore Rods Not Reportable 01/29/17 03:59 Platelet Estimate Appears increased 01/29/17 03:59 Clumped Platelets Not Reportable 01/29/17 03:59 Plt Clumps, EDTA Not Reportable 01/29/17 03:59 Large Platelets Not Reportable 01/29/17 03:59 Giant Platelets Not Reportable 01/29/17 03:59 Platelet Satelliting Not Reportable 01/29/17 03:59 Plt Morphology Comment Not Reportable 01/29/17 03:59 RBC Morphology Not Reportable 01/29/17 03:59 Dimorphic RBCs Not Reportable 01/29/17 03:59 Polychromasia Not Reportable 01/29/17 03:59 Hypochromasia 1+ 01/29/17 03:59 Poikilocytosis 1+ 01/29/17 03:59 Anisocytosis 2+ 01/29/17 03:59 Microcytosis Not Reportable 01/29/17 03:59 Macrocytosis Not Reportable 01/29/17 03:59 Spherocytes Not Reportable 01/29/17 03:59 Pappenheimer Bodies Not Reportable 01/29/17 03:59 Sickle Cells Not Reportable 01/29/17 03:59 Target Cells Rare 01/29/17 03:59 Tear Drop Cells Not Reportable 01/29/17 03:59 Ovalocytes Not Reportable 01/29/17 03:59 Helmet Cells Not Reportable 01/29/17 03:59 [place] Bodies Not Reportable 01/29/17 03:59 [place] Rings Not Reportable 01/29/17 03:59 [place] Cells Not Reportable 01/29/17 03:59 Bite Cells Not Reportable 01/29/17 03:59 Crenated Cell Not Reportable 01/29/17 03:59 Elliptocytes Few 01/29/17 03:59 Acanthocytes (Spur) Not Reportable 01/29/17 03:59 Rouleaux Not Reportable 01/29/17 03:59 Hemoglobin C Crystals Not Reportable 01/29/17 03:59 Schistocytes Rare 01/29/17 03:59 Malaria parasites Not Reportable 01/29/17 03:59 Steve Bodies Not Reportable 01/29/17 03:59 Hem Pathologist Commnt No 01/29/17 03:59 PT 16.6 Sec. (12.2-14.9) H 01/20/17 05:50 INR 1.27 (0.87-1.13) H 01/20/17 05:50 APTT 38.4 Sec. (24.2-36.6) H 01/15/17 12:11 POC ABG pH 7.458 (7.35-7.45) H 01/29/17 03:43 POC ABG pCO2 34.8 (35-45) L 01/29/17 03:43 POC ABG pO2 97 (80-105) 01/29/17 03:43 POC ABG HCO3 24.6 01/29/17 03:43 POC ABG Total CO2 26 01/29/17 03:43 POC ABG O2 Sat 98 01/29/17 03:43 POC ABG Base Excess 1 01/29/17 03:43 FiO2 50 % 01/29/17 03:43 Sodium 129 mmol/L (137-145) L 01/29/17 03:59 Potassium 5.3 mmol/L (3.6-5.0) H D 01/29/17 03:59 Chloride 93.7 mmol/L (98-107) L 01/29/17 03:59 Carbon Dioxide 25 mmol/L (22-30) 01/29/17 03:59 Anion Gap 16 mmol/L 01/29/17 03:59 BUN 37 mg/dL (9-20) H 01/29/17 03:59 Creatinine 1.5 mg/dL (0.8-1.5) D 01/29/17 03:59 Estimated GFR 44 ml/min 01/29/17 03:59 BUN/Creatinine Ratio 24.66 % 01/29/17 03:59 Glucose 154 mg/dL (75-100) H 01/29/17 03:59 POC Glucose 179 (70-105) H 01/29/17 11:58 Calcium 7.2 mg/dL (8.4-10.2) L 01/29/17 03:59 Total Bilirubin 0.40 mg/dL (0.1-1.2) 01/29/17 03:59 Direct Bilirubin < 0.2 mg/dL (0-0.2) 01/17/17 23:41 Indirect Bilirubin 0.1 mg/dL 01/17/17 23:41 AST 32 units/L (5-40) 01/29/17 03:59 ALT 33 units/L (7-56) 01/29/17 03:59 Alkaline Phosphatase 131 units/L (35-129) H 01/29/17 03:59 Lactate Dehydrogenase 137 units/L (91-180) 01/17/17 23:41 Total Creatine Kinase 50 units/L (55-170) L 01/15/17 00:18 CK-MB (CK-2) 1.5 ng/mL (0.0-4.0) 01/15/17 00:18 CK-MB (CK-2) Rel Index 3.0 (0-4) 01/15/17 00:18 Troponin T < 0.010 ng/mL (0.00-0.029) 01/15/17 06:20 Total Protein 6.2 g/dL (6.3-8.2) L 01/29/17 03:59 Albumin 1.5 g/dL (3.9-5) L 01/29/17 03:59 Albumin/Globulin Ratio 0.3 % 01/29/17 03:59 Fluid Type Pleural 01/15/17 Unknown Fluid Color Yellow 01/15/17 Unknown Fluid Appearance Clear 01/15/17 Unknown Fluid WBC 1350 /mm3 01/15/17 Unknown Fluid RBC 750 /mm3 01/15/17 Unknown Fluid Seg Neutrophils 81.0 % 01/15/17 Unknown Fluid Lymphocytes 12.0 % 01/15/17 Unknown Fluid Reactive Lymphs 0 % 01/15/17 Unknown Fluid Monocytes 7.0 % 01/15/17 Unknown Fluid Eosinophils 0 % 01/15/17 Unknown Fluid Basophils 0 % 01/15/17 Unknown Fluid Glucose 48 mg/dL (40-70) 01/15/17 Unknown Fluid Total Protein 5.3 (15.0-45.0) L 01/15/17 Unknown Fluid LDH 942 01/15/17 Unknown Vancomycin Trough 14.1 ug/mL (5.0-20.0) 01/23/17 20:37 Blood Type O POSITIVE 01/27/17 14:04 Antibody Screen TNR 01/27/17 14:04 JERAD Antibody Screen Negative 01/27/17 14:04 Crossmatch See Detail 01/27/17 14:04
--- NOTE | 2017-01-29 22:35 | Progress Note ---
Assessment and Plan Large left pleural effusion left chest tube in place s/p limited left thoracotomy and decortication Patient tolerated surgery well Hx of coronary artery disease with remote three-way coronary bypass done many years ago. Hx of paroxysmal Afib -uncertain duration He is currently not on oral anticoagulation therapy is, and will likely not be a good candidate for oral anticoagulation in the near term due to his thoracoscopic procedures, persistent left pleural effusion, and risks associated with his advanced age of 86. Recommendations: Medical therapy for his coronary artery disease. Add BB and statin when acute issues are resolved Subjective Date of service: 01/30/17 Principal diagnosis: Pneumonia,pleural effusion-empyema,urinary retention Interval history: Resting comfortably in bed. No complaints. chest tube in place. Objective Vital Signs Temp Pulse Pulse Pulse Resp Resp BP 01/29/17 20:20 93 H 28 H 01/29/17 20:15 01/29/17 20:11 105 H 28 H 01/29/17 20:03 98.4 F 01/29/17 19:40 103 H 21 01/29/17 18:07 98.2 F 105 H 23 121/50 01/29/17 17:51 101 H 22 133/69 01/29/17 17:41 103 H 30 H 133/69 01/29/17 17:30 103 H 26 H 133/69 01/29/17 17:21 103 H 22 128/53 01/29/17 17:11 101 H 24 128/53 01/29/17 17:03 98.1 F 102 H 27 H 133/69 01/29/17 17:00 103 H 29 H 124/53 01/29/17 16:50 101 H 26 H 128/53 01/29/17 16:40 109 H 27 H 128/53 01/29/17 16:33 98.2 F 104 H 24 124/53 01/29/17 16:30 105 H 29 H 128/53 01/29/17 16:21 103 H 26 H 124/55 01/29/17 16:18 98.1 F 104 H 28 H 128/53 01/29/17 16:11 106 H 21 134/56 01/29/17 16:00 98.1 F 107 H 101 H 12 134/56 01/29/17 15:52 98.1 F 109 H 22 134/56 01/29/17 15:51 106 H 16 146/71 01/29/17 15:40 103 H 27 H 124/55 01/29/17 15:39 98.5 F 101 H 22 146/71 01/29/17 15:30 103 H 17 124/55 01/29/17 15:21 101 H 19 146/71 01/29/17 15:11 102 H 28 H 146/71 01/29/17 15:10 100 H 25 H 01/29/17 15:00 101 H 25 H 146/71 01/29/17 14:56 97 H 16 01/29/17 14:51 98 H 26 H 128/54 01/29/17 14:41 96 H 20 128/54 01/29/17 14:35 98.4 F 95 H 25 H 128/54 01/29/17 14:30 98 H 26 H 128/54 01/29/17 14:21 96 H 28 H 138/62 01/29/17 14:11 97 H 25 H 138/62 01/29/17 14:05 98.5 F 97 H 27 H 138/62 01/29/17 14:00 100 H 26 H 138/62 01/29/17 13:51 100 H 26 H 134/58 01/29/17 13:41 95 H 18 134/58 01/29/17 13:40 98.1 F 96 H 22 134/58 01/29/17 13:30 97 H 18 134/58 01/29/17 13:21 96 H 24 134/56 01/29/17 13:11 95 H 24 134/56 01/29/17 13:05 97.3 F L 95 H 23 134/56 01/29/17 13:00 94 H 26 H 134/56 01/29/17 12:51 90 22 137/56 01/29/17 12:50 97.6 F 99 H 18 137/56 01/29/17 12:41 96 H 23 137/56 01/29/17 12:30 94 H 27 H 137/56 01/29/17 12:21 96 H 22 135/72 01/29/17 12:11 94 H 24 135/72 01/29/17 12:00 98.1 F 97 H 12 135/72 01/29/17 11:51 98 H 21 130/45 01/29/17 11:41 92 H 25 H 130/45 01/29/17 11:30 95 H 21 130/45 01/29/17 11:21 97 H 22 115/52 01/29/17 11:11 99 H 22 115/52 01/29/17 11:00 100 H 18 121/58 01/29/17 10:45 96 H 31 H 110/59 01/29/17 10:30 95 H 25 H 115/52 01/29/17 10:15 96 H 26 H 110/59 01/29/17 10:00 99 H 17 110/59 01/29/17 09:45 101 H 28 H 124/48 01/29/17 09:37 01/29/17 09:31 106/55 01/29/17 09:15 95 H 22 126/51 01/29/17 09:01 96 H 23 124/48 01/29/17 08:45 96 H 22 119/54 01/29/17 08:35 99 H 27 H 01/29/17 08:30 95 H 27 H 126/51 01/29/17 08:15 101 H 30 H 119/54 01/29/17 08:00 98.1 F 97 H 22 119/54 01/29/17 07:45 96 H 25 H 128/58 01/29/17 07:44 95 H 22 01/29/17 07:41 96 H 25 H 128/58 01/29/17 07:37 97 H 128/58 01/29/17 07:30 98 H 29 H 128/58 01/29/17 07:15 94 H 18 131/58 01/29/17 07:00 98 H 17 131/58 01/29/17 06:45 102 H 13 149/65 01/29/17 06:31 102 H 15 149/65 01/29/17 06:15 95 H 18 125/67 01/29/17 06:01 100 H 30 H 125/67 01/29/17 05:45 95 H 18 107/52 01/29/17 05:30 93 H 17 114/47 01/29/17 05:15 95 H 17 107/52 01/29/17 05:00 92 H 15 107/52 01/29/17 04:45 114/47 01/29/17 04:30 91 H 18 114/47 01/29/17 04:15 93 H 24 107/41 01/29/17 04:01 92 H 22 107/41 01/29/17 04:00 98.7 F 94 H 18 01/29/17 03:45 101 H 19 121/52 01/29/17 03:44 97 H 121/52 01/29/17 03:30 97 H 21 121/52 01/29/17 03:15 94 H 25 H 108/53 01/29/17 03:00 92 H 20 108/53 01/29/17 02:55 98 H 21 01/29/17 02:45 94 H 90 24 18 102/52 01/29/17 02:30 95 H 24 102/52 01/29/17 02:15 98 H 24 120/51 01/29/17 02:00 96 H 24 120/51 01/29/17 01:45 97 H 21 122/55 01/29/17 01:30 94 H 17 122/55 01/29/17 01:15 97 H 19 123/61 01/29/17 01:00 99 H 26 H 123/61 01/29/17 00:45 94 H 17 105/51 01/29/17 00:30 93 H 17 105/51 01/29/17 00:15 96 H 16 104/48 01/29/17 00:00 93 H 94 H 16 104/48 01/28/17 23:57 95 H 111/54 01/28/17 23:55 98.6 F 01/28/17 23:45 92 H 16 111/54 01/28/17 23:30 98 H 22 111/54 01/28/17 23:15 96 H 25 H 97/45 01/28/17 23:00 95 H 20 97/45 01/28/17 22:45 101 H 22 113/52 Pulse Ox 01/29/17 20:20 01/29/17 20:15 95 01/29/17 20:11 01/29/17 20:03 01/29/17 19:40 98 01/29/17 18:07 95 01/29/17 17:51 94 01/29/17 17:41 94 01/29/17 17:30 94 01/29/17 17:21 94 01/29/17 17:11 93 01/29/17 17:03 95 01/29/17 17:00 93 01/29/17 16:50 94 01/29/17 16:40 93 01/29/17 16:33 93 01/29/17 16:30 92 01/29/17 16:21 92 01/29/17 16:18 93 01/29/17 16:11 94 01/29/17 16:00 94 01/29/17 15:52 93 01/29/17 15:51 93 01/29/17 15:40 94 01/29/17 15:39 93 01/29/17 15:30 92 01/29/17 15:21 94 01/29/17 15:11 93 01/29/17 15:10 99 01/29/17 15:00 98 01/29/17 14:56 01/29/17 14:51 99 01/29/17 14:41 94 01/29/17 14:35 97 01/29/17 14:30 96 01/29/17 14:21 97 01/29/17 14:11 98 01/29/17 14:05 97 01/29/17 14:00 96 01/29/17 13:51 98 01/29/17 13:41 98 01/29/17 13:40 97 01/29/17 13:30 97 01/29/17 13:21 99 01/29/17 13:11 99 01/29/17 13:05 99 01/29/17 13:00 97 01/29/17 12:51 98 01/29/17 12:50 98 01/29/17 12:41 98 01/29/17 12:30 96 01/29/17 12:21 96 01/29/17 12:11 97 01/29/17 12:00 96 01/29/17 11:51 97 01/29/17 11:41 96 01/29/17 11:30 94 01/29/17 11:21 96 01/29/17 11:11 98 01/29/17 11:00 96 01/29/17 10:45 98 01/29/17 10:30 96 01/29/17 10:15 99 01/29/17 10:00 97 01/29/17 09:45 98 01/29/17 09:37 99 01/29/17 09:31 96 01/29/17 09:15 97 01/29/17 09:01 95 01/29/17 08:45 98 01/29/17 08:35 01/29/17 08:30 95 01/29/17 08:15 96 01/29/17 08:00 95 01/29/17 07:45 96 01/29/17 07:44 01/29/17 07:41 96 01/29/17 07:37 98 01/29/17 07:30 97 01/29/17 07:15 98 01/29/17 07:00 97 01/29/17 06:45 99 01/29/17 06:31 98 01/29/17 06:15 100 01/29/17 06:01 98 01/29/17 05:45 99 01/29/17 05:30 97 01/29/17 05:15 98 01/29/17 05:00 01/29/17 04:45 97 01/29/17 04:30 97 01/29/17 04:15 98 01/29/17 04:01 96 01/29/17 04:00 97 01/29/17 03:45 99 01/29/17 03:44 98 01/29/17 03:30 98 01/29/17 03:15 98 01/29/17 03:00 01/29/17 02:55 01/29/17 02:45 98 01/29/17 02:30 96 01/29/17 02:15 98 01/29/17 02:00 97 01/29/17 01:45 98 01/29/17 01:30 97 01/29/17 01:15 99 01/29/17 01:00 99 01/29/17 00:45 99 01/29/17 00:30 97 01/29/17 00:15 99 01/29/17 00:00 98 01/28/17 23:57 98 01/28/17 23:55 01/28/17 23:45 97 01/28/17 23:30 97 01/28/17 23:15 98 01/28/17 23:00 96 01/28/17 22:45 97 - Physical Examination General: No Apparent Distress HEENT: Positive: PERRL Neck: Positive: neck supple Neuro: Positive: Grossly Intact Abdomen: Positive: Soft Skin: Positive: Clear Extremities: Absent: edema - Labs and Meds Cardiac Enzymes 01/29/17 Range/Units 03:59 AST 32 (5-40) units/L CBC 01/29/17 Range/Units 03:59 WBC 23.0 H (4.5-11.0) K/mm3 RBC 2.50 L (3.65-5.03) M/mm3 Hgb 6.6 L D (11.8-15.2) gm/dl Hct 21.5 L D (35.5-45.6) % Plt Count 485 H (140-440) K/mm3 Comprehensive Metabolic Panel 01/29/17 Range/Units 03:59 Sodium 129 L (137-145) mmol/L Potassium 5.3 H D (3.6-5.0) mmol/L Chloride 93.7 L (98-107) mmol/L Carbon Dioxide 25 (22-30) mmol/L BUN 37 H (9-20) mg/dL Creatinine 1.5 D (0.8-1.5) mg/dL Glucose 154 H (75-100) mg/dL Calcium 7.2 L (8.4-10.2) mg/dL AST 32 (5-40) units/L ALT 33 (7-56) units/L Alkaline Phosphatase 131 H (35-129) units/L Total Protein 6.2 L (6.3-8.2) g/dL Albumin 1.5 L (3.9-5) g/dL
[2017-01-30] MEDS: NOVOLOG SUB-Q SCH ×6 (00:03→23:00)
[2017-01-30] MEDS: CLEOCIN 600 MG/50 mL 600 MG/50 ML BAG IV SCH ×4 (01:10→17:48)
[2017-01-30] MEDS: MORPHINE IV PRN (01:54)
[2017-01-30] MEDS: DUONEB *Not for PRN Use IH SCH ×4 (02:28→21:30)
[2017-01-30 04:27] LABS: Hematocrit 24.3 % (35.5-45.6); Hemoglobin 7.9 gm/dl (11.8-15.2); Mean Corpuscular HGB Conc 33 % (32-34); Mean Corpuscular Hemoglobin 27 pg (28-32); Mean Corpuscular Volume 82 fl (84-94); Platelet Count 429 K/mm3 (140-440); Red Blood Count 2.97 M/mm3 (3.65-5.03); White Blood Count 15.9 K/mm3 (4.5-11.0)
[2017-01-30 04:31] LABS: BUN/Creatinine Ratio 29.28; Calcium 7.2 mg/dL (8.4-10.2); Chloride 97.8 mmol/L (98-107); Potassium 4.5 mmol/L (3.6-5.0)
[2017-01-30] MEDS: HEPARIN SUB-Q SCH ×4 (06:45→22:44)
--- NOTE | 2017-01-30 11:38 | Event Note ---
Date: 01/30/17 POD 2 s/p decortication left chest, VSS AF, chronic afib, rate controlled, CT patent, serosanguinous drainage, HGB OK after 2 units of prbcs, back to baseline , extubated, tube feeds resumed, OK to transfer to floor from my standpoint if all consultants agree, will probably d/c CT on Wednesday, antibiotics per Hospitalist, Mobilization OK from my standpoint, DVT prophylaxis OK as well. I have little else to add at present.Consider long range placement or disposition after CT removed.Transition to oral pain meds when tolerated.
--- NOTE | 2017-01-30 12:08 | Progress Note ---
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 continue supplemental O2. Wean as tolerated 2. Agree with floor transfer. Not sure if on [facility] unit they handle chest tubes. 3. Abx therapy. 4. Given 2 units of PRBC's. No evidence of active bleeding. Will monitor. Subjective Date of service: 01/30/17 Principal diagnosis: Pneumonia,pleural effusion-empyema,urinary retention Interval history: still in ICU. Chest tube stable. Breathing stable Objective Vital Signs - 12hr 01/30/17 01/30/17 01/30/17 00:15 00:30 00:45 Temperature Pulse Rate 88 93 H 87 Pulse Rate [ Anterior Bilateral] Pulse Rate [ From Monitor] Respiratory 19 20 21 Rate Respiratory Rate [Anterior Bilateral] Blood Pressure 111/50 104/43 104/43 O2 Sat by Pulse 96 95 96 Oximetry 01/30/17 01/30/17 01/30/17 01:00 01:15 01:30 Temperature Pulse Rate 93 H 88 87 Pulse Rate [ Anterior Bilateral] Pulse Rate [ From Monitor] Respiratory 18 22 19 Rate Respiratory Rate [Anterior Bilateral] Blood Pressure 102/47 102/47 118/52 O2 Sat by Pulse 94 96 94 Oximetry 01/30/17 01/30/17 01/30/17 01:45 01:54 02:00 Temperature Pulse Rate 95 H 91 H Pulse Rate [ Anterior Bilateral] Pulse Rate [ From Monitor] Respiratory 18 17 20 Rate Respiratory Rate [Anterior Bilateral] Blood Pressure 118/52 120/51 O2 Sat by Pulse 95 94 Oximetry 01/30/17 01/30/17 01/30/17 02:01 02:15 02:26 Temperature Pulse Rate 87 Pulse Rate [ 94 H Anterior Bilateral] Pulse Rate [ From Monitor] Respiratory 19 25 H Rate Respiratory 19 Rate [Anterior Bilateral] Blood Pressure 120/51 O2 Sat by Pulse 95 Oximetry 01/30/17 01/30/17 01/30/17 02:31 02:36 02:45 Temperature Pulse Rate 98 H 98 H Pulse Rate [ 92 H Anterior Bilateral] Pulse Rate [ From Monitor] Respiratory 28 H 18 Rate Respiratory 21 Rate [Anterior Bilateral] Blood Pressure 117/51 117/51 O2 Sat by Pulse 98 96 Oximetry 01/30/17 01/30/17 01/30/17 03:00 03:15 03:25 Temperature 98.6 F Pulse Rate 100 H 100 H Pulse Rate [ Anterior Bilateral] Pulse Rate [ From Monitor] Respiratory 22 17 Rate Respiratory Rate [Anterior Bilateral] Blood Pressure 126/50 126/50 O2 Sat by Pulse 94 95 Oximetry 01/30/17 01/30/17 01/30/17 03:30 03:45 04:00 Temperature Pulse Rate 107 H 93 H 112 H Pulse Rate [ Anterior Bilateral] Pulse Rate [ 99 H From Monitor] Respiratory 22 16 24 Rate Respiratory Rate [Anterior Bilateral] Blood Pressure 117/48 117/48 116/53 O2 Sat by Pulse 95 94 91 Oximetry 01/30/17 01/30/17 01/30/17 04:15 04:30 04:45 Temperature Pulse Rate 95 H 114 H 97 H Pulse Rate [ Anterior Bilateral] Pulse Rate [ From Monitor] Respiratory 18 20 21 Rate Respiratory Rate [Anterior Bilateral] Blood Pressure 116/53 116/54 116/54 O2 Sat by Pulse 95 97 95 Oximetry 01/30/17 01/30/17 01/30/17 05:00 05:15 05:21 Temperature 189 F H Pulse Rate 112 H 108 H Pulse Rate [ Anterior Bilateral] Pulse Rate [ From Monitor] Respiratory 22 26 H Rate Respiratory Rate [Anterior Bilateral] Blood Pressure 136/61 136/61 O2 Sat by Pulse 91 90 Oximetry 01/30/17 01/30/17 01/30/17 05:30 05:45 06:00 Temperature Pulse Rate 109 H 90 103 H Pulse Rate [ Anterior Bilateral] Pulse Rate [ From Monitor] Respiratory 20 17 21 Rate Respiratory Rate [Anterior Bilateral] Blood Pressure 115/53 115/53 123/56 O2 Sat by Pulse 94 97 96 Oximetry 01/30/17 01/30/17 01/30/17 06:15 06:30 06:45 Temperature Pulse Rate 95 H 92 H 100 H Pulse Rate [ Anterior Bilateral] Pulse Rate [ From Monitor] Respiratory 24 20 17 Rate Respiratory Rate [Anterior Bilateral] Blood Pressure 123/56 128/57 128/57 O2 Sat by Pulse 96 96 97 Oximetry 01/30/17 01/30/17 01/30/17 07:00 07:15 07:30 Temperature Pulse Rate 85 104 H 91 H Pulse Rate [ Anterior Bilateral] Pulse Rate [ From Monitor] Respiratory 22 22 18 Rate Respiratory Rate [Anterior Bilateral] Blood Pressure 127/53 127/53 117/51 O2 Sat by Pulse 96 96 96 Oximetry 01/30/17 01/30/17 01/30/17 07:45 08:00 08:15 Temperature 97.4 F L Pulse Rate 91 H 87 95 H Pulse Rate [ Anterior Bilateral] Pulse Rate [ 87 From Monitor] Respiratory 20 18 18 Rate Respiratory Rate [Anterior Bilateral] Blood Pressure 117/51 120/50 120/50 O2 Sat by Pulse 96 96 96 Oximetry 01/30/17 01/30/17 01/30/17 08:30 08:45 08:54 Temperature Pulse Rate 89 98 H Pulse Rate [ 92 H Anterior Bilateral] Pulse Rate [ From Monitor] Respiratory 18 18 Rate Respiratory 18 Rate [Anterior Bilateral] Blood Pressure 113/44 113/44 O2 Sat by Pulse 91 92 Oximetry 01/30/17 01/30/17 01/30/17 09:00 09:05 09:15 Temperature Pulse Rate 97 H 91 H Pulse Rate [ 93 H Anterior Bilateral] Pulse Rate [ From Monitor] Respiratory 17 19 Rate Respiratory 20 Rate [Anterior Bilateral] Blood Pressure 110/48 110/48 O2 Sat by Pulse 100 95 Oximetry 01/30/17 01/30/17 01/30/17 09:30 09:45 10:00 Temperature Pulse Rate 105 H 104 H 107 H Pulse Rate [ Anterior Bilateral] Pulse Rate [ From Monitor] Respiratory 18 17 21 Rate Respiratory Rate [Anterior Bilateral] Blood Pressure 109/44 109/44 105/50 O2 Sat by Pulse 93 95 94 Oximetry 01/30/17 10:15 Temperature Pulse Rate 92 H Pulse Rate [ Anterior Bilateral] Pulse Rate [ From Monitor] Respiratory 17 Rate Respiratory Rate [Anterior Bilateral] Blood Pressure 105/50 O2 Sat by Pulse 95 Oximetry Constitutional: no acute distress, alert Eyes: non-icteric ENT: other (poor dentition) Effort: normal Ascultation: Bilateral: clear, diminished breath sounds (About 500cc of bloody fluid) Percussion: Left: dull (base) Cardiovascular: regular rate and rhythm Gastrointestinal: normoactive bowel sounds, soft, non-tender Extremities: no cyanosis, no cyanosis, no cyanosis Neurologic: normal mental status, non-focal exam CBC and BMP: 01/30/17 03:50 01/30/17 03:50 ABG, PT/INR, D-dimer: ABG POC ABG pH 7.458 (7.35-7.45) H 01/29/17 03:43 POC ABG pCO2 34.8 (35-45) L 01/29/17 03:43 POC ABG pO2 97 (80-105) 01/29/17 03:43 POC ABG HCO3 24.6 01/29/17 03:43 POC ABG Total CO2 26 01/29/17 03:43 POC ABG O2 Sat 98 01/29/17 03:43 PT/INR, D-dimer PT 16.6 Sec. (12.2-14.9) H 01/20/17 05:50 INR 1.27 (0.87-1.13) H 01/20/17 05:50 Abnormal lab findings: Abnormal Labs 01/15/17 01/15/17 01/15/17 06:20 06:20 12:11 WBC 28.5 H RBC 3.55 L Hgb 9.7 L Hct 30.3 L MCV MCH 27 L MCHC RDW 16.2 H Plt Count Lymph % (Auto) [place] % (Auto) Lymph # [place] # Seg Neutrophils % Seg Neuts % (Manual) Lymphocytes % (Manual) Monocytes % (Manual) Seg Neutrophils # Seg Neutrophils # Man Monocytes # (Manual) PT 16.3 H INR 1.32 H APTT 38.4 H POC ABG pH POC ABG pCO2 POC ABG pO2 Sodium 134 L Potassium Chloride 97.6 L Carbon Dioxide BUN 26 H Creatinine Glucose POC Glucose Calcium 8.2 L Alkaline Phosphatase Total Protein Albumin Fluid Total Protein Crossmatch 01/15/17 01/16/17 01/16/17 Unknown 04:54 04:54 WBC 24.9 H RBC Hgb 10.0 L Hct 31.8 L MCV MCH 27 L MCHC RDW 16.2 H Plt Count Lymph % (Auto) [place] % (Auto) Lymph # [place] # Seg Neutrophils % Seg Neuts % (Manual) 37.0 L Lymphocytes % (Manual) 12.0 L Monocytes % (Manual) 10.0 H Seg Neutrophils # Seg Neutrophils # Man 9.2 H Monocytes # (Manual) 2.5 H PT INR APTT POC ABG pH POC ABG pCO2 POC ABG pO2 Sodium 132 L Potassium Chloride 95.2 L Carbon Dioxide BUN 29 H Creatinine Glucose 130 H POC Glucose Calcium 8.3 L Alkaline Phosphatase Total Protein Albumin Fluid Total Protein 5.3 L Crossmatch 01/17/17 01/17/17 01/17/17 04:55 04:55 10:49 WBC 23.8 H RBC Hgb 10.9 L Hct 33.6 L MCV MCH MCHC RDW 16.4 H Plt Count Lymph % (Auto) [place] % (Auto) Lymph # [place] # Seg Neutrophils % Seg Neuts % (Manual) 36.0 L Lymphocytes % (Manual) 8.0 L Monocytes % (Manual) 18.0 H Seg Neutrophils # Seg Neutrophils # Man 8.6 H Monocytes # (Manual) 4.3 H PT INR APTT POC ABG pH POC ABG pCO2 POC ABG pO2 Sodium 132 L Potassium Chloride 95.7 L Carbon Dioxide 21 L BUN 30 H Creatinine Glucose 130 H POC Glucose 200 H Calcium Alkaline Phosphatase Total Protein Albumin Fluid Total Protein Crossmatch 01/17/17 01/17/17 01/18/17 11:32 23:41 03:46 WBC 23.2 H RBC Hgb 10.5 L Hct 32.0 L MCV MCH MCHC RDW 16.0 H Plt Count Lymph % (Auto) [place] % (Auto) Lymph # [place] # Seg Neutrophils % Seg Neuts % (Manual) Lymphocytes % (Manual) 6.0 L Monocytes % (Manual) 10.0 H Seg Neutrophils # Seg Neutrophils # Man 16.2 H Monocytes # (Manual) 2.3 H PT INR APTT POC ABG pH 7.315 L POC ABG pCO2 POC ABG pO2 41 L Sodium Potassium Chloride Carbon Dioxide BUN Creatinine Glucose POC Glucose Calcium Alkaline Phosphatase Total Protein Albumin 1.9 L Fluid Total Protein Crossmatch 01/18/17 01/19/17 01/19/17 03:46 03:41 03:41 WBC 19.8 H RBC 3.61 L Hgb 9.8 L Hct 30.2 L MCV MCH 27 L MCHC RDW 16.1 H Plt Count 505 H Lymph % (Auto) 5.2 L [place] % (Auto) 13.3 H Lymph # 1.0 L [place] # 2.6 H Seg Neutrophils % 81.1 H Seg Neuts % (Manual) Lymphocytes % (Manual) Monocytes % (Manual) Seg Neutrophils # 16.1 H Seg Neutrophils # Man Monocytes # (Manual) PT INR APTT POC ABG pH POC ABG pCO2 POC ABG pO2 Sodium 134 L 133 L Potassium Chloride 96.6 L 96.0 L Carbon Dioxide 21 L 21 L BUN 50 H 42 H Creatinine 1.9 H Glucose 177 H 122 H POC Glucose Calcium 8.1 L 8.0 L Alkaline Phosphatase Total Protein Albumin Fluid Total Protein Crossmatch 01/20/17 01/20/17 01/20/17 05:50 05:50 05:50 WBC 18.4 H RBC Hgb 10.5 L Hct 32.0 L MCV 83 L MCH 27 L MCHC RDW 16.3 H Plt Count 540 H Lymph % (Auto) 7.7 L [place] % (Auto) 15.7 H Lymph # [place] # 2.9 H Seg Neutrophils % 76.2 H Seg Neuts % (Manual) Lymphocytes % (Manual) Monocytes % (Manual) Seg Neutrophils # 14.0 H Seg Neutrophils # Man Monocytes # (Manual) PT 16.6 H INR 1.27 H APTT POC ABG pH POC ABG pCO2 POC ABG pO2 Sodium Potassium Chloride Carbon Dioxide BUN 24 H Creatinine Glucose 104 H POC Glucose Calcium 8.0 L Alkaline Phosphatase Total Protein Albumin 1.7 L Fluid Total Protein Crossmatch 01/20/17 01/22/17 01/22/17 21:03 07:34 07:34 WBC 24.9 H RBC Hgb 10.6 L Hct 33.8 L MCV MCH 27 L MCHC 31 L RDW 16.6 H Plt Count 582 H Lymph % (Auto) [place] % (Auto) Lymph # [place] # Seg Neutrophils % Seg Neuts % (Manual) Lymphocytes % (Manual) Monocytes % (Manual) Seg Neutrophils # Seg Neutrophils # Man Monocytes # (Manual) PT INR APTT POC ABG pH POC ABG pCO2 POC ABG pO2 Sodium Potassium Chloride Carbon Dioxide BUN Creatinine Glucose 163 H POC Glucose 110 H Calcium 7.9 L Alkaline Phosphatase Total Protein Albumin Fluid Total Protein Crossmatch 01/23/17 01/24/17 01/24/17 08:49 08:01 08:01 WBC 23.7 H 25.6 H RBC Hgb 10.2 L 10.0 L Hct 31.6 L 31.0 L MCV MCH 27 L 27 L MCHC RDW 16.6 H 16.5 H Plt Count 559 H 535 H Lymph % (Auto) [place] % (Auto) Lymph # [place] # Seg Neutrophils % Seg Neuts % (Manual) 86.0 H Lymphocytes % (Manual) 7.0 L Monocytes % (Manual) Seg Neutrophils # Seg Neutrophils # Man 20.4 H Monocytes # (Manual) 1.4 H PT INR APTT POC ABG pH POC ABG pCO2 POC ABG pO2 Sodium 134 L Potassium Chloride 95.3 L Carbon Dioxide BUN Creatinine Glucose 162 H POC Glucose Calcium 7.5 L Alkaline Phosphatase Total Protein Albumin Fluid Total Protein Crossmatch 01/25/17 01/25/17 01/25/17 00:23 06:29 11:54 WBC RBC Hgb Hct MCV MCH MCHC RDW Plt Count Lymph % (Auto) [place] % (Auto) Lymph # [place] # Seg Neutrophils % Seg Neuts % (Manual) Lymphocytes % (Manual) Monocytes % (Manual) Seg Neutrophils # Seg Neutrophils # Man Monocytes # (Manual) PT INR APTT POC ABG pH POC ABG pCO2 POC ABG pO2 Sodium Potassium Chloride Carbon Dioxide BUN Creatinine Glucose POC Glucose 165 H 119 H 235 H Calcium Alkaline Phosphatase Total Protein Albumin Fluid Total Protein Crossmatch 01/25/17 01/25/17 01/26/17 18:18 21:30 04:28 WBC 24.8 H RBC 3.63 L Hgb 9.7 L Hct 30.7 L MCV MCH 27 L MCHC RDW 16.8 H Plt Count 542 H Lymph % (Auto) [place] % (Auto) Lymph # [place] # Seg Neutrophils % Seg Neuts % (Manual) Lymphocytes % (Manual) Monocytes % (Manual) Seg Neutrophils # Seg Neutrophils # Man Monocytes # (Manual) PT INR APTT POC ABG pH POC ABG pCO2 POC ABG pO2 Sodium Potassium Chloride Carbon Dioxide BUN Creatinine Glucose POC Glucose 191 H 119 H Calcium Alkaline Phosphatase Total Protein Albumin Fluid Total Protein Crossmatch 01/26/17 01/26/17 01/26/17 04:28 05:11 12:07 WBC RBC Hgb Hct MCV MCH MCHC RDW Plt Count Lymph % (Auto) [place] % (Auto) Lymph # [place] # Seg Neutrophils % Seg Neuts % (Manual) Lymphocytes % (Manual) Monocytes % (Manual) Seg Neutrophils # Seg Neutrophils # Man Monocytes # (Manual) PT INR APTT POC ABG pH POC ABG pCO2 POC ABG pO2 Sodium 133 L Potassium Chloride 94.9 L Carbon Dioxide BUN Creatinine Glucose 166 H POC Glucose 182 H 199 H Calcium 7.5 L Alkaline Phosphatase Total Protein Albumin Fluid Total Protein Crossmatch 01/26/17 01/26/17 01/27/17 18:01 22:08 06:24 WBC RBC Hgb Hct MCV MCH MCHC RDW Plt Count Lymph % (Auto) [place] % (Auto) Lymph # [place] # Seg Neutrophils % Seg Neuts % (Manual) Lymphocytes % (Manual) Monocytes % (Manual) Seg Neutrophils # Seg Neutrophils # Man Monocytes # (Manual) PT INR APTT POC ABG pH POC ABG pCO2 POC ABG pO2 Sodium Potassium Chloride Carbon Dioxide BUN Creatinine Glucose POC Glucose 127 H 168 H 167 H Calcium Alkaline Phosphatase Total Protein Albumin Fluid Total Protein Crossmatch 01/27/17 01/27/17 01/27/17 11:36 14:04 18:04 WBC RBC Hgb Hct MCV MCH MCHC RDW Plt Count Lymph % (Auto) [place] % (Auto) Lymph # [place] # Seg Neutrophils % Seg Neuts % (Manual) Lymphocytes % (Manual) Monocytes % (Manual) Seg Neutrophils # Seg Neutrophils # Man Monocytes # (Manual) PT INR APTT POC ABG pH POC ABG pCO2 POC ABG pO2 Sodium Potassium Chloride Carbon Dioxide BUN Creatinine Glucose POC Glucose 235 H 165 H Calcium Alkaline Phosphatase Total Protein Albumin Fluid Total Protein Crossmatch See Detail 01/27/17 01/28/17 01/28/17 23:41 06:33 12:29 WBC RBC Hgb Hct MCV MCH MCHC RDW Plt Count Lymph % (Auto) [place] % (Auto) Lymph # [place] # Seg Neutrophils % Seg Neuts % (Manual) Lymphocytes % (Manual) Monocytes % (Manual) Seg Neutrophils # Seg Neutrophils # Man Monocytes # (Manual) PT INR APTT POC ABG pH POC ABG pCO2 POC ABG pO2 Sodium Potassium Chloride Carbon Dioxide BUN Creatinine Glucose POC Glucose 192 H 131 H 143 H Calcium Alkaline Phosphatase Total Protein Albumin Fluid Total Protein Crossmatch 01/28/17 01/28/17 01/29/17 13:42 23:41 03:43 WBC RBC Hgb Hct MCV MCH MCHC RDW Plt Count Lymph % (Auto) [place] % (Auto) Lymph # [place] # Seg Neutrophils % Seg Neuts % (Manual) Lymphocytes % (Manual) Monocytes % (Manual) Seg Neutrophils # Seg Neutrophils # Man Monocytes # (Manual) PT INR APTT POC ABG pH 7.458 H POC ABG pCO2 34.8 L POC ABG pO2 63 L Sodium Potassium Chloride Carbon Dioxide BUN Creatinine Glucose POC Glucose 199 H Calcium Alkaline Phosphatase Total Protein Albumin Fluid Total Protein Crossmatch 01/29/17 01/29/17 01/29/17 03:59 03:59 05:28 WBC 23.0 H RBC 2.50 L Hgb 6.6 L D Hct 21.5 L D MCV MCH 27 L MCHC 31 L RDW 16.7 H Plt Count 485 H Lymph % (Auto) [place] % (Auto) Lymph # [place] # Seg Neutrophils % Seg Neuts % (Manual) 86.0 H Lymphocytes % (Manual) 7.0 L Monocytes % (Manual) Seg Neutrophils # Seg Neutrophils # Man 19.8 H Monocytes # (Manual) 1.6 H PT INR APTT POC ABG pH POC ABG pCO2 POC ABG pO2 Sodium 129 L Potassium 5.3 H D Chloride 93.7 L Carbon Dioxide BUN 37 H Creatinine Glucose 154 H POC Glucose 175 H Calcium 7.2 L Alkaline Phosphatase 131 H Total Protein 6.2 L Albumin 1.5 L Fluid Total Protein Crossmatch 01/29/17 01/29/17 01/29/17 11:58 17:48 23:59 WBC RBC Hgb Hct MCV MCH MCHC RDW Plt Count Lymph % (Auto) [place] % (Auto) Lymph # [place] # Seg Neutrophils % Seg Neuts % (Manual) Lymphocytes % (Manual) Monocytes % (Manual) Seg Neutrophils # Seg Neutrophils # Man Monocytes # (Manual) PT INR APTT POC ABG pH POC ABG pCO2 POC ABG pO2 Sodium Potassium Chloride Carbon Dioxide BUN Creatinine Glucose POC Glucose 179 H 156 H 181 H Calcium Alkaline Phosphatase Total Protein Albumin Fluid Total Protein Crossmatch 01/30/17 01/30/17 01/30/17 03:50 03:50 05:11 WBC 15.9 H RBC 2.97 L Hgb 7.9 L Hct 24.3 L MCV 82 L D MCH 27 L MCHC RDW 17.0 H Plt Count Lymph % (Auto) [place] % (Auto) Lymph # [place] # Seg Neutrophils % Seg Neuts % (Manual) Lymphocytes % (Manual) Monocytes % (Manual) Seg Neutrophils # Seg Neutrophils # Man Monocytes # (Manual) PT INR APTT POC ABG pH POC ABG pCO2 POC ABG pO2 Sodium 133 L Potassium Chloride 97.8 L Carbon Dioxide BUN 41 H Creatinine Glucose 150 H POC Glucose 189 H Calcium 7.2 L Alkaline Phosphatase Total Protein Albumin Fluid Total Protein Crossmatch 01/30/17 11:22 WBC RBC Hgb Hct MCV MCH MCHC RDW Plt Count Lymph % (Auto) [place] % (Auto) Lymph # [place] # Seg Neutrophils % Seg Neuts % (Manual) Lymphocytes % (Manual) Monocytes % (Manual) Seg Neutrophils # Seg Neutrophils # Man Monocytes # (Manual) PT INR APTT POC ABG pH POC ABG pCO2 POC ABG pO2 Sodium Potassium Chloride Carbon Dioxide BUN Creatinine Glucose POC Glucose 137 H Calcium Alkaline Phosphatase Total Protein Albumin Fluid Total Protein Crossmatch
--- NOTE | 2017-01-30 13:19 | Progress Note ---
Assessment and Plan Assessment and plan: Patient is 86-year-old man with history of hypertension, coronary artery disease and CABG, recent pneumonia. He was recently diagnosed with pneumonia on 12/20/16, and was placed on Levaquin po and discharged home from ED. He completed 10 days of Levaquin. Currently he presents with left lower chest pain and cough. On Admission he is found to have loculated effusion on the left lower lobe. Despite thoracentesis no resolution was noted, so Patient had pigtail catheter placed left lung. A PEG tube was also placed for nutritional support. Pleural effusion shown to be empyema. -Acute respiratory failure 2/2 aspiration pneumonitis, Thoracentesis was done and 1660 mL of yellowish fluid was taken out=empyema, Prelim culture grew non- Group D streptococcus pneumonia , CT showed loculated effusion, exudative. -Cardiothoracic surgery consulted -Cardiac pre-op evaluation noted. -Left lower lobe pneumonia with parapneumonic effusion -Hypertension-Stable -BPH on Flomax -Moderate protein calorie malnutrition BMI 18. Continue tube feeds. -Paroxysmal Atrial fibrillation-NOT a good candidate for anticoagulation, due to thoracoscopIc procedure for peristent left pleural effusion. -CAD stable continue aspirin-we'll obtain cardiac clearance for possible VATS procedure -Anemia-stable likely chronic disease will monitor closely. DVT prophylaxis SCD, heparin CODE STATUS full Disposition Continue inpatient care. per Cardiology: "Recommendations: He has a moderate perioperative cardiac risk, and this should be considered in his preoperative surgical assessment. Okay to proceed with thoracoscopy and VATS procedure as planned. Medical therapy for his coronary artery disease." 01/28/[address] bore CT, Keep intubated overnight after procedure for lung expansion; per Dr. De Jesus's VATS op note: "c/w loculated left parapneumonic effusion, Procedure: Attempted left VATS,converted to very limited left thoracotomy, decortication of left chest-peel sent for perm path." 01/29/17 Extubated, drop in hct transfus 2 units pRBC today, probably drainage from yesterday's procedure, unlikely bleeding, will monitor. CBC in am 01/30/17: CBC steady, slighty drop but will repeat in am. non group Streptococcus lung, on iv Vancomycin. History Interval history: Patient seen and examined. Follow up on shortness breath. Was admitted to icu, intubated after VATS yesterday 01/28/17, extubated 01/29/17 and remained stable overnigh. Imaging, old records, testing, labs, nursing notes reviewed. He does have left-sided chest wall pains with chest tube in place. at bedside. Hospitalist Physical - Physical exam Narrative exam: GEN: Thin frail, NAD, AWAKE, ALERT, ORIENTATED x 3 CVS: RRR, NORMAL S1S2 LUNGS/CHEST: Bibasilar crackles reduced breath sounds on the left base NORMAL CHEST EXPANSION B, ABD: SOFT, NTND, GBS, NO REBOUND OR GUARDING EXT/SKIN: NO SIGNIFICANT EDEMA OR RASH MSK: FROM X 4 EXTREMITIES NEURO: CN 2-12 GROSSLY INTACT, NO FOCAL DEFICITS PSY: CALM - Constitutional Vitals: Temp Pulse Resp BP Pulse Ox 97.4 F L 92 H 17 105/50 95 01/30/17 08:00 01/30/17 10:15 01/30/17 10:15 01/30/17 10:15 01/30/17 10:15 General appearance: Present: no acute distress Results - Labs CBC & Chem 7: 01/30/17 03:50 01/30/17 03:50 Labs: Laboratory Last Values WBC 15.9 K/mm3 (4.5-11.0) H 01/30/17 03:50 RBC 2.97 M/mm3 (3.65-5.03) L 01/30/17 03:50 Hgb 7.9 gm/dl (11.8-15.2) L 01/30/17 03:50 Hct 24.3 % (35.5-45.6) L 01/30/17 03:50 MCV 82 fl (84-94) L D 01/30/17 03:50 MCH 27 pg (28-32) L 01/30/17 03:50 MCHC 33 % (32-34) 01/30/17 03:50 RDW 17.0 % (13.2-15.2) H 01/30/17 03:50 Plt Count 429 K/mm3 (140-440) 01/30/17 03:50 Lymph % (Auto) 7.7 % (13.4-35.0) L 01/20/17 05:50 Rolette % (Auto) 15.7 % (0.0-7.3) H 01/20/17 05:50 Eos % (Auto) 0.3 % (0.0-4.3) 01/20/17 05:50 Baso % (Auto) 0.1 % (0.0-1.8) 01/20/17 05:50 Lymph # 1.4 K/mm3 (1.2-5.4) 01/20/17 05:50 Rolette # 2.9 K/mm3 (0.0-0.8) H 01/20/17 05:50 Eos # 0.1 K/mm3 (0.0-0.4) 01/20/17 05:50 Baso # 0.0 K/mm3 (0.0-0.1) 01/20/17 05:50 Add Manual Diff Complete 01/29/17 03:59 Total Counted 100 01/29/17 03:59 Seg Neutrophils % 76.2 % (40.0-70.0) H 01/20/17 05:50 Seg Neuts % (Manual) 86.0 % (40.0-70.0) H 01/29/17 03:59 Band Neutrophils % 0 % 01/29/17 03:59 Lymphocytes % (Manual) 7.0 % (13.4-35.0) L 01/29/17 03:59 Reactive Lymphs % (Man) 0 % 01/29/17 03:59 Monocytes % (Manual) 7.0 % (0.0-7.3) 01/29/17 03:59 Eosinophils % (Manual) 0 % (0.0-4.3) 01/29/17 03:59 Basophils % (Manual) 0 % (0.0-1.8) 01/29/17 03:59 Metamyelocytes % 0 % 01/29/17 03:59 Myelocytes % 0 % 01/29/17 03:59 Promyelocytes % 0 % 01/29/17 03:59 Blast Cells % 0 % 01/29/17 03:59 Nucleated RBC % Not Reportable 01/29/17 03:59 Seg Neutrophils # 14.0 K/mm3 (1.8-7.7) H 01/20/17 05:50 Seg Neutrophils # Man 19.8 K/mm3 (1.8-7.7) H 01/29/17 03:59 Band Neutrophils # 0.0 K/mm3 01/29/17 03:59 Lymphocytes # (Manual) 1.6 K/mm3 (1.2-5.4) 01/29/17 03:59 Abs React Lymphs (Man) 0.0 K/mm3 01/29/17 03:59 Monocytes # (Manual) 1.6 K/mm3 (0.0-0.8) H 01/29/17 03:59 Eosinophils # (Manual) 0.0 K/mm3 (0.0-0.4) 01/29/17 03:59 Basophils # (Manual) 0.0 K/mm3 (0.0-0.1) 01/29/17 03:59 Metamyelocytes # 0.0 K/mm3 01/29/17 03:59 Myelocytes # 0.0 K/mm3 01/29/17 03:59 Promyelocytes # 0.0 K/mm3 01/29/17 03:59 Blast Cells # 0.0 K/mm3 01/29/17 03:59 WBC Morphology Not Reportable 01/29/17 03:59 Hypersegmented Neuts Not Reportable 01/29/17 03:59 Hyposegmented Neuts Not Reportable 01/29/17 03:59 Hypogranular Neuts Not Reportable 01/29/17 03:59 Smudge Cells Not Reportable 01/29/17 03:59 Toxic Granulation Not Reportable 01/29/17 03:59 Toxic Vacuolation Not Reportable 01/29/17 03:59 Dohle Bodies Not Reportable 01/29/17 03:59 Pelger-Huet Anomaly Not Reportable 01/29/17 03:59 Lore Rods Not Reportable 01/29/17 03:59 Platelet Estimate Appears increased 01/29/17 03:59 Clumped Platelets Not Reportable 01/29/17 03:59 Plt Clumps, EDTA Not Reportable 01/29/17 03:59 Large Platelets Not Reportable 01/29/17 03:59 Giant Platelets Not Reportable 01/29/17 03:59 Platelet Satelliting Not Reportable 01/29/17 03:59 Plt Morphology Comment Not Reportable 01/29/17 03:59 RBC Morphology Not Reportable 01/29/17 03:59 Dimorphic RBCs Not Reportable 01/29/17 03:59 Polychromasia Not Reportable 01/29/17 03:59 Hypochromasia 1+ 01/29/17 03:59 Poikilocytosis 1+ 01/29/17 03:59 Anisocytosis 2+ 01/29/17 03:59 Microcytosis Not Reportable 01/29/17 03:59 Macrocytosis Not Reportable 01/29/17 03:59 Spherocytes Not Reportable 01/29/17 03:59 Pappenheimer Bodies Not Reportable 01/29/17 03:59 Sickle Cells Not Reportable 01/29/17 03:59 Target Cells Rare 01/29/17 03:59 Tear Drop Cells Not Reportable 01/29/17 03:59 Ovalocytes Not Reportable 01/29/17 03:59 Helmet Cells Not Reportable 01/29/17 03:59 Rosas-[place] Bodies Not Reportable 01/29/17 03:59 Helena Rings Not Reportable 01/29/17 03:59 Benjamin Cells Not Reportable 01/29/17 03:59 Bite Cells Not Reportable 01/29/17 03:59 Crenated Cell Not Reportable 01/29/17 03:59 Elliptocytes Few 01/29/17 03:59 Acanthocytes (Spur) Not Reportable 01/29/17 03:59 Rouleaux Not Reportable 01/29/17 03:59 Hemoglobin C Crystals Not Reportable 01/29/17 03:59 Schistocytes Rare 01/29/17 03:59 Malaria parasites Not Reportable 01/29/17 03:59 Steve Bodies Not Reportable 01/29/17 03:59 Hem Pathologist Commnt No 01/29/17 03:59 PT 16.6 Sec. (12.2-14.9) H 01/20/17 05:50 INR 1.27 (0.87-1.13) H 01/20/17 05:50 APTT 38.4 Sec. (24.2-36.6) H 01/15/17 12:11 POC ABG pH 7.458 (7.35-7.45) H 01/29/17 03:43 POC ABG pCO2 34.8 (35-45) L 01/29/17 03:43 POC ABG pO2 97 (80-105) 01/29/17 03:43 POC ABG HCO3 24.6 01/29/17 03:43 POC ABG Total CO2 26 01/29/17 03:43 POC ABG O2 Sat 98 01/29/17 03:43 POC ABG Base Excess 1 01/29/17 03:43 FiO2 50 % 01/29/17 03:43 Sodium 133 mmol/L (137-145) L 01/30/17 03:50 Potassium 4.5 mmol/L (3.6-5.0) 01/30/17 03:50 Chloride 97.8 mmol/L (98-107) L 01/30/17 03:50 Carbon Dioxide 28 mmol/L (22-30) 01/30/17 03:50 Anion Gap 12 mmol/L 01/30/17 03:50 BUN 41 mg/dL (9-20) H 01/30/17 03:50 Creatinine 1.4 mg/dL (0.8-1.5) 01/30/17 03:50 Estimated GFR 48 ml/min 01/30/17 03:50 BUN/Creatinine Ratio 29.28 % 01/30/17 03:50 Glucose 150 mg/dL (75-100) H 01/30/17 03:50 POC Glucose 137 (70-105) H 01/30/17 11:22 Calcium 7.2 mg/dL (8.4-10.2) L 01/30/17 03:50 Total Bilirubin 0.40 mg/dL (0.1-1.2) 01/29/17 03:59 Direct Bilirubin < 0.2 mg/dL (0-0.2) 01/17/17 23:41 Indirect Bilirubin 0.1 mg/dL 01/17/17 23:41 AST 32 units/L (5-40) 01/29/17 03:59 ALT 33 units/L (7-56) 01/29/17 03:59 Alkaline Phosphatase 131 units/L (35-129) H 01/29/17 03:59 Lactate Dehydrogenase 137 units/L (91-180) 01/17/17 23:41 Total Creatine Kinase 50 units/L (55-170) L 01/15/17 00:18 CK-MB (CK-2) 1.5 ng/mL (0.0-4.0) 01/15/17 00:18 CK-MB (CK-2) Rel Index 3.0 (0-4) 01/15/17 00:18 Troponin T < 0.010 ng/mL (0.00-0.029) 01/15/17 06:20 Total Protein 6.2 g/dL (6.3-8.2) L 01/29/17 03:59 Albumin 1.5 g/dL (3.9-5) L 01/29/17 03:59 Albumin/Globulin Ratio 0.3 % 01/29/17 03:59 Fluid Type Pleural 01/15/17 Unknown Fluid Color Yellow 01/15/17 Unknown Fluid Appearance Clear 01/15/17 Unknown Fluid WBC 1350 /mm3 01/15/17 Unknown Fluid RBC 750 /mm3 01/15/17 Unknown Fluid Seg Neutrophils 81.0 % 01/15/17 Unknown Fluid Lymphocytes 12.0 % 01/15/17 Unknown Fluid Reactive Lymphs 0 % 01/15/17 Unknown Fluid Monocytes 7.0 % 01/15/17 Unknown Fluid Eosinophils 0 % 01/15/17 Unknown Fluid Basophils 0 % 01/15/17 Unknown Fluid Glucose 48 mg/dL (40-70) 01/15/17 Unknown Fluid Total Protein 5.3 (15.0-45.0) L 01/15/17 Unknown Fluid LDH 942 01/15/17 Unknown Vancomycin Trough 14.1 ug/mL (5.0-20.0) 01/23/17 20:37 Blood Type O POSITIVE 01/27/17 14:04 Antibody Screen TNR 01/27/17 14:04 JERAD Antibody Screen Negative 01/27/17 14:04 Crossmatch See Detail 01/27/17 14:04
[2017-01-30] MEDS: NACL 0.9% 1000 ML 1,000 ML IV SCH (20:31)
[2017-01-30] MEDS: VANCOMYCIN 1,250 MG in NACL 0.9% 250ML 250 ML IV SCH (22:19)
--- NOTE | 2017-01-30 23:52 | Progress Note ---
Assessment and Plan Large left pleural effusion left chest tube in place s/p limited left thoracotomy and decortication Patient tolerated surgery well Hx of coronary artery disease with remote three-way coronary bypass done many years ago. Hx of paroxysmal Afib -uncertain duration He is currently not on oral anticoagulation therapy is, and will likely not be a good candidate for oral anticoagulation in the near term due to his thoracoscopic procedures, persistent left pleural effusion, and risks associated with his advanced age of 86. Recommendations: Medical therapy for his coronary artery disease. Restart on BB, ASA, and statin Subjective Date of service: 01/31/17 Principal diagnosis: Pneumonia,pleural effusion-empyema,urinary retention Interval history: Resting comfortably in bed. No complaints. chest tube in place. Objective Vital Signs Temp Pulse Pulse Pulse Pulse Resp Resp 01/30/17 21:56 90 01/30/17 21:31 93 H 01/30/17 21:04 01/30/17 21:00 98.4 F 97 H 01/30/17 16:14 97.7 F 74 01/30/17 15:09 97 H 01/30/17 15:01 94 H 96 H 01/30/17 14:49 01/30/17 12:30 99 H 01/30/17 12:15 98 H 01/30/17 12:01 99 H 01/30/17 12:00 97.7 F 01/30/17 11:45 107 H 01/30/17 11:31 96 H 01/30/17 11:15 107 H 01/30/17 11:00 101 H 01/30/17 10:45 102 H 01/30/17 10:31 103 H 01/30/17 10:15 92 H 01/30/17 10:00 107 H 01/30/17 09:45 104 H 01/30/17 09:30 105 H 01/30/17 09:15 91 H 01/30/17 09:05 93 H 01/30/17 09:00 97 H 01/30/17 08:54 92 H 01/30/17 08:45 98 H 01/30/17 08:30 89 01/30/17 08:15 95 H 01/30/17 08:00 97.4 F L 87 87 17 07:45 91 H 20 01/30/17 07:30 91 H 18 01/30/17 07:15 104 H 22 01/30/17 07:00 85 22 01/30/17 06:45 100 H 17 01/30/17 06:30 92 H 20 01/30/17 06:15 95 H 24 01/30/17 06:00 103 H 21 01/30/17 05:45 90 17 01/30/17 05:30 109 H 20 01/30/17 05:21 189 F H 01/30/17 05:15 108 H 26 H 01/30/17 05:00 112 H 22 01/30/17 04:45 97 H 21 01/30/17 04:30 114 H 20 01/30/17 04:15 95 H 18 01/30/17 04:00 112 H 99 H 24 01/30/17 03:45 93 H 16 01/30/17 03:30 107 H 22 01/30/17 03:25 98.6 F 01/30/17 03:15 100 H 17 01/30/17 03:00 100 H 22 01/30/17 02:45 98 H 18 01/30/17 02:36 92 H 01/30/17 02:31 98 H 28 H 01/30/17 02:26 94 H 19 01/30/17 02:15 87 25 H 01/30/17 02:01 01/30/17 02:00 91 H 20 01/30/17 01:54 17 01/30/17 01:45 95 H 18 01/30/17 01:30 87 19 01/30/17 01:15 88 22 01/30/17 01:00 93 H 18 01/30/17 00:45 87 21 01/30/17 00:30 93 H 20 01/30/17 00:15 88 19 01/30/17 00:00 96 H 89 23 Resp Resp BP BP Pulse Ox 01/30/17 21:56 01/30/17 21:31 98 01/30/17 21:04 22 01/30/17 21:00 157/67 95 01/30/17 16:14 145/63 93 01/30/17 15:09 01/30/17 15:01 19 01/30/17 14:49 97 01/30/17 12:30 118/51 95 08 12:15 116/37 95 01/30/17 12:01 120/51 95 08 12:00 08 11:45 121/54 93 08 11:31 116/37 94 01/30/17 11:15 121/54 96 08 11:00 121/54 96 01/30/17 10:45 119/44 95 08 10:31 119/44 94 01/30/17 10:15 105/50 95 08 10:00 105/50 94 01/30/17 09:45 109/44 95 01/30/17 09:30 109/44 93 01/30/17 09:15 110/48 95 01/30/17 09:05 01/30/17 09:00 110/48 100 01/30/17 08:54 01/30/17 08:45 113/44 92 01/30/17 08:30 113/44 91 01/30/17 08:15 120/50 96 01/30/17 08:00 120/50 96 01/30/17 07:45 117/51 96 01/30/17 07:30 117/51 96 01/30/17 07:15 127/53 96 01/30/17 07:00 127/53 96 01/30/17 06:45 128/57 97 01/30/17 06:30 128/57 96 01/30/17 06:15 123/56 96 01/30/17 06:00 123/56 96 01/30/17 05:45 115/53 97 08 05:30 115/53 94 08 05:21 01/30/17 05:15 136/61 90 08 05:00 136/61 91 08 04:45 116/54 95 08 04:30 116/54 97 08 04:15 116/53 95 08 04:00 116/53 91 08 03:45 117/48 94 08 03:30 117/48 95 08 03:25 0708 03:15 126/50 95 03/11 03:00 126/50 94 01/30/17 02:45 117/51 96 01/30/17 02:36 01/30/17 02:31 117/51 98 01/30/17 02:26 01/30/17 02:15 120/51 95 01/30/17 02:01 01/30/17 02:00 120/51 94 01/30/17 01:54 01/30/17 01:45 118/52 95 01/30/17 01:30 118/52 94 01/30/17 01:15 102/47 96 01/30/17 01:00 102/47 94 01/30/17 00:45 104/43 96 01/30/17 00:30 104/43 95 01/30/17 00:15 111/50 96 01/30/17 00:00 111/50 95 - Physical Examination General: No Apparent Distress HEENT: Positive: PERRL Neck: Positive: neck supple Neuro: Positive: Grossly Intact Abdomen: Positive: Soft Skin: Positive: Clear Extremities: Absent: edema - Labs and Meds CBC 01/30/17 Range/Units 03:50 WBC 15.9 H (4.5-11.0) K/mm3 RBC 2.97 L (3.65-5.03) M/mm3 Hgb 7.9 L (11.8-15.2) gm/dl Hct 24.3 L (35.5-45.6) % Plt Count 429 (140-440) K/mm3 Comprehensive Metabolic Panel 01/30/17 Range/Units 03:50 Sodium 133 L (137-145) mmol/L Potassium 4.5 (3.6-5.0) mmol/L Chloride 97.8 L (98-107) mmol/L Carbon Dioxide 28 (22-30) mmol/L BUN 41 H (9-20) mg/dL Creatinine 1.4 (0.8-1.5) mg/dL Glucose 150 H (75-100) mg/dL Calcium 7.2 L (8.4-10.2) mg/dL
[2017-01-31] MEDS: CLEOCIN 600 MG/50 mL 600 MG/50 ML BAG IV SCH ×3 (00:30→17:21)
[2017-01-31] MEDS: DUONEB *Not for PRN Use IH SCH ×4 (02:12→20:25)
[2017-01-31] MEDS: HEPARIN SUB-Q SCH ×3 (05:14→22:10)
[2017-01-31] MEDS: NOVOLOG SUB-Q SCH ×4 (05:19→23:11)
[2017-01-31 07:51] LABS: Hematocrit 24.5 % (35.5-45.6); Mean Corpuscular HGB Conc 33 % (32-34); Mean Corpuscular Hemoglobin 27 pg (28-32); Mean Corpuscular Volume 83 fl (84-94); Platelet Count 489 K/mm3 (140-440); Red Blood Count 2.97 M/mm3 (3.65-5.03); Red Cell Distribution Width 17.2 % (13.2-15.2); White Blood Count 14.3 K/mm3 (4.5-11.0)
[2017-01-31 08:06] LABS: BUN/Creatinine Ratio 26.66; Calcium 7.5 mg/dL (8.4-10.2); Chloride 101.7 mmol/L (98-107); Potassium 4.7 mmol/L (3.6-5.0)
[2017-01-31] MEDS: BABY ASPIRIN PO SCH (10:13)
[2017-01-31] MEDS: COREG PO SCH ×2 (10:13→22:11)
[2017-01-31] MEDS: NACL 0.9% 1000 ML 1,000 ML IV SCH (10:14)
--- NOTE | 2017-01-31 11:17 | Progress Note ---
Assessment and Plan Assessment and plan: Patient is 86-year-old man with history of hypertension, coronary artery disease and CABG, recent pneumonia. He was recently diagnosed with pneumonia on 12/20/16, and was placed on Levaquin po and discharged home from ED. He completed 10 days of Levaquin. Currently he presents with left lower chest pain and cough. On Admission he is found to have loculated effusion on the left lower lobe. Despite thoracentesis no resolution was noted, so Patient had pigtail catheter placed left lung. A PEG tube was also placed for nutritional support. Pleural effusion shown to be empyema. -Acute respiratory failure 2/2 aspiration pneumonitis, Thoracentesis was done and 1660 mL of yellowish fluid was taken out=empyema, Prelim culture grew non- Group D streptococcus pneumonia , CT showed loculated effusion, exudative. -Cardiothoracic surgery consulted -Cardiac pre-op evaluation noted. -Left lower lobe pneumonia with parapneumonic effusion -Hypertension-Stable -BPH on Flomax -Moderate protein calorie malnutrition BMI 18. Continue tube feeds. -Paroxysmal Atrial fibrillation-NOT a good candidate for anticoagulation, due to thoracoscopIc procedure for peristent left pleural effusion. -CAD stable continue aspirin-we'll obtain cardiac clearance for possible VATS procedure -Anemia-stable likely chronic disease will monitor closely. DVT prophylaxis SCD, heparin CODE STATUS full Disposition Continue inpatient care. per Cardiology: "Recommendations: He has a moderate perioperative cardiac risk, and this should be considered in his preoperative surgical assessment. Okay to proceed with thoracoscopy and VATS procedure as planned. Medical therapy for his coronary artery disease." 01/28/[address] bore CT, Keep intubated overnight after procedure for lung expansion; per Dr. De Jesus's VATS op note: "c/w loculated left parapneumonic effusion, Procedure: Attempted left VATS,converted to very limited left thoracotomy, decortication of left chest-peel sent for perm path." 01/29/17 Extubated, drop in hct transfus 2 units pRBC today, probably drainage from yesterday's procedure, unlikely bleeding, will monitor. CBC in am 01/30/17: CBC steady, slighty drop but will repeat in am. non group Streptococcus lung, on iv Vancomycin. 01/31/17: Doing better, will continue iv vancomycin, d/w Dr. Mendez History Interval history: Patient seen and examined. Follow up on shortness breath. Was admitted to icu, intubated after VATS yesterday 01/28/17, extubated 01/29/17 and remained stable overnigh. Imaging, old records, testing, labs, nursing notes reviewed. He does have left-sided chest wall pains with chest tube in place. at bedside. Hospitalist Physical - Physical exam Narrative exam: GEN: Thin frail, NAD, AWAKE, ALERT, ORIENTATED x 3 CVS: RRR, NORMAL S1S2 LUNGS/CHEST: Bibasilar crackles reduced breath sounds on the left base NORMAL CHEST EXPANSION B, ABD: SOFT, NTND, GBS, NO REBOUND OR GUARDING EXT/SKIN: NO SIGNIFICANT EDEMA OR RASH MSK: FROM X 4 EXTREMITIES NEURO: CN 2-12 GROSSLY INTACT, NO FOCAL DEFICITS PSY: CALM - Constitutional Vitals: Temp Pulse Resp BP Pulse Ox 98.6 F 94 H 20 156/76 98 01/31/17 07:50 01/31/17 10:13 01/31/17 10:00 01/31/17 10:13 01/31/17 10:00 General appearance: Present: no acute distress Results - Labs CBC & Chem 7: 01/31/17 07:15 01/31/17 07:15 Labs: Laboratory Last Values WBC 14.3 K/mm3 (4.5-11.0) H 01/31/17 07:15 RBC 2.97 M/mm3 (3.65-5.03) L 01/31/17 07:15 Hgb 8.0 gm/dl (11.8-15.2) L 01/31/17 07:15 Hct 24.5 % (35.5-45.6) L 01/31/17 07:15 MCV 83 fl (84-94) L 01/31/17 07:15 MCH 27 pg (28-32) L 01/31/17 07:15 MCHC 33 % (32-34) 01/31/17 07:15 RDW 17.2 % (13.2-15.2) H 01/31/17 07:15 Plt Count 489 K/mm3 (140-440) H 01/31/17 07:15 Lymph % (Auto) 7.7 % (13.4-35.0) L 01/20/17 05:50 [place] % (Auto) 15.7 % (0.0-7.3) H 01/20/17 05:50 Eos % (Auto) 0.3 % (0.0-4.3) 01/20/17 05:50 Baso % (Auto) 0.1 % (0.0-1.8) 01/20/17 05:50 Lymph # 1.4 K/mm3 (1.2-5.4) 01/20/17 05:50 [place] # 2.9 K/mm3 (0.0-0.8) H 01/20/17 05:50 Eos # 0.1 K/mm3 (0.0-0.4) 01/20/17 05:50 Baso # 0.0 K/mm3 (0.0-0.1) 01/20/17 05:50 Add Manual Diff Complete 01/29/17 03:59 Total Counted 100 01/29/17 03:59 Seg Neutrophils % 76.2 % (40.0-70.0) H 01/20/17 05:50 Seg Neuts % (Manual) 86.0 % (40.0-70.0) H 01/29/17 03:59 Band Neutrophils % 0 % 01/29/17 03:59 Lymphocytes % (Manual) 7.0 % (13.4-35.0) L 01/29/17 03:59 Reactive Lymphs % (Man) 0 % 01/29/17 03:59 Monocytes % (Manual) 7.0 % (0.0-7.3) 01/29/17 03:59 Eosinophils % (Manual) 0 % (0.0-4.3) 01/29/17 03:59 Basophils % (Manual) 0 % (0.0-1.8) 01/29/17 03:59 Metamyelocytes % 0 % 01/29/17 03:59 Myelocytes % 0 % 01/29/17 03:59 Promyelocytes % 0 % 01/29/17 03:59 Blast Cells % 0 % 01/29/17 03:59 Nucleated RBC % Not Reportable 01/29/17 03:59 Seg Neutrophils # 14.0 K/mm3 (1.8-7.7) H 01/20/17 05:50 Seg Neutrophils # Man 19.8 K/mm3 (1.8-7.7) H 01/29/17 03:59 Band Neutrophils # 0.0 K/mm3 01/29/17 03:59 Lymphocytes # (Manual) 1.6 K/mm3 (1.2-5.4) 01/29/17 03:59 Abs React Lymphs (Man) 0.0 K/mm3 01/29/17 03:59 Monocytes # (Manual) 1.6 K/mm3 (0.0-0.8) H 01/29/17 03:59 Eosinophils # (Manual) 0.0 K/mm3 (0.0-0.4) 01/29/17 03:59 Basophils # (Manual) 0.0 K/mm3 (0.0-0.1) 01/29/17 03:59 Metamyelocytes # 0.0 K/mm3 01/29/17 03:59 Myelocytes # 0.0 K/mm3 01/29/17 03:59 Promyelocytes # 0.0 K/mm3 01/29/17 03:59 Blast Cells # 0.0 K/mm3 01/29/17 03:59 WBC Morphology Not Reportable 01/29/17 03:59 Hypersegmented Neuts Not Reportable 01/29/17 03:59 Hyposegmented Neuts Not Reportable 01/29/17 03:59 Hypogranular Neuts Not Reportable 01/29/17 03:59 Smudge Cells Not Reportable 01/29/17 03:59 Toxic Granulation Not Reportable 01/29/17 03:59 Toxic Vacuolation Not Reportable 01/29/17 03:59 Dohle Bodies Not Reportable 01/29/17 03:59 Pelger-Huet Anomaly Not Reportable 01/29/17 03:59 Lore Rods Not Reportable 01/29/17 03:59 Platelet Estimate Appears increased 01/29/17 03:59 Clumped Platelets Not Reportable 01/29/17 03:59 Plt Clumps, EDTA Not Reportable 01/29/17 03:59 Large Platelets Not Reportable 01/29/17 03:59 Giant Platelets Not Reportable 01/29/17 03:59 Platelet Satelliting Not Reportable 01/29/17 03:59 Plt Morphology Comment Not Reportable 01/29/17 03:59 RBC Morphology Not Reportable 01/29/17 03:59 Dimorphic RBCs Not Reportable 01/29/17 03:59 Polychromasia Not Reportable 01/29/17 03:59 Hypochromasia 1+ 01/29/17 03:59 Poikilocytosis 1+ 01/29/17 03:59 Anisocytosis 2+ 01/29/17 03:59 Microcytosis Not Reportable 01/29/17 03:59 Macrocytosis Not Reportable 01/29/17 03:59 Spherocytes Not Reportable 01/29/17 03:59 Pappenheimer Bodies Not Reportable 01/29/17 03:59 Sickle Cells Not Reportable 01/29/17 03:59 Target Cells Rare 01/29/17 03:59 Tear Drop Cells Not Reportable 01/29/17 03:59 Ovalocytes Not Reportable 01/29/17 03:59 Helmet Cells Not Reportable 01/29/17 03:59 [place] Bodies Not Reportable 01/29/17 03:59 [place] Rings Not Reportable 01/29/17 03:59 [place] Cells Not Reportable 01/29/17 03:59 Bite Cells Not Reportable 01/29/17 03:59 Crenated Cell Not Reportable 01/29/17 03:59 Elliptocytes Few 01/29/17 03:59 Acanthocytes (Spur) Not Reportable 01/29/17 03:59 Rouleaux Not Reportable 01/29/17 03:59 Hemoglobin C Crystals Not Reportable 01/29/17 03:59 Schistocytes Rare 01/29/17 03:59 Malaria parasites Not Reportable 01/29/17 03:59 Steve Bodies Not Reportable 01/29/17 03:59 Hem Pathologist Commnt No 01/29/17 03:59 PT 16.6 Sec. (12.2-14.9) H 01/20/17 05:50 INR 1.27 (0.87-1.13) H 01/20/17 05:50 APTT 38.4 Sec. (24.2-36.6) H 01/15/17 12:11 POC ABG pH 7.458 (7.35-7.45) H 01/29/17 03:43 POC ABG pCO2 34.8 (35-45) L 01/29/17 03:43 POC ABG pO2 97 (80-105) 01/29/17 03:43 POC ABG HCO3 24.6 01/29/17 03:43 POC ABG Total CO2 26 01/29/17 03:43 POC ABG O2 Sat 98 01/29/17 03:43 POC ABG Base Excess 1 01/29/17 03:43 FiO2 50 % 01/29/17 03:43 Sodium 139 mmol/L (137-145) 01/31/17 07:15 Potassium 4.7 mmol/L (3.6-5.0) 01/31/17 07:15 Chloride 101.7 mmol/L (98-107) 01/31/17 07:15 Carbon Dioxide 26 mmol/L (22-30) 01/31/17 07:15 Anion Gap 16 mmol/L 01/31/17 07:15 BUN 40 mg/dL (9-20) H 01/31/17 07:15 Creatinine 1.5 mg/dL (0.8-1.5) 01/31/17 07:15 Estimated GFR 44 ml/min 01/31/17 07:15 BUN/Creatinine Ratio 26.66 % 01/31/17 07:15 Glucose 123 mg/dL (75-100) H 01/31/17 07:15 POC Glucose 113 (70-105) H 01/31/17 05:17 Calcium 7.5 mg/dL (8.4-10.2) L 01/31/17 07:15 Total Bilirubin 0.40 mg/dL (0.1-1.2) 01/29/17 03:59 Direct Bilirubin < 0.2 mg/dL (0-0.2) 01/17/17 23:41 Indirect Bilirubin 0.1 mg/dL 01/17/17 23:41 AST 32 units/L (5-40) 01/29/17 03:59 ALT 33 units/L (7-56) 01/29/17 03:59 Alkaline Phosphatase 131 units/L (35-129) H 01/29/17 03:59 Lactate Dehydrogenase 137 units/L (91-180) 01/17/17 23:41 Total Creatine Kinase 50 units/L (55-170) L 01/15/17 00:18 CK-MB (CK-2) 1.5 ng/mL (0.0-4.0) 01/15/17 00:18 CK-MB (CK-2) Rel Index 3.0 (0-4) 01/15/17 00:18 Troponin T < 0.010 ng/mL (0.00-0.029) 01/15/17 06:20 Total Protein 6.2 g/dL (6.3-8.2) L 01/29/17 03:59 Albumin 1.5 g/dL (3.9-5) L 01/29/17 03:59 Albumin/Globulin Ratio 0.3 % 01/29/17 03:59 Fluid Type Pleural 01/15/17 Unknown Fluid Color Yellow 01/15/17 Unknown Fluid Appearance Clear 01/15/17 Unknown Fluid WBC 1350 /mm3 01/15/17 Unknown Fluid RBC 750 /mm3 01/15/17 Unknown Fluid Seg Neutrophils 81.0 % 01/15/17 Unknown Fluid Lymphocytes 12.0 % 01/15/17 Unknown Fluid Reactive Lymphs 0 % 01/15/17 Unknown Fluid Monocytes 7.0 % 01/15/17 Unknown Fluid Eosinophils 0 % 01/15/17 Unknown Fluid Basophils 0 % 01/15/17 Unknown Fluid Glucose 48 mg/dL (40-70) 01/15/17 Unknown Fluid Total Protein 5.3 (15.0-45.0) L 01/15/17 Unknown Fluid LDH 942 01/15/17 Unknown Vancomycin Trough 26.7 ug/mL (5.0-20.0) H 01/30/17 21:19 Blood Type O POSITIVE 01/27/17 14:04 Antibody Screen TNR 01/27/17 14:04 JERAD Antibody Screen Negative 01/27/17 14:04 Crossmatch See Detail 01/27/17 14:04
--- NOTE | 2017-01-31 11:39 | Progress Note ---
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 continue supplemental O2. Wean as tolerated 2. Agree with floor transfer. Not sure if on [facility] unit they handle chest tubes. 3. Abx therapy at least until Chest tube removed 4. Will continue to follow Subjective Date of service: 01/31/17 Principal diagnosis: Pneumonia,pleural effusion-empyema,urinary retention Interval history: No acute events. Transferred out of ICU. Chest tube still in place with minimal drainage (90) per documentation. Objective Vital Signs - 12hr 01/31/17 01/31/17 01/31/17 00:00 04:00 07:50 Temperature 98.4 F 98.4 F 98.6 F Pulse Rate Pulse Rate [ Anterior Right Throughout] Pulse Rate [ 54 L 99 H Apical] Pulse Rate [ 54 L 99 H 94 H From Monitor] Pulse Rate [ Left] Respiratory 18 22 20 Rate Respiratory Rate [Anterior Right Throughout] Respiratory Rate [Left Chest] Respiratory Rate [Left] Blood Pressure Blood Pressure 152/67 [Left Arm] Blood Pressure 116/57 164/71 [Right Arm] O2 Sat by Pulse 95 94 97 Oximetry 01/31/17 01/31/17 01/31/17 08:37 08:47 09:50 Temperature Pulse Rate 104 H Pulse Rate [ 95 H 96 H Anterior Right Throughout] Pulse Rate [ Apical] Pulse Rate [ From Monitor] Pulse Rate [ 95 H 96 H Left] Respiratory 18 Rate Respiratory 20 20 Rate [Anterior Right Throughout] Respiratory Rate [Left Chest] Respiratory 20 20 Rate [Left] Blood Pressure Blood Pressure [Left Arm] Blood Pressure [Right Arm] O2 Sat by Pulse 95 Oximetry 01/31/17 01/31/17 10:00 10:13 Temperature Pulse Rate 94 H 94 H Pulse Rate [ Anterior Right Throughout] Pulse Rate [ Apical] Pulse Rate [ 94 H From Monitor] Pulse Rate [ Left] Respiratory 20 Rate Respiratory Rate [Anterior Right Throughout] Respiratory 20 Rate [Left Chest] Respiratory Rate [Left] Blood Pressure 156/76 Blood Pressure [Left Arm] Blood Pressure [Right Arm] O2 Sat by Pulse 98 Oximetry Constitutional: no acute distress, alert Eyes: non-icteric ENT: other (poor dentition) Effort: normal Ascultation: Bilateral: clear, diminished breath sounds (About 500cc of bloody fluid) Percussion: Left: dull (base) Cardiovascular: regular rate and rhythm Gastrointestinal: normoactive bowel sounds, soft, non-tender Extremities: no cyanosis, no cyanosis, no cyanosis Neurologic: normal mental status, non-focal exam CBC and BMP: 01/31/17 07:15 01/31/17 07:15 ABG, PT/INR, D-dimer: ABG POC ABG pH 7.458 (7.35-7.45) H 01/29/17 03:43 POC ABG pCO2 34.8 (35-45) L 01/29/17 03:43 POC ABG pO2 97 (80-105) 01/29/17 03:43 POC ABG HCO3 24.6 01/29/17 03:43 POC ABG Total CO2 26 01/29/17 03:43 POC ABG O2 Sat 98 01/29/17 03:43 PT/INR, D-dimer PT 16.6 Sec. (12.2-14.9) H 01/20/17 05:50 INR 1.27 (0.87-1.13) H 01/20/17 05:50 Abnormal lab findings: Abnormal Labs 01/15/17 01/15/17 01/15/17 06:20 06:20 12:11 WBC 28.5 H RBC 3.55 L Hgb 9.7 L Hct 30.3 L MCV MCH 27 L MCHC RDW 16.2 H Plt Count Lymph % (Auto) [place] % (Auto) Lymph # [place] # Seg Neutrophils % Seg Neuts % (Manual) Lymphocytes % (Manual) Monocytes % (Manual) Seg Neutrophils # Seg Neutrophils # Man Monocytes # (Manual) PT 16.3 H INR 1.32 H APTT 38.4 H POC ABG pH POC ABG pCO2 POC ABG pO2 Sodium 134 L Potassium Chloride 97.6 L Carbon Dioxide BUN 26 H Creatinine Glucose POC Glucose Calcium 8.2 L Alkaline Phosphatase Total Protein Albumin Fluid Total Protein Vancomycin Trough Crossmatch 01/15/17 01/16/17 01/16/17 Unknown 04:54 04:54 WBC 24.9 H RBC Hgb 10.0 L Hct 31.8 L MCV MCH 27 L MCHC RDW 16.2 H Plt Count Lymph % (Auto) [place] % (Auto) Lymph # [place] # Seg Neutrophils % Seg Neuts % (Manual) 37.0 L Lymphocytes % (Manual) 12.0 L Monocytes % (Manual) 10.0 H Seg Neutrophils # Seg Neutrophils # Man 9.2 H Monocytes # (Manual) 2.5 H PT INR APTT POC ABG pH POC ABG pCO2 POC ABG pO2 Sodium 132 L Potassium Chloride 95.2 L Carbon Dioxide BUN 29 H Creatinine Glucose 130 H POC Glucose Calcium 8.3 L Alkaline Phosphatase Total Protein Albumin Fluid Total Protein 5.3 L Vancomycin Trough Crossmatch 01/17/17 01/17/17 01/17/17 04:55 04:55 10:49 WBC 23.8 H RBC Hgb 10.9 L Hct 33.6 L MCV MCH MCHC RDW 16.4 H Plt Count Lymph % (Auto) [place] % (Auto) Lymph # [place] # Seg Neutrophils % Seg Neuts % (Manual) 36.0 L Lymphocytes % (Manual) 8.0 L Monocytes % (Manual) 18.0 H Seg Neutrophils # Seg Neutrophils # Man 8.6 H Monocytes # (Manual) 4.3 H PT INR APTT POC ABG pH POC ABG pCO2 POC ABG pO2 Sodium 132 L Potassium Chloride 95.7 L Carbon Dioxide 21 L BUN 30 H Creatinine Glucose 130 H POC Glucose 200 H Calcium Alkaline Phosphatase Total Protein Albumin Fluid Total Protein Vancomycin Trough Crossmatch 01/17/17 01/17/17 01/18/17 11:32 23:41 03:46 WBC 23.2 H RBC Hgb 10.5 L Hct 32.0 L MCV MCH MCHC RDW 16.0 H Plt Count Lymph % (Auto) [place] % (Auto) Lymph # [place] # Seg Neutrophils % Seg Neuts % (Manual) Lymphocytes % (Manual) 6.0 L Monocytes % (Manual) 10.0 H Seg Neutrophils # Seg Neutrophils # Man 16.2 H Monocytes # (Manual) 2.3 H PT INR APTT POC ABG pH 7.315 L POC ABG pCO2 POC ABG pO2 41 L Sodium Potassium Chloride Carbon Dioxide BUN Creatinine Glucose POC Glucose Calcium Alkaline Phosphatase Total Protein Albumin 1.9 L Fluid Total Protein Vancomycin Trough Crossmatch 01/18/17 01/19/17 01/19/17 03:46 03:41 03:41 WBC 19.8 H RBC 3.61 L Hgb 9.8 L Hct 30.2 L MCV MCH 27 L MCHC RDW 16.1 H Plt Count 505 H Lymph % (Auto) 5.2 L [place] % (Auto) 13.3 H Lymph # 1.0 L [place] # 2.6 H Seg Neutrophils % 81.1 H Seg Neuts % (Manual) Lymphocytes % (Manual) Monocytes % (Manual) Seg Neutrophils # 16.1 H Seg Neutrophils # Man Monocytes # (Manual) PT INR APTT POC ABG pH POC ABG pCO2 POC ABG pO2 Sodium 134 L 133 L Potassium Chloride 96.6 L 96.0 L Carbon Dioxide 21 L 21 L BUN 50 H 42 H Creatinine 1.9 H Glucose 177 H 122 H POC Glucose Calcium 8.1 L 8.0 L Alkaline Phosphatase Total Protein Albumin Fluid Total Protein Vancomycin Trough Crossmatch 01/20/17 01/20/17 01/20/17 05:50 05:50 05:50 WBC 18.4 H RBC Hgb 10.5 L Hct 32.0 L MCV 83 L MCH 27 L MCHC RDW 16.3 H Plt Count 540 H Lymph % (Auto) 7.7 L [place] % (Auto) 15.7 H Lymph # [place] # 2.9 H Seg Neutrophils % 76.2 H Seg Neuts % (Manual) Lymphocytes % (Manual) Monocytes % (Manual) Seg Neutrophils # 14.0 H Seg Neutrophils # Man Monocytes # (Manual) PT 16.6 H INR 1.27 H APTT POC ABG pH POC ABG pCO2 POC ABG pO2 Sodium Potassium Chloride Carbon Dioxide BUN 24 H Creatinine Glucose 104 H POC Glucose Calcium 8.0 L Alkaline Phosphatase Total Protein Albumin 1.7 L Fluid Total Protein Vancomycin Trough Crossmatch 01/20/17 01/22/17 01/22/17 21:03 07:34 07:34 WBC 24.9 H RBC Hgb 10.6 L Hct 33.8 L MCV MCH 27 L MCHC 31 L RDW 16.6 H Plt Count 582 H Lymph % (Auto) [place] % (Auto) Lymph # [place] # Seg Neutrophils % Seg Neuts % (Manual) Lymphocytes % (Manual) Monocytes % (Manual) Seg Neutrophils # Seg Neutrophils # Man Monocytes # (Manual) PT INR APTT POC ABG pH POC ABG pCO2 POC ABG pO2 Sodium Potassium Chloride Carbon Dioxide BUN Creatinine Glucose 163 H POC Glucose 110 H Calcium 7.9 L Alkaline Phosphatase Total Protein Albumin Fluid Total Protein Vancomycin Trough Crossmatch 01/23/17 01/24/17 01/24/17 08:49 08:01 08:01 WBC 23.7 H 25.6 H RBC Hgb 10.2 L 10.0 L Hct 31.6 L 31.0 L MCV MCH 27 L 27 L MCHC RDW 16.6 H 16.5 H Plt Count 559 H 535 H Lymph % (Auto) [place] % (Auto) Lymph # [place] # Seg Neutrophils % Seg Neuts % (Manual) 86.0 H Lymphocytes % (Manual) 7.0 L Monocytes % (Manual) Seg Neutrophils # Seg Neutrophils # Man 20.4 H Monocytes # (Manual) 1.4 H PT INR APTT POC ABG pH POC ABG pCO2 POC ABG pO2 Sodium 134 L Potassium Chloride 95.3 L Carbon Dioxide BUN Creatinine Glucose 162 H POC Glucose Calcium 7.5 L Alkaline Phosphatase Total Protein Albumin Fluid Total Protein Vancomycin Trough Crossmatch 01/25/17 01/25/17 01/25/17 00:23 06:29 11:54 WBC RBC Hgb Hct MCV MCH MCHC RDW Plt Count Lymph % (Auto) [place] % (Auto) Lymph # [place] # Seg Neutrophils % Seg Neuts % (Manual) Lymphocytes % (Manual) Monocytes % (Manual) Seg Neutrophils # Seg Neutrophils # Man Monocytes # (Manual) PT INR APTT POC ABG pH POC ABG pCO2 POC ABG pO2 Sodium Potassium Chloride Carbon Dioxide BUN Creatinine Glucose POC Glucose 165 H 119 H 235 H Calcium Alkaline Phosphatase Total Protein Albumin Fluid Total Protein Vancomycin Trough Crossmatch 01/25/17 01/25/17 01/26/17 18:18 21:30 04:28 WBC 24.8 H RBC 3.63 L Hgb 9.7 L Hct 30.7 L MCV MCH 27 L MCHC RDW 16.8 H Plt Count 542 H Lymph % (Auto) [place] % (Auto) Lymph # [place] # Seg Neutrophils % Seg Neuts % (Manual) Lymphocytes % (Manual) Monocytes % (Manual) Seg Neutrophils # Seg Neutrophils # Man Monocytes # (Manual) PT INR APTT POC ABG pH POC ABG pCO2 POC ABG pO2 Sodium Potassium Chloride Carbon Dioxide BUN Creatinine Glucose POC Glucose 191 H 119 H Calcium Alkaline Phosphatase Total Protein Albumin Fluid Total Protein Vancomycin Trough Crossmatch 01/26/17 01/26/17 01/26/17 04:28 05:11 12:07 WBC RBC Hgb Hct MCV MCH MCHC RDW Plt Count Lymph % (Auto) [place] % (Auto) Lymph # [place] # Seg Neutrophils % Seg Neuts % (Manual) Lymphocytes % (Manual) Monocytes % (Manual) Seg Neutrophils # Seg Neutrophils # Man Monocytes # (Manual) PT INR APTT POC ABG pH POC ABG pCO2 POC ABG pO2 Sodium 133 L Potassium Chloride 94.9 L Carbon Dioxide BUN Creatinine Glucose 166 H POC Glucose 182 H 199 H Calcium 7.5 L Alkaline Phosphatase Total Protein Albumin Fluid Total Protein Vancomycin Trough Crossmatch 01/26/17 01/26/17 01/27/17 18:01 22:08 06:24 WBC RBC Hgb Hct MCV MCH MCHC RDW Plt Count Lymph % (Auto) [place] % (Auto) Lymph # [place] # Seg Neutrophils % Seg Neuts % (Manual) Lymphocytes % (Manual) Monocytes % (Manual) Seg Neutrophils # Seg Neutrophils # Man Monocytes # (Manual) PT INR APTT POC ABG pH POC ABG pCO2 POC ABG pO2 Sodium Potassium Chloride Carbon Dioxide BUN Creatinine Glucose POC Glucose 127 H 168 H 167 H Calcium Alkaline Phosphatase Total Protein Albumin Fluid Total Protein Vancomycin Trough Crossmatch 01/27/17 01/27/17 01/27/17 11:36 14:04 18:04 WBC RBC Hgb Hct MCV MCH MCHC RDW Plt Count Lymph % (Auto) [place] % (Auto) Lymph # [place] # Seg Neutrophils % Seg Neuts % (Manual) Lymphocytes % (Manual) Monocytes % (Manual) Seg Neutrophils # Seg Neutrophils # Man Monocytes # (Manual) PT INR APTT POC ABG pH POC ABG pCO2 POC ABG pO2 Sodium Potassium Chloride Carbon Dioxide BUN Creatinine Glucose POC Glucose 235 H 165 H Calcium Alkaline Phosphatase Total Protein Albumin Fluid Total Protein Vancomycin Trough Crossmatch See Detail 01/27/17 01/28/17 01/28/17 23:41 06:33 12:29 WBC RBC Hgb Hct MCV MCH MCHC RDW Plt Count Lymph % (Auto) [place] % (Auto) Lymph # [place] # Seg Neutrophils % Seg Neuts % (Manual) Lymphocytes % (Manual) Monocytes % (Manual) Seg Neutrophils # Seg Neutrophils # Man Monocytes # (Manual) PT INR APTT POC ABG pH POC ABG pCO2 POC ABG pO2 Sodium Potassium Chloride Carbon Dioxide BUN Creatinine Glucose POC Glucose 192 H 131 H 143 H Calcium Alkaline Phosphatase Total Protein Albumin Fluid Total Protein Vancomycin Trough Crossmatch 01/28/17 01/28/17 01/29/17 13:42 23:41 03:43 WBC RBC Hgb Hct MCV MCH MCHC RDW Plt Count Lymph % (Auto) [place] % (Auto) Lymph # [place] # Seg Neutrophils % Seg Neuts % (Manual) Lymphocytes % (Manual) Monocytes % (Manual) Seg Neutrophils # Seg Neutrophils # Man Monocytes # (Manual) PT INR APTT POC ABG pH 7.458 H POC ABG pCO2 34.8 L POC ABG pO2 63 L Sodium Potassium Chloride Carbon Dioxide BUN Creatinine Glucose POC Glucose 199 H Calcium Alkaline Phosphatase Total Protein Albumin Fluid Total Protein Vancomycin Trough Crossmatch 01/29/17 01/29/17 01/29/17 03:59 03:59 05:28 WBC 23.0 H RBC 2.50 L Hgb 6.6 L D Hct 21.5 L D MCV MCH 27 L MCHC 31 L RDW 16.7 H Plt Count 485 H Lymph % (Auto) [place] % (Auto) Lymph # [place] # Seg Neutrophils % Seg Neuts % (Manual) 86.0 H Lymphocytes % (Manual) 7.0 L Monocytes % (Manual) Seg Neutrophils # Seg Neutrophils # Man 19.8 H Monocytes # (Manual) 1.6 H PT INR APTT POC ABG pH POC ABG pCO2 POC ABG pO2 Sodium 129 L Potassium 5.3 H D Chloride 93.7 L Carbon Dioxide BUN 37 H Creatinine Glucose 154 H POC Glucose 175 H Calcium 7.2 L Alkaline Phosphatase 131 H Total Protein 6.2 L Albumin 1.5 L Fluid Total Protein Vancomycin Trough Crossmatch 01/29/17 01/29/17 01/29/17 11:58 17:48 23:59 WBC RBC Hgb Hct MCV MCH MCHC RDW Plt Count Lymph % (Auto) [place] % (Auto) Lymph # [place] # Seg Neutrophils % Seg Neuts % (Manual) Lymphocytes % (Manual) Monocytes % (Manual) Seg Neutrophils # Seg Neutrophils # Man Monocytes # (Manual) PT INR APTT POC ABG pH POC ABG pCO2 POC ABG pO2 Sodium Potassium Chloride Carbon Dioxide BUN Creatinine Glucose POC Glucose 179 H 156 H 181 H Calcium Alkaline Phosphatase Total Protein Albumin Fluid Total Protein Vancomycin Trough Crossmatch 01/30/17 01/30/17 01/30/17 03:50 03:50 05:11 WBC 15.9 H RBC 2.97 L Hgb 7.9 L Hct 24.3 L MCV 82 L D MCH 27 L MCHC RDW 17.0 H Plt Count Lymph % (Auto) [place] % (Auto) Lymph # [place] # Seg Neutrophils % Seg Neuts % (Manual) Lymphocytes % (Manual) Monocytes % (Manual) Seg Neutrophils # Seg Neutrophils # Man Monocytes # (Manual) PT INR APTT POC ABG pH POC ABG pCO2 POC ABG pO2 Sodium 133 L Potassium Chloride 97.8 L Carbon Dioxide BUN 41 H Creatinine Glucose 150 H POC Glucose 189 H Calcium 7.2 L Alkaline Phosphatase Total Protein Albumin Fluid Total Protein Vancomycin Trough Crossmatch 01/30/17 01/30/17 01/30/17 11:22 17:35 21:19 WBC RBC Hgb Hct MCV MCH MCHC RDW Plt Count Lymph % (Auto) [place] % (Auto) Lymph # [place] # Seg Neutrophils % Seg Neuts % (Manual) Lymphocytes % (Manual) Monocytes % (Manual) Seg Neutrophils # Seg Neutrophils # Man Monocytes # (Manual) PT INR APTT POC ABG pH POC ABG pCO2 POC ABG pO2 Sodium Potassium Chloride Carbon Dioxide BUN Creatinine Glucose POC Glucose 137 H 149 H Calcium Alkaline Phosphatase Total Protein Albumin Fluid Total Protein Vancomycin Trough 26.7 H Crossmatch 01/30/17 01/31/17 01/31/17 22:43 05:17 07:15 WBC 14.3 H RBC 2.97 L Hgb 8.0 L Hct 24.5 L MCV 83 L MCH 27 L MCHC RDW 17.2 H Plt Count 489 H Lymph % (Auto) [place] % (Auto) Lymph # [place] # Seg Neutrophils % Seg Neuts % (Manual) Lymphocytes % (Manual) Monocytes % (Manual) Seg Neutrophils # Seg Neutrophils # Man Monocytes # (Manual) PT INR APTT POC ABG pH POC ABG pCO2 POC ABG pO2 Sodium Potassium Chloride Carbon Dioxide BUN Creatinine Glucose POC Glucose 164 H 113 H Calcium Alkaline Phosphatase Total Protein Albumin Fluid Total Protein Vancomycin Trough Crossmatch 01/31/17 07:15 WBC RBC Hgb Hct MCV MCH MCHC RDW Plt Count Lymph % (Auto) [place] % (Auto) Lymph # [place] # Seg Neutrophils % Seg Neuts % (Manual) Lymphocytes % (Manual) Monocytes % (Manual) Seg Neutrophils # Seg Neutrophils # Man Monocytes # (Manual) PT INR APTT POC ABG pH POC ABG pCO2 POC ABG pO2 Sodium Potassium Chloride Carbon Dioxide BUN 40 H Creatinine Glucose 123 H POC Glucose Calcium 7.5 L Alkaline Phosphatase Total Protein Albumin Fluid Total Protein Vancomycin Trough Crossmatch
[2017-01-31] MEDS: VANCOMYCIN 1,250 MG in NACL 0.9% 250ML 250 ML IV SCH (12:30)
[2017-01-31] MEDS: MORPHINE IV PRN (22:10)
[2017-02-01] MEDS: CLEOCIN 600 MG/50 mL 600 MG/50 ML BAG IV SCH ×3 (01:35→18:00)
[2017-02-01] MEDS: HEPARIN SUB-Q SCH ×3 (05:16→21:33)
[2017-02-01] MEDS: NACL 0.9% 1000 ML 1,000 ML IV SCH (05:19)
[2017-02-01] MEDS: NOVOLOG SUB-Q SCH ×3 (06:12→18:01)
[2017-02-01] MEDS: DUONEB *Not for PRN Use IH SCH ×3 (08:30→20:03)
[2017-02-01] MEDS: COREG PO SCH ×2 (09:44→21:33)
[2017-02-01] MEDS: BABY ASPIRIN PO SCH (09:45)
--- NOTE | 2017-02-01 12:18 | Event Note ---
Date: 02/01/17 The patient's family is at the bedside, and further discussions with them have revealed that his primary horticultural farmworker in the outpatient setting is Dr. Tamayo. This was not expressed earlier by the patient. We will refer to Dr. Tamayo service for further cardiac management and follow-up.
--- NOTE | 2017-02-01 13:31 | Event Note ---
Date: 02/01/17 VSS AF, CT with minimal drainage, no air leak, CT d/damaris, check CXR, remove sanjay in one week, OK for discharge from Thoracic standpoint, I can follow up in my office. check CXR post CT removal.
--- NOTE | 2017-02-01 13:44 | Progress Note ---
Assessment and Plan Assessment and plan: Patient is 86-year-old man with history of hypertension, coronary artery disease and CABG, recent pneumonia. He was recently diagnosed with pneumonia on 12/20/16, and was placed on Levaquin po and discharged home from ED. He completed 10 days of Levaquin. Currently he presents with left lower chest pain and cough. On Admission he is found to have loculated effusion on the left lower lobe. Despite thoracentesis no resolution was noted, so Patient had pigtail catheter placed left lung. A PEG tube was also placed for nutritional support. Pleural effusion shown to be empyema. -Acute respiratory failure 2/2 aspiration pneumonitis, Thoracentesis was done and 1660 mL of yellowish fluid was taken out=empyema, Prelim culture grew non- Group D streptococcus pneumonia , CT showed loculated effusion, exudative. -Cardiothoracic surgery consulted -Cardiac pre-op evaluation noted. -Left lower lobe pneumonia with parapneumonic effusion -Hypertension-Stable -BPH on Flomax -Moderate protein calorie malnutrition BMI 18. Continue tube feeds. -Paroxysmal Atrial fibrillation-NOT a good candidate for anticoagulation, due to thoracoscopIc procedure for peristent left pleural effusion. -CAD stable continue aspirin-we'll obtain cardiac clearance for possible VATS procedure -Anemia-stable likely chronic disease will monitor closely. DVT prophylaxis SCD, heparin CODE STATUS full Disposition Continue inpatient care. per Cardiology: "Recommendations: He has a moderate perioperative cardiac risk, and this should be considered in his preoperative surgical assessment. Okay to proceed with thoracoscopy and VATS procedure as planned. Medical therapy for his coronary artery disease." 01/28/[address] bore CT, Keep intubated overnight after procedure for lung expansion; per Dr. De Jesus's VATS op note: "c/w loculated left parapneumonic effusion, Procedure: Attempted left VATS,converted to very limited left thoracotomy, decortication of left chest-peel sent for perm path." 01/29/17 Extubated, drop in hct transfus 2 units pRBC today, probably drainage from yesterday's procedure, unlikely bleeding, will monitor. CBC in am 01/30/17: CBC steady, slighty drop but will repeat in am. non group Streptococcus lung, on iv Vancomycin. 01/31/17: Doing better, will continue iv vancomycin, d/w Dr. Mendez 02/01/17: chest tube out today, placement tomorrow? Also, d/c Vanc and change to oral ABX once chest tube removed. History Interval history: Patient seen and examined. Follow up on shortness breath. Was admitted to icu, intubated after VATS yesterday 01/28/17, extubated 01/29/17 and remained stable overnigh. Imaging, old records, testing, labs, nursing notes reviewed. He does have left-sided chest wall pains with chest tube in place. at bedside. Hospitalist Physical - Physical exam Narrative exam: GEN: Thin frail, NAD, AWAKE, ALERT, ORIENTATED x 3 CVS: RRR, NORMAL S1S2 LUNGS/CHEST: Bibasilar crackles reduced breath sounds on the left base NORMAL CHEST EXPANSION B, ABD: SOFT, NTND, GBS, NO REBOUND OR GUARDING EXT/SKIN: NO SIGNIFICANT EDEMA OR RASH MSK: FROM X 4 EXTREMITIES NEURO: CN 2-12 GROSSLY INTACT, NO FOCAL DEFICITS PSY: CALM - Constitutional Vitals: Temp Pulse Resp BP Pulse Ox 98.3 F 72 20 135/64 96 02/01/17 11:41 02/01/17 11:41 02/01/17 11:41 02/01/17 11:41 02/01/17 11:41 General appearance: Present: no acute distress Results - Labs CBC & Chem 7: 01/31/17 07:15 01/31/17 07:15 Labs: Laboratory Last Values WBC 14.3 K/mm3 (4.5-11.0) H 01/31/17 07:15 RBC 2.97 M/mm3 (3.65-5.03) L 01/31/17 07:15 Hgb 8.0 gm/dl (11.8-15.2) L 01/31/17 07:15 Hct 24.5 % (35.5-45.6) L 01/31/17 07:15 MCV 83 fl (84-94) L 01/31/17 07:15 MCH 27 pg (28-32) L 01/31/17 07:15 MCHC 33 % (32-34) 01/31/17 07:15 RDW 17.2 % (13.2-15.2) H 01/31/17 07:15 Plt Count 489 K/mm3 (140-440) H 01/31/17 07:15 Lymph % (Auto) 7.7 % (13.4-35.0) L 01/20/17 05:50 [place] % (Auto) 15.7 % (0.0-7.3) H 01/20/17 05:50 Eos % (Auto) 0.3 % (0.0-4.3) 01/20/17 05:50 Baso % (Auto) 0.1 % (0.0-1.8) 01/20/17 05:50 Lymph # 1.4 K/mm3 (1.2-5.4) 01/20/17 05:50 [place] # 2.9 K/mm3 (0.0-0.8) H 01/20/17 05:50 Eos # 0.1 K/mm3 (0.0-0.4) 01/20/17 05:50 Baso # 0.0 K/mm3 (0.0-0.1) 01/20/17 05:50 Add Manual Diff Complete 01/29/17 03:59 Total Counted 100 01/29/17 03:59 Seg Neutrophils % 76.2 % (40.0-70.0) H 01/20/17 05:50 Seg Neuts % (Manual) 86.0 % (40.0-70.0) H 01/29/17 03:59 Band Neutrophils % 0 % 01/29/17 03:59 Lymphocytes % (Manual) 7.0 % (13.4-35.0) L 01/29/17 03:59 Reactive Lymphs % (Man) 0 % 01/29/17 03:59 Monocytes % (Manual) 7.0 % (0.0-7.3) 01/29/17 03:59 Eosinophils % (Manual) 0 % (0.0-4.3) 01/29/17 03:59 Basophils % (Manual) 0 % (0.0-1.8) 01/29/17 03:59 Metamyelocytes % 0 % 01/29/17 03:59 Myelocytes % 0 % 01/29/17 03:59 Promyelocytes % 0 % 01/29/17 03:59 Blast Cells % 0 % 01/29/17 03:59 Nucleated RBC % Not Reportable 01/29/17 03:59 Seg Neutrophils # 14.0 K/mm3 (1.8-7.7) H 01/20/17 05:50 Seg Neutrophils # Man 19.8 K/mm3 (1.8-7.7) H 01/29/17 03:59 Band Neutrophils # 0.0 K/mm3 01/29/17 03:59 Lymphocytes # (Manual) 1.6 K/mm3 (1.2-5.4) 01/29/17 03:59 Abs React Lymphs (Man) 0.0 K/mm3 01/29/17 03:59 Monocytes # (Manual) 1.6 K/mm3 (0.0-0.8) H 01/29/17 03:59 Eosinophils # (Manual) 0.0 K/mm3 (0.0-0.4) 01/29/17 03:59 Basophils # (Manual) 0.0 K/mm3 (0.0-0.1) 01/29/17 03:59 Metamyelocytes # 0.0 K/mm3 01/29/17 03:59 Myelocytes # 0.0 K/mm3 01/29/17 03:59 Promyelocytes # 0.0 K/mm3 01/29/17 03:59 Blast Cells # 0.0 K/mm3 01/29/17 03:59 WBC Morphology Not Reportable 01/29/17 03:59 Hypersegmented Neuts Not Reportable 01/29/17 03:59 Hyposegmented Neuts Not Reportable 01/29/17 03:59 Hypogranular Neuts Not Reportable 01/29/17 03:59 Smudge Cells Not Reportable 01/29/17 03:59 Toxic Granulation Not Reportable 01/29/17 03:59 Toxic Vacuolation Not Reportable 01/29/17 03:59 Dohle Bodies Not Reportable 01/29/17 03:59 Pelger-Huet Anomaly Not Reportable 01/29/17 03:59 Lore Rods Not Reportable 01/29/17 03:59 Platelet Estimate Appears increased 01/29/17 03:59 Clumped Platelets Not Reportable 01/29/17 03:59 Plt Clumps, EDTA Not Reportable 01/29/17 03:59 Large Platelets Not Reportable 01/29/17 03:59 Giant Platelets Not Reportable 01/29/17 03:59 Platelet Satelliting Not Reportable 01/29/17 03:59 Plt Morphology Comment Not Reportable 01/29/17 03:59 RBC Morphology Not Reportable 01/29/17 03:59 Dimorphic RBCs Not Reportable 01/29/17 03:59 Polychromasia Not Reportable 01/29/17 03:59 Hypochromasia 1+ 01/29/17 03:59 Poikilocytosis 1+ 01/29/17 03:59 Anisocytosis 2+ 01/29/17 03:59 Microcytosis Not Reportable 01/29/17 03:59 Macrocytosis Not Reportable 01/29/17 03:59 Spherocytes Not Reportable 01/29/17 03:59 Pappenheimer Bodies Not Reportable 01/29/17 03:59 Sickle Cells Not Reportable 01/29/17 03:59 Target Cells Rare 01/29/17 03:59 Tear Drop Cells Not Reportable 01/29/17 03:59 Ovalocytes Not Reportable 01/29/17 03:59 Helmet Cells Not Reportable 01/29/17 03:59 [place] Bodies Not Reportable 01/29/17 03:59 [place] Rings Not Reportable 01/29/17 03:59 Benjamin Cells Not Reportable 01/29/17 03:59 Bite Cells Not Reportable 01/29/17 03:59 Crenated Cell Not Reportable 01/29/17 03:59 Elliptocytes Few 01/29/17 03:59 Acanthocytes (Spur) Not Reportable 01/29/17 03:59 Rouleaux Not Reportable 01/29/17 03:59 Hemoglobin C Crystals Not Reportable 01/29/17 03:59 Schistocytes Rare 01/29/17 03:59 Malaria parasites Not Reportable 01/29/17 03:59 Steve Bodies Not Reportable 01/29/17 03:59 Hem Pathologist Commnt No 01/29/17 03:59 PT 16.6 Sec. (12.2-14.9) H 01/20/17 05:50 INR 1.27 (0.87-1.13) H 01/20/17 05:50 APTT 38.4 Sec. (24.2-36.6) H 01/15/17 12:11 POC ABG pH 7.458 (7.35-7.45) H 01/29/17 03:43 POC ABG pCO2 34.8 (35-45) L 01/29/17 03:43 POC ABG pO2 97 (80-105) 01/29/17 03:43 POC ABG HCO3 24.6 01/29/17 03:43 POC ABG Total CO2 26 01/29/17 03:43 POC ABG O2 Sat 98 01/29/17 03:43 POC ABG Base Excess 1 01/29/17 03:43 FiO2 50 % 01/29/17 03:43 Sodium 139 mmol/L (137-145) 01/31/17 07:15 Potassium 4.7 mmol/L (3.6-5.0) 01/31/17 07:15 Chloride 101.7 mmol/L (98-107) 01/31/17 07:15 Carbon Dioxide 26 mmol/L (22-30) 01/31/17 07:15 Anion Gap 16 mmol/L 01/31/17 07:15 BUN 40 mg/dL (9-20) H 01/31/17 07:15 Creatinine 1.5 mg/dL (0.8-1.5) 01/31/17 07:15 Estimated GFR 44 ml/min 01/31/17 07:15 BUN/Creatinine Ratio 26.66 % 01/31/17 07:15 Glucose 123 mg/dL (75-100) H 01/31/17 07:15 POC Glucose 129 (70-105) H 02/01/17 11:41 Calcium 7.5 mg/dL (8.4-10.2) L 01/31/17 07:15 Total Bilirubin 0.40 mg/dL (0.1-1.2) 01/29/17 03:59 Direct Bilirubin < 0.2 mg/dL (0-0.2) 01/17/17 23:41 Indirect Bilirubin 0.1 mg/dL 01/17/17 23:41 AST 32 units/L (5-40) 01/29/17 03:59 ALT 33 units/L (7-56) 01/29/17 03:59 Alkaline Phosphatase 131 units/L (35-129) H 01/29/17 03:59 Lactate Dehydrogenase 137 units/L (91-180) 01/17/17 23:41 Total Creatine Kinase 50 units/L (55-170) L 01/15/17 00:18 CK-MB (CK-2) 1.5 ng/mL (0.0-4.0) 01/15/17 00:18 CK-MB (CK-2) Rel Index 3.0 (0-4) 01/15/17 00:18 Troponin T < 0.010 ng/mL (0.00-0.029) 01/15/17 06:20 Total Protein 6.2 g/dL (6.3-8.2) L 01/29/17 03:59 Albumin 1.5 g/dL (3.9-5) L 01/29/17 03:59 Albumin/Globulin Ratio 0.3 % 01/29/17 03:59 Fluid Type Pleural 01/15/17 Unknown Fluid Color Yellow 01/15/17 Unknown Fluid Appearance Clear 01/15/17 Unknown Fluid WBC 1350 /mm3 01/15/17 Unknown Fluid RBC 750 /mm3 01/15/17 Unknown Fluid Seg Neutrophils 81.0 % 01/15/17 Unknown Fluid Lymphocytes 12.0 % 01/15/17 Unknown Fluid Reactive Lymphs 0 % 01/15/17 Unknown Fluid Monocytes 7.0 % 01/15/17 Unknown Fluid Eosinophils 0 % 01/15/17 Unknown Fluid Basophils 0 % 01/15/17 Unknown Fluid Glucose 48 mg/dL (40-70) 01/15/17 Unknown Fluid Total Protein 5.3 (15.0-45.0) L 01/15/17 Unknown Fluid LDH 942 01/15/17 Unknown Vancomycin Trough 26.7 ug/mL (5.0-20.0) H 01/30/17 21:19 Blood Type O POSITIVE 01/27/17 14:04 Antibody Screen TNR 01/27/17 14:04 JERAD Antibody Screen Negative 01/27/17 14:04 Crossmatch See Detail 01/27/17 14:04
--- NOTE | 2017-02-01 15:33 | XRay Report ---
AP CHEST: HISTORY: Chest tube removal The left chest tube has been removed since 01/29/17. No recurrent left pneumothorax is identified although there is a moderate left pleural effusion. The lungs are hyperinflated with bibasilar atelectasis. Heart size is borderline. The bony structures are osteopenic. IMPRESSION: Left chest tube removal with no left pneumothorax visualized.
[2017-02-02] MEDS: VANCOMYCIN 1,250 MG in NACL 0.9% 250ML 250 ML IV SCH (00:23)
[2017-02-02] MEDS: NOVOLOG SUB-Q SCH ×2 (00:24→06:15)
[2017-02-02] MEDS: CLEOCIN 600 MG/50 mL 600 MG/50 ML BAG IV SCH (01:34)
[2017-02-02] MEDS: MORPHINE IV PRN (03:56)
[2017-02-02] MEDS: HEPARIN SUB-Q SCH (06:14)
[2017-02-02] MEDS ORDERED: VANCOMYCIN 1,250 MG in NACL 0.9% 250ML 250 ML IV SCH (08:00)
--- NOTE | 2017-02-02 09:21 | Progress Note ---
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 continue supplemental O2. Wean as tolerated. Need should be assessed prior to discharge 2. No objection to discharge. Can follow up in the office in 10-14 days. Surgery will follow up as well. Subjective Date of service: 02/02/17 Principal diagnosis: Pneumonia,pleural effusion-empyema,urinary retention Interval history: No acute events. CT removed yesterday by surgery. Objective Vital Signs - 12hr 02/01/17 02/02/17 02/02/17 22:00 00:53 03:45 Temperature 97.8 F Pulse Rate 82 77 Pulse Rate [ 74 From Monitor] Respiratory 22 Rate Respiratory Rate [Left Chest] Blood Pressure 166/66 [Left Arm] O2 Sat by Pulse 100 Oximetry 02/02/17 02/02/17 02/02/17 03:56 04:20 04:26 Temperature 97.8 F Pulse Rate Pulse Rate [ 75 From Monitor] Respiratory 20 24 22 Rate Respiratory Rate [Left Chest] Blood Pressure 168/72 [Left Arm] O2 Sat by Pulse 98 Oximetry 02/02/17 02/02/17 04:37 07:16 Temperature 97.6 F Pulse Rate Pulse Rate [ 73 From Monitor] Respiratory 20 Rate Respiratory 20 Rate [Left Chest] Blood Pressure 140/65 [Left Arm] O2 Sat by Pulse 95 Oximetry Constitutional: no acute distress, alert Eyes: non-icteric ENT: other (poor dentition) Effort: normal Ascultation: Bilateral: clear, diminished breath sounds (About 500cc of bloody fluid) Percussion: Left: dull (base) Cardiovascular: regular rate and rhythm Gastrointestinal: normoactive bowel sounds, soft, non-tender Extremities: no cyanosis, no cyanosis, no cyanosis Neurologic: normal mental status, non-focal exam CBC and BMP: 01/31/17 07:15 01/31/17 07:15 ABG, PT/INR, D-dimer: ABG POC ABG pH 7.458 (7.35-7.45) H 01/29/17 03:43 POC ABG pCO2 34.8 (35-45) L 01/29/17 03:43 POC ABG pO2 97 (80-105) 01/29/17 03:43 POC ABG HCO3 24.6 01/29/17 03:43 POC ABG Total CO2 26 01/29/17 03:43 POC ABG O2 Sat 98 01/29/17 03:43 PT/INR, D-dimer PT 16.6 Sec. (12.2-14.9) H 01/20/17 05:50 INR 1.27 (0.87-1.13) H 01/20/17 05:50 Abnormal lab findings: Abnormal Labs 01/15/17 01/15/17 01/15/17 06:20 06:20 12:11 WBC 28.5 H RBC 3.55 L Hgb 9.7 L Hct 30.3 L MCV MCH 27 L MCHC RDW 16.2 H Plt Count Lymph % (Auto) [place] % (Auto) Lymph # [place] # Seg Neutrophils % Seg Neuts % (Manual) Lymphocytes % (Manual) Monocytes % (Manual) Seg Neutrophils # Seg Neutrophils # Man Monocytes # (Manual) PT 16.3 H INR 1.32 H APTT 38.4 H POC ABG pH POC ABG pCO2 POC ABG pO2 Sodium 134 L Potassium Chloride 97.6 L Carbon Dioxide BUN 26 H Creatinine Glucose POC Glucose Calcium 8.2 L Alkaline Phosphatase Total Protein Albumin Fluid Total Protein Vancomycin Trough Crossmatch 01/15/17 01/16/17 01/16/17 Unknown 04:54 04:54 WBC 24.9 H RBC Hgb 10.0 L Hct 31.8 L MCV MCH 27 L MCHC RDW 16.2 H Plt Count Lymph % (Auto) [place] % (Auto) Lymph # [place] # Seg Neutrophils % Seg Neuts % (Manual) 37.0 L Lymphocytes % (Manual) 12.0 L Monocytes % (Manual) 10.0 H Seg Neutrophils # Seg Neutrophils # Man 9.2 H Monocytes # (Manual) 2.5 H PT INR APTT POC ABG pH POC ABG pCO2 POC ABG pO2 Sodium 132 L Potassium Chloride 95.2 L Carbon Dioxide BUN 29 H Creatinine Glucose 130 H POC Glucose Calcium 8.3 L Alkaline Phosphatase Total Protein Albumin Fluid Total Protein 5.3 L Vancomycin Trough Crossmatch 01/17/17 01/17/17 01/17/17 04:55 04:55 10:49 WBC 23.8 H RBC Hgb 10.9 L Hct 33.6 L MCV MCH MCHC RDW 16.4 H Plt Count Lymph % (Auto) [place] % (Auto) Lymph # [place] # Seg Neutrophils % Seg Neuts % (Manual) 36.0 L Lymphocytes % (Manual) 8.0 L Monocytes % (Manual) 18.0 H Seg Neutrophils # Seg Neutrophils # Man 8.6 H Monocytes # (Manual) 4.3 H PT INR APTT POC ABG pH POC ABG pCO2 POC ABG pO2 Sodium 132 L Potassium Chloride 95.7 L Carbon Dioxide 21 L BUN 30 H Creatinine Glucose 130 H POC Glucose 200 H Calcium Alkaline Phosphatase Total Protein Albumin Fluid Total Protein Vancomycin Trough Crossmatch 01/17/17 01/17/17 01/18/17 11:32 23:41 03:46 WBC 23.2 H RBC Hgb 10.5 L Hct 32.0 L MCV MCH MCHC RDW 16.0 H Plt Count Lymph % (Auto) [place] % (Auto) Lymph # [place] # Seg Neutrophils % Seg Neuts % (Manual) Lymphocytes % (Manual) 6.0 L Monocytes % (Manual) 10.0 H Seg Neutrophils # Seg Neutrophils # Man 16.2 H Monocytes # (Manual) 2.3 H PT INR APTT POC ABG pH 7.315 L POC ABG pCO2 POC ABG pO2 41 L Sodium Potassium Chloride Carbon Dioxide BUN Creatinine Glucose POC Glucose Calcium Alkaline Phosphatase Total Protein Albumin 1.9 L Fluid Total Protein Vancomycin Trough Crossmatch 01/18/17 01/19/17 01/19/17 03:46 03:41 03:41 WBC 19.8 H RBC 3.61 L Hgb 9.8 L Hct 30.2 L MCV MCH 27 L MCHC RDW 16.1 H Plt Count 505 H Lymph % (Auto) 5.2 L [place] % (Auto) 13.3 H Lymph # 1.0 L [place] # 2.6 H Seg Neutrophils % 81.1 H Seg Neuts % (Manual) Lymphocytes % (Manual) Monocytes % (Manual) Seg Neutrophils # 16.1 H Seg Neutrophils # Man Monocytes # (Manual) PT INR APTT POC ABG pH POC ABG pCO2 POC ABG pO2 Sodium 134 L 133 L Potassium Chloride 96.6 L 96.0 L Carbon Dioxide 21 L 21 L BUN 50 H 42 H Creatinine 1.9 H Glucose 177 H 122 H POC Glucose Calcium 8.1 L 8.0 L Alkaline Phosphatase Total Protein Albumin Fluid Total Protein Vancomycin Trough Crossmatch 01/20/17 01/20/17 01/20/17 05:50 05:50 05:50 WBC 18.4 H RBC Hgb 10.5 L Hct 32.0 L MCV 83 L MCH 27 L MCHC RDW 16.3 H Plt Count 540 H Lymph % (Auto) 7.7 L [place] % (Auto) 15.7 H Lymph # [place] # 2.9 H Seg Neutrophils % 76.2 H Seg Neuts % (Manual) Lymphocytes % (Manual) Monocytes % (Manual) Seg Neutrophils # 14.0 H Seg Neutrophils # Man Monocytes # (Manual) PT 16.6 H INR 1.27 H APTT POC ABG pH POC ABG pCO2 POC ABG pO2 Sodium Potassium Chloride Carbon Dioxide BUN 24 H Creatinine Glucose 104 H POC Glucose Calcium 8.0 L Alkaline Phosphatase Total Protein Albumin 1.7 L Fluid Total Protein Vancomycin Trough Crossmatch 01/20/17 01/22/17 01/22/17 21:03 07:34 07:34 WBC 24.9 H RBC Hgb 10.6 L Hct 33.8 L MCV MCH 27 L MCHC 31 L RDW 16.6 H Plt Count 582 H Lymph % (Auto) [place] % (Auto) Lymph # [place] # Seg Neutrophils % Seg Neuts % (Manual) Lymphocytes % (Manual) Monocytes % (Manual) Seg Neutrophils # Seg Neutrophils # Man Monocytes # (Manual) PT INR APTT POC ABG pH POC ABG pCO2 POC ABG pO2 Sodium Potassium Chloride Carbon Dioxide BUN Creatinine Glucose 163 H POC Glucose 110 H Calcium 7.9 L Alkaline Phosphatase Total Protein Albumin Fluid Total Protein Vancomycin Trough Crossmatch 01/23/17 01/24/17 01/24/17 08:49 08:01 08:01 WBC 23.7 H 25.6 H RBC Hgb 10.2 L 10.0 L Hct 31.6 L 31.0 L MCV MCH 27 L 27 L MCHC RDW 16.6 H 16.5 H Plt Count 559 H 535 H Lymph % (Auto) [place] % (Auto) Lymph # [place] # Seg Neutrophils % Seg Neuts % (Manual) 86.0 H Lymphocytes % (Manual) 7.0 L Monocytes % (Manual) Seg Neutrophils # Seg Neutrophils # Man 20.4 H Monocytes # (Manual) 1.4 H PT INR APTT POC ABG pH POC ABG pCO2 POC ABG pO2 Sodium 134 L Potassium Chloride 95.3 L Carbon Dioxide BUN Creatinine Glucose 162 H POC Glucose Calcium 7.5 L Alkaline Phosphatase Total Protein Albumin Fluid Total Protein Vancomycin Trough Crossmatch 01/25/17 01/25/17 01/25/17 00:23 06:29 11:54 WBC RBC Hgb Hct MCV MCH MCHC RDW Plt Count Lymph % (Auto) [place] % (Auto) Lymph # [place] # Seg Neutrophils % Seg Neuts % (Manual) Lymphocytes % (Manual) Monocytes % (Manual) Seg Neutrophils # Seg Neutrophils # Man Monocytes # (Manual) PT INR APTT POC ABG pH POC ABG pCO2 POC ABG pO2 Sodium Potassium Chloride Carbon Dioxide BUN Creatinine Glucose POC Glucose 165 H 119 H 235 H Calcium Alkaline Phosphatase Total Protein Albumin Fluid Total Protein Vancomycin Trough Crossmatch 01/25/17 01/25/17 01/26/17 18:18 21:30 04:28 WBC 24.8 H RBC 3.63 L Hgb 9.7 L Hct 30.7 L MCV MCH 27 L MCHC RDW 16.8 H Plt Count 542 H Lymph % (Auto) [place] % (Auto) Lymph # [place] # Seg Neutrophils % Seg Neuts % (Manual) Lymphocytes % (Manual) Monocytes % (Manual) Seg Neutrophils # Seg Neutrophils # Man Monocytes # (Manual) PT INR APTT POC ABG pH POC ABG pCO2 POC ABG pO2 Sodium Potassium Chloride Carbon Dioxide BUN Creatinine Glucose POC Glucose 191 H 119 H Calcium Alkaline Phosphatase Total Protein Albumin Fluid Total Protein Vancomycin Trough Crossmatch 01/26/17 01/26/17 01/26/17 04:28 05:11 12:07 WBC RBC Hgb Hct MCV MCH MCHC RDW Plt Count Lymph % (Auto) [place] % (Auto) Lymph # [place] # Seg Neutrophils % Seg Neuts % (Manual) Lymphocytes % (Manual) Monocytes % (Manual) Seg Neutrophils # Seg Neutrophils # Man Monocytes # (Manual) PT INR APTT POC ABG pH POC ABG pCO2 POC ABG pO2 Sodium 133 L Potassium Chloride 94.9 L Carbon Dioxide BUN Creatinine Glucose 166 H POC Glucose 182 H 199 H Calcium 7.5 L Alkaline Phosphatase Total Protein Albumin Fluid Total Protein Vancomycin Trough Crossmatch 01/26/17 01/26/17 01/27/17 18:01 22:08 06:24 WBC RBC Hgb Hct MCV MCH MCHC RDW Plt Count Lymph % (Auto) [place] % (Auto) Lymph # [place] # Seg Neutrophils % Seg Neuts % (Manual) Lymphocytes % (Manual) Monocytes % (Manual) Seg Neutrophils # Seg Neutrophils # Man Monocytes # (Manual) PT INR APTT POC ABG pH POC ABG pCO2 POC ABG pO2 Sodium Potassium Chloride Carbon Dioxide BUN Creatinine Glucose POC Glucose 127 H 168 H 167 H Calcium Alkaline Phosphatase Total Protein Albumin Fluid Total Protein Vancomycin Trough Crossmatch 01/27/17 01/27/17 01/27/17 11:36 14:04 18:04 WBC RBC Hgb Hct MCV MCH MCHC RDW Plt Count Lymph % (Auto) [place] % (Auto) Lymph # [place] # Seg Neutrophils % Seg Neuts % (Manual) Lymphocytes % (Manual) Monocytes % (Manual) Seg Neutrophils # Seg Neutrophils # Man Monocytes # (Manual) PT INR APTT POC ABG pH POC ABG pCO2 POC ABG pO2 Sodium Potassium Chloride Carbon Dioxide BUN Creatinine Glucose POC Glucose 235 H 165 H Calcium Alkaline Phosphatase Total Protein Albumin Fluid Total Protein Vancomycin Trough Crossmatch See Detail 01/27/17 01/28/17 01/28/17 23:41 06:33 12:29 WBC RBC Hgb Hct MCV MCH MCHC RDW Plt Count Lymph % (Auto) [place] % (Auto) Lymph # [place] # Seg Neutrophils % Seg Neuts % (Manual) Lymphocytes % (Manual) Monocytes % (Manual) Seg Neutrophils # Seg Neutrophils # Man Monocytes # (Manual) PT INR APTT POC ABG pH POC ABG pCO2 POC ABG pO2 Sodium Potassium Chloride Carbon Dioxide BUN Creatinine Glucose POC Glucose 192 H 131 H 143 H Calcium Alkaline Phosphatase Total Protein Albumin Fluid Total Protein Vancomycin Trough Crossmatch 01/28/17 01/28/17 01/29/17 13:42 23:41 03:43 WBC RBC Hgb Hct MCV MCH MCHC RDW Plt Count Lymph % (Auto) [place] % (Auto) Lymph # [place] # Seg Neutrophils % Seg Neuts % (Manual) Lymphocytes % (Manual) Monocytes % (Manual) Seg Neutrophils # Seg Neutrophils # Man Monocytes # (Manual) PT INR APTT POC ABG pH 7.458 H POC ABG pCO2 34.8 L POC ABG pO2 63 L Sodium Potassium Chloride Carbon Dioxide BUN Creatinine Glucose POC Glucose 199 H Calcium Alkaline Phosphatase Total Protein Albumin Fluid Total Protein Vancomycin Trough Crossmatch 01/29/17 01/29/17 01/29/17 03:59 03:59 05:28 WBC 23.0 H RBC 2.50 L Hgb 6.6 L D Hct 21.5 L D MCV MCH 27 L MCHC 31 L RDW 16.7 H Plt Count 485 H Lymph % (Auto) [place] % (Auto) Lymph # [place] # Seg Neutrophils % Seg Neuts % (Manual) 86.0 H Lymphocytes % (Manual) 7.0 L Monocytes % (Manual) Seg Neutrophils # Seg Neutrophils # Man 19.8 H Monocytes # (Manual) 1.6 H PT INR APTT POC ABG pH POC ABG pCO2 POC ABG pO2 Sodium 129 L Potassium 5.3 H D Chloride 93.7 L Carbon Dioxide BUN 37 H Creatinine Glucose 154 H POC Glucose 175 H Calcium 7.2 L Alkaline Phosphatase 131 H Total Protein 6.2 L Albumin 1.5 L Fluid Total Protein Vancomycin Trough Crossmatch 01/29/17 01/29/17 01/29/17 11:58 17:48 23:59 WBC RBC Hgb Hct MCV MCH MCHC RDW Plt Count Lymph % (Auto) [place] % (Auto) Lymph # [place] # Seg Neutrophils % Seg Neuts % (Manual) Lymphocytes % (Manual) Monocytes % (Manual) Seg Neutrophils # Seg Neutrophils # Man Monocytes # (Manual) PT INR APTT POC ABG pH POC ABG pCO2 POC ABG pO2 Sodium Potassium Chloride Carbon Dioxide BUN Creatinine Glucose POC Glucose 179 H 156 H 181 H Calcium Alkaline Phosphatase Total Protein Albumin Fluid Total Protein Vancomycin Trough Crossmatch 01/30/17 01/30/17 01/30/17 03:50 03:50 05:11 WBC 15.9 H RBC 2.97 L Hgb 7.9 L Hct 24.3 L MCV 82 L D MCH 27 L MCHC RDW 17.0 H Plt Count Lymph % (Auto) [place] % (Auto) Lymph # [place] # Seg Neutrophils % Seg Neuts % (Manual) Lymphocytes % (Manual) Monocytes % (Manual) Seg Neutrophils # Seg Neutrophils # Man Monocytes # (Manual) PT INR APTT POC ABG pH POC ABG pCO2 POC ABG pO2 Sodium 133 L Potassium Chloride 97.8 L Carbon Dioxide BUN 41 H Creatinine Glucose 150 H POC Glucose 189 H Calcium 7.2 L Alkaline Phosphatase Total Protein Albumin Fluid Total Protein Vancomycin Trough Crossmatch 01/30/17 01/30/17 01/30/17 11:22 17:35 21:19 WBC RBC Hgb Hct MCV MCH MCHC RDW Plt Count Lymph % (Auto) [place] % (Auto) Lymph # [place] # Seg Neutrophils % Seg Neuts % (Manual) Lymphocytes % (Manual) Monocytes % (Manual) Seg Neutrophils # Seg Neutrophils # Man Monocytes # (Manual) PT INR APTT POC ABG pH POC ABG pCO2 POC ABG pO2 Sodium Potassium Chloride Carbon Dioxide BUN Creatinine Glucose POC Glucose 137 H 149 H Calcium Alkaline Phosphatase Total Protein Albumin Fluid Total Protein Vancomycin Trough 26.7 H Crossmatch 01/30/17 01/31/17 01/31/17 22:43 05:17 07:15 WBC 14.3 H RBC 2.97 L Hgb 8.0 L Hct 24.5 L MCV 83 L MCH 27 L MCHC RDW 17.2 H Plt Count 489 H Lymph % (Auto) [place] % (Auto) Lymph # [place] # Seg Neutrophils % Seg Neuts % (Manual) Lymphocytes % (Manual) Monocytes % (Manual) Seg Neutrophils # Seg Neutrophils # Man Monocytes # (Manual) PT INR APTT POC ABG pH POC ABG pCO2 POC ABG pO2 Sodium Potassium Chloride Carbon Dioxide BUN Creatinine Glucose POC Glucose 164 H 113 H Calcium Alkaline Phosphatase Total Protein Albumin Fluid Total Protein Vancomycin Trough Crossmatch 01/31/17 01/31/17 02/01/17 07:15 11:58 00:06 WBC RBC Hgb Hct MCV MCH MCHC RDW Plt Count Lymph % (Auto) [place] % (Auto) Lymph # [place] # Seg Neutrophils % Seg Neuts % (Manual) Lymphocytes % (Manual) Monocytes % (Manual) Seg Neutrophils # Seg Neutrophils # Man Monocytes # (Manual) PT INR APTT POC ABG pH POC ABG pCO2 POC ABG pO2 Sodium Potassium Chloride Carbon Dioxide BUN 40 H Creatinine Glucose 123 H POC Glucose 129 H 111 H Calcium 7.5 L Alkaline Phosphatase Total Protein Albumin Fluid Total Protein Vancomycin Trough Crossmatch 02/01/17 02/01/17 02/01/17 05:32 11:41 17:51 WBC RBC Hgb Hct MCV MCH MCHC RDW Plt Count Lymph % (Auto) [place] % (Auto) Lymph # [place] # Seg Neutrophils % Seg Neuts % (Manual) Lymphocytes % (Manual) Monocytes % (Manual) Seg Neutrophils # Seg Neutrophils # Man Monocytes # (Manual) PT INR APTT POC ABG pH POC ABG pCO2 POC ABG pO2 Sodium Potassium Chloride Carbon Dioxide BUN Creatinine Glucose POC Glucose 114 H 129 H 118 H Calcium Alkaline Phosphatase Total Protein Albumin Fluid Total Protein Vancomycin Trough Crossmatch 02/02/17 05:59 WBC RBC Hgb Hct MCV MCH MCHC RDW Plt Count Lymph % (Auto) [place] % (Auto) Lymph # [place] # Seg Neutrophils % Seg Neuts % (Manual) Lymphocytes % (Manual) Monocytes % (Manual) Seg Neutrophils # Seg Neutrophils # Man Monocytes # (Manual) PT INR APTT POC ABG pH POC ABG pCO2 POC ABG pO2 Sodium Potassium Chloride Carbon Dioxide BUN Creatinine Glucose POC Glucose 129 H Calcium Alkaline Phosphatase Total Protein Albumin Fluid Total Protein Vancomycin Trough Crossmatch
[2017-02-02] MEDS: DUONEB *Not for PRN Use IH SCH ×2 (10:55→16:48)
--- NOTE | 2017-02-02 10:58 | Discharge Summary ---
Providers - Providers Date of Admission: 01/15/17 01:53 Date of discharge: 02/02/17 Attending physician: DERRICK RICARDO MD 01/15/17 01:58 Consult to Physician [CONS] Routine Consulting Provider: LENARD MENDEZ Reason For Exam: left pleural effusion, pneumonia Place consult to:: Dr Mendez Notified:: yes Phone number called:: Cell Was contact made?: Yes If yes, spoke with:: Dr Mendez Time called:: 09:27 01/15/17 10:31 Speech Therapy Evaluation and Treat [CONS] Routine Reason For Exam: coughing after drinking 01/15/17 10:44 Consult to Physician [CONS] Routine Consulting Provider: ELIDA RANKIN Reason For Exam: Left sided Thoracentesis Place consult to:: Elida Rankin Notified:: Bjorn Phone number called:: [phone] Was contact made?: Yes If yes, spoke with:: Bjorn Time called:: 12:40 01/15/17 22:12 Consult to Dietitian/Nutrition [CONS] Stat Physician Instructions: Reason For Exam: Reason for Consult: Poor oral intake 01/18/17 16:44 Consult to Physician [CONS] Routine Consulting Provider: CARLY HERNANDEZ Reason For Exam: anuria Place consult to:: office Notified:: yes Phone number called:: [phone] If yes, spoke with:: gene Time called:: 16:48 Comment:: alex 01/19/17 10:48 Consult to Physician [CONS] Urgent Consulting Provider: KOBI RIVERA Reason For Exam: Inability to safely swallow Place consult to:: [facility] Notified:: Dr. Rivera Phone number called:: [phone] Was contact made?: Yes If yes, spoke with:: Paulina Time called:: 10:50 01/20/17 09:22 Consult to Physician [CONS] Routine Consulting Provider: ELIDA RANKIN Reason For Exam: IR eval. for cath drainage Place consult to:: office Notified:: yes Phone number called:: [phone] If yes, spoke with:: katie Time called:: 09:26 Comment:: 01/20/17 17:48 Consult to Dietitian/Nutrition [CONS] Stat Physician Instructions: Reason For Exam: Reason for Consult: new peg tube placement 01/22/17 10:59 Consult to Physician [CONS] Routine Consulting Provider: JOSE CHAVEZ Reason For Exam: LOCULATED PLEURAL EFFUSION Place consult to:: Notified:: Phone number called:: [phone] Was contact made?: Yes If yes, spoke with:: ALEJANDROFRANKI Time called:: 12:10 01/28/17 17:55 Consult to Dietitian/Nutrition [CONS] Routine Physician Instructions: Reason For Exam: Reason for Consult: Malnutrition 01/31/17 08:00 Consult to Wound/ET Nurse [CONS] Urgent Reason For Exam: wound eval, Pressure ulcer at buttock. 02/01/17 16:45 Physical Therapy Evaluation and Treat [CONS] Routine Comment: Reason For Exam: DISCHARGE NEEDS Primary care physician: CASH GRAIN GROWER Hospitalization Reason for admission: Lt sided loculated pleural effusion Condition: Stable Pertinent studies: CT X-ray Procedures: Thoracentesis VAT PEG tube Hospital course: Patient is 86-year-old man with history of hypertension, coronary artery disease and CABG, recent pneumonia. He was recently diagnosed with pneumonia on 12/20/16, and was placed on Levaquin po and discharged home from ED. He completed 10 days of Levaquin. Currently he presents with left lower chest pain and cough. On Admission he is found to have loculated effusion on the left lower lobe. Despite thoracentesis no resolution was noted, so Patient had pigtail catheter placed left lung. Pleural effusion shown to be loculated empyema. VAT was done by cardiothoracic surgeon. Patient showed improvement, was breathing okay. He transferred to short-term rehabilitation. Patient failed swallow evaluation and he is on PEG tube feeding. Medications were revised and updated. Patient is hemodynamically stable on the time of discharge. Patient's questions and concerns were answered to some bedside. Patient is scheduled to have follow-up with cardiothoracic surgeon as an outpatient. He has follow-up appointment with pulmonary within 2 weeks. Disposition: [id number] [facility] Time spent for discharge: 31 minutes - Discharge Diagnoses (1) Atrial fibrillation Status: Acute Qualifiers: Atrial fibrillation type: A (2) Coronary artery disease Status: Acute Qualifiers: Coronary Disease-Associated Artery/Lesion type: C [place] vs. transplanted heart: N Associated angina: A (3) Empyema of left pleural space Status: Acute (4) Left lower lobe pneumonia Status: Acute Qualifiers: Pneumonia type: P Aspiration pneumonia type: A Core Measure Documentation - Palliative Care Palliative Care/ Comfort Measures: Not Applicable - Core Measures Any of the following diagnoses?: none Exam - Physical Exam Narrative exam: Patient is on [place] oxygen The patient appeared well nourished and normally developed. Vital signs as documented. Head exam is unremarkable. No scleral icterus . Neck is without jugular venous distension, thyromegaly, or carotid bruits. Chest clean dressing on the Left chest. Lungs decreased air entry on the LLL. Cardiac exam reveals regular rate and Rhythm. First and second heart sounds normal. No murmurs, rubs or gallops. Abdominal exam reveals normal bowel sounds, no masses, no organomegaly and no aortic enlargement. Extremities are nonedematous and both femoral and pedal pulses are normal. 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 No focal weakness. - Constitutional Vitals: Temp Pulse Resp BP Pulse Ox 97.6 F 73 20 140/65 95 02/02/17 07:16 02/02/17 07:16 02/02/17 07:16 02/02/17 07:16 02/02/17 07:16 Plan Activity: no restrictions Weight Bearing Status: Full Weight Bearing Diet: low cholesterol Follow up with: PRIMARY CARE, [Primary Care Provider] - 3-5 Days LENARD MENDEZ MD [Staff Physician] - 14 Days JOSE CHAVEZ MD [Staff Physician] - 10 Days Prescriptions: AtorvaSTATin [Lipitor] 20 mg PO QHS #30 tablet amLODIPine [Norvasc] 5 mg PO DAILY #30 tablet Aspirin [Adult Low Dose Aspirin EC] 81 mg PO DAILY #30 tablet.dr Preciadovedilol [Coreg] 3.125 mg PO BID #60 tablet Clindamycin [Clindamycin CAP] 450 mg PO Q8HR #21 capsule Finasteride [Proscar] 1 tab PO DAILY #30 tablet Multivitamin Tab [Multiple Vitamin TAB (Theragran)] 1 tab PO DAILY #30 tablet oxyCODONE /ACETAMINOPHEN [Percocet 5/325 mg] 1 tab PO Q6HR PRN #30 tablet PRN Reason: Pain Tamsulosin [Flomax] 0.4 mg PO QDAY #30 capsule
[2017-02-02] MEDS: BABY ASPIRIN PO SCH (10:59)
[2017-02-02] MEDS: COREG PO SCH (11:00)
[2017-02-02 14:57] VITALS: BP 145/63
--- NOTE | 2017-02-11 09:57 | Consultation ---
HISTORY OF PRESENT ILLNESS: The patient is an 86-year-old gentleman who has been in the hospital for 3 days with hypertension, recent pneumonia and chest pain. He has had some sort of difficulty voiding in the past. He denies any major surgery on the prostate. PAST MEDICAL HISTORY: Recent hip surgery about 9 months ago, previous heart disease. PAST SURGICAL HISTORY: Cardiac bypass, hip surgery. ALLERGIES: PENICILLIN, SULFA. MEDICATIONS: He is on aspirin, Flomax, amlodipine, and Lopressor. REVIEW OF SYSTEMS: Difficulty voiding for 2 days. PHYSICAL EXAMINATION: GENERAL: He is awake. He is in no distress. ABDOMEN: Soft with lower abdominal distention and pain. GENITALIA: Atrophic testes, circumcised. No discharge. IMPRESSION: Urinary retention. Catheter was placed over 600 was noted. He had this on the bladder scan. The urine is clear. We used a wire and placed a 16 [place] he tolerated it well. I explained this to his daughter. He will only go home with a catheter and see Dr. Austin afterwards. His creatinine has been normal and the plan will be catheter drainage. Follow up as an outpatient. JOB# [id number] JESUS/CYNTHIA
== END 2017-02-02 17:26 | DRG 163 ==
LOC: ED 15:44 → CC2 01-15 01:53 → CC1 01-28 12:58 → 4A 01-30 13:14
PROVIDERS: ADMIT Internal Medicine; ATTEND Internal Medicine
PROC: 4A033R1 Measurement of Arterial Saturation, Peripheral, Percutaneous Approach (ICD-10-PCS; 2017-01-17)
PROC: 0DH63UZ Insertion of Feeding Device into Stomach, Percutaneous Approach (ICD-10-PCS; 2017-01-20)
PROC: 0BDP0ZZ Extraction of Left Pleura, Open Approach (ICD-10-PCS; 2017-01-21)
PROC: 0W9B30Z Drainage of Left Pleural Cavity with Drainage Device, Percutaneous Approach (ICD-10-PCS; 2017-01-21)
PROC: 5A1935Z Respiratory Ventilation, Less than 24 Consecutive Hours (ICD-10-PCS; principal; 2017-01-28)
PROC: 0BJL4ZZ Inspection of Left Lung, Percutaneous Endoscopic Approach (ICD-10-PCS; 2017-01-28)
PROC: 30233N1 Transfusion of Nonautologous Red Blood Cells into Peripheral Vein, Percutaneous Approach (ICD-10-PCS; 2017-01-28)
PROC: 0BH17EZ Insertion of Endotracheal Airway into Trachea, Via Natural or Artificial Opening (ICD-10-PCS; 2017-01-28)
DX: J69.0 Pneumonitis due to inhalation of food and vomit (principal); J96.00 Acute respiratory failure, unspecified whether with hypoxia or hypercapnia; J86.9 Pyothorax without fistula; J91.8 Pleural effusion in other conditions classified elsewhere; E44.0 Moderate protein-calorie malnutrition; Z68.1 Body mass index [BMI] 19.9 or less, adult; I25.10 Atherosclerotic heart disease of native coronary artery without angina pectoris; N40.0 Benign prostatic hyperplasia without lower urinary tract symptoms; K44.9 Diaphragmatic hernia without obstruction or gangrene; K29.70 Gastritis, unspecified, without bleeding; I10 Essential (primary) hypertension; G47.30 Sleep apnea, unspecified; E11.9 Type 2 diabetes mellitus without complications; I48.0 Paroxysmal atrial fibrillation; J15.4 Pneumonia due to other streptococci; B95.4 Other streptococcus as the cause of diseases classified elsewhere; Z95.1 Presence of aortocoronary bypass graft; Z87.891 Personal history of nicotine dependence
CPT/HCPCS: 32557; 36415; 36600; 71010; 71250; 74230; 76604; 80048; 80053; 80074; 80202; 82550; 82553; 82803; 82947; 82962; 83605; 83615; 84160; 84484; 85007; 85025; 85027; 85610; 85730; 86850; 86900; 86901; 86920; 87040; 87102; 87116; 87205; 87220; 88305; 89051; 93005; 93010; 94002; 94003; 94640; 94644; 94660; 94760; 96365; 96367; 96375; A4217; A9270-GY; C1729; C1769; G8978-GP; G8979-GP; G8996-GN; G8997-GN; J0690; J1100; J1580; J1644; J1815; J2250; J2270; J2405; J2704; J3010; J3370; J7030; J7040; J7042; J7050; P9016

== ENCOUNTER 2017-02-09 10:35 | Emergency (ER) | payer MEDICARE ==
[2017-02-09] MEDS ORDERED: DUONEB *Not for PRN Use IH ONE ×2 (10:43→10:46)
[2017-02-09] MEDS ORDERED: CLEOCIN 300 MG/50 mL 300 MG/50 ML BAG IV ONE (11:36)
[2017-02-09] MEDS ORDERED: VANCOMYCIN VIAL IV ONE (11:36)
[2017-02-09] MEDS ORDERED: TYLENOL PR ONE (11:38)
[2017-02-09] MEDS ORDERED: ATROVENT IH ONE (11:38)
[2017-02-09] MEDS ORDERED: PROVENTIL IH ONE (11:38)
--- NOTE | 2017-02-09 11:39 | Emergency Department Report ---
ED General Adult HPI - General Chief complaint: Dyspnea/Respdistress Stated complaint: JULIO Time Seen by Provider: 02/09/17 11:16 Source: patient, family, EMS (ems notes not available at time of chart dictation), RN notes reviewed, old records reviewed Mode of arrival: Stretcher Limitations: Physical Limitation - History of Present Illness Initial comments: This is an 86-year-old male. He is previously unknown to me. Past medical history includes hypertension and heart disease, CABG, recent admission for respiratory distress, pneumonia, and left-sided pleural effusion. History obtained by speaking to the patient, his ; Loni Hanna ), and his daughter Simona floyd; [phone]. Patient is currently delirious, and is a poor historian. As per his family, patient has been having issues with hypotension, and hypoxia and respiratory distress. This is been going on for at least the past day or so. They cannot describe exacerbating or relieving factors. Patient recently admitted to the hospital for similar symptoms. Upon arrival to the ER, the patient was found to be hypoxic, and required initiation of BiPAP therapy. Laboratory studies indicated leukocytosis, and an x-ray of the chest demonstrated persistent left-sided pleural effusion, with airspace disease suggestive of pneumonia. Extensive discussion had with the patient's daughter and the patient's . They requested the patient be made DO NOT RESUSCITATE, DO NOT INTUBATE as per his previously articulated wishes. This paperwork was filled out. The family is amenable to discussion with hospice, and they are amenable to IV fluids, antibiotics and phlebotomy. The case was presented to the Hospital physician, Dr. Milton, who graciously accepted the patient to his service for sepsis secondary to pneumonia, eminent respiratory failure. In addition, I contacted case management to involve hospice to facilitate patient's goals of care. -: Gradual Consistency: constant Improves with: none Worsens with: none Associated Symptoms: confusion, shortness of breath, weakness - Related Data Home Medications Medication Instructions Recorded Confirmed Last Taken Folic Acid [Folvite] 1 mg PO QDAY 06/25/16 01/14/17 01/14/17 Previous Rx's Medication Instructions Recorded Last Taken Type Aspirin [Adult Low Dose Aspirin EC] 81 mg PO DAILY #30 tablet. 02/02/17 Unknown Rx AtorvaSTATin [Lipitor] 20 mg PO QHS #30 tablet 02/02/17 Unknown Rx Carvedilol [Coreg] 3.125 mg PO BID #60 tablet 02/02/17 Unknown Rx Clindamycin [Clindamycin CAP] 450 mg PO Q8HR #21 capsule 02/02/17 Unknown Rx Finasteride [Proscar] 1 tab PO DAILY #30 tablet 02/02/17 Unknown Rx Multivitamin Tab [Multiple Vitamin 1 tab PO DAILY #30 tablet 02/02/17 Unknown Rx TAB (Theragran)] Tamsulosin [Flomax] 0.4 mg PO QDAY #30 capsule 02/02/17 Unknown Rx amLODIPine [Norvasc] 5 mg PO DAILY #30 tablet 02/02/17 Unknown Rx oxyCODONE /ACETAMINOPHEN [Percocet 1 tab PO Q6HR PRN #30 tablet 02/02/17 Unknown Rx 5/325 mg] Allergies Allergy/AdvReac Type Severity Reaction Status Date / Time Penicillins AdvReac Severe Hives Verified 01/16/17 16:28 Sulfa (Sulfonamide AdvReac Severe Hives Verified 01/16/17 16:28 Antibiotics) ED Review of Systems ROS: Stated complaint: JULIO Other details as noted in HPI Comment: Unobtainable due to pts medical conditions ED Past Medical Hx - Past Medical History Previous Medical History?: Yes Hx Hypertension: Yes Hx Renal Disease: Yes (renal insufficiency?, BPH) Hx Arthritis: Yes Additional medical history: enlarged prostate, Constipation, Difficult swallowing, Sensitive gag reflex, High cholesterol, CAD, atrial fibrillation - Surgical History Past Surgical History?: Yes Hx Open Heart Surgery: Yes (CABG) Additional Surgical History: Right hip arthroplasty - Social History Smoking Status: Unknown if ever smoked - Medications Home Medications: Home Medications Medication Instructions Recorded Confirmed Last Taken Type Folic Acid [Folvite] 1 mg PO QDAY 06/25/16 01/14/17 01/14/17 History Aspirin [Adult Low Dose Aspirin EC] 81 mg PO DAILY #30 tablet. 02/02/17 Unknown Rx AtorvaSTATin [Lipitor] 20 mg PO QHS #30 tablet 02/02/17 Unknown Rx Carvedilol [Coreg] 3.125 mg PO BID #60 tablet 02/02/17 Unknown Rx Clindamycin [Clindamycin CAP] 450 mg PO Q8HR #21 capsule 02/02/17 Unknown Rx Finasteride [Proscar] 1 tab PO DAILY #30 tablet 02/02/17 Unknown Rx Multivitamin Tab [Multiple Vitamin 1 tab PO DAILY #30 tablet 02/02/17 Unknown Rx TAB (Theragran)] Tamsulosin [Flomax] 0.4 mg PO QDAY #30 capsule 02/02/17 Unknown Rx amLODIPine [Norvasc] 5 mg PO DAILY #30 tablet 02/02/17 Unknown Rx oxyCODONE /ACETAMINOPHEN [Percocet 1 tab PO Q6HR PRN #30 tablet 02/02/17 Unknown Rx 5/325 mg] ED Physical Exam - General Limitations: Physical Limitation General appearance: lethargic, in distress - Head Head exam: Present: atraumatic, normocephalic - Eye Eye exam: Present: normal appearance - ENT ENT exam: Present: mucous membranes dry - Neck Neck exam: Present: normal inspection, full ROM - Respiratory Respiratory exam: Present: respiratory distress, rhonchi - Cardiovascular Cardiovascular Exam: Present: regular rate, normal rhythm, normal heart sounds. Absent: systolic murmur, diastolic murmur, rubs, gallop - GI/Abdominal GI/Abdominal exam: Present: soft, normal bowel sounds, other (feeding tube is noted in place). Absent: distended, tenderness, guarding, rebound, rigid, pulsatile mass - Rectal Rectal exam: Present: deferred - Extremities Exam Extremities exam: Present: normal inspection. Absent: calf tenderness - Back Exam Back exam: Present: normal inspection. Absent: CVA tenderness (L), muscle spasm , paraspinal tenderness, vertebral tenderness - Neurological Exam Neurological exam: Present: alert, altered (patient alerts to name and location. He is able to follow commands.), other (there is no facial droop. Patient is able to lift bilateral upper and lower extremities to command. Patient is delirious.) - Psychiatric Psychiatric exam: Present: normal affect, normal mood - Skin Skin exam: Present: warm, dry, intact, normal color. Absent: rash ED Course Vital Signs 02/09/17 02/09/17 02/09/17 10:28 10:30 10:39 Temperature 99.3 F Pulse Rate 78 77 Pulse Rate [ Anterior Bilateral Throughout] Respiratory 21 22 Rate Respiratory Rate [Anterior Bilateral Throughout] Blood Pressure 100/36 104/29 Blood Pressure [Right] O2 Sat by Pulse 92 89 90 Oximetry 02/09/17 02/09/17 02/09/17 10:45 10:46 10:48 Temperature 99.3 F Pulse Rate 75 Pulse Rate [ 74 Anterior Bilateral Throughout] Respiratory 25 H Rate Respiratory 22 Rate [Anterior Bilateral Throughout] Blood Pressure 104/29 Blood Pressure [Right] O2 Sat by Pulse 92 Oximetry 02/09/17 02/09/17 02/09/17 11:00 11:10 11:15 Temperature Pulse Rate 65 71 Pulse Rate [ 77 Anterior Bilateral Throughout] Respiratory 23 24 Rate Respiratory 18 Rate [Anterior Bilateral Throughout] Blood Pressure 110/39 98/33 Blood Pressure [Right] O2 Sat by Pulse 95 88 Oximetry 02/09/17 02/09/17 02/09/17 11:18 11:43 11:45 Temperature Pulse Rate 74 Pulse Rate [ Anterior Bilateral Throughout] Respiratory 20 25 H 18 Rate Respiratory Rate [Anterior Bilateral Throughout] Blood Pressure 104/29 106/36 Blood Pressure 104/34 [Right] O2 Sat by Pulse 96 83 L 96 Oximetry 02/09/17 02/09/17 02/09/17 12:00 12:03 12:08 Temperature Pulse Rate 72 Pulse Rate [ 77 Anterior Bilateral Throughout] Respiratory 34 H 25 H Rate Respiratory 38 H Rate [Anterior Bilateral Throughout] Blood Pressure 106/72 Blood Pressure [Right] O2 Sat by Pulse 87 96 Oximetry 02/09/17 12:09 Temperature Pulse Rate Pulse Rate [ Anterior Bilateral Throughout] Respiratory Rate Respiratory Rate [Anterior Bilateral Throughout] Blood Pressure Blood Pressure [Right] O2 Sat by Pulse 91 Oximetry - Reevaluation(s) Reevaluation #1: 02/09/17 12:57 Fentanyl drip is ordered for patient's comfort. Elevated troponin is appreciated, this is most likely secondary to renal insufficiency, dehydration, cardiac strain. I will defer to the inpatient team to contact cardiology if they feel like it is appropriate. Based on the current clinical picture, I do not believe the patient requires an emergent cardiology consult. ED Medical Decision Making - Lab Data Result diagrams: 02/09/17 11:48 02/09/17 11:48 Vital Signs 02/09/17 02/09/17 02/09/17 10:28 10:30 10:39 Temperature 99.3 F Pulse Rate 78 77 Pulse Rate [ Anterior Bilateral Throughout] Respiratory 21 22 Rate Respiratory Rate [Anterior Bilateral Throughout] Blood Pressure 100/36 104/29 Blood Pressure [Right] O2 Sat by Pulse 92 89 90 Oximetry 02/09/17 02/09/17 02/09/17 10:45 10:46 10:48 Temperature 99.3 F Pulse Rate 75 Pulse Rate [ 74 Anterior Bilateral Throughout] Respiratory 25 H Rate Respiratory 22 Rate [Anterior Bilateral Throughout] Blood Pressure 104/29 Blood Pressure [Right] O2 Sat by Pulse 92 Oximetry 02/09/17 02/09/17 02/09/17 11:00 11:10 11:15 Temperature Pulse Rate 65 71 Pulse Rate [ 77 Anterior Bilateral Throughout] Respiratory 23 24 Rate Respiratory 18 Rate [Anterior Bilateral Throughout] Blood Pressure 110/39 98/33 Blood Pressure [Right] O2 Sat by Pulse 95 88 Oximetry 02/09/17 02/09/17 02/09/17 11:18 11:43 11:45 Temperature Pulse Rate 74 Pulse Rate [ Anterior Bilateral Throughout] Respiratory 20 25 H 18 Rate Respiratory Rate [Anterior Bilateral Throughout] Blood Pressure 104/29 106/36 Blood Pressure 104/34 [Right] O2 Sat by Pulse 96 83 L 96 Oximetry 02/09/17 02/09/17 02/09/17 12:00 12:03 12:08 Temperature Pulse Rate 72 Pulse Rate [ 77 Anterior Bilateral Throughout] Respiratory 34 H 25 H Rate Respiratory 38 H Rate [Anterior Bilateral Throughout] Blood Pressure 106/72 Blood Pressure [Right] O2 Sat by Pulse 87 96 Oximetry 02/09/17 12:09 Temperature Pulse Rate Pulse Rate [ Anterior Bilateral Throughout] Respiratory Rate Respiratory Rate [Anterior Bilateral Throughout] Blood Pressure Blood Pressure [Right] O2 Sat by Pulse 91 Oximetry Lab Results 02/09/17 02/09/17 02/09/17 Range/Units 10:46 11:48 11:48 WBC 23.5 H (4.5-11.0) K/mm3 RBC 3.12 L (3.65-5.03) M/mm3 Hgb 8.5 L (11.8-15.2) gm/dl Hct 27.4 L (35.5-45.6) % MCV 88 (84-94) fl MCH 27 L (28-32) pg MCHC 31 L (32-34) % RDW 17.7 H (13.2-15.2) % Plt Count 576 H (140-440) K/mm3 Sodium 145 (137-145) mmol/L Potassium 4.0 (3.6-5.0) mmol/L Chloride 99.5 (98-107) mmol/L Carbon Dioxide 33 H (22-30) mmol/L Anion Gap 17 mmol/L BUN 58 H (9-20) mg/dL Creatinine 1.6 H (0.8-1.5) mg/dL Estimated GFR 41 ml/min BUN/Creatinine Ratio 36.25 % Glucose 171 H (75-100) mg/dL Calcium 8.1 L (8.4-10.2) mg/dL Troponin T 0.041 H (0.00-0.029) ng/mL Urine Color Yellow (Yellow) Urine Turbidity Clear (Clear) Urine pH 5.0 (5.0-7.0) Ur Specific [place] 1.014 (1.003-1.030) Urine Protein 30 mg/dl (Negative) mg/dL Urine Glucose (UA) Neg (Negative) mg/dL Urine Ketones Neg (Negative) mg/dL Urine Blood Neg (Negative) Urine Nitrite Neg (Negative) Urine Bilirubin Neg (Negative) Urine Urobilinogen 4.0 (<2.0) mg/dL Ur Leukocyte Esterase Tr (Negative) Urine WBC (Auto) 7.0 H (0.0-6.0) /HPF Urine RBC (Auto) 3.0 (0.0-6.0) /HPF Urine Bacteria (Auto) 1+ (Negative) /HPF Granular Casts 1 /LPF Urine Mucus Few /HPF Urine Yeast (Budding) 2+ /HPF - EKG Data -: EKG Interpreted by Ks EKG shows normal: sinus rhythm - EKG Data 02/09/17 12:54 Normal sinus, 71 bpm, normal intervals, normal axis, premature atrial contractions, abnormal EKG, not morphologically consistent with stemi - Radiology Data Radiology results: report reviewed, image reviewed X-ray the chest demonstrates left-sided pleural effusion, status post sternotomy , left-sided airspace disease suggestive of pneumonia - Medical Decision Making Differential diagnosis: Urinary tract infection, pneumonia, pleural effusion, multifactorial respiratory failure Assessment and plan: 78-year-old male with respiratory distress, rhonchi, desaturates to 70s on room air, most likely with respiratory failure secondary to multiple causes. The patient is tachypneic, and has a leukocytosis, therefore he made systemic inflammatory response syndrome criteria. Extensive discussion had with family to clarify goals of care. Patient will be managed medically. All culture results are reviewed. He will be started empirically on vancomycin, clindamycin and Levaquin. Blood cultures, urinalysis, urine cultures, lactic acid are ordered. Case management is involved. Advanced directives ordered. BiPAP therapy is ordered. Family understands the patient has a very poor prognosis. Critical Care Time: Yes Critical care time in (mins) excluding proc time.: 35 Critical care attestation.: If time is entered above; I have spent that time in minutes in the direct care of this critically ill patient, excluding procedure time. Critical Care Time: Critical care time includes multiple bedside evaluations, interpretation of laboratory studies, radiology studies, time spent managing critically ill patient with respiratory failure and sepsis requiring discussion with consultation services, including hospital medicine, case management, and palliative care/hospice. This does not include procedure time. Patient also required noninvasive positive pressure ventilation in the form of BiPAP. ED Disposition Clinical Impression: Pleural effusion, left, Respiratory distress Disposition: DC-09 OP ADMIT IP TO THIS HOSP Is pt being admited?: Yes Condition: Poor Referrals: PRIMARY CARE, [Primary Care Provider] - 3-5 Days
--- NOTE | 2017-02-09 11:44 | XRay Report ---
AP CHEST: HISTORY: Difficulty breathing Compared to 02/01/17. Mild cardiomegaly and moderate left pleural effusion are identified. There is subtle patchy airspace disease in the lingula. This may represent focal congestion or early infiltrate. The right lung is clear. No pneumothorax. IMPRESSION: Mild cardiomegaly and moderate left pleural effusion. Patchy airspace disease in the lingula which could represent focal congestion or pneumonia. Correlate with the patient.
--- NOTE | 2017-02-09 11:53 | History and Physical Report ---
Medications and Allergies Allergies Allergy/AdvReac Type Severity Reaction Status Date / Time Penicillins AdvReac Severe Hives Verified 01/16/17 16:28 Sulfa (Sulfonamide AdvReac Severe Hives Verified 01/16/17 16:28 Antibiotics) Home Medications Medication Instructions Recorded Confirmed Last Taken Type Folic Acid [Folvite] 1 mg PO QDAY 06/25/16 01/14/17 01/14/17 History Aspirin [Adult Low Dose Aspirin EC] 81 mg PO DAILY #30 tablet. 02/02/17 Unknown Rx AtorvaSTATin [Lipitor] 20 mg PO QHS #30 tablet 02/02/17 Unknown Rx Carvedilol [Coreg] 3.125 mg PO BID #60 tablet 02/02/17 Unknown Rx Clindamycin [Clindamycin CAP] 450 mg PO Q8HR #21 capsule 02/02/17 Unknown Rx Finasteride [Proscar] 1 tab PO DAILY #30 tablet 02/02/17 Unknown Rx Multivitamin Tab [Multiple Vitamin 1 tab PO DAILY #30 tablet 02/02/17 Unknown Rx TAB (Theragran)] Tamsulosin [Flomax] 0.4 mg PO QDAY #30 capsule 02/02/17 Unknown Rx amLODIPine [Norvasc] 5 mg PO DAILY #30 tablet 02/02/17 Unknown Rx oxyCODONE /ACETAMINOPHEN [Percocet 1 tab PO Q6HR PRN #30 tablet 02/02/17 Unknown Rx 5/325 mg] Active Meds: Active Medications Clindamycin HCl (Cleocin 300 Mg/50 Ml) 300 mg in 50 mls @ 100 mls/hr IV ONCE ONE Stop: 02/09/17 12:05 Fentanyl 2,000 mcg/ Sodium (Chloride) 100 mls @ 4.19 mls/hr IV TITR ANGELIQUE; 1 MCG/ KG/HR PRN Reason: Protocol Vancomycin HCl 1,750 mg/ (Sodium Chloride) 535 mls @ 333.333 mls/hr IV ONCE.ED ONE Stop: 02/09/17 13:36 Vancomycin HCl (Vancomycin Pharmacy To Dose) 1 each IV PKCONSULT ANGELIQUE PRN Reason: Protocol Exam - Constitutional Vitals: Temp Pulse Resp BP Pulse Ox 99.3 F 74 20 104/34 96 02/09/17 10:39 02/09/17 11:18 02/09/17 11:18 02/09/17 11:18 02/09/17 11:18
[2017-02-09 11:56] LABS: Bacteria,Urine 1+ /HPF (Negative); Bilirubin,Urine NEG (Negative); Blood,Urine NEG (Negative); Granular Casts,Urine 1 /LPF; Ketones,Urine NEG (Negative); Leukocyte Esterase,Urine TR (Negative); Mucus,Urine FEW /HPF; Nitrite,Urine NEG (Negative)
[2017-02-09] MEDS ORDERED: SUBLIMAZE 2,000 MCG in NACL 0.9% 60 ML IV SCH (12:00)
[2017-02-09] MEDS ORDERED: VANCOMYCIN 1,750 MG in NACL 0.9% 500 ML 500 ML IV ONE (12:00)
[2017-02-09] MEDS ORDERED: VANCOMYCIN PHARMACY TO DOSE IV SCH (12:00)
--- NOTE | 2017-02-09 12:00 | Admit Criteria Form ---
Admission Criteria Documentation: PLEURAL EFFUSION Clinical Indications for Admission to Inpatient Care (Place 'X' for any and all applicable criteria): Admission is indicated for ANY ONE of the following (1)(2)(3): [ ]I. Pneumonia-related effusion requiring drainage as indicated by 1 or more of the following [A]: [ ]a) Large pleural effusion (symptomatic or greater than one-half of hemithorax) [ ]b) Loculated effusion [ ]c) Pleural fluid analysis results, including ANY ONE of the following: [ ]i) Positive Gram stain or culture for bacteria [ ]ii) Pus [ ]iii) pH less than 7.20 [ ]d) Parapneumonic effusion with glucose less than 60 mg/dL (3.33 mmol/L) [ ]II. Inpatient admission required rather than observation care (Also use Pleural Effusion: Observation Care criteria as appropriate) because of 1 or more of the following: [ ]1) Hemodynamic instability [ ]2) Respiratory findings (Tachypnea, dyspnea) that persist despite observation care treatment [ ]3) Hypoxemia or hypercapnia that persists despite observation care treatment [ ]4) Complication of drainage (e.g., pneumothorax) that requires inpatient care [ ]5) Etiology that requires inpatient care (e.g., pulmonary embolism, trauma) [ ]6) Severe pain requiring acute inpatient management [ ]7) Chest tube placement with active evacuation (eg, suction, drainage) [ ]8) Pulmonary artery catheter monitoring [ ]9) Epidural analgesia(7) [ ]10) Immediate inpatient surgery [ ]11) Other condition, treatment, or monitoring requiring inpatient admission [ ]III. Hemothorax [ ]IV. Empyema [ ]V. Pleural effusion with concomitant pneumothorax [ ]. Recurrent or malignant pleural effusion requiring pleurodesis (4) [X]VII. Respiratory distress Extended stay beyond goal length of stay may be needed for (27)(28): [ ]a) Empyema or complicated parapneumonic effusion (24)(29) [ ]b) Malignant pleural effusion (4) [ ]c) Pleural effusion due to trauma or perforated esophagus [ ]d) Pleural effusion due to pulmonary embolism (30) [ ]e) Clinically significant re-expansion pulmonary edema [ ]f) Hemothorax [ ]g) Renal failure [ ]h) Complications of thoracentesis, thoracostomy tube, or pleural cath. placement [ ]j) Trapped lung (e.g., benign or malignant thickened pleura preventing lung re-expansion) (31) [ ]i) Underlying etiology necessitates ongoing inpatient care (e.g., pneumonia, heart failure, malignancy) The original [facility] content created by [facility] has been revised. The portions of the content which have been revised are identified through the use of italic text or in bold, and [facility] has neither reviewed nor approved the modified material. All other unmodified content is copyright [facility]. Please see references footnoted in the original [facility] edition 2017 Admission Criteria Met: Yes
[2017-02-09 12:23] LABS: Hematocrit 27.4 % (35.5-45.6); Hemoglobin 8.5 gm/dl (11.8-15.2); Mean Corpuscular HGB Conc 31 % (32-34); Mean Corpuscular Hemoglobin 27 pg (28-32); Mean Corpuscular Volume 88 fl (84-94); Platelet Count 576 K/mm3 (140-440); Red Blood Count 3.12 M/mm3 (3.65-5.03); Red Cell Distribution Width 17.7 % (13.2-15.2)
[2017-02-09 12:26] LABS: White Blood Count 23.5 K/mm3 (4.5-11.0)
[2017-02-09 12:38] LABS: BUN/Creatinine Ratio 36.25; Calcium 8.1 mg/dL (8.4-10.2); Chloride 99.5 mmol/L (98-107)
[2017-02-09] MEDS ORDERED: NACL 0.9% 500 ML 500 ML IV ONE (12:49)
[2017-02-09] MEDS ORDERED: NACL 0.9% 1000 ML 2,000 ML IV ONE (12:49)
[2017-02-09 13:51] LABS: Anisocytosis 1+; Basophils % (Manual) 0 % (0.0-1.8); Blastocytes % (Manual) 0 %; Eosinophils % (Manual) 0 % (0.0-4.3); Hypochromasia 2+
[2017-02-09 13:52] LABS: Diff Status Complete; Giant Platelets Rare; Platelet Estimate Consistent w Auto
[2017-02-09 16:34] VITALS: BP 103/40
[2017-02-10] MEDS ORDERED: VANCOMYCIN 1,250 MG in NACL 0.9% 250ML 250 ML IV SCH (12:00)
== END 2017-02-09 16:39 | disposition admitted as inpatient to this hospital (09) ==
LOC: ED 10:35
DX: J90 Pleural effusion, not elsewhere classified (principal); I10 Essential (primary) hypertension; M19.90 Unspecified osteoarthritis, unspecified site; I48.91 Unspecified atrial fibrillation; I25.10 Atherosclerotic heart disease of native coronary artery without angina pectoris; E78.00 Pure hypercholesterolemia, unspecified; Z95.1 Presence of aortocoronary bypass graft; Z79.82 Long term (current) use of aspirin; Z88.2 Allergy status to sulfonamides; Z88.0 Allergy status to penicillin
CPT/HCPCS: 36415; 71010; 80048; 80061; 81001; 82140; 84484; 85007; 85025; 87040; 87086; 93005; 93010; 94640; 94644; 96365; 96367; 99291; J3370; J7030; J7040